=== PATIENT | male | born 1985 | race Caucasian/White ===

== ENCOUNTER 2017-07-07 12:24 | Emergency (ER) | payer BC, SELFPAY | END 2017-07-07 13:42 | disposition home or self-care (01) | PROVIDERS: Emergency Provider Nurse Practitioner; Visit Provider Nurse Practitioner | DX: J06.9 Acute upper respiratory infection, unspecified (principal); K21.9 Gastro-esophageal reflux disease without esophagitis; Z72.0 Tobacco use | CPT/HCPCS: 71020; 87804; 87880; 96372; 99202 ==

== ENCOUNTER 2017-08-23 19:50 | Emergency (ER) | payer BC, SELFPAY ==
[2017-08-23 20:18] VITALS: BP 113/77; PULSE 72; RESP 20; TEMP 36.8; O2SAT 100; BMI 19.6
--- NOTE | 2017-08-23 20:33 | HMH.EDUTC ---
[facility] [place] Clinical Impression: URI with cough and congestion Disposition: Home, Self-Care Condition on Discharge: Good Instructions: DI for Cough -- Adult, DI for Sinusitis, Sore Throat Additional Instructions: * Monitor Temp. Tylenol and/or Ibuprofen as needed. ER if fever is no less than 101 despite alternating Tylenol and Ibuprofen * Encourage fluids, water, Gatorade, powerade, pedialyte if /toddler/or child * Warm salt water gargles for throat irritation *Warm fluids *Sore throat lozenges *Sleep elevated *humidifier or vaporizer Lots of rest Increase fluids, water, Gatorade, powerade *Flonase 2 sprays each nostril daily but may take 2-3 days to notice improvement with it *Bromfed may cause drowsiness. Know how it effect you or your child. Before driving, caring for small children or sending your child to school *Your throat swab was sent to lab for culture. Those results area typically sent to your primary care physician. Be sure to follow up in 2-3 days if no improvement so they can review those results and treat if necessary If you dont have primary care I recommend you get one, but in the mean time you will have to return to a walk in clinic Follow up IMMEDIATELY for new or worsening of symptoms OR no noticeable improvement over the next 48-72 hours. 911 immediately for any life threatening symptoms such as chest pain or difficulty breathing Prescriptions: Brompheniramine/Pseudoephed/Dm [Bromfed DM Cough Syrup 5mL] 10 ml PO Q4H PRN #250 syrup PRN Reason: Cough Fluticasone Propionate [Flonase 50mcg nasal spray 16gm] 2 spr NS DAILY #1 bottle Referrals: Provider,Referral, [Primary Care Provider] - Time of Disposition: 20:47 Medical Decision Making - Medical Records Medical records reviewed: Yes: I reviewed the patient's medical records. Vital Signs: 08/23/17 20:18 Temperature 98.2 F Temperature Source Temporal Artery Scan Pulse Rate [Right] 72 Respiratory Rate 20 Blood Pressure [Right Arm] 113/77 Blood Pressure Mean [Right Arm] 89 Blood Pressure Source [Right Arm] Automatic Cuff Blood Pressure Position [Right Arm] Sitting 02 Sat by Pulse Oximetry 100 Oxygen Delivery Method Room Air - Immanuel Inquiry Pt receiving controlled substance: No Immanuel was queried for this patient: No [facility] [place] HPI - General Stated complaint: Cough, Sore throat, SOB Mode of Arrival: Ambulatory Source of Information: Patient Limitations: No Limitations Description of Symptoms (Recalled from Triage Doc. by RN): SORE THROAT HEENT Symptoms (Recalled from RN notes): Yes Resp Symptoms (Recalled from RN notes): No Skin Symptoms (Recalled from RN notes): No MS Symptoms (Recalled from RN notes): No Functional Status (Recalled from RN notes): N - History of Present Illness Provider Complaint: Patient state that he has been having sore throat, cough, sinus pain and pressure along with congestion for the last several days that has continued to get worse State that he is having pain and pressure feeling around his eyes states that he is not sure if he has had a fever or not but just does not feel well - Related Data Previous Rx's Medication Instructions Recorded Brompheniramine/Pseudoephed/Dm 10 ml PO Q4H PRN #250 syrup 08/23/17 [Bromfed DM Cough Syrup 5mL] Fluticasone Propionate [Flonase 2 spr NS DAILY #1 bottle 08/23/17 50mcg nasal spray 16gm] Allergies Allergy/AdvReac Type Severity Reaction Status Date / Time No Known Allergies Allergy Verified 08/23/17 20:24 - Worker's Comp Is this a Worker's Comp case?: No [facility] History I have reviewed the patient's past medical history: Yes - *Social History Smoking Status: Current every day smoker Tobacco Type: cigarettes Alcohol Intake: never - Psychiatric History Expresses thoughts of harming self/others: None Suicide Plan Description: No Plan ROS Obtained: Yes All systems reviewed & no additional complaints - ENT Ears, Nose, Mouth, and Thro
--- NOTE | 2017-08-23 20:38 | ED_ITS ---
[facility] [place]: URI with cough and congestion Disposition: Home, Self-Care Condition on Discharge: Good Instructions: DI for Cough -- Adult, DI for Sinusitis, Sore Throat Additional Instructions: * Monitor Temp. Tylenol and/or Ibuprofen as needed. ER if fever is no less than 101 despite alternating Tylenol and Ibuprofen * Encourage fluids, water, Gatorade, powerade, pedialyte if /toddler/or child * Warm salt water gargles for throat irritation *Warm fluids *Sore throat lozenges *Sleep elevated *humidifier or vaporizer Lots of rest Increase fluids, water, Gatorade, powerade *Flonase 2 sprays each nostril daily but may take 2-3 days to notice improvement with it *Bromfed may cause drowsiness. Know how it effect you or your child. Before driving, caring for small children or sending your child to school *Your throat swab was sent to lab for culture. Those results area typically sent to your primary care physician. Be sure to follow up in 2-3 days if no improvement so they can review those results and treat if necessary If you don? t have primary care I recommend you get one, but in the mean time you will have to return to a walk in clinic Follow up IMMEDIATELY for new or worsening of symptoms OR no noticeable improvement over the next 48-72 hours. 911 immediately for any life threatening symptoms such as chest pain or difficulty breathing Prescriptions: Brompheniramine/Pseudoephed/Dm [Bromfed DM Cough Syrup 5mL] 10 ml PO Q4H PRN # 250 syrup PRN Reason: Cough Fluticasone Propionate [Flonase 50mcg nasal spray 16gm] 2 spr NS DAILY #1 bottle Referrals: Provider,Referral, [Primary Care Provider] - Time of Disposition: 20:47 Medical Decision Making - Medical Records Medical records reviewed: Yes: I reviewed the patient's medical records. Vital Signs: 08/23/17 20:18 Temperature 98.2 F Temperature Source Temporal Artery Scan Pulse Rate [Right] 72 Respiratory Rate 20 Blood Pressure [Right Arm] 113/77 Blood Pressure Mean [Right Arm] 89 Blood Pressure Source [Right Arm] Automatic Cuff Blood Pressure Position [Right Arm] Sitting 02 Sat by Pulse Oximetry 100 Oxygen Delivery Method Room Air - Immanuel Inquiry Pt receiving controlled substance: No Immanuel was queried for this patient: No [facility] [place] - General Stated complaint: Cough, Sore throat, SOB Mode of Arrival: Ambulatory Source of Information: Patient Limitations: No Limitations Description of Symptoms (Recalled from Triage Doc. by RN): SORE THROAT HEENT Symptoms (Recalled from RN notes): Yes Resp Symptoms (Recalled from RN notes): No Skin Symptoms (Recalled from RN notes): No MS Symptoms (Recalled from RN notes): No Functional Status (Recalled from RN notes): N - History of Present Illness Provider Complaint: Patient state that he has been having sore throat, cough, sinus pain and pressure along with congestion for the last several days that has continued to get worse State that he is having pain and pressure feeling around his eyes states that he is not sure if he has had a fever or not but just does not feel well - Related Data Previous Rx's Medication Instructions Recorded Brompheniramine/Pseudoephed/Dm 10 ml PO Q4H PRN #250 syrup 08/23/17 [Bromfed DM Cough Syrup 5mL] Fluticasone Propionate [Flonase 2 spr NS DAILY #1 bottle 08/23/17 50mcg nasal spray 16gm] Allergies Allergy/AdvR
[2017-08-23 20:47] LABS: UTC Influenza A Antigen Negative (Negative); UTC Influenza B Antigen Negative (Negative); UTC Strep Screen (Rapid) Negative (Negative)
[2017-08-23 21:08] VITALS: BP 110/77; PULSE 70; RESP 18; TEMP 36.6
== END 2017-08-23 21:09 | disposition home or self-care (01) ==
PROVIDERS: Emergency Provider Nurse Practitioner; Family Provider Nurse Practitioner Family
DX: J06.9 Acute upper respiratory infection, unspecified (principal); R06.02 Shortness of breath
CPT/HCPCS: 87804; 87880; 96372; 99201

== ENCOUNTER 2017-09-15 12:56 | Inpatient (IN) | payer BC, SELFPAY ==
--- NOTE | 2017-09-15 | XR_ITS ---
XR ribs LT 2V HISTORY: Left-sided chest pain ORDERING PHYSICIAN: Brianda Ramos MD PATIENT AGE: 31 years COMPARISON: Chest x-ray of the same day FINDINGS: A frontal view of the chest shows small left-sided pneumothorax measuring 2.9 cm in width at the lung apex approximately 10% of the total lung volume.. Multiple views of the Left ribs were obtained. No fracture or dislocation. No lytic or blastic change. IMPRESSION: 1. Negative left ribs. 2. Small left-sided pneumothorax
[2017-09-15 12:59] VITALS: BP 121/62; PULSE 75; RESP 18; TEMP 36.7; O2SAT 98; BMI 19.0
--- NOTE | 2017-09-15 13:15 | XR_ITS ---
XR chest 2V HISTORY: Left-sided chest pain Chest pain ORDERING PHYSICIAN: Brianda Ramos MD PATIENT AGE: 31 years COMPARISON: 07/07/2017 FINDINGS: The cardiomediastinal silhouette and pulmonary vascularity are within normal limits. There is a small left-sided pneumothorax which measures 2.9 cm in thickness at the apex of the lung. No midline shift or diaphragmatic depression. No lobar consolidation or collapse. No acute bony anomalies. IMPRESSION: Small left-sided pneumothorax. Significant result called to Dr. Richard MD on 09/15/2017 2:06 PM.
--- NOTE | 2017-09-15 13:23 | HMH.EDGENADL ---
ED Disposition Clinical Impression: Rib pain on left side, Spontaneous pneumothorax Disposition: Still a Patient Condition on Discharge: Fair Referrals: Provider,Referral, [Primary Care Provider] - Edwin Greenwood MD [Staff Physician] - - Critical Care Critical Care Time: No Attestation: On , the high probability of a clinically significant, sudden or life threatening deterioration of the following system(s) required my full and direct attention, intervention and personal management. The time I documented below is in addition to time spent performing reported procedures but includes the following listed in this critical care notation. Medical Decision Making Vital Signs: 09/15/17 12:59 Temperature 98.1 F Temperature Source Oral Pulse Rate [Right Brachial] 75 Respiratory Rate 18 Blood Pressure [Right Arm] 121/62 Blood Pressure Mean [Right Arm] 81 Blood Pressure Source [Right Arm] Automatic Cuff Blood Pressure Position [Right Arm] Sitting 02 Sat by Pulse Oximetry 98 Oxygen Delivery Method Room Air - Lab Data Lab Results 09/15/17 13:50: WBC 7.6, RBC 5.09, Hgb 16.0, Hct 48.2, MCV 94.8 H, MCH 31.4 H, MCHC 33.2, RDW 12.8, Plt Count 199, MPV 8.1, Neut % (Auto) 72.0, Lymph % (Auto) 21.6, [place] % (Auto) 5.2, Eos % (Auto) 0.9, Baso % (Auto) 0.4, Neut # (Auto) 5.5, Lymph # (Auto) 1.6, [place] # (Auto) 0.4, Eos # (Auto) 0.1, Baso # (Auto) 0.0 09/15/17 13:50: Sodium 139, Potassium 4.3, Chloride 105, Carbon Dioxide 27, Anion Gap 11.3, BUN 13, Creatinine 0.88, Estimated Creat Clear 111, Estimated GFR 102, Est GFR ( Amer) 124, Glucose 92, Calcium 9.0, Total Bilirubin 0.6, AST 13 L, ALT 28, Alkaline Phosphatase 96, Troponin I < 0.02, Total Protein 7.6, Albumin 4.2, Globulin 3.4 H, Albumin/Globulin Ratio 1.2 Result diagrams: 09/15/17 13:50 09/15/17 13:50 Orders (Tests/Meds): ED MEDICATIONS Discontinued Medications Generic Name Dose Route Start Last Admin Trade Name Zanaq PRN Reason Stop Dose Admin Famotidine 20 mg 09/15/17 13:15 09/15/17 13:47 Pepcid 20mg/2ml Vial IV 09/15/17 13:16 20 mg ONCE ONE Administration Ketorolac Tromethamine 15 mg 09/15/17 13:15 09/15/17 13:47 Toradol 30mg/Ml Vial IV 09/15/17 13:16 15 mg ONCE ONE Administration ORDERS Category Date Time Status B-Type Natriuretic Peptide Stat Lab 09/15/17 13:50 Received D-Dimer Stat Lab 09/15/17 13:50 Received ECG Request by /Martina Stat Y 09/15/17 13:15 Ordered - Radiology Data #1 Image(s): Chest Image Reviewed: Yes I reviewed the patient's radiology image, Yes I discussed the image results w/the radiologist, Yes I have reviewed radiologist's interpretation, Yes I reviewed the patient's radiology image w/the ED provider Preliminary Findings: Abnormal No rib fracture 10% left-sided pneumothorax. - Immanuel Inquiry Pt receiving controlled substance: No Immanuel was queried for this patient: No Medical Decision Making Narrative: I called the on-call surgeon Dr. Greenwood who agreed to admit the patient for observation. I spoke with the patient about being admitted to [facility] for observation and he was agreeable. His questions and the family questions were answered to the best of my ability. General Adult HPI - General Chief complaint: PAIN Stated complaint: L rib pain Mode of Arrival: EMS Limitations: No Limitations Description of Symptoms (Recalled from ER Triage Doc. by RN): Pt c/o pain in L rib area radiating into upper chest and shoulder, states pain began lastnight after he moved him self around on the bed - History of Present Illness HPI narrative: 31 years old white male smoker with hx of alcoholism. Yesterday at 11:00 PM and while laying on a prone position watching TV when he twisted and developed the sudden onset of popping sound and pain at the left lower costochondral junction. The pain started radiating to his back worse with deep breathing and cough. He d
--- NOTE | 2017-09-15 13:26 | ED_ITS ---
ED Disposition Clinical Impression: Rib pain on left side, Spontaneous pneumothorax Disposition: Still a Patient Condition on Discharge: Fair Referrals: Provider,Referral, [Primary Care Provider] - Edwin Greenwood MD [Staff Physician] - - Critical Care Critical Care Time: No Attestation: On , the high probability of a clinically significant, sudden or life threatening deterioration of the following system(s) required my full and direct attention, intervention and personal management. The time I documented below is in addition to time spent performing reported procedures but includes the following listed in this critical care notation. Medical Decision Making Vital Signs: 09/15/17 12:59 Temperature 98.1 F Temperature Source Oral Pulse Rate [Right Brachial] 75 Respiratory Rate 18 Blood Pressure [Right Arm] 121/62 Blood Pressure Mean [Right Arm] 81 Blood Pressure Source [Right Arm] Automatic Cuff Blood Pressure Position [Right Arm] Sitting 02 Sat by Pulse Oximetry 98 Oxygen Delivery Method Room Air - Lab Data Lab Results 09/15/17 13:50: WBC 7.6, RBC 5.09, Hgb 16.0, Hct 48.2, MCV 94.8 H, MCH 31.4 H, MCHC 33.2, RDW 12.8, Plt Count 199, MPV 8.1, Neut % (Auto) 72.0, Lymph % (Auto) 21.6, Wilson % (Auto) 5.2, Eos % (Auto) 0.9, Baso % (Auto) 0.4, Neut # (Auto) 5.5 , Lymph # (Auto) 1.6, Wilson # (Auto) 0.4, Eos # (Auto) 0.1, Baso # (Auto) 0.0 09/15/17 13:50: Sodium 139, Potassium 4.3, Chloride 105, Carbon Dioxide 27, Anion Gap 11.3, BUN 13, Creatinine 0.88, Estimated Creat Clear 111, Estimated GFR 102, Est GFR ( Amer) 124, Glucose 92, Calcium 9.0, Total Bilirubin 0.6, AST 13 L, ALT 28, Alkaline Phosphatase 96, Troponin I < 0.02, Total Protein 7.6, Albumin 4.2, Globulin 3.4 H, Albumin/Globulin Ratio 1.2 Result diagrams: 09/15/17 13:50 09/15/17 13:50 Orders (Tests/Meds): ED MEDICATIONS Discontinued Medications Generic Name Dose Route Start Last Admin Trade Name Opal PRN Reason Stop Dose Admin Famotidine 20 mg 09/15/17 13:15 09/15/17 13:47 Pepcid 20mg/2ml Vial IV 09/15/17 13:16 20 mg ONCE ONE Administration Ketorolac Tromethamine 15 mg 09/15/17 13:15 09/15/17 13:47 Toradol 30mg/Ml Vial IV 09/15/17 13:16 15 mg ONCE ONE Administration ORDERS Category Date Time Status B-Type Natriuretic Peptide Stat Lab 09/15/17 13:50 Received D-Dimer Stat Lab 09/15/17 13:50 Received ECG Request by /Martina Stat Y 09/15/17 13:15 Ordered - Radiology Data #1 Image(s): Chest Image Reviewed: Yes I reviewed the patient's radiology image, Yes I discussed the image results w/the radiologist, Yes I have reviewed radiologist's interpretation, Yes I reviewed the patient's radiology image w/the ED provider Preliminary Findings: Abnormal No rib fracture 10% left-sided pneumothorax. - Immanuel Inquiry Pt receiving controlled substance: No Immanuel was queried for this patient: No Medical Decision Making Narrative: I called the on-call surgeon Dr. Greenwood who agreed to admit the patient for observation. I spoke with the patient about being admitted to [facility] for observation and he was agreeable. His questions and the family questions were answered to the best of my ability. General Adult HPI - General Chief complaint: PAIN Stated compl
[2017-09-15 14:03] LABS: Hematocrit 48.2 % (42.0-52.0); Mean Corpuscular HGB Conc 33.2 g/dL (31.8-35.4); Mean Corpuscular Hemoglobin 31.4 pg (27.0-31.2); Mean Corpuscular Volume 94.8 fl (80-94); Mean Platelet Volume 8.1 fl (7.4-10.4); Platelet Count 199 K/mm3 (142-424); Red Blood Count 5.09 M/mm3 (4.60-6.20); Red Cell Distribution Width 12.8 % (11.5-17.5); White Blood Count 7.6 K/mm3 (4.8-10.8)
[2017-09-15 14:04] LABS: Basophils % 0.4 % (0.1-2.0); Eosinophils # 0.1 K/mm3 (0.0-0.4); Eosinophils % 0.9 % (0.1-12.0); Lymphocytes # 1.6 K/mm3 (0.7-4.5); Lymphocytes % 21.6 K/mm3 (10-50); Monocytes # 0.4 K/mm3 (0.1-1.0); Monocytes % 5.2 % (1.7-9.3); Neutrophils # 5.5 K/mm3 (1.8-7.8)
[2017-09-15 14:14] LABS: Alanine Aminotransferase 28 U/L (12-78); Albumin Level 4.2 gm/dL (3.4-5.0); Albumin/Globulin Ratio 1.2 (1.1-1.8); Alkaline Phosphatase 96 U/L (46-116); Anion Gap 11.3 mEq/L (5-15); Aspartate Amino Transferase 13 U/L (15-37); Bilirubin,Total 0.6 mg/dL (0.2-1.0); Blood Urea Nitrogen 13 mg/dL (7-18); Carbon Dioxide 27 mmol/L (21.0-32.0); Chloride 105 mmol/L (98-107); Creatinine Clearance Estimated 111 mL/min (0-300); Creatinine,Serum 0.88 mg/dL (0.70-1.30); Estimated Glomerular Filt Rate 102 ml/min (>60); GFR (African American) 124 ML/MIN (>60); Globulin 3.4 gm/dl (1.3-3.2); Glucose 92 mg/dL (74-106); Potassium 4.3 mmoL/L (3.5-5.1); Sodium 139 mmol/L (136-145); Total Protein,Serum 7.6 gm/dL (6.4-8.2); Troponin I < 0.02 ng/ml (0.00-0.06)
[2017-09-15 14:25] LABS: D-Dimer < 100 (0-400)
[2017-09-15 16:44] VITALS: BP 213/105; PULSE 102; RESP 18; TEMP 36.8; O2SAT 98
[2017-09-15 16:56] VITALS: BP 118/60; PULSE 91; RESP 20; TEMP 36.8; O2SAT 99; BMI 17.1
--- NOTE | 2017-09-15 18:30 | XR_ITS ---
XR chest portable 1826 hours HISTORY: Follow-up pneumothorax ITS.REASON: left PTX ORDERING PHYSICIAN: Edwin Greenwood MD PATIENT AGE: 31 years COMPARISON: 09/15/2017 1319 hours FINDINGS: Left-sided pneumothorax is once again noted and is slightly increased in size measuring 3.6 cm at the lung apex previously at 2.9 cm. The pneumothorax occupies approximately 10% of the total lung volume. No mediastinal shift or diaphragmatic depression. The right lung is clear. IMPRESSION: Slight increase in size in left-sided pneumothorax
[2017-09-15 20:00] VITALS: BP 113/64; PULSE 68; RESP 18; TEMP 36.9; O2SAT 100
[2017-09-15 23:53] VITALS: RESP 16
[2017-09-16] VITALS (17 sets, daily range): BP systolic 110–129; BP diastolic 48–98; PULSE 58–89; RESP 16–22; TEMP 36.4–37.3; O2SAT 7–100; BMI 17.1
--- NOTE | 2017-09-16 03:23 | PC.NURSE ---
no changes noted from previous assessment, pt c/o pain in the left side made worse by walking relieved when leaning forward, scheduled medications made pain tolerable and pt was able to rest most of the night, pt denies SOA, breath sounds are clear to auscultation, bowel sounds are active, vss, no acute distress noted at this time, call light in reach, will continue to monitor.
--- NOTE | 2017-09-16 06:00 | XR_ITS ---
XR chest 2V 0557 hours HISTORY: Follow-up pneumothorax ITS.REASON: left PTX ORDERING PHYSICIAN: Edwin Greenwood MD PATIENT AGE: 31 years COMPARISON: 09/15/2017 1826 hours FINDINGS: The cardiomediastinal silhouette and pulmonary vascularity are within normal limits. There remains a small left sided pneumothorax which measures 3.6 cm in thickness at the lung apex and 1 cm in thickness laterally. On the lateral view the pneumothorax extends posteriorly measuring up to 2 cm in thickness inferiorly. The lateral portion of the pneumothorax is somewhat more prominent. The right lung is clear. No mediastinal shift. Left hemidiaphragm may be slightly depressed compared to the previous exams. No effusions or infiltrates. There is some minimal atelectatic change in the left lung base. IMPRESSION: Small left-sided pneumothorax appears very slightly larger compared to the previous exam and there may be some mild diaphragmatic depression. The pneumothorax approximately 10% of the total lung volume
--- NOTE | 2017-09-16 06:37 | HMH.HP ---
*Admission Date: 09/15/17 *Chief complaint: left chest pain *History of present illness: This is a 31-year-old gentleman who presented to the emergency department with increasing intermittent pain in the left chest. He states that this started at about 11:00 the night before . He developed sharp pain and some intermittent shortness of air. No hemoptysis. No fevers. Evaluation in the emergency department included a chest x-ray which revealed a left apical pneumothorax of approximately 10%. This morning he feels much better . [facility] History Medical History: Denies:: Cancer, Diabetes Mellitus Type 1, Diabetes Mellitus Type 2, MRSA Other Surgeries: Yes: Colonoscopy, EGD Amputation: No Fractures: No - *Social History Educational Level: Completed High School Smoking Status: Current every day smoker Tobacco Type: cigarettes # Packs/Day (cigarettes): 1 Alcohol Intake: former Alcohol Intake Frequency:: a few times a week Substance Use Type: painkillers Last Used Substance: unknown Occupational Status: employed Housing: house Household Members: family - Psychiatric History Expresses thoughts of harming self/others: None Suicide Plan Description: No Plan *Family Hx:: Cancer, Coronary Artery Disease, Diabetes, Hypertension, Stroke, Tuberculosis Review of Systems - Constitutional Denies anorexia - Eyes Denies change in vision - ENT Denies abnormal hearing - *Cardiovascular Denies leg swelling - *Respiratory Denies cough - *Gastrointestinal Denies abdominal pain - *Genitourinary Denies difficulty urinating - *Musculoskeletal Denies abnormal walking - Psychiatric Denies anxiety - Hematologic/Lymphatic Denies easy bleeding Meds Home Medications Medication Instructions Recorded Confirmed Type Esomeprazole Magnesium [Nexium] 20 mg PO DAILY 09/15/17 09/15/17 History Allergies Allergy/AdvReac Type Severity Reaction Status Date / Time No Known Allergies Allergy Verified 09/15/17 12:58 Exam Vital signs and Labs for Last 24 Hours: Temp Pulse Resp BP Pulse Ox 97.8 F 64 16 117/48 98 09/16/17 04:32 09/16/17 04:32 09/16/17 04:32 09/16/17 04:32 09/16/17 04:32 I & O for Last 24 hours: Intake & Output 09/13/17 09/14/17 09/15/17 09/16/17 11:59 11:59 11:59 11:59 Intake Total 740 / 740 Balance 740 / 740 Weight 4 lb 0.551 oz - Constitutional no acute distress - *Routine HEENT Exam Head: Present: normocephalic, atraumatic - *Routine Neck Exam Present: full ROM - *Routine Respiratory Exam Present: CTA bilaterally - *Routine Cardiovascular Exam Present: RRR - *Routine Abdominal Exam Present: soft. Absent: tenderness - *Routine Extremities Exam Present: full ROM. Absent: cyanosis, clubbing, edema - *Routine Neurological Exam Present: alert, oriented X3 - Routine Psychiatric Exam Present: normal affect Assessment and Plan (1) Spontaneous pneumothorax Current visit: Yes Status: Acute Category: Medical Code(s): J93.83 - Other pneumothorax Small left apical pneumothorax Nasal cannula oxygen Follow-up morning chest film I have had a long discussion with the patient concerning the different courses of spontaneous pneumothoraces. He understands the possibility of recurrence, thoracostomy tubes, pneumothorax tubes, and possible surgical intervention.
--- NOTE | 2017-09-16 07:38 | P.CONPHA_ITS ---
[facility] Pharmacy VTE Monitoring - Patient Demographics Admission date: 09/15/17 Report Date: 09/16/17 Time: 07:37 Allergies/Adverse Reactions: Patient Allergies No Known Allergies Allergy (Verified 09/15/17 12:58) Height: 1.83 m Weight: 57.238 kg Patient Problems: Current Active Problems Rib pain on left side (Acute) Spontaneous pneumothorax (Acute) - VTE Risk Labs: VTE Related Lab Results Hgb 16.0 g/dL (14.1-18.0) 09/15/17 13:50 Hct 48.2 % (42.0-52.0) 09/15/17 13:50 Plt Count 199 K/mm3 (142-424) 09/15/17 13:50 BUN 13 mg/dL (7-18) 09/15/17 13:50 Creatinine 0.88 mg/dL (0.70-1.30) 09/15/17 13:50 Estimated Creat Clear 111 mL/min (0-300) 09/15/17 13:50 VTE Score: 0 VTE Risk Level: Very Low Risk - Prophylaxis VTE Prophylaxis Ordered?: Yes Types of VTE Prophylaxis: TEDS Knee High Location of Applied Device: Bilateral Lower Extremeties - VTE Diagnosis Confirmed Treatment or plan recommended: Continue Current Treatment
--- NOTE | 2017-09-16 12:00 | XR_ITS ---
XR chest 2V 1156 hours HISTORY: ITS.REASON: left PTX ORDERING PHYSICIAN: Edwin Greenwood MD PATIENT AGE: 31 years COMPARISON: Prior exam from the same day FINDINGS: The left-sided pneumothorax is enlarging now occupying approximately 20-25% of the total lung volume. The apical pleural distance is 5.2 cm compared to 3.6 cm. The pneumothorax laterally measures 2.4 cm previously 1 cm. Posteriorly the pneumothorax measures 3.7 cm compared to 2 cm previously. No significant mediastinal shift. Left hemidiaphragm is slightly depressed but not significant change. Small left effusion is also suspected IMPRESSION: Enlarging left-sided pneumothorax. Please see above for detail Significant findings called to the patient's nurse Emilie on 09/16/2017 12:28 PM.
--- NOTE | 2017-09-16 13:27 | XR_ITS ---
XR chest portable 1322 hours HISTORY: Chest tube placement for pneumothorax ITS.REASON: chest tube ORDERING PHYSICIAN: Edwin Greenwood MD PATIENT AGE: 31 years COMPARISON: Same day FINDINGS: There is been interval insertion of the chest tube on the left. There is been near complete resolution of the left-sided pneumothorax with only minimal apical component. The lungs are clear. The heart and pulmonary vasculature are unremarkable. IMPRESSION: Interval placement of left-sided chest tube with near complete resolution of left-sided pneumothorax
--- NOTE | 2017-09-16 13:30 | PC.NURSE ---
pt had chest tube placed by Dr Greenwood. Time out was performed at 1254. Fidencio Mack rn and Shantelle Galvez srna chiquita miranda. procedure end was at 1325
--- NOTE | 2017-09-16 13:45 | HMH.OPNOTE ---
Date of procedure: 09/16/17 Pre-op Diagnosis:: Spontaneous left pneumothorax Post-op Diagnosis:: Same Procedure performed:: Left thoracostomy tube (24 Faroese) Surgeon:: Edwin Greenwood MD Anesthesia: local Estimated blood loss (mL): 5 Clinical Note:: This is a 31-year-old gentleman who presented with a spontaneous 10% left pneumothorax. Follow-up chest films revealed expansion and the decision was made to proceed with thoracostomy tube placement. Operative findings:: Small colorado of air noted at time of placement Operative note:: After informed consent was obtained, the patient maintained in a supine position. The left chest was prepped and draped in a sterile fashion. After infiltration with local anesthetic an incision was made just below the 6 interspace. The deep subcutaneous she was carefully dissected up and over the rib margin. The chest cavity was entered and a small colorado of air was noted. A 24 Faroese chest tube was then secured in position and anchored at 14 cm utilizing interrupted silk suture. Dressings were applied and a chest x-ray is pending. Condition: stable Disposition: no change Complications:: no immediate
--- NOTE | 2017-09-16 17:53 | PC.NURSE ---
31 YEAR OLD WHITE MALE PRESENTED TO THE ER ON 09/15/17 WITH A CHIEF COMPLAINT OF INTERMITTENT PAIN LEFT CHEST. HE WAS ADMITTED TO THE HOSPITAL WITH A DIAGNOSIS OF LEFT PNEUMOTHORAX. DR. PATRICIA CONSULTED A CHEST TUBE WAS INSERTED. PATIENT TOLERATED THE PROCEDURE WELL. HE COMPLAINED OF PAIN THIS AFTERNOON AND WAS GIVEN A HYDROCODONE PER ORDER. PATIENT STATES AFTER THE MEDICATION WAS GIVEN THAT HE WAS ADDICTED TO PAIN PILLS APPROXIMATELY 7 YEARS AGO AND WOULD PREFER IV PAIN MEDS IF AT ALL POSSIBLE. HE RATED HIS PAIN AT AN 8/10 30 MINUTES AFTER PAIN MEDICATION HE RATED THE PAIN 6/10. HE HAS FAMILY AT BEDSIDE AND STATES HE IS FEELING SOME BETTER AT THIS TIME. HE REFUSED HIS MELIZA HOSE. HE IS ON 2 LITERS OF OXYGEN PER NASAL CANULA. WILL CONTINUE TO MONITOR. SONIA ALCANTAR, MSN, RN
--- NOTE | 2017-09-16 19:20 | PC.NURSE ---
PT FULL CODE, REPORT FROM [email or web address]
--- NOTE | 2017-09-16 19:45 | PC.NURSE ---
late entry: verified via multiple conversations with Dr Greenwood that he DOES NOT want any type of hemostats to be present at bedside. if issues arise contact surgeon. if tube becomes disconnected, reconnect the tube and notify surgeon. DO NOT clamp the chest tube with hemostats. primary care nurse, CNO and Nurse Rail Splitter notified of Dr Greenwood's request.
[2017-09-17] VITALS: BP 115/61; PULSE 64; RESP 18; TEMP 37.1; O2SAT 100
[2017-09-17 04:00] VITALS: BP 98/60; PULSE 71; RESP 18; TEMP 36.5; O2SAT 100
--- NOTE | 2017-09-17 04:06 | PC.NURSE ---
PT AWAKE FOR OVER HALF OF SHIFT OF THIS TIME. HE HAD FRIEND FROM OUT OF TOWN VISITING. SIGNIFICANT OTHER AT BEDSIDE. IV IN RIGHT FOREARM SECURE AND PATENT, SALINE LOCKED. C/O PAIN REQUESTING PRN PAIN MED X1 OF THIS TIME. STILL RECEIVING SCHEDULED TORADOL WELL. ON OXYGEN 2L NC; RESPIRATIONS EVEN AND UNLABORED. BREATH SOUNDS CLEAR, ONLY SLIGHTLY DIMINISHED IN LEFT BASE. PT HAS LABS THIS AM AND REPEAT CXR. LEFT CHEST TUBE TO 20CM WALL SUCTION. DRESSING AND TAPE CLEAN/DRY/INTACT. NO C/O SOA. PT STABLE. VITAL SIGNS WNL. WILL CONTINUE TO MONITOR. REPORT TO BE GIVEN TO ONCOMING NURSE.
--- NOTE | 2017-09-17 06:00 | XR_ITS ---
XR chest portable 0600 hours HISTORY: Follow-up pneumothorax ITS.REASON: left PTX ORDERING PHYSICIAN: Edwin Greenwood MD PATIENT AGE: 31 years COMPARISON: 09/16/2017 FINDINGS: Left chest tube remains in place. There is a tiny residual left apical pneumothorax probably not significant changed. This measures approximately 5 mm thickness Remaining lungs are clear. Unremarkable cardiovascular structures. IMPRESSION: Small residual left apical pneumothorax status post chest tube placement unchanged
--- NOTE | 2017-09-17 07:15 | PC.NURSE ---
REPORT GIVEN TO Prasad ALCANTAR W/C
[2017-09-17 07:41] VITALS: BP 98/57; PULSE 58; RESP 16; TEMP 37; O2SAT 100
[2017-09-17 08:00] VITALS: O2SAT 100
--- NOTE | 2017-09-17 08:32 | HMH.GSPN ---
Subjective Patient reports: no new complaints, feels better Exam Vital signs and Labs for Last 24 Hours: Temp Pulse Resp BP Pulse Ox 98.6 F 58 L 16 98/57 100 09/17/17 07:41 09/17/17 07:41 09/17/17 07:41 09/17/17 07:41 09/17/17 07:41 I & O for Last 24 hours: Intake & Output 09/14/17 09/15/17 09/16/17 09/17/17 11:59 11:59 11:59 11:59 Intake Total 1100 / 1100 720 / 720 Output Total 522 / 522 Balance 1100 / 1100 198 / 198 Weight 126 lb 3.011 oz - Constitutional no acute distress - *Routine Respiratory Exam Absent: respiratory distress Comments: tiny leak noted with cough/movement - *Routine Cardiovascular Exam Present: RRR - *Routine Abdominal Exam Present: soft Progress Note: A&P (1) Spontaneous pneumothorax Status: Acute Assessment and plan: tiny leak noted continue chest tube to suction for now possible water seal tomorrow repeat CXR in AM Current Visit: Yes
--- NOTE | 2017-09-17 11:37 | PC.NURSE ---
0715 - Received report from Javier Nance RN
[2017-09-17 15:58] VITALS: BP 112/69; PULSE 71; RESP 18; TEMP 37.2; O2SAT 100
--- NOTE | 2017-09-17 16:45 | PC.NURSE ---
Pt has been A&Ox3 this shift in NAD. VSS. Afebrile. Lungs CTA and diminished in (L) base. (L) chest tube patent to 20cm wall suction. No crepitus palpated. No air leak appreciated this shift. O2 @ 2LPM via NC. Pt reports pain with movement and requested [place] x1 as of this documentation. (R) FA IV saline locked; no s/s of infiltration. Flushes easily /c good blood return. BLE MELIZA hospablo refused. Bed in low position. Call jesus within reach. Will continue to monitor.
--- NOTE | 2017-09-17 17:42 | PC.NURSE ---
Nicoderm patch 21mg applied to (L) upper arm. Patch removed from (R) anterior chest.
--- NOTE | 2017-09-17 18:26 | PC.NURSE ---
Pleur-evac drng @ 30ml. Pt had a total of 8mls out this shift of red drng. No air leak noted.
--- NOTE | 2017-09-17 19:01 | PC.NURSE ---
Report given to Prasad Pacheco RN
[2017-09-17 19:58] VITALS: BP 105/57; PULSE 56; RESP 16; TEMP 36.4; O2SAT 100
[2017-09-18 04:16] VITALS: BP 107/57; PULSE 56; RESP 18; TEMP 36.5; O2SAT 98
--- NOTE | 2017-09-18 04:42 | PC.NURSE ---
PT HAS BEEN AWAKE HALF OF SHIFT, SITTING UP IN BED PLAYING VIDEO GAMES, S/O AT BEDSIDE. CONTINUES TO RECEIVE SCHEDULED PAIN MEDICATION FOR LCW PAIN, SHARP IN INTENSITY, AGGRAVATED BY MOVEMENT. REPORTS THAT TORADOL RELIEVES PAIN. NO PRN PAIN MEDICATION NEEDED THIS SHIFT. BREATH SOUNDS CLEAR, DIMINISHED IN LEFT LOWER LOBE. DENIES SHORTNESS OF BREATH. 02 @ 2L NC IN PLACE. LEFT CHEST TUBE IN PLACE TO 20CM WALL SUCTION, DRG SECURE AND INTACT. NO LEAKS NOTED AROUND DRG. PT DID C/O OF HEARTBURN LAST EVENING, WAS GIVEN SCHEDULED PROTONIX. PT C/O OF HEARTBURN CONTINUED AND HE WAS THEN GIVEN PRN TUMS, REPORTED RELIEF WITH REASSESSMENT. PT REPORTS HE HAS LOTS OF STOMACH ISSUES AND HEARTBURN AND DRINKS MAALOX ALL THE TIME. PT EDUCATED ON POC, MEDICATIONS, PAIN AND INTERVENTIONS, SAFETY, AND CALL LIGHT. LYING IN BED RESTING WITH S/O AT BEDSIDE, CALL LIGHT WITHIN REACH.
--- NOTE | 2017-09-18 06:00 | XR_ITS ---
XR chest portable 0606 hours HISTORY: Follow-up pneumothorax ITS.REASON: left PTX ORDERING PHYSICIAN: Edwin Greenwood MD PATIENT AGE: 31 years COMPARISON: 09/17/2017 FINDINGS: Left-sided chest tube remains in place. There is a tiny residual apical pneumothorax which is not simply changed. No lobar consolidation or collapse. IMPRESSION: No change left chest tube with tiny residual apical pneumothorax
--- NOTE | 2017-09-18 07:13 | PC.NURSE ---
REPORT GIVEN TO Javier ADRIAN W/C
[2017-09-18 07:26] VITALS: BP 103/48; PULSE 53; RESP 16; TEMP 36.8; O2SAT 99
--- NOTE | 2017-09-18 07:26 | PC.NURSE ---
HANDOFF REPORT GIVEN TO Mae TOUSSAINT RN
[2017-09-18 08:23] VITALS: RESP 18; O2SAT 99
--- NOTE | 2017-09-18 08:25 | HMH.GSPN ---
Subjective Patient reports: no new complaints Exam Vital signs and Labs for Last 24 Hours: Temp Pulse Resp BP Pulse Ox 98.3 F 53 L 16 103/48 99 09/18/17 07:26 09/18/17 07:26 09/18/17 07:26 09/18/17 07:26 09/18/17 07:26 I & O for Last 24 hours: Intake & Output 09/15/17 09/16/17 09/17/17 09/18/17 11:59 11:59 11:59 11:59 Intake Total 1100 / 1100 720 / 720 1090 / 1090 Output Total 522 / 522 504 / 504 Balance 1100 / 1100 198 / 198 586 / 586 Weight 126 lb 3.011 oz - Constitutional no acute distress - *Routine Respiratory Exam Present: CTA bilaterally Comments: no leak - *Routine Abdominal Exam Present: soft Progress Note: A&P (1) Spontaneous pneumothorax Status: Acute Assessment and plan: on suction with no leak and with stable tiny residual apical PTX Water Seal CXR at 14:00 Possible removal of chest tube tomorrow (pending repeat CXRs) Current Visit: Yes
--- NOTE | 2017-09-18 14:00 | XR_ITS ---
XR chest 2V 1350 hours HISTORY: Follow-up pneumothorax, chest tube to waterseal ITS.REASON: chest tube to water seal ORDERING PHYSICIAN: Edwin Greenwood MD PATIENT AGE: 31 years COMPARISON: Same day FINDINGS: Chest tube remains in place on the left. Previously described left apical pneumothorax is barely perceptible. Lungs are clear. No effusions or infiltrates. IMPRESSION: Tiny residual left apical pneumothorax barely perceptible decrease in size with left chest tube in place
[2017-09-18 15:35] VITALS: BP 100/54; PULSE 74; RESP 18; TEMP 36.8; O2SAT 99
--- NOTE | 2017-09-18 19:15 | PC.NURSE ---
PT FULL CODE; REPORT RECEIVED FROM RENA
[2017-09-18 20:00] VITALS: BP 104/61; PULSE 74; RESP 18; TEMP 36.8; O2SAT 99
[2017-09-18 21:20] VITALS: RESP 18; O2SAT 99
[2017-09-19] VITALS: BP 95/56; PULSE 78; RESP 18; TEMP 37; O2SAT 98
[2017-09-19 03:12] LABS: POC Glucose,Bedside 110 mg/dL (70-110)
[2017-09-19 04:00] VITALS: BP 101/50; PULSE 63; RESP 18; TEMP 36.4; O2SAT 100
--- NOTE | 2017-09-19 06:00 | XR_ITS ---
XR chest portable 0544 hours HISTORY: Follow-up pneumothorax ITS.REASON: left PTX ORDERING PHYSICIAN: Edwin Greenwood MD PATIENT AGE: 31 years COMPARISON: 09/18/2017 FINDINGS: Left-sided chest tube remains in place. There is increased density along the left pulmonary apex which could be due to some developing pleural thickening. No obvious pneumothorax apparent. Right lung is clear. IMPRESSION: Left chest tube present without obvious pneumothorax with pleural thickening in the left apex
--- NOTE | 2017-09-19 06:52 | PC.NURSE ---
PT SLEPT INTERVALS THIS SHIFT. IV SECURE AND PATENT TO SALINE LOCK. C/O PAIN, REQUESTED TYLENOL. BEGINNING OF SHIFT, PT ASKING ABOUT WATER CHAMBER ON CHEST TUBE SINCE IT WAS ON WATER SEAL. IT FLUCTUATES UP AND DOWN WITH INSPIRATION AND EXPIRATION. I TOLD HIM THIS SHOWS THAT THERE IS NO AIR LEAK. PT STATES HAS GERD, C/O HEARTBURN, TUMS GIVEN PER SEP. LATER PT C/O NAUSEA. PT HAS CHEST TUBE, DIDN'T WANT PT VOMITING. PT HAD NOTHING ORDERED FOR NAUSEA/VOMITING. SPOKE WITH DR. PATRICIA, HE ORDERED ZOFRAN WHICH WAS GIVEN. NEXT FEW HOURS LATER, PT C/O AIR IN HIS GUTS, AND IT FEELS FUNNY I ASKED IF HE WAS SHAKY, HE SAID YES. SPOT CHECK FINGER STICK, WAS 110. I ASKED PT IF HE THOUGHT HE WAS FEELING ANXIOUS/NERVOUS. HE SAID MAYBE. MEPRIDINE GIVEN FOR SHIVERING/SHAKINESS. NO FURTHER COMPLAINTS NOTED. PT STABLE. WILL CONTINUE TO MONITOR, REPORT TO BE GIVEN TO ONCOMING NURSE.
--- NOTE | 2017-09-19 07:29 | PC.NURSE ---
REPORT GIVEN TO Eladio MICHAEL W/C
--- NOTE | 2017-09-19 07:52 | HMH.GSPN ---
Subjective Patient reports: no new complaints (some nausea overnight...feels fine now) Exam Vital signs and Labs for Last 24 Hours: Temp Pulse Resp BP Pulse Ox 97.6 F 63 18 101/50 100 09/19/17 04:00 09/19/17 04:00 09/19/17 04:00 09/19/17 04:00 09/19/17 04:00 Laboratory Results - last 24 hr 09/19/17 03:04: POC Glucose 110 I & O for Last 24 hours: Intake & Output 09/16/17 09/17/17 09/18/17 09/19/17 11:59 11:59 11:59 11:59 Intake Total 1100 / 1100 720 / 720 1090 / 1090 990 / 990 Output Total 522 / 522 504 / 504 800 / 800 Balance 1100 / 1100 198 / 198 586 / 586 190 / 190 Weight 126 lb 3.011 oz Radiology Reports for the Last 24 Hours: no PTX noted this AM - Constitutional no acute distress - *Routine Respiratory Exam Absent: respiratory distress - *Routine Abdominal Exam Present: soft Progress Note: A&P (1) Spontaneous pneumothorax Status: Acute Assessment and plan: no PTX and no leak noted on water seal remove chest tube this AM Current Visit: Yes
[2017-09-19 08:00] VITALS: BP 103/56; PULSE 56; RESP 20; TEMP 36.9; O2SAT 98
--- NOTE | 2017-09-19 08:19 | HMH.ACPN ---
Internal Medicine - PN: Subj *Date: 09/19/17 *Time: 08:19 Exam Vital signs and Labs for Last 24 Hours: Temp Pulse Resp BP Pulse Ox 98.4 F 56 L 20 103/56 98 09/19/17 08:00 09/19/17 08:00 09/19/17 08:00 09/19/17 08:00 09/19/17 08:00 Laboratory Results - last 24 hr 09/19/17 03:04: POC Glucose 110 I & O for Last 24 hours: Intake & Output 09/16/17 09/17/17 09/18/17 09/19/17 23:59 23:59 23:59 23:59 Intake Total 740 / 740 840 / 840 1570 / 1570 30 / 30 Output Total 500 / 500 522 / 522 804 / 804 Balance 240 / 240 318 / 318 766 / 766 30 / 30 Weight 57.238 kg Assessment and Plan (1) Spontaneous pneumothorax Current visit: Yes Status: Acute Category: Medical Code(s): J93.83 - Other pneumothorax The patient's infection will respond to the chosen ABx?: Yes Is the patient receiving the right drug, dose, and route?: Yes Could a more targeted ABx be ordered?: No
--- NOTE | 2017-09-19 13:00 | XR_ITS ---
XR chest 2V HISTORY: Follow-up pneumothorax with chest tube removal ITS.REASON: left PTX...chest tube out ORDERING PHYSICIAN: Edwin Greenwood MD PATIENT AGE: 31 years COMPARISON: 09/19/2017 FINDINGS: Left-sided chest tube has been removed. Pleural stripe is noted superiorly suggesting a tiny residual pneumothorax. This is similar when compared to 09/18/2017. The lungs are otherwise clear. Unremarkable cardiovascular structures. IMPRESSION: Interval removal of left chest tube with tiny apical pneumothorax which is unchanged
[2017-09-19 15:31] VITALS: BP 102/63; PULSE 84; RESP 20; TEMP 36.9; O2SAT 100
--- NOTE | 2017-09-19 15:42 | P.DS_ITS ---
General - General Admission date: 09/15/17 Discharge date: 09/19/17 HPI HPI: This is a 31-year-old gentleman who presented to the emergency department with increasing intermittent pain in the left chest. He states that this started at about 11:00 the night before . He developed sharp pain and some intermittent shortness of air. No hemoptysis. No fevers. Evaluation in the emergency department included a chest x-ray which revealed a left apical pneumothorax of approximately 10%. This morning he feels much better . Hospital Course Hospital Course: The patient was admitted to the surgical service. Follow-up chest films revealed expansion of his pneumothorax and a 24 Hungarian chest tube was placed. His pneumothorax essentially resolved with only a small tiny apical haziness persisting. He did initially have very small air leak and this subsequently resolved. He was then placed to waterseal and subsequently his chest tube was removed when he showed no recurrence on follow-up films. All subsequent films revealed a stable and persistent tiny haziness consistent with possible apical pneumothorax. He remained asymptomatic and was deemed appropriate for discharge. Objective Vital signs: Temp Pulse Resp BP Pulse Ox 98.5 F 84 20 102/63 100 09/19/17 15:31 09/19/17 15:31 09/19/17 15:31 09/19/17 15:31 09/19/17 15:31 no acute distress - *Routine Respiratory Exam Present: CTA bilaterally. Absent: respiratory distress - *Routine Cardiovascular Exam Present: RRR - *Routine Abdominal Exam Present: soft Results Labs on day of discharge: Labs from last 24 hours 09/19/17 03:04 POC Glucose 110 DS: Diagnosis - Discharge Diagnosis (1) Spontaneous pneumothorax Status: Acute Problem details: Left spontaneous pneumothorax treated with 24 Hungarian chest tube. Tiny residual apical haziness persists on all follow-up films and the patient is stable after chest tube removal. No obvious or expansive pneumothorax. Discharge Plan - Patient Discharge Instructions ACTIVITY: Ambulate as tolerated DIET: regular diet Patient Instructions: Pneumothorax, DI for Pneumothorax, DI for Chest Tube Insertion - Follow up Plan Follow up with: Edwin Greenwood MD [Staff Physician] - 10/04/17 Disposition: Home, Self-Jail Medications: Home Medications Medication Instructions Recorded Confirmed Type Esomeprazole Magnesium [Nexium] 20 mg PO DAILY 09/15/17 09/15/17 History Prescriptions/Medication Reconciliation: No Action Esomeprazole Magnesium [Nexium] 20 mg PO DAILY
--- NOTE | 2017-09-19 15:43 | DIET.NUTRFU ---
Pt has complained of abd pain with eating. He has requested rx. PO intakes remain 100% all meals. he is receiving between meal nourishements and ensure supplements. Pt reports foods sent are adequate. Will continue intervention plans and monitor pt progress.
== END 2017-09-19 17:34 | disposition home or self-care (01) | DRG 201 ==
LOC: ER 14:23 → 2ND 09-16 07:07
PROVIDERS: Admitting Provider Surgery; Emergency Provider Emergency Medicine; Family Provider Nurse Practitioner Family; Visit Provider Surgery
DX: J93.83 Other pneumothorax (principal); Z72.0 Tobacco use
CPT/HCPCS: 32551; 71045; 71046; 71100; 80053; 82962; 83880; 84484; 85025; 85378; 93005; 94760; 94761; 96374; 96375; 99282; 99284; J2405

== ENCOUNTER 2017-10-19 16:26 | Emergency (ER) | payer BC, SELFPAY ==
[2017-10-19 16:36] VITALS: BP 115/67; PULSE 94; RESP 20; TEMP 37.3; O2SAT 98; BMI 19.6
--- NOTE | 2017-10-19 16:40 | HMH.EDUTC ---
[facility] [place] Clinical Impression: Upper respiratory infection Qualifiers: URI type: unspecified URI Qualified Code(s): J06.9 - Acute upper respiratory infection, unspecified Disposition: Home, Self-Care Condition on Discharge: Good Instructions: Sore Throat, DI for Sinusitis, Sinusitis Additional Instructions: * Monitor Temp. Tylenol and/or Ibuprofen as needed. ER if fever is no less than 101 despite alternating Tylenol and Ibuprofen * Encourage fluids, water, Gatorade, powerade, pedialyte if /toddler/or child * Warm salt water gargles for throat irritation *Warm fluids *Sore throat lozenges *Sleep elevated *humidifier or vaporizer Lots of rest Increase fluids, water, Gatorade, powerade *Flonase 2 sprays each nostril daily but may take 2-3 days to notice improvement with it *Bromfed may cause drowsiness. Know how it effect you or your child. Before driving, caring for small children or sending your child to school *Your throat swab was sent to lab for culture. Those results area typically sent to your primary care physician. Be sure to follow up in 2-3 days if no improvement so they can review those results and treat if necessary If you dont have primary care I recommend you get one, but in the mean time you will have to return to a walk in clinic Follow up IMMEDIATELY for new or worsening of symptoms OR no noticeable improvement over the next 48-72 hours. 911 immediately for any life threatening symptoms such as chest pain or difficulty breathing Prescriptions: Brompheniramine/Pseudoephed/Dm [Bromfed DM Cough Syrup 5mL] 10 ml PO Q4HP PRN #350 ml PRN Reason: Cough Azithromycin [Z-John Paul 250mg Tab] 250 mg PO UD DOSE PK #6 tab Fluticasone Propionate [Flonase 50mcg nasal spray 16gm] 2 spr NS DAILY #1 bottle predniSONE [Prednisone 5mg Tab Dose-Pack] 5 mg PO UD DOSE PK #21 pack Forms: Work/School Release Time of Disposition: 16:51 Medical Decision Making - Medical Records Medical records reviewed: Yes: I reviewed the patient's medical records. - Immanuel Inquiry Pt receiving controlled substance: No Immanuel was queried for this patient: No Vital Signs: 10/19/17 16:36 Temperature 99.1 F Temperature Source Temporal Artery Scan Pulse Rate [Brachial] 94 H Respiratory Rate 20 Blood Pressure [Right Arm] 115/67 Blood Pressure Mean [Right Arm] 83 Blood Pressure Source [Right Arm] Automatic Cuff Blood Pressure Position [Right Arm] Sitting 02 Sat by Pulse Oximetry 98 Oxygen Delivery Method Room Air - Lab Data Lab results reviewed: Yes: I reviewed the patient's lab results. [facility] [place] - General Stated complaint: fever,sore throat Time Seen by Provider: 10/19/17 16:35 Mode of Arrival: Ambulatory Source of Information: Patient Limitations: No Limitations Description of Symptoms (Recalled from Triage Doc. by RN): STUFFY NOSE, SORE THROAT AND NAUSEA SINCE LAST NIGHT HEENT Symptoms (Recalled from RN notes): Yes Resp Symptoms (Recalled from RN notes): No Skin Symptoms (Recalled from RN notes): No MS Symptoms (Recalled from RN notes): No Functional Status (Recalled from RN notes): NA - History of Present Illness Provider Complaint: Patient state that he has had stuffy nose and sore throat that has continued to get worse since last night States that he thinks he may have had a fever State that his girlfriend felt of him and told him that he felt hot so she gave him some Tylenol State that as the day went on today he has continued to feel worse. Denies SOA, Denies nausea - Related Data Home Medications Medication Instructions Recorded Confirmed Omeprazole Magnesium [Prilosec Otc 20 mg PO BID 10/19/17 10/19/17 20mg Tab] Previous Rx's Medication Instructions Recorded Azithromycin [Z-John Paul 250mg Tab] 250 mg PO UD DOSE PK #6 tab 10/19/17 Brompheniramine/Pseudoephed/Dm 10 ml PO Q4HP PRN #350 ml 10/19/17 [Bromfed DM Cough Syrup 5mL] Fluticasone Propionate [Flonase 2 spr NS DAILY #1 bottle 10/19/17 50mcg
--- NOTE | 2017-10-19 16:43 | ED_ITS ---
[facility] – [place], [place] Disposition Clinical Impression: Upper respiratory infection Qualifiers: URI type: unspecified URI Qualified Code(s): J06.9 - Acute upper respiratory infection, unspecified Disposition: Home, Self-Care Condition on Discharge: Good Instructions: Sore Throat, DI for Sinusitis, Sinusitis Additional Instructions: * Monitor Temp. Tylenol and/or Ibuprofen as needed. ER if fever is no less than 101 despite alternating Tylenol and Ibuprofen * Encourage fluids, water, Gatorade, powerade, pedialyte if /toddler/or child * Warm salt water gargles for throat irritation *Warm fluids *Sore throat lozenges *Sleep elevated *humidifier or vaporizer Lots of rest Increase fluids, water, Gatorade, powerade *Flonase 2 sprays each nostril daily but may take 2-3 days to notice improvement with it *Bromfed may cause drowsiness. Know how it effect you or your child. Before driving, caring for small children or sending your child to school *Your throat swab was sent to lab for culture. Those results area typically sent to your primary care physician. Be sure to follow up in 2-3 days if no improvement so they can review those results and treat if necessary If you don? t have primary care I recommend you get one, but in the mean time you will have to return to a walk in clinic Follow up IMMEDIATELY for new or worsening of symptoms OR no noticeable improvement over the next 48-72 hours. 911 immediately for any life threatening symptoms such as chest pain or difficulty breathing Prescriptions: Brompheniramine/Pseudoephed/Dm [Bromfed DM Cough Syrup 5mL] 10 ml PO Q4HP PRN # 350 ml PRN Reason: Cough Azithromycin [Z-John [place] 250mg Tab] 250 mg PO UD DOSE PK #6 tab Fluticasone Propionate [Flonase 50mcg nasal spray 16gm] 2 spr NS DAILY #1 bottle predniSONE [Prednisone 5mg Tab Dose-Pack] 5 mg PO UD DOSE PK #21 pack Forms: Work/School Release Time of Disposition: 16:51 Medical Decision Making - Medical Records Medical records reviewed: Yes: I reviewed the patient's medical records. - Immanuel Inquiry Pt receiving controlled substance: No Immanuel was queried for this patient: No Vital Signs: 10/19/17 16:36 Temperature 99.1 F Temperature Source Temporal Artery Scan Pulse Rate [Brachial] 94 H Respiratory Rate 20 Blood Pressure [Right Arm] 115/67 Blood Pressure Mean [Right Arm] 83 Blood Pressure Source [Right Arm] Automatic Cuff Blood Pressure Position [Right Arm] Sitting 02 Sat by Pulse Oximetry 98 Oxygen Delivery Method Room Air - Lab Data Lab results reviewed: Yes: I reviewed the patient's lab results. [facility] – [place], [place] HPI - General Stated complaint: fever,sore throat Time Seen by Provider: 10/19/17 16:35 Mode of Arrival: Ambulatory Source of Information: Patient Limitations: No Limitations Description of Symptoms (Recalled from Triage Doc. by RN): STUFFY NOSE, SORE THROAT AND NAUSEA SINCE LAST NIGHT HEENT Symptoms (Recalled from RN notes): Yes Resp Symptoms (Recalled from RN notes): No Skin Symptoms (Recalled from RN notes): No MS Symptoms (Recalled from RN notes): No Functional Status (Recalled from RN notes): NA - History of Present Illness Provider Complaint: Patient state that he has had stuffy nose and sore throat that has continued to get worse since last night States that he thinks he may have had a fever State that his girlfriend felt of him and told him that he felt hot so she gave him some Tylenol State that as the day went on today he has continued to feel worse. Denies SO
[2017-10-19 16:53] LABS: UTC Influenza A Antigen Negative (Negative); UTC Influenza B Antigen Negative (Negative); UTC Strep Screen (Rapid) Negative (Negative)
[2017-10-19 16:59] VITALS: BP 115/67; PULSE 94; RESP 20; TEMP 37.3; O2SAT 98
== END 2017-10-19 17:00 | disposition home or self-care (01) ==
PROVIDERS: Emergency Provider Nurse Practitioner; Family Provider Nurse Practitioner Family; PCP Surgery
DX: J06.9 Acute upper respiratory infection, unspecified (principal)
CPT/HCPCS: 87804; 87880; 99202

== ENCOUNTER → 2018-11-01 10:45 | Outpatient (CLI) | payer BC, SELFPAY ==
[2018-11-07 07:06] LABS: Fats, Neutral Normal (.); Fats, Total Normal (.)
[2018-11-09 07:11] LABS: Pancreatic Elastase, Fecal 392 (>200)
== END ==
PROVIDERS: Visit Provider Internal Medicine Adolescent Medicine
DX: R19.7 Diarrhea, unspecified (principal)
CPT/HCPCS: 82656; 82705

== ENCOUNTER → 2019-02-19 10:47 | Outpatient (CLI) | payer BC, SELFPAY | PROVIDERS: PCP Internal Medicine Adolescent Medicine; Visit Provider Internal Medicine Adolescent Medicine | DX: R00.1 Bradycardia, unspecified (principal) | CPT/HCPCS: 93225; 93226 ==

== ENCOUNTER → 2019-07-13 12:05 | Outpatient (CLI) | payer BC, SELFPAY ==
--- NOTE | 2019-07-13 12:08 | XR_ITS ---
PROCEDURE: XR CHEST 2V CLINICAL HISTORY: FEVER,COUGH COMPARISON: CXR2V XR chest 2V from 09/19/2017 CXR1VP XR chest portable from 09/19/2017 XR CHEST 2V from 06/30/2019 FINDINGS: The cardiomediastinal silhouette and pulmonary vascularity are within normal limits. There is a small patchy indistinct density in the right lung base partially projected over the lower thoracic spine on lateral view No acute osseous process IMPRESSION: Right lung base consolidation/atelectasis. Correlate to rule out developing small pneumonia. Dictated by: Corey Singh 07/13/2019 12:53 Electronically signed by Corey Singh in [facility] 07/13/2019 12:53
== END ==
PROVIDERS: PCP Internal Medicine Adolescent Medicine; Visit Provider Internal Medicine Adolescent Medicine
DX: R50.9 Fever, unspecified (principal); R05 Cough
CPT/HCPCS: 71046

== ENCOUNTER → 2020-04-18 12:38 | Outpatient (CLI) | payer BC, SELFPAY ==
[2020-04-18 13:35] LABS: Basophils # 0.1 K/mm3 (0-0.2); Basophils % 0.9 % (0.1-2.0); Eosinophils # 0.1 K/mm3 (0.0-0.4); Hematocrit 41.5 % (42.0-52.0); Hemoglobin 14.7 g/dL (14.1-18.0); Lymphocytes # 2.1 K/mm3 (0.7-4.5); Mean Corpuscular HGB Conc 35.3 g/dL (31.8-35.4); Mean Corpuscular Hemoglobin 32.1 pg (27.0-31.2); Mean Corpuscular Volume 90.9 fl (80-94); Mean Platelet Volume 8.1 fl (7.4-10.4); Monocytes # 0.4 K/mm3 (0.1-1.0); Monocytes % 6.8 % (1.7-9.3); Neutrophils # 2.9 K/mm3 (1.8-7.8); Neutrophils % 53.3 % (37.0-80.0); Platelet Count 244 K/mm3 (142-424); Red Blood Count 4.57 M/mm3 (4.60-6.20); Red Cell Distribution Width 13.5 % (11.5-17.5); White Blood Count 5.5 K/mm3 (4.8-10.8)
[2020-04-18 17:55] LABS: Chloride 102 mmol/L (98-107); Potassium 4.5 mmoL/L (3.5-5.1); Sodium 139 mmol/L (136-145)
[2020-04-18 17:57] LABS: Alanine Aminotransferase 28 U/L (12-78); Alkaline Phosphatase 129 U/L (38-126); Anion Gap 13.5 mEq/L (5-15); Aspartate Amino Transferase 34 U/L (17-59); Bilirubin,Total 0.5 mg/dl (0.2-1.3); Blood Urea Nitrogen 16 mg/dl (9-20); Carbon Dioxide 28 mmol/L (22.0-30.0); Creatine Kinase 320 U/L (55-170); Estimated Glomerular Filt Rate 78 ml/min (>60); GFR (African American) 94 ML/MIN (>60)
[2020-04-18 17:58] LABS: Albumin Level 4.4 g/dl (3.5-5.0); Albumin/Globulin Ratio 1.6 (1.1-1.8); Calcium 9.3 mg/dl (8.4-10.2); Cholesterol 178 mg/dl (140-200); Globulin 2.8 g/dL (1.3-3.2); Glucose 97 mg/dl (74-100); HDL Cholesterol 35 mg/dl (40-60); Magnesium 1.9 mg/dl (1.6-2.3); Total Protein,Serum 7.2 g/dl (6.3-8.2); Triglycerides 396 mg/dl (30-150); VLDL Cholesterol 79 mg/dL (0-40)
[2020-04-18 17:59] LABS: Chol/HDL Ratio 5.1 (1-3.5)
[2020-04-18 18:09] LABS: NT Pro Brain Natriuretic Pep. < 11.1 pg/mL (0-125)
[2020-04-18 18:15] LABS: Triiodothryronine (T3) Uptake 30 % (23.5-40.5)
[2020-04-18 18:16] LABS: Free Thyroxine Index 1.8 ug/dL (5.93-13.13)
[2020-04-18 18:29] LABS: Thyroid Stimulating Hormone 1.42 uIU/mL (0.465-4.68)
== END ==
PROVIDERS: Visit Provider Internal Medicine Adolescent Medicine
DX: R07.9 Chest pain, unspecified (principal); R60.0 Localized edema; M79.18 Myalgia, other site
CPT/HCPCS: 36415; 80053; 80061; 82550; 83735; 83880; 84436; 84443; 84479; 85025

== ENCOUNTER → 2020-04-21 06:59 | Outpatient (CLI) | payer BC, SELFPAY ==
--- NOTE | 2020-04-21 | CA_ITS ---
APPROVED REPORT Exam: Exercise Treadmill Technologist: Anabell Dailey, Ht: 6 ft 0 in Wt: 192 lbs BSA: 2.09 m2 HR: 69 bpm BP: 129/85 mmHg Rhythm: NSR Indications: Abnormal ekg Medical History Medications: Omeprazole,,,,, Alprazolam,,,,, Stress Test Details Test: Shaheen HR Resting HR: 87 bpm Max Heart Rate (APMHR): 188 bpm Max HR Achieved: 169 bpm Target HR (85% APMHR): 159 bpm % of APMHR: 89 Recovery HR: 109 bpm BP Resting BP: 129/85 mmHg Max BP: 174/86 mmHg Recovery BP: 163.0/80.0 mmHg ECG Clinical Exercise duration: 09:36 min Highest Stage Achieved: Exercise capacity: 10.1 METs Stress ECG Conclusion Resting EKG: Sinus Rhythm Shaheen Protocol Completed, Excerised: 9:36 Mets: 10.1 Max HR: 169 bpm Max BP: 174/86 Stopped due to shortness of breath and leg fatigue Symptoms: No Chest Pain, (+) SOB, (+) Leg fatigue at peak exercise, resolved in recovery. Arrhythmias/Ectopy: No Ectopy ST-T Changes: Less than 1.[address] Depression Conclusion: Images to follow Test Summary REST . . . . . . . Sitting REST 01:48 0.0 0.0 87 . 129/ 85 . . Stage 1 01:00 10.0 1.7 111 . . . . Stage 1 02:00 10.0 1.7 110 . . . . Stage 1 03:00 10.0 1.7 107 . 152/ 76 . . Stage 2 01:00 12.0 2.5 118 . . . . Stage 2 02:00 12.0 2.5 125 . . . . Stage 2 03:00 12.0 2.5 131 . 160/ 78 . . Stage 3 01:00 14.0 3.4 148 . . . . Stage 3 02:00 14.0 3.4 155 . . . . Stage 3 . . . . . . . Cardiolite injected Stage 3 03:00 14.0 3.4 160 . 170/ 80 . . Stage 4 00:36 16.0 4.2 168 . . . Stop exercise at 09:36 RECOVERY 01:00 0.0 0.0 139 . 174/ 86 . . RECOVERY 02:00 0.0 0.0 116 . 174/ 86 . . RECOVERY 03:00 0.0 0.0 111 . 163/ 80 . . RECOVERY 04:00 0.0 0.0 101 . 163/ 80 . . RECOVERY 04:03 0.0 0.0 100 . 163/ 80 . . Electronically signed by : Jonah Leija, 04/21/2020 19:36:05
--- NOTE | 2020-04-21 07:04 | NM_ITS ---
APPROVED REPORT Exam: Nuclear Stress Test Indication: chest pain..short of breath..fatigue..abn ekg Patient Location: Outpatient Stress Tech: Anabell Dailey MA Tech:Victoria MorrisseyROMEO RT(R)(N) Ht: 6 ft 0 in Wt: 192 lbs HR: 69 bpm BP: 129/85 mmHg BSA: 2.09 m2 History: chest pain..short of breath..fatigue..abn ekg Procedure: Patient exercised on Shaheen protocol 9.36 minutes and sec, resting heart rate 69 bpm, resting blood pressure 129/85 mmHg, with exercise maximum heart rate achived was 160 bpm which is 90 % of the maximum predicted heart rate and blood pressure was 170/80 mmHg. Patient denied any complaint of chest pain. Patient has Good exercise capacity, achieved 10.1 METs of workload on treadmill, the blood pressure response to exercise was Adequate. Electrocardiogram Resting electrocardiogram showed sinus rhythm, with exercise there is less than 1.[address] depression noted from the baseline EKG. The EKG portion of the exercise Myoview is negative for ischemia. Cardiac Stress and Resting SPECT Images: Cardiac Stress and Resting SPECT images were obtained using technetium 99m Myoview 31.4 mCi stress and 10.99 mCi at rest. Gated SPECT for analysis of segmental wall motion and calculation of the ejection fraction also done. Cardiac stress and resting SPECT images show uniform myocardial activity without segmental perfusion abnormality, computer derived ejection fraction is 65% with no regional wall motion abnormality, right ventricle is normal size and contractility. Conclusion: 1. The EKG portion of the exercise Myoview is negative for ischemia, patient has good exercise capacity achieved 10.1 mets of workload on treadmill, the blood pressure response to exercise was adequate, there was no exercise-induced chest discomfort. 2. No scintigraphic evidence of reversible ischemia seen at this level of exercise, computer derived ejection fraction is 65% with no regional wall motion abnormality, right ventricle is normal size and contractility. 3. Normal exercise Myoview study. Electronically signed by : Jonah Leija, 04/21/2020 19:40:43
--- NOTE | 2020-04-21 09:10 | HMH.ITSHM ---
Current Home Medications as stated by this patient Antoine Greenberg or labor relations representative. [] omeprazole
== END ==
PROVIDERS: PCP Internal Medicine Adolescent Medicine; Visit Provider Internal Medicine Adolescent Medicine
DX: R07.9 Chest pain, unspecified (principal); R94.31 Abnormal electrocardiogram [ECG] [EKG]
CPT/HCPCS: 78452; 93017; A9502

== ENCOUNTER 2020-09-17 11:26 | Emergency (ER) | payer BC, SELFPAY ==
[2020-09-17 11:32] VITALS: BP 135/76; PULSE 86; RESP 16; TEMP 36.7; O2SAT 98; BMI 26.0
[2020-09-17 11:42] VITALS: BP 181/110; PULSE 87; RESP 16; TEMP 36.6; O2SAT 96; BMI 26.0
[2020-09-17 11:49] LABS: Apearance,Urine Clear (Clear); Bilirubin,Urine Negative (Negative); Blood, Urine Negative (Negative); Color,Urine Yellow (Yellow); Glucose,Urine (UA) Negative (Negative); Ketones,Urine Negative (Negative); PH,Urine 7.5 (5.0-8.5); Protein,Urine Negative (Negative)
[2020-09-17 11:50] LABS: UTC Leukocyte Esterase,Urine Negative (Negative); UTC Nitrate,Urine Negative (Negative); Urobilinogen,Urine 0.2 EU/dl (0.2)
--- NOTE | 2020-09-17 12:05 | HMH.EDUTC ---
[facility] Disposition Clinical Impression: Low back pain Qualifiers: Chronicity: acute Back pain laterality: bilateral Sciatica presence: without sciatica Qualified Code(s): M54.5 - Low back pain Low back strain Qualifiers: Encounter type: initial encounter Qualified Code(s): S39.012A - Strain of muscle, fascia and tendon of lower back, initial encounter Disposition: Home, Self-Care Condition on Discharge: Good Instructions: DI for Low Back Pain Additional Instructions: Go home and rest. It would be best if you rested tomorrow too. No heavy lifting. No twisting. Take the oral medications as directed. The muscle relaxer (robaxin) will make you drowsy, so don't drive or operate heavy machinery after taking it. Follow up with your regular doctor. GO TO THE ER FOR ANY WORSENING SYMPTOMS OR CONCERN, ESPECIALLY BOWEL OR BLADDER ISSUES, SADDLE AREA NUMBNESS, FEVER, ETC Follow up with your primary care physician regarding your elevated blood pressure. Bad tableReferrals: Willian Manjarrez MD [Primary Care Provider] - Forms: Work/School Release Time of Disposition: 12:19 Medical Decision Making - Medical Records Medical records reviewed: No: I reviewed the patient's medical records. - Immanuel Inquiry Pt receiving controlled substance: No Vital Signs: 09/17/20 11:32 09/17/20 11:42 09/17/20 12:30 Temperature 98.0 F 98 F 98 F Temperature Source Oral Tympanic Pulse Rate 87 Pulse Rate [Left Radial] 86 87 Respiratory Rate 16 16 16 Blood Pressure 160/92 H Blood Pressure [Left Arm] 135/76 181/110 H Blood Pressure Mean [Left Arm] 95 133 Blood Pressure Source [Left Arm] Automatic Cuff Automatic Cuff Blood Pressure Position Sitting Blood Pressure Position [Left Arm] Sitting Sitting 02 Sat by Pulse Oximetry 98 96 Oxygen Delivery Method Room Air Room Air - Lab Data Lab Results 09/17/20 11:47: Urine Color Yellow, Urine Appearance Clear, Urine pH 7.5, Ur Specific [place] 1.020, Urine Protein Negative, Urine Glucose (UA) Negative, Urine Ketones Negative, Urine Blood Negative, Urine Nitrate Negative, Urine Bilirubin Negative, Urine Urobilinogen 0.2, Ur Leukocyte Esterase Negative [facility] HPI - General Stated complaint: back pain on both sides, no accident Time Seen by Provider: 09/17/20 12:05 Mode of Arrival: Ambulatory Source of Information: Patient Limitations: No Limitations Description of Symptoms (Recalled from Triage Doc. by RN): pt is having bilateral lower back pain. 8/10, dull, aching and pressure. no injury that he is aware of. HEENT Symptoms (Recalled from RN notes): No Resp Symptoms (Recalled from RN notes): No Skin Symptoms (Recalled from RN notes): No MS Symptoms (Recalled from RN notes): Yes (lower bilateral back pain. dull and achy) Functional Status (Recalled from RN notes): na - History of Present Illness Provider Complaint: He states that he has been having low back pain on and off for the past several months. He denies any known injuries. He thinks it is from lifting heavy stuff at his job and at home. - Related Data Home Medications Medication Instructions Recorded Confirmed Omeprazole Magnesium [Prilosec Otc 80 mg PO BID 10/19/17 06/05/19 20mg Tab] Previous Rx's Medication Instructions Recorded Oseltamivir Phosphate [Tamiflu 75 mg PO BID #10 cap 06/30/19 75mg Capsule] alprazolam 0.25 mg tablet 0.25 mg PO BID PRN #60 tab 10/02/19 Ibuprofen [Ibuprofen 800mg 800 mg PO Q8HP PRN #30 tab 09/17/20 Tablet] Methocarbamol [Robaxin 500mg Tab] 500 mg PO BIDP PRN #30 tab 09/17/20 Allergies Allergy/AdvReac Type Severity Reaction Status Date / Time No Known Allergies Allergy Verified 09/17/20 11:35 - Worker's Comp Is this a Worker's Comp case?: No [facility] History - Hepatitis A Screen Drug use history?: No High risk sexual behaviors?: No History of sexually transmitted infection?: No Currently employed?: No Childcare worker?: No Do y
[2020-09-17 12:30] VITALS: BP 160/92; PULSE 87; RESP 16; TEMP 36.6
== END 2020-09-17 12:30 | disposition home or self-care (01) ==
LOC: ER 11:33 → UTC 11:33
PROVIDERS: Emergency Provider Nurse Practitioner Family; PCP Internal Medicine Adolescent Medicine
DX: S39.012A Strain of muscle, fascia and tendon of lower back, initial encounter (principal)
CPT/HCPCS: 81003; 99202; G0463

== ENCOUNTER 2020-10-29 15:01 | Emergency (ER) | payer OTHER, SELFPAY ==
[2020-10-29 15:02] VITALS: BP 149/82; PULSE 71; RESP 18; TEMP 36.7; O2SAT 99; BMI 27.9
--- NOTE | 2020-10-29 15:09 | XR_ITS ---
PROCEDURE: XR FOOT LT MIN 3V CLINICAL INDICATION: work injury Pain COMPARISON: No exams were available for comparison FINDINGS: No fracture or dislocation. No lytic or blastic change. There is normal mineralization. The joint spaces are well-preserved. No significant degenerative/arthritic changes. No erosive changes evident. Other findings:None. IMPRESSION: No acute findings. Dictated by: Rick Rubin MD 10/29/2020 15:55 Rick Rubin MD in [place] 10/29/2020 15:55
--- NOTE | 2020-10-29 15:30 | XR_ITS ---
PROCEDURE: XR FOOT WT BEARING LT 1V CLINICAL INDICATION: pain: r/o lisfranc COMPARISON: CR XR FOOT LT MIN 3V from 10/29/2020 FINDINGS: A single AP view obtained with weight-bearing shows normal alignment. No obvious fracture. The 1st intermetatarsal space is slightly widened however, there is good alignment at the 2nd metatarsal tarsal junction. If there is high suspicion Lisfranc injury then CT or MRI may provide further evaluation. IMPRESSION: No acute findings. Dictated by: Rick Rubin MD 10/29/2020 16:43 Rick Rubin MD in [place] 10/29/2020 16:43
--- NOTE | 2020-10-29 15:59 | HMH.EDGENADL ---
ED Disposition Clinical Impression: Foot pain, left Disposition: Home, Self-Care Condition on Discharge: Good Instructions: Sprain Referrals: Willian Manjarrez MD [Primary Care Provider] - 3 days Time of Disposition: 17:03 - Critical Care Critical Care Time: No Attestation: On 10/29/20, the high probability of a clinically significant, sudden or life threatening deterioration of the following system(s) required my full and direct attention, intervention and personal management. The time I documented below is in addition to time spent performing reported procedures but includes the following listed in this critical care notation. Medical Decision Making - Medical Records Medical records reviewed: Yes: I reviewed the patient's medical records. - Immanuel Inquiry Pt receiving controlled substance: No Vital Signs: 10/29/20 15:02 Temperature 98.1 F Temperature Source Oral Pulse Rate [Right] 71 Respiratory Rate 18 Blood Pressure [Right Arm] 149/82 H Blood Pressure Mean [Right Arm] 104 02 Sat by Pulse Oximetry 99 - Radiology Data #1 Image(s): Foot/Toes Image Reviewed: Yes I reviewed the patient's radiology results, Yes I have reviewed radiologist's interpretation Preliminary Findings: Normal/NAD Medical Decision Narrative: 34yo M evaluated after an injury at work. Patient in no acute distress on initial evaluation. His foot is mildly tender to palpate. Patient is sent for 3 view of the left foot. Some concern for possible Lisfranc injury so the patient is sent back for 1 weightbearing image. No acute injury is noted on weightbearing film. Patient is appropriate and stable for discharge home. Discussed Motrin/Tylenol for aches and pains. Weightbearing as tolerated. General Adult HPI - General Chief complaint: Extremity Injury, Lower Stated complaint: wc 10/29/20 @ 1400 injury Lt foot Time Seen by Provider: 10/29/20 15:05 Mode of Arrival: Family Vehicle Limitations: No Limitations Description of Symptoms (Recalled from ER Triage Doc. by RN): PT C/O LEFT FOOT INJURY AFTER REPORTING THAT A 400LB PIECE OF METAL ON HIS LEFT FOOT. PT AMBULATORY IN ED TRIAGE. PT REPORTS PAIN ONLY WITH MOVEMENT. PT HAS GOOD PERFUSION UPON ASSESSMENT. - History of Present Illness HPI narrative: 34yo M denies significant past medical history reports the emergency department after dropping 400 pound device at work on his left foot. Patient wears steel reinforced boots. He is ambulatory but reports pain of the midfoot. No other complaints at this time. - Related Data Home Medications Medication Instructions Recorded Confirmed Omeprazole Magnesium [Prilosec Otc 80 mg PO BID 10/19/17 06/05/19 20mg Tab] Previous Rx's Medication Instructions Recorded Oseltamivir Phosphate [Tamiflu 75 mg PO BID #10 cap 06/30/19 75mg Capsule] alprazolam 0.25 mg tablet 0.25 mg PO BID PRN #60 tab 10/02/19 Ibuprofen [Ibuprofen 800mg 800 mg PO Q8HP PRN #30 tab 09/17/20 Tablet] Methocarbamol [Robaxin 500mg Tab] 500 mg PO BIDP PRN #30 tab 09/17/20 Allergies Allergy/AdvReac Type Severity Reaction Status Date / Time No Known Allergies Allergy Verified 09/17/20 11:35 [facility] History - Hepatitis A Screen Drug use history?: No High risk sexual behaviors?: No History of sexually transmitted infection?: No Currently employed?: No Childcare worker?: No Do you have indoor plumbing?: Yes Do you have electricity?: Yes Attestation statement:: This patient has been screened for Hepatitis A risk factors. I have reviewed the patient's past medical history: Yes Medical History: Denies:: Cancer, Diabetes Mellitus Type 1, Diabetes Mellitus Type 2, MRSA Other Surgeries: Yes: Colonoscopy, EGD Amputation: No Fractures: No - Social History Smoking Status: Unknown if ever smoked Tobacco Type: cigarettes # Packs/Day (cigarettes): 1 Alcohol Intake: never Alcohol Intake Frequency:: other Substance Use Type: painkillers, forme
[2020-10-29 17:10] VITALS: BP 132/71; PULSE 65; RESP 18; TEMP 36.6; O2SAT 100
== END 2020-10-29 17:07 | disposition home or self-care (01) ==
PROVIDERS: Emergency Provider Family Medicine; PCP Internal Medicine Adolescent Medicine
DX: M79.672 Pain in left foot (principal); W22.8XXA Striking against or struck by other objects, initial encounter; Y92.63 Factory as the place of occurrence of the external cause; Y99.0 Civilian activity done for income or pay
CPT/HCPCS: 73620; 73630; 99282

== ENCOUNTER 2021-02-04 15:47 | Emergency (ER) | payer BC, SELFPAY ==
[2021-02-04 16:03] VITALS: BP 124/78; PULSE 71; RESP 14; TEMP 36.6; O2SAT 97; BMI 26.4
--- NOTE | 2021-02-04 16:34 | HMH.EDUTC ---
[facility] [place] Disposition Clinical Impression: Olecranon bursitis Qualifiers: Laterality: right Qualified Code(s): M70.21 - Olecranon bursitis, right elbow Disposition: Home, Self-Care Condition on Discharge: Good Instructions: Bursitis, DI for Bursitis Additional Instructions: Rest the extremity, Wear the true wrap for compression, Elevate the extremity as tolerated while you are resting. Take ibuprofen for pain. Follow up with Dr. King (orthopedics). I put in a referral but you need to call his office and schedule an appointment. Follow up with your regular doctor. GO TO THE ER FOR ANY WORSENING SYMPTOMS Prescriptions: cephALEXin [cephALEXin 500mg capsule] 500 mg PO Q6H 10 Days #40 cap Transmission Status: Received by [id number] methylPREDNISolone [Medrol] 4 mg PO DIRECTED 6 Days #21 tab.ds.pk Transmission Status: Received by [id number] Referrals: Willian Manjarrez MD [Primary Care Provider] - Leoncio King MD [Staff Physician] - Forms: Work/School Release Time of Disposition: 16:48 Medical Decision Making - Medical Records Medical records reviewed: No: I reviewed the patient's medical records. - Immanuel Inquiry Pt receiving controlled substance: No Vital Signs: 02/04/21 16:03 02/04/21 16:49 Temperature 97.8 F 98 F Temperature Source Oral Pulse Rate 73 Pulse Rate [Left] 71 Respiratory Rate 14 16 Blood Pressure 121/74 Blood Pressure [Right Arm] 124/78 Blood Pressure Mean [Right Arm] 93 02 Sat by Pulse Oximetry 97 [facility] [place] HPI - General Stated complaint: swollen R elbow no accident Time Seen by Provider: 02/04/21 16:34 Mode of Arrival: Ambulatory Source of Information: Patient Limitations: No Limitations Description of Symptoms (Recalled from Triage Doc. by RN): pt states he was bit about a week ago on his R elbow by a mosquito. the R elbow is now swollen, warm, and red. pt states its painful. HEENT Symptoms (Recalled from RN notes): No Resp Symptoms (Recalled from RN notes): No Skin Symptoms (Recalled from RN notes): Yes (swollen R elbow from insect bite.) MS Symptoms (Recalled from RN notes): No Functional Status (Recalled from RN notes): na - History of Present Illness Provider Complaint: He states that for the past 1 week he has had right elbow swelling and tenderness. He denies any known injury. He thought that a bug bit him on the elbow and started this, but he is not sure. He definitely did not have any elbow injury before it started. He denies any fever/chills. - Related Data Home Medications Medication Instructions Recorded Confirmed Omeprazole Magnesium [Prilosec Otc 80 mg PO BID 10/19/17 06/05/19 20mg Tab] Previous Rx's Medication Instructions Recorded Oseltamivir Phosphate [Tamiflu 75 mg PO BID #10 cap 06/30/19 75mg Capsule] alprazolam 0.25 mg tablet 0.25 mg PO BID PRN #60 tab 10/02/19 Ibuprofen [Ibuprofen 800mg 800 mg PO Q8HP PRN #30 tab 09/17/20 Tablet] Methocarbamol [Robaxin 500mg Tab] 500 mg PO BIDP PRN #30 tab 09/17/20 cephALEXin [cephALEXin 500mg 500 mg PO Q6H 10 Days #40 cap 02/04/21 capsule] methylPREDNISolone [Medrol] 4 mg PO DIRECTED 6 Days #21 02/04/21 tab.ds.pk Allergies Allergy/AdvReac Type Severity Reaction Status Date / Time No Known Allergies Allergy Verified 02/04/21 16:10 - Worker's Comp Is this a Worker's Comp case?: No [facility] History - Hepatitis A Screen Drug use history?: No High risk sexual behaviors?: No History of sexually transmitted infection?: No Currently employed?: No Childcare worker?: No Do you have indoor plumbing?: Yes Do you have electricity?: Yes Attestation statement:: This patient has been screened for Hepatitis A risk factors. I have reviewed the patient's past medical history: Yes Medical History: Denies:: Cancer, Diabetes Mellitus Type 1, Diabetes Mellitus Type 2, MRSA Other Surgeries: Yes: Colonoscopy, EGD Amputation: No Fractures: No - Soc
[2021-02-04 16:49] VITALS: BP 121/74; PULSE 73; RESP 16; TEMP 36.6
== END 2021-02-04 16:51 | disposition home or self-care (01) ==
PROVIDERS: Emergency Provider Nurse Practitioner Family; PCP Internal Medicine Adolescent Medicine
DX: M70.21 Olecranon bursitis, right elbow (principal)
CPT/HCPCS: 99202; G0463

== ENCOUNTER 2021-03-30 02:50 | Emergency (ER) | payer BC, SELFPAY ==
[2021-03-30] VITALS (7 sets, daily range): BP systolic 87–144; BP diastolic 44–83; PULSE 87–105; RESP 20–26; TEMP 36.6–37.7; O2SAT 95–99; BMI 26.4
--- NOTE | 2021-03-30 03:09 | ECG_ITS ---
APPROVED REPORT Exam: Resting ECG HR:89 bpm ECG Measurements Heart Rate 89 AXES UT 182 P 46 QRSd 74 QRS 80 QT 316 T 29 QTc 384 Conclusion Normal sinus rhythm Normal ECG Electronically signed by : Willian Manjarrez MD 03/30/2021 18:07:15
--- NOTE | 2021-03-30 03:09 | XR_ITS ---
PROCEDURE INFORMATION: Exam: XR Chest Exam date and time: 03/30/2021 3:09 AM Age: 35 years old Clinical indication: Shortness of breath; Additional info: Shortness of air TECHNIQUE: Imaging protocol: XR of the chest. Views: 1 view. COMPARISON: CR XR CHEST 2V 07/13/2019 12:28 PM FINDINGS: Lungs: Unremarkable. No consolidation. Pleural spaces: Unremarkable. No pleural effusion. No pneumothorax. Heart/Mediastinum: Unremarkable. No cardiomegaly. Bones/joints: Unremarkable. IMPRESSION: No acute findings.
[2021-03-30 03:31] LABS: Basophils % 0.7 % (0.1-2.0); Eosinophils # 0.1 K/mm3 (0.0-0.4); Hematocrit 44.8 % (42.0-52.0); Hemoglobin 15.6 g/dL (14.1-18.0); Lymphocytes # 0.8 K/mm3 (0.7-4.5); Lymphocytes % 15.5 % (10-50); Mean Corpuscular HGB Conc 34.7 g/dL (31.8-35.4); Mean Corpuscular Hemoglobin 32.5 pg (27.0-31.2); Mean Corpuscular Volume 93.6 fl (80-94); Mean Platelet Volume 7.6 fl (7.4-10.4); Monocytes # 0.5 K/mm3 (0.1-1.0); Neutrophils # 3.5 K/mm3 (1.8-7.8); Neutrophils % 70.9 % (37.0-80.0); Platelet Count 206 K/mm3 (142-424); Red Blood Count 4.79 M/mm3 (4.60-6.20); Red Cell Distribution Width 12.9 % (11.5-17.5); White Blood Count 4.9 K/mm3 (4.8-10.8)
[2021-03-30 03:37] LABS: Chloride 102 mmol/L (98-107); Sodium 139 mmol/L (136-145)
[2021-03-30 03:38] LABS: Potassium 3.9 mmoL/L (3.5-5.1)
[2021-03-30 03:40] LABS: Alanine Aminotransferase 45 U/L (12-78); Albumin Level 4.5 g/dl (3.5-5.0); Albumin/Globulin Ratio 1.4 (1.1-1.8); Alkaline Phosphatase 102 U/L (38-126); Anion Gap 13.9 mEq/L (5-15); Aspartate Amino Transferase 40 U/L (17-59); Bilirubin,Total 0.3 mg/dl (0.2-1.3); Blood Urea Nitrogen 14 mg/dl (9-20); Carbon Dioxide 27 mmol/L (22.0-30.0); Creatinine Clearance Estimated 131 mL/min (50-200); Estimated Glomerular Filt Rate 86 ml/min (>60); GFR (African American) 104 ML/MIN (>60); Globulin 3.3 g/dL (1.3-3.2); Total Protein,Serum 7.8 g/dl (6.3-8.2)
[2021-03-30 03:41] LABS: Glucose 94 mg/dl (74-100)
[2021-03-30 03:46] LABS: C-Reactive Protein 2.4 mg/L (0-4)
[2021-03-30 03:51] LABS: NT Pro Brain Natriuretic Pep. 14.8 pg/mL (0-125)
[2021-03-30 03:56] LABS: Erythrocyte Sedimentation Rate 5 mm/hr (0-15)
[2021-03-30 03:58] LABS: T4 (Thyroxine) 6.3 ug/dl (5.53-11.0)
[2021-03-30 03:59] LABS: Procalcitonin 0.103 ng/mL (0.0-2.0)
[2021-03-30 04:09] LABS: Troponin I < 0.01 ng/ml (0.00-0.034)
[2021-03-30 04:11] LABS: Thyroid Stimulating Hormone 2.96 uIU/mL (0.465-4.68)
[2021-03-30 04:55] LABS: Lactic Acid 1.2 mmol/L (0.7-2.1)
[2021-03-30 05:15] LABS: Influenza A, PCR Not Detected (NotDetected); Influenza B, PCR Not Detected (NotDetected)
--- NOTE | 2021-03-30 05:36 | HMH.EDSOB ---
ED Disposition Clinical Impression: COVID-19, Overweight (BMI 25.0-29.9) GERD (gastroesophageal reflux disease) Qualifiers: Esophagitis presence: esophagitis presence not specified Qualified Code(s): K21.9 - Gastro-esophageal reflux disease without esophagitis Disposition: Home, Self-Care Condition on Discharge: Good Instructions: DI for COVID-19 (Suspected or Confirmed ) Additional Instructions: call pcp for follow up Referrals: Willian Manjarrez MD [Primary Care Provider] - - Critical Care Critical Care Time: No Attestation: On 03/30/21, the high probability of a clinically significant, sudden or life threatening deterioration of the following system(s) required my full and direct attention, intervention and personal management. The time I documented below is in addition to time spent performing reported procedures but includes the following listed in this critical care notation. Medical Decision Making - Medical Records Medical records reviewed: Yes: I reviewed the patient's medical records. - Immanuel Inquiry Pt receiving controlled substance: No Vital Signs: 03/30/21 03:02 03/30/21 03:30 03/30/21 04:00 Temperature 99.9 F H Temperature Source Oral Pulse Rate 88 87 Pulse Rate [Right Brachial] 100 H Respiratory Rate 26 H 22 Blood Pressure 134/74 125/63 Blood Pressure [Right Arm] 144/83 H Blood Pressure Mean [Right Arm] 103 Blood Pressure Source Automatic Cuff Automatic Cuff Blood Pressure Source [Right Arm] Automatic Cuff Blood Pressure Position Supine Supine Blood Pressure Position [Right Arm] Sitting 02 Sat by Pulse Oximetry 95 99 98 Oxygen Delivery Method Room Air Room Air Room Air 03/30/21 04:30 03/30/21 05:00 03/30/21 05:22 Temperature Temperature Source Pulse Rate 90 88 105 H Pulse Rate [Right Brachial] Respiratory Rate 21 Blood Pressure 112/55 L 87/44 L 102/58 L Blood Pressure [Right Arm] Blood Pressure Mean [Right Arm] Blood Pressure Source Automatic Cuff Blood Pressure Source [Right Arm] Blood Pressure Position Supine Blood Pressure Position [Right Arm] 02 Sat by Pulse Oximetry 98 96 96 Oxygen Delivery Method Room Air - Lab Data Lab results reviewed: Yes: I reviewed the patient's lab results. Lab Results 03/30/21 03:19: WBC 4.9, RBC 4.79, Hgb 15.6, Hct 44.8, MCV 93.6, MCH 32.5 H, MCHC 34.7, RDW 12.9, Plt Count 206, MPV 7.6, Neut % (Auto) 70.9, Lymph % (Auto) 15.5, Hughes % (Auto) 10.0 H, Eos % (Auto) 3.0, Baso % (Auto) 0.7, Neut # (Auto) 3.5, Lymph # (Auto) 0.8, Hughes # (Auto) 0.5, Eos # (Auto) 0.1, Baso # (Auto) 0.0 03/30/21 03:19: Sodium 139, Potassium 3.9, Chloride 102, Carbon Dioxide 27, Anion Gap 13.9, BUN 14, Creatinine 1.00, Estimated Creat Clear 131, Estimated GFR 86, Est GFR ( Amer) 104, Glucose 94, Calcium 9.0, Total Bilirubin 0.3, AST 40, ALT 45, Alkaline Phosphatase 102, Troponin I < 0.01, NT-Pro-B Natriuret Pep 14.8, Total Protein 7.8, Albumin 4.5, Globulin 3.3 H, Albumin/Globulin Ratio 1.4, TSH 2.96, Thyroxine (T4) 6.3 03/30/21 03:19: C-Reactive Protein 2.4, Procalcitonin 0.103 03/30/21 03:19: ESR 5 03/30/21 04:27: SARS-CoV-2 (PCR) Detected A, Influenza A Untype (PCR) Not detected, Influenza Type B (PCR) Not detected 03/30/21 04:27: Lactate 1.2 Result diagrams: 03/30/21 03:19 03/30/21 03:19 Orders (Tests/Meds): ED MEDICATIONS Generic Name Dose Route Start Last Admin Trade Name Freq PRN Reason Stop Dose Admin Sodium Chloride 1,000 mls @ 999 mls/hr 03/30/21 03:15 03/30/21 03:44 Sod Chlor 0.9% 1000ml Bag IV 03/30/21 04:15 999 mls/hr .Q1H1M ANTONIO Administration Discontinued Medications Generic Name Dose Route Start Last Admin Trade Name Freq PRN Reason Stop Dose Admin Acetaminophen 1,000 mg 03/30/21 03:13 03/30/21 03:43 Acetaminophen 500mg Tab PO 03/30/21 03:14 1,000 mg ONCE ONE Administration Dexamethasone Sodium Phosphate 10 mg 03/30/21 03:13 03/30/21 03:42 Dexamethasone 4m
[2021-03-30 05:41] LABS: Coronavirus 19, PCR Detected (NotDetected)
== END 2021-03-30 06:23 | disposition home or self-care (01) ==
PROVIDERS: Emergency Provider Emergency Medicine; PCP Internal Medicine Adolescent Medicine
DX: U07.1 COVID-19 (principal); K21.9 Gastro-esophageal reflux disease without esophagitis
CPT/HCPCS: 71045; 80053; 83605; 83880; 84145; 84436; 84443; 84484; 85025; 85651; 86140; 87040; 93005; 96365; 96366; 99284; C9803; J2405; U0003; U0005

== ENCOUNTER 2021-03-31 14:07 | Outpatient (CLI) | payer BC, SELFPAY ==
[2021-03-31 13:56] VITALS: BP 120/66; PULSE 75; RESP 16; TEMP 37.2; O2SAT 100
[2021-03-31 14:11] VITALS: BP 115/70; PULSE 78; RESP 16; TEMP 37.2; O2SAT 100
[2021-03-31 14:26] VITALS: BP 120/75; PULSE 82; RESP 16; TEMP 37.2; O2SAT 100
[2021-03-31 14:41] VITALS: BP 117/74; PULSE 76; RESP 16; TEMP 37.1; O2SAT 100
[2021-03-31 14:56] VITALS: BP 126/80; PULSE 75; RESP 16; TEMP 36.6; O2SAT 100
[2021-03-31 15:11] VITALS: BP 123/77; PULSE 76; RESP 16; TEMP 36.6; O2SAT 100
== END 2021-03-31 15:26 | disposition home or self-care (01) ==
LOC: COVID.OUT 14:07
PROVIDERS: PCP Emergency Medicine; Visit Provider Emergency Medicine
DX: U07.1 COVID-19 (principal)
CPT/HCPCS: 96365

== ENCOUNTER 2021-03-31 21:53 | Emergency (ER) | payer BC, SELFPAY ==
[2021-03-31 22:03] VITALS: BP 00/00; PULSE 0; RESP 0; TEMP -17.7; TEMP 0
== END 2021-03-31 22:44 | disposition left against medical advice (07) ==
LOC: ER 22:39
PROVIDERS: Emergency Provider Emergency Medicine; PCP Internal Medicine Adolescent Medicine
DX: Z53.21 Procedure and treatment not carried out due to patient leaving prior to being seen by health care provider (principal)
CPT/HCPCS: 99211

== ENCOUNTER → 2021-08-03 14:48 | Outpatient (CLI) | payer BC, SELFPAY | PROVIDERS: Visit Provider Nurse Practitioner | DX: U07.1 COVID-19 (principal) | CPT/HCPCS: C9803; U0003; U0005 ==

== ENCOUNTER 2021-10-27 23:54 | Emergency (ER) | payer BC, SELFPAY ==
[2021-10-28 00:03] LABS: Microscopic, Urine URINE MICROSCOPIC (MICROSCOPIC)
[2021-10-28 00:11] LABS: Appearance,Urine CLEAR (Clear); Bilirubin,Urine Negative (Negative); Blood, Urine Negative (Negative); Color,Urine YELLOW (Yellow); Glucose,Urine (UA) Negative (Negative); Ketones,Urine Negative (Negative); Leukocyte Esterase,Urine Negative (Negative); Nitrate,Urine Negative (Negative); Protein,Urine Negative (Negative); Urobilinogen,Urine 0.2 EU/dl (0.2)
[2021-10-28 00:17] VITALS: BP 141/88; PULSE 77; RESP 16; TEMP 36.7; O2SAT 99; BMI 27.8
[2021-10-28 00:18] LABS: Squamous Epithelial Cell,Urine Occasional #/hpf (0-5); WBC,Urine Occasional #/hpf (0-3)
[2021-10-28 00:29] VITALS: BMI 28.2
--- NOTE | 2021-10-28 00:30 | CT_ITS ---
PROCEDURE INFORMATION: Exam: CT Abdomen And Pelvis With Contrast Exam date and time: 10/28/2021 12:56 AM Age: 35 years old Clinical indication: Abdominal pain; Prior surgery; Additional info: Abd burning TECHNIQUE: Imaging protocol: Computed tomography of the abdomen and pelvis with contrast. Radiation optimization: All CT scans at this facility use at least one of these dose optimization techniques: automated exposure control; mA and/or kV adjustment per patient size (includes targeted exams where dose is matched to clinical indication); or iterative reconstruction. Contrast material: ISOVUE; Contrast volume: 75 ml; Contrast route: IV; COMPARISON: ABDPELW/O CT ABD PELVIS W/O CONTRAST 07/20/2016 2:47 AM FINDINGS: Lungs: The visualized lung bases are unremarkable. Liver: Liver is mildly enlarged, measuring 17.5 cm in craniocaudal dimension. Mild hepatic steatosis. Gallbladder and bile ducts: The cholecystectomy. No biliary dilation. Pancreas: Unremarkable. No main pancreatic duct dilation. Spleen: Spleen is borderline enlarged, measuring 12 cm in length. Adrenal glands: Unremarkable. Kidneys and ureters: Symmetric, homogeneous enhancement of both kidneys. No hydronephrosis. Stomach and bowel: No obstruction. No abnormal bowel wall thickening. Appendix: Normal appendix. Intraperitoneal space: No pneumoperitoneum. No ascites. Arteries: Unremarkable. No abdominal aortic aneurysm. Lymph nodes: No enlarged lymph nodes. Urinary bladder: Bladder fluid-filled, without evidence of wall thickening. Reproductive: Unremarkable as visualized. Bones/joints: No acute fracture. Mild lower lumbar disc bulging. Soft tissues: Unremarkable. IMPRESSION: 1. No acute finding or specific etiology for symptoms identified. 2. Mild hepatomegaly and hepatic steatosis.
--- NOTE | 2021-10-28 00:33 | HMH.EDNVD ---
ED Disposition Clinical Impression: Abdominal pain Qualifiers: Abdominal location: periumbilical Qualified Code(s): R10.33 - Periumbilical pain Disposition: Home, Self-Care Condition on Discharge: Good Instructions: DI for Acute Abdominal Pain Additional Instructions: fluids and call pcp for follow up Referrals: Willian Manjarrez MD [Primary Care Provider] - - Critical Care Critical Care Time: No Attestation: On , the high probability of a clinically significant, sudden or life threatening deterioration of the following system(s) required my full and direct attention, intervention and personal management. The time I documented below is in addition to time spent performing reported procedures but includes the following listed in this critical care notation. Medical Decision Making - Medical Records Medical records reviewed: Yes: I reviewed the patient's medical records. - Immanuel Inquiry Pt receiving controlled substance: No Vital Signs: 10/28/21 00:17 Temperature 98.1 F Temperature Source Oral Pulse Rate [Right Brachial] 77 Respiratory Rate 16 Blood Pressure [Right Arm] 141/88 H Blood Pressure Mean [Right Arm] 105 Blood Pressure Source [Right Arm] Automatic Cuff Blood Pressure Position [Right Arm] Sitting 02 Sat by Pulse Oximetry 99 Oxygen Delivery Method Room Air - Lab Data Lab results reviewed: Yes: I reviewed the patient's lab results. Lab Results 10/27/21 23:59: Urine Color Yellow, Urine Appearance Clear, Urine pH 7.0, Ur Specific [place] 1.010, Urine Protein Negative, Urine Glucose (UA) Negative, Urine Ketones Negative, Urine Blood Negative, Urine Nitrate Negative, Urine Bilirubin Negative, Urine Urobilinogen 0.2, Ur Leukocyte Esterase Negative, Urine RBC None, Urine WBC Occasional, Ur Squamous Epith Cells Occasional, Urine Bacteria None 10/28/21 00:34: ESR 10 10/28/21 00:34: C-Reactive Protein 0.7, Amylase 67, Procalcitonin 0.058 10/28/21 00:34: WBC 6.2, RBC 4.78, Hgb 14.8, Hct 43.7, MCV 91.4, MCH 31.0, MCHC 33.9, RDW 13.5, Plt Count 234, MPV 8.6, Neut % (Auto) 52.1, Lymph % (Auto) 33.8, [place] % (Auto) 4.2, Eos % (Auto) 7.1, Baso % (Auto) 2.8 H, Neut # (Auto) 3.2, Lymph # (Auto) 2.1, [place] # (Auto) 0.3, Eos # (Auto) 0.4, Baso # (Auto) 0.2 10/28/21 00:34: Sodium 139, Potassium 4.2, Chloride 106, Carbon Dioxide 26, Anion Gap 11.2, BUN 12, Creatinine 0.80, Estimated Creat Clear 175, Estimated GFR 111, Est GFR ( Amer) 135, Glucose 113 H, Calcium 9.2, Total Bilirubin 0.5, AST 32, ALT 40, Alkaline Phosphatase 92, Total Protein 7.1, Albumin 4.4, Globulin 2.7, Albumin/Globulin Ratio 1.6, Lipase 66 Result diagrams: 10/28/21 00:34 10/28/21 00:34 Orders (Tests/Meds): ED MEDICATIONS Generic Name Dose Route Start Last Admin Trade Name Freq PRN Reason Stop Dose Admin Sodium Chloride 1,000 mls @ 999 mls/hr 10/28/21 00:30 10/28/21 00:41 Sod Chlor 0.9% 1000ml Bag IV 10/28/21 01:30 999 mls/hr .Q1H1M ANTONIO Administration Sodium Chloride 8 ml 10/28/21 00:30 10/28/21 00:49 Sodium Chloride 0.9% 10ml Vial IV 11/27/21 00:29 8 ml NEEDED PRN Administration dilute pepcid Discontinued Medications Generic Name Dose Route Start Last Admin Trade Name Freq PRN Reason Stop Dose Admin Famotidine 20 mg 10/28/21 00:30 10/28/21 00:46 Famotidine 20mg/2ml Vial IV 10/28/21 00:31 20 mg ONCE ONE Administration Iopamidol 75 ml 10/28/21 01:04 10/28/21 01:09 Iopamidol-370 (76%);100ml Bottle IV 10/28/21 01:05 75 ml ONCE ONE Administration Ketorolac Tromethamine 30 mg 10/28/21 00:30 10/28/21 00:45 Ketorolac 30mg/Ml Vial IV 10/28/21 00:31 30 mg ONCE ONE Administration Metoclopramide HCl 10 mg 10/28/21 00:30 10/28/21 00:48 Metoclopramide Hcl 10mg/2ml Vial IVP 10/28/21 00:31 10 mg ONCE ONE Administration Ondansetron HCl 4 mg 10/28/21 00:30 10/28/21 00:42 Ondansetron 4mg/2ml Vial IV 10/28/21 00:31 4 mg ONCE ONE Administration Sodium Chlori
[2021-10-28 00:50] LABS: Basophils # 0.2 K/mm3 (0-0.2); Basophils % 2.8 % (0.1-2.0); Eosinophils # 0.4 K/mm3 (0.0-0.4); Eosinophils % 7.1 % (0.1-12.0); Hematocrit 43.7 % (42.0-52.0); Hemoglobin 14.8 g/dL (14.1-18.0); Lymphocytes # 2.1 K/mm3 (0.7-4.5); Lymphocytes % 33.8 % (10-50); Mean Corpuscular HGB Conc 33.9 g/dL (31.8-35.4); Mean Corpuscular Volume 91.4 fl (80-94); Mean Platelet Volume 8.6 fl (7.4-10.4); Monocytes # 0.3 K/mm3 (0.1-1.0); Monocytes % 4.2 % (1.7-9.3); Neutrophils # 3.2 K/mm3 (1.8-7.8); Neutrophils % 52.1 % (37.0-80.0); Platelet Count 234 K/mm3 (142-424); Red Blood Count 4.78 M/mm3 (4.60-6.20); Red Cell Distribution Width 13.5 % (11.5-17.5); White Blood Count 6.2 K/mm3 (4.8-10.8)
[2021-10-28 00:52] LABS: Amylase 67 U/L (30-110)
[2021-10-28 00:54] LABS: Alanine Aminotransferase 40 U/L (12-78); Albumin Level 4.4 g/dl (3.5-5.0); Albumin/Globulin Ratio 1.6 (1.1-1.8); Alkaline Phosphatase 92 U/L (38-126); Anion Gap 11.2 mEq/L (5-15); Aspartate Amino Transferase 32 U/L (17-59); Bilirubin,Total 0.5 mg/dl (0.2-1.3); Blood Urea Nitrogen 12 mg/dl (9-20); Calcium 9.2 mg/dl (8.4-10.2); Carbon Dioxide 26 mmol/L (22.0-30.0); Chloride 106 mmol/L (98-107); Creatinine Clearance Estimated 175 mL/min (50-200); Estimated Glomerular Filt Rate 111 ml/min (>60); GFR (African American) 135 ML/MIN (>60); Globulin 2.7 g/dL (1.3-3.2); Glucose 113 mg/dl (74-100); Lipase 66 U/L (23-300); Potassium 4.2 mmoL/L (3.5-5.1); Sodium 139 mmol/L (136-145); Total Protein,Serum 7.1 g/dl (6.3-8.2)
--- NOTE | 2021-10-28 00:56 | PC.NURSE ---
PATIENT TRANSPORTED TO CT
[2021-10-28 00:58] LABS: C-Reactive Protein 0.7 mg/L (0-4)
--- NOTE | 2021-10-28 01:03 | PC.NURSE ---
PATIENT RETURNED FROM CT
[2021-10-28 01:12] LABS: Procalcitonin 0.058 ng/mL (0.0-2.0)
[2021-10-28 01:16] LABS: Erythrocyte Sedimentation Rate 10 mm/hr (0-15)
[2021-10-28 02:07] VITALS: BP 126/67; PULSE 81; RESP 18; TEMP 36.7; O2SAT 97
== END 2021-10-28 02:21 | disposition home or self-care (01) ==
PROVIDERS: Emergency Provider Emergency Medicine; PCP Internal Medicine Adolescent Medicine
DX: R10.33 Periumbilical pain (principal); K21.9 Gastro-esophageal reflux disease without esophagitis
CPT/HCPCS: 74177; 80053; 81001; 82150; 83690; 84145; 85025; 85651; 86140; 96365; 96375; 99284; J2405; Q9967

== ENCOUNTER → 2021-12-17 16:59 | Outpatient (CLI) | payer BC, SELFPAY | PROVIDERS: PCP Internal Medicine Adolescent Medicine; Visit Provider Nurse Practitioner Family | DX: R19.5 Other fecal abnormalities (principal) ==

== ENCOUNTER → 2021-12-23 09:13 | Outpatient (CLI) | payer BC, SELFPAY ==
[2021-12-23 09:22] LABS: Adenovirus F 40/41, stool Not Detected (NotDetected); Astrovirus Not Detected (NotDetected); Campylobacter Not Detected (NotDetected); Clostridium Difficile A/B, PCR Not Detected (NotDetected); Cryptosporidium Not Detected (NotDetected); Cyclospora Cayetanesis Not Detected (NotDetected); Entamoeba histolytica Not Detected (NotDetected); Enteroaggregative E coli Not Detected (NotDetected); Enteropathogenic E coli Not Detected (NotDetected); Enterotoxigenic E coli Not Detected (NotDetected); Giardia lamblia Not Detected (NotDetected); Norovirus Not Detected (NotDetected); Plesimonas Shigalloides, PCR Not Detected (NotDetected); Rotavirus A Not Detected (NotDetected); Salmonella, PCR Not Detected (NotDetected); Sapovirus Not Detected (NotDetected); Shiga-like toxin E coli Not Detected (NotDetected); Shigella Enterovasive E coli Not Detected (NotDetected); Vibrio Cholerae Not Detected (NotDetected); Vibrio, PCR Not Detected (NotDetected); Yersinia Entercolitica, PCR Not Detected (NotDetected)
[2021-12-26 00:09] LABS: Calprotectin, Fecal 17 ug/g (0-120)
== END ==
PROVIDERS: PCP Internal Medicine Adolescent Medicine; Visit Provider Nurse Practitioner Family
DX: R19.5 Other fecal abnormalities (principal)
CPT/HCPCS: 83993; 87177; 87507

== ENCOUNTER 2022-01-20 22:41 | Emergency (ER) | payer BC, SELFPAY ==
[2022-01-20 22:43] VITALS: BP 117/83; PULSE 66; RESP 18; TEMP 36.8; O2SAT 98; BMI 26.4
--- NOTE | 2022-01-20 23:08 | ECG_ITS ---
APPROVED REPORT Exam: Resting ECG HR:63 bpm ECG Measurements Heart Rate 63 AXES [place] 207 P 48 QRSd 90 QRS 71 QT 378 T 35 QTc 384 Conclusion SINUS RHYTHM NORMAL ECG UNCONFIRMED REPORT Electronically signed by : Willian Manjarrez MD 01/21/2022 17:40:34
[2022-01-20 23:20] LABS: Coronavirus 19, PCR Not Detected (NotDetected); Influenza A, PCR Not Detected (NotDetected); Influenza B, PCR Not Detected (NotDetected)
[2022-01-20 23:20] LABS: Microscopic, Urine URINE MICROSCOPIC (MICROSCOPIC)
[2022-01-20 23:26] VITALS: BP 117/73; PULSE 61; O2SAT 99
[2022-01-20 23:33] LABS: Appearance,Urine CLEAR (Clear); Bilirubin,Urine Negative (Negative); Blood, Urine Negative (Negative); Color,Urine YELLOW (Yellow); Glucose,Urine (UA) Negative (Negative); Ketones,Urine Negative (Negative); Leukocyte Esterase,Urine Negative (Negative); Nitrate,Urine Negative (Negative); PH,Urine 7.5 (5.0-8.5); Protein,Urine Negative (Negative); Specific Gravity, Urine 1.015 (1.005-1.030); Urobilinogen,Urine 0.2 EU/dl (0.2)
--- NOTE | 2022-01-20 23:36 | CT_ITS ---
PROCEDURE INFORMATION: Exam: CT Head Without Contrast Exam date and time: 01/20/2022 11:47 PM Age: 36 years old Clinical indication: Patient HX: Patient states starting taking new medication, unsure if dizziness is caused by that; Additional info: Dizzy, pre syncope TECHNIQUE: Imaging protocol: Computed tomography of the head without contrast. Radiation optimization: All CT scans at this facility use at least one of these dose optimization techniques: automated exposure control; mA and/or kV adjustment per patient size (includes targeted exams where dose is matched to clinical indication); or iterative reconstruction. COMPARISON: HEADWO CT head/brain wo con 04/25/2018 7:40 AM FINDINGS: Brain: Normal. No hemorrhage. Unremarkable white matter. No mass effect. Cerebral ventricles: No ventriculomegaly. Paranasal sinuses: Visualized sinuses are unremarkable. No fluid levels. Mastoid air cells: Visualized mastoid air cells are well aerated. Bones/joints: Unremarkable. No acute fracture. Soft tissues: Unremarkable. IMPRESSION: No acute intracranial abnormality.
--- NOTE | 2022-01-20 23:36 | XR_ITS ---
PROCEDURE INFORMATION: Exam: XR Chest Exam date and time: 01/20/2022 11:40 PM Age: 36 years old Clinical indication: Other: Dizziness; Additional info: Dizzy TECHNIQUE: Imaging protocol: Radiologic exam of the chest. Views: 2 views. COMPARISON: CR XR CHEST PORTABLE 03/30/2021 3:23 AM FINDINGS: Lungs: Unremarkable. No consolidation. Pleural spaces: Unremarkable. No pleural effusion. No pneumothorax. Heart/Mediastinum: Unremarkable. No cardiomegaly. Bones/joints: Unremarkable. IMPRESSION: No acute findings.
[2022-01-20 23:47] LABS: Bacteria,Urine Trace /lpf; WBC,Urine Occasional #/hpf (0-3)
[2022-01-20 23:48] LABS: Basophils % 0.7 % (0.1-2.0); Eosinophils # 0.3 K/mm3 (0.0-0.4); Eosinophils % 4.7 % (0.1-12.0); Hematocrit 44.2 % (42.0-52.0); Hemoglobin 15.4 g/dL (14.1-18.0); Lymphocytes # 2.3 K/mm3 (0.7-4.5); Lymphocytes % 35.9 % (10-50); Mean Corpuscular HGB Conc 34.8 g/dL (31.8-35.4); Mean Corpuscular Hemoglobin 31.4 pg (27.0-31.2); Mean Platelet Volume 7.8 fl (7.4-10.4); Monocytes # 0.4 K/mm3 (0.1-1.0); Monocytes % 6.8 % (1.7-9.3); Neutrophils # 3.4 K/mm3 (1.8-7.8); Neutrophils % 51.9 % (37.0-80.0); Platelet Count 234 K/mm3 (142-424); Red Blood Count 4.91 M/mm3 (4.60-6.20); Red Cell Distribution Width 12.6 % (11.5-17.5); White Blood Count 6.5 K/mm3 (4.8-10.8)
--- NOTE | 2022-01-20 23:48 | PC.NURSE ---
Pt gone to RAD
--- NOTE | 2022-01-20 23:55 | PC.NURSE ---
Pt back from RAD
[2022-01-20 23:56] VITALS: BP 123/81; PULSE 61; O2SAT 99
[2022-01-20 23:59] LABS: Alanine Aminotransferase 31 U/L (12-78); Albumin Level 4.5 g/dl (3.5-5.0); Alkaline Phosphatase 96 U/L (38-126); Anion Gap 14.2 mEq/L (5-15); Aspartate Amino Transferase 37 U/L (17-59); Bilirubin,Indirect 0.2 mg/dL (0.0-0.9); Bilirubin,Total 0.2 mg/dl (0.2-1.3); Bilirubin,Unconjugated 0.4 mg/dL (0.0-1.1); Blood Urea Nitrogen 10 mg/dl (9-20); Calcium 9.1 mg/dl (8.4-10.2); Carbon Dioxide 26 mmol/L (22.0-30.0); Chloride 104 mmol/L (98-107); Creatinine Clearance Estimated 159 mL/min (50-200); Estimated Glomerular Filt Rate 111 ml/min (>60); GFR (African American) 134 ML/MIN (>60); Glucose 107 mg/dl (74-100); Potassium 4.2 mmoL/L (3.5-5.1); Sodium 140 mmol/L (136-145); Total Protein,Serum 7.4 g/dl (6.3-8.2)
[2022-01-21 00:04] LABS: C-Reactive Protein 0.5 mg/L (0-4)
[2022-01-21 00:13] LABS: Troponin I < 0.01 ng/ml (0.00-0.034)
[2022-01-21 00:15] LABS: Erythrocyte Sedimentation Rate 4 mm/hr (0-15)
[2022-01-21 00:17] LABS: Procalcitonin 0.053 ng/mL (0.0-2.0)
[2022-01-21 00:26] VITALS: BP 117/71; PULSE 73; O2SAT 99
--- NOTE | 2022-01-21 01:02 | PC.NURSE ---
Pt updated on POC. No new needs.
--- NOTE | 2022-01-21 01:16 | HMH.EDNVD ---
ED Disposition Clinical Impression: Abdominal pain Qualifiers: Abdominal location: epigastric Qualified Code(s): R10.13 - Epigastric pain Disposition: Home, Self-Care Condition on Discharge: Good Instructions: Vertigo Additional Instructions: fluids and call pcp for follow up Referrals: Willian Manjarrez MD [Primary Care Provider] - - Critical Care Critical Care Time: No Attestation: On 01/20/22, the high probability of a clinically significant, sudden or life threatening deterioration of the following system(s) required my full and direct attention, intervention and personal management. The time I documented below is in addition to time spent performing reported procedures but includes the following listed in this critical care notation. Medical Decision Making - Medical Records Medical records reviewed: Yes: I reviewed the patient's medical records. - Immanuel Inquiry Pt receiving controlled substance: No Vital Signs: 01/20/22 22:43 01/20/22 23:26 01/20/22 23:56 Temperature 98.2 F Temperature Source Oral Pulse Rate 61 61 Pulse Rate [Right] 66 Respiratory Rate 18 Blood Pressure 117/73 123/81 Blood Pressure [Right Arm] 117/83 Blood Pressure Mean [Right Arm] 94 Blood Pressure Source [Right Arm] Automatic Cuff 02 Sat by Pulse Oximetry 98 99 99 Oxygen Delivery Method Room Air Room Air Room Air 01/21/22 00:26 Temperature Temperature Source Pulse Rate 73 Pulse Rate [Right] Respiratory Rate Blood Pressure 117/71 Blood Pressure [Right Arm] Blood Pressure Mean [Right Arm] Blood Pressure Source [Right Arm] 02 Sat by Pulse Oximetry 99 Oxygen Delivery Method Room Air - Lab Data Lab results reviewed: Yes: I reviewed the patient's lab results. Lab Results 01/20/22 23:05: ESR 4 01/20/22 23:05: Troponin I < 0.01, C-Reactive Protein 0.5, Procalcitonin 0.053 01/20/22 23:05: WBC 6.5, RBC 4.91, Hgb 15.4, Hct 44.2, MCV 90.0, MCH 31.4 H, MCHC 34.8, RDW 12.6, Plt Count 234, MPV 7.8, Neut % (Auto) 51.9, Lymph % (Auto) 35.9, [place] % (Auto) 6.8, Eos % (Auto) 4.7, Baso % (Auto) 0.7, Neut # (Auto) 3.4, Lymph # (Auto) 2.3, [place] # (Auto) 0.4, Eos # (Auto) 0.3, Baso # (Auto) 0.0 01/20/22 23:05: Sodium 140, Potassium 4.2, Chloride 104, Carbon Dioxide 26, Anion Gap 14.2, BUN 10, Creatinine 0.80, Estimated Creat Clear 159, Estimated GFR 111, Est GFR ( Amer) 134, Glucose 107 H, Calcium 9.1, Total Bilirubin 0.2, Direct Bilirubin 0.0, Conjugated Bilirubin 0.0, Indirect Bilirubin 0.2, Unconjugated Bilirubin 0.4, AST 37, ALT 31, Alkaline Phosphatase 96, Total Protein 7.4, Albumin 4.5 01/20/22 23:09: SARS-CoV-2 (PCR) Not detected, Influenza A Untype (PCR) Not detected, Influenza Type B (PCR) Not detected 01/20/22 23:10: Urine Color Yellow, Urine Appearance Clear, Urine pH 7.5, Ur Specific [place] 1.015, Urine Protein Negative, Urine Glucose (UA) Negative, Urine Ketones Negative, Urine Blood Negative, Urine Nitrate Negative, Urine Bilirubin Negative, Urine Urobilinogen 0.2, Ur Leukocyte Esterase Negative, Urine WBC Occasional, Urine Bacteria Trace Result diagrams: 01/20/22 23:05 01/20/22 23:05 Orders (Tests/Meds): ED MEDICATIONS Generic Name Dose Route Start Last Admin Trade Name Freq PRN Reason Stop Dose Admin Sodium Chloride 1,000 mls @ 999 mls/hr 01/20/22 23:45 01/20/22 23:48 Sod Chlor 0.9% 1000ml Bag IV 01/21/22 00:45 999 mls/hr .Q1H1M ANTONIO Administration Discontinued Medications Generic Name Dose Route Start Last Admin Trade Name Freq PRN Reason Stop Dose Admin Ondansetron HCl 4 mg 01/20/22 23:37 01/20/22 23:48 Ondansetron 4mg/2ml Vial IV 01/20/22 23:38 4 mg ONCE ONE Administration ORDERS Category Date Time Status Troponin I Q3H Lab 01/21/22 02:45 Ordered Troponin I Q3H Lab 01/21/22 05:45 Ordered - Radiology Data #1 Image(s): Chest Image Reviewed: Yes I have reviewed radiologist's interpretation Preliminary Findings: Normal/NAD - C
[2022-01-21 01:58] VITALS: BP 115/73; PULSE 70; RESP 16; TEMP 36.8; O2SAT 97
== END 2022-01-21 02:00 | disposition home or self-care (01) ==
PROVIDERS: Emergency Provider Emergency Medicine; PCP Internal Medicine Adolescent Medicine
DX: R10.13 Epigastric pain (principal); R42 Dizziness and giddiness; R53.1 Weakness; R11.0 Nausea
CPT/HCPCS: 70450; 71046; 80048; 80076; 81001; 84145; 84484; 85025; 85651; 86140; 93005; 96361; 96374; 99285; C9803; J2405; U0003; U0005

== ENCOUNTER → 2022-05-20 16:00 | Outpatient (CLI) | payer BC, SELFPAY ==
[2022-05-20 17:08] LABS: Alanine Aminotransferase 31 U/L (12-78); Albumin Level 4.8 g/dl (3.5-5.0); Alkaline Phosphatase 105 U/L (38-126); Anion Gap 16.1 mEq/L (5-15); Aspartate Amino Transferase 33 U/L (17-59); Bilirubin,Total 0.2 mg/dl (0.2-1.3); Blood Urea Nitrogen 11 mg/dl (9-20); Calcium 9.7 mg/dl (8.4-10.2); Carbon Dioxide 27 mmol/L (22.0-30.0); Chloride 100 mmol/L (98-107); Estimated Glomerular Filt Rate 97 ml/min (>60); GFR (African American) 117 ML/MIN (>60); Globulin 2.4 g/dL (1.3-3.2); Glucose 74 mg/dl (74-100); Magnesium 1.5 mg/dl (1.6-2.3); Potassium 4.1 mmoL/L (3.5-5.1); Sodium 139 mmol/L (136-145); Total Protein,Serum 7.2 g/dl (6.3-8.2)
[2022-05-20 17:24] LABS: 25-OH Vitamin D, Total 33.3 ng/mL (30-100)
[2022-05-20 17:58] LABS: Vitamin B12 841 pg/mL (239-931)
[2022-05-20 18:16] LABS: Basophils # 0.1 K/mm3 (0-0.2); Basophils % 1.9 % (0.1-2.0); Eosinophils # 0.3 K/mm3 (0.0-0.4); Eosinophils % 4.1 % (0.1-12.0); Hematocrit 42.7 % (42.0-52.0); Hemoglobin 14.2 g/dL (14.1-18.0); Lymphocytes # 2.8 K/mm3 (0.7-4.5); Lymphocytes % 45.2 % (10-50); Mean Corpuscular HGB Conc 33.2 g/dL (31.8-35.4); Mean Corpuscular Hemoglobin 31.7 pg (27.0-31.2); Mean Corpuscular Volume 95.4 fl (80-94); Mean Platelet Volume 8.7 fl (7.4-10.4); Monocytes # 0.3 K/mm3 (0.1-1.0); Monocytes % 4.8 % (1.7-9.3); Neutrophils # 2.7 K/mm3 (1.8-7.8); Neutrophils % 43.9 % (37.0-80.0); Platelet Count 236 K/mm3 (142-424); Red Blood Count 4.48 M/mm3 (4.60-6.20); White Blood Count 6.2 K/mm3 (4.8-10.8)
== END ==
PROVIDERS: PCP Internal Medicine Adolescent Medicine; Visit Provider Nurse Practitioner Family
DX: K21.9 Gastro-esophageal reflux disease without esophagitis (principal); G47.30 Sleep apnea, unspecified; R40.0 Somnolence; R06.83 Snoring
CPT/HCPCS: 36415; 80053; 82306; 82607; 83735; 85025; G0399

== ENCOUNTER 2022-06-26 04:45 | Emergency (ER) | payer BC, SELFPAY ==
[2022-06-26 04:46] VITALS: BP 155/91; PULSE 125; RESP 16; TEMP 38.2; O2SAT 98; BMI 28.3
--- NOTE | 2022-06-26 05:00 | XR_ITS ---
PROCEDURE INFORMATION: Exam: XR Chest Exam date and time: 06/26/2022 5:55 AM Age: 36 years old Clinical indication: Cough; Additional info: History of ptx, coughing, L chest pain with cough TECHNIQUE: Imaging protocol: Radiologic exam of the chest. Views: 1 view. COMPARISON: CR XR CHEST 2V 01/20/2022 11:40 PM FINDINGS: Lungs: No acute airspace disease. Pleural spaces: No significant pleural effusion or pneumothorax. Heart/Mediastinum: Epicardial fat, without cardiomegaly. Bones/joints: Unremarkable. IMPRESSION: No acute airspace disease.
--- NOTE | 2022-06-26 05:10 | HMH.EDGENADL ---
Discharge Plan Disposition Patient Disposition: Home, Self-Care Condition: Good Prescriptions Prescriptions: New oseltamivir [Tamiflu] 75 mg capsule 75 mg PO BID 5 Days Qty: 10 0RF No Action alprazolam [Xanax] 0.25 mg tablet 0.25 mg PO BID PRN (Reason: anxiety) Qty: 45 1RF omeprazole magnesium 20 MG tablet,delayed release (DR/EC) 80 mg PO BID cyproheptadine 4 MG tablet 4 mg PO BID Referrals Follow up/Referrals: Willian Manjarrez MD [Primary Care Provider] - See instructions Activity Restrictions/Add. Instructions Additional Instructions/Restrictions: Take Tamiflu twice daily for 5 days to treat flu symptoms. If you have any other concerning signs or symptoms, return to your primary care provider for further evaluation, or your local ER. Clinical Impressions Clinical Impression: Influenza A Discharge ED Provider: Lowell Collins General Adult HPI General Chief complaint: Upper Respiratory Infection Stated complaint: Fever, cough, chills Time Seen by Provider: 06/26/22 04:50 Mode of Arrival: Ambulatory Source of Information: Patient Limitations: No Limitations Description of Symptoms (Recalled from ER Triage Doc. by RN): pt c/o cough,congestion, fever, body aches, sore throat since yesterday History of Present Illness HPI narrative: This is a 36-year-old male with history of spontaneous pneumothorax who is presenting shortness of breath. Patient states that he began having fevers, chills, shortness of breath and cough that is nonproductive 1 day prior to arrival. Denies nausea, vomiting, known sick contacts, diarrhea, or any other concerning history. Related Data Home Medications Medication Instructions Recorded Confirmed omeprazole magnesium 20 mg 80 mg PO BID GERD 10/19/17 06/24/22 tablet,delayed release cyproheptadine 4 mg tablet 4 mg PO BID GERD 10/28/21 06/24/22 Previous Rx's Medication Instructions Recorded alprazolam 0.25 mg tablet (Xanax) 0.25 mg PO BID PRN anxiety #45 tabs 06/24/22 oseltamivir 75 mg capsule (Tamiflu) 75 mg PO BID 5 days #10 caps 06/26/22 Allergies Allergy/AdvReac Type Severity Reaction Status Date / Time No Known Allergies Allergy Verified 06/24/22 14:43 [facility] Disclaimer: The information contained in this section may have been updated after the patient was seen, as this information can be updated by other users. Medical History (Updated 06/26/22 @ 05:44 by Lowell Collins MD) Panic disorder Social History (Updated 03/11/22 @ 15:37 by Sendy Willis APRN) Smoking Status: Current every day smoker tobacco type: cigarettes packs per day: 1 second hand exposure: Yes alcohol intake: never counseling provided: provider counseling substance use type: former substance user, crack/cocaine, painkillers, IV drugs and other current occupational status: employed Travel in the last 8 weeks: None household members: family housing: house marital status: single number of children: 4 service: No senior living: No current occupational exposures/hazards: No caffeine: No physical activity: none ROS Obtained: Yes All systems reviewed & no additional complaints except as documented Physical Exam General General appearance: alert and in no apparent distress Head Head exam: atraumatic, normocephalic and normal inspection Eye Eye exam: Present normal appearance, PERRL and EOMI ENT ENT exam: Present normal exam, normal oropharynx, mucous membranes moist, TM's normal bilaterally and normal external ear exam Expanded ENT Exam Mouth exam: Present normal external inspection; Absent drooling or trismus Throat exam: Present tonsillar erythema; Absent tonsillomegaly or tonsillar exudate Neck Neck exam: Present normal inspection, full ROM and trachea midline; Absent meningismus or lymphadenopathy Chest Chest inspection: Present normal inspection and symmetric chest wall rise; Absent tenderness Respiratory R
[2022-06-26 05:20] LABS: Coronavirus 19, PCR Not Detected (NotDetected); Influenza B, PCR Not Detected (NotDetected)
[2022-06-26 05:41] LABS: Influenza A, PCR Detected (NotDetected)
[2022-06-26 05:54] VITALS: BP 149/87; PULSE 115; RESP 16; TEMP 37.6; O2SAT 97
== END 2022-06-26 05:58 | disposition home or self-care (01) ==
PROVIDERS: Emergency Provider Emergency Medicine; PCP Internal Medicine Adolescent Medicine
DX: J10.1 Influenza due to other identified influenza virus with other respiratory manifestations (principal); Z79.899 Other long term (current) drug therapy; K21.9 Gastro-esophageal reflux disease without esophagitis; Z72.0 Tobacco use; F14.11 Cocaine abuse, in remission; F19.11 Other psychoactive substance abuse, in remission
CPT/HCPCS: 71045; 99283; C9803; U0003; U0005

== ENCOUNTER → 2023-02-23 16:48 | Outpatient (CLI) | payer BC, SELFPAY ==
[2023-02-23 18:20] LABS: Amphetamine/Metha Screen,Urine Negative ng/ml (<1000); Barbiturates Screen,Urine Negative ng/ml (<200); Benzodiazepines Screen,Urine Positive ng/ml (<200); Cannabinoid Screen,Urine Negative ng/ml (<50); Cocaine Screen,Urine Negative ng/ml (<300); Opiate Screen,Urine Negative ng/ml (<300); Phencyclidine Screen,Urine Negative ng/ml (<25)
[2023-02-23 18:28] LABS: Methadone Screen,Urine Negative ng/ml (<300)
== END ==
PROVIDERS: Visit Provider Nurse Practitioner Psychiatric/Mental Health
DX: Z51.81 Encounter for therapeutic drug level monitoring (principal)
CPT/HCPCS: 80305

== ENCOUNTER 2023-03-26 01:30 | Emergency (ER) | payer BC, SELFPAY ==
[2023-03-26 01:31] VITALS: BP 123/80; PULSE 75; RESP 18; TEMP 36.6; O2SAT 100; BMI 28.5
[2023-03-26 02:30] VITALS: BP 118/65; PULSE 67; O2SAT 97
[2023-03-26 02:31] LABS: Basophils # 0.1 K/mm3 (0-0.2); Basophils % 0.6 % (0.1-2.0); Eosinophils # 0.2 K/mm3 (0.0-0.4); Eosinophils % 2.4 % (0.1-12.0); Hematocrit 54.6 % (42.0-52.0); Hemoglobin 17.7 g/dL (14.1-18.0); Lymphocytes # 2.6 K/mm3 (0.7-4.5); Lymphocytes % 31.9 % (10-50); Mean Corpuscular HGB Conc 32.4 g/dL (31.8-35.4); Mean Corpuscular Hemoglobin 30.1 pg (27.0-31.2); Mean Corpuscular Volume 93.1 fl (80-94); Mean Platelet Volume 8.9 fl (7.4-10.4); Monocytes # 0.5 K/mm3 (0.1-1.0); Monocytes % 5.6 % (1.7-9.3); Neutrophils # 4.8 K/mm3 (1.8-7.8); Neutrophils % 59.4 % (37.0-80.0); Platelet Count 243 K/mm3 (142-424); Red Blood Count 5.86 M/mm3 (4.60-6.20)
[2023-03-26 02:36] LABS: Chloride 102 mmol/L (98-107); Potassium 4.3 mmoL/L (3.5-5.1); Sodium 141 mmol/L (136-145)
[2023-03-26 02:39] LABS: Alanine Aminotransferase 30 U/L (12-78); Albumin/Globulin Ratio 1.3 (1.1-1.8); Alkaline Phosphatase 84 U/L (38-126); Anion Gap 17.3 mEq/L (5-15); Aspartate Amino Transferase 35 U/L (17-59); Blood Urea Nitrogen 16 mg/dl (9-20); Carbon Dioxide 26 mmol/L (22.0-30.0); Creatinine Clearance Estimated 116 mL/min (50-200); Estimated Glomerular Filt Rate 69 ml/min (>60); GFR (African American) 83 ML/MIN (>60); Globulin 3.9 g/dL (1.3-3.2); Total Protein,Serum 8.9 g/dl (6.3-8.2)
[2023-03-26 02:40] LABS: Calcium 10.3 mg/dl (8.4-10.2); Glucose 109 mg/dl (74-100)
--- NOTE | 2023-03-26 02:46 | HMH.EDGENADL ---
Discharge Plan Disposition Patient Disposition: Home, Self-Care Condition: Good Prescriptions Prescriptions: New doxycycline hyclate 100 mg capsule 100 mg PO BID 10 Days Qty: 20 0RF metronidazole 500 mg tablet 500 mg PO BID 7 Days Qty: 14 0RF cephalexin 500 mg capsule 500 mg PO QID 5 Days Qty: 20 0RF No Action alprazolam [Xanax] 0.25 mg tablet 0.25 mg PO BID PRN (Reason: anxiety) Qty: 60 1RF omeprazole magnesium 20 MG tablet,delayed release (DR/EC) 80 mg PO BID cyproheptadine 4 MG tablet 4 mg PO BID Referrals Follow up/Referrals: Willian Manjarrez MD [Primary Care Provider] - See instructions Activity Restrictions/Add. Instructions Additional Instructions/Restrictions: Please take antibiotics as prescribed for coverage of possible Giardia, tickborne illness, cellulitis. Please follow-up with your primary care provider. Please return to the emergency department if you develop any new or worsening symptoms or become concerned for your health. Clinical Impressions Clinical Impression: Infectious diarrhea in adult patient, Headache, Myalgia, Erythema Discharge ED Provider: Paxton Dorantes General Adult HPI General Chief complaint: Extremity Problem,Nontraumatic Stated complaint: leg pain, dizziness Time Seen by Provider: 03/26/23 01:47 Mode of Arrival: Ambulatory Source of Information: Patient Limitations: No Limitations Description of Symptoms (Recalled from ER Triage Doc. by RN): Pt reports being in [place] for 1 week [place] when he believed to delveloping signs of elevation sickness including N/D, SOA, headache, sore throat. He flew home today and noticed bilateral redness on bilateral calfs that he reports as a stinging sensation and weak upon standing. History of Present Illness HPI narrative: 37-year-old male, reportedly previously healthy presents with flulike illness. He reports that [place] in [place] the last week or so hunting. He reports that he did drink some spring water that had not been decontaminated. He reports that he left the trip early because of his symptoms. He reports headache, chills, muscle aches, mucousy diarrhea. He developed some redness over his bilateral calves this evening prompting his presentation to ER. He denies any unilateral extremity swelling. No history of PE or DVT in the past. No objective fever at home. His flights were relatively short. He denies any known tick exposures. Related Data Home Medications Medication Instructions Recorded Confirmed omeprazole magnesium 20 mg 80 mg PO BID GERD 10/19/17 03/26/23 tablet,delayed release cyproheptadine 4 mg tablet 4 mg PO BID GERD 10/28/21 03/26/23 Previous Rx's Medication Instructions Recorded alprazolam 0.25 mg tablet (Xanax) 0.25 mg PO BID PRN anxiety #60 tabs 03/18/23 cephalexin 500 mg capsule 500 mg PO QID 5 days #20 caps 03/26/23 doxycycline hyclate 100 mg capsule 100 mg PO BID 10 days #20 caps 03/26/23 metronidazole 500 mg tablet 500 mg PO BID 7 days #14 tabs 03/26/23 Allergies Allergy/AdvReac Type Severity Reaction Status Date / Time No Known Allergies Allergy Verified 11/25/22 16:05 [facility] Disclaimer: The information contained in this section may have been updated after the patient was seen, as this information can be updated by other users. Medical History (Updated 03/26/23 @ 03:24 by Paxton Dorantes MD) Panic disorder Social History (Updated 03/11/22 @ 15:37 by Sendy Willis APRN) Smoking Status: Former smoker second hand exposure: Yes alcohol intake: never counseling provided: provider counseling substance use type: former substance user, crack/cocaine, painkillers, IV drugs and other current occupational status: employed Travel in the last 8 weeks: None household members: family housing: house marital status: single number of children: 4 service: No long-term: No c
[2023-03-26 03:00] VITALS: BP 107/66; PULSE 67; O2SAT 97
[2023-03-26 03:30] VITALS: BP 107/65; PULSE 70; O2SAT 97
[2023-03-26 03:34] VITALS: BP 107/65; PULSE 59; RESP 18; TEMP 36.6; O2SAT 98
--- NOTE | 2023-06-02 22:19 | PC.NURSE ---
Medical records sent to [phone]
== END 2023-03-26 03:45 | disposition home or self-care (01) ==
PROVIDERS: Emergency Provider Emergency Medicine; PCP Internal Medicine Adolescent Medicine
DX: A09 Infectious gastroenteritis and colitis, unspecified (principal); R51.9 Headache, unspecified; J02.9 Acute pharyngitis, unspecified; F41.0 Panic disorder [episodic paroxysmal anxiety]; Z87.891 Personal history of nicotine dependence
CPT/HCPCS: 80053; 85025; 99284

== ENCOUNTER 2023-05-10 13:47 | Emergency (ER) | payer BC, SELFPAY ==
[2023-05-10] VITALS (10 sets, daily range): BP systolic 121–144; BP diastolic 72–92; PULSE 76–94; RESP 16–20; TEMP 36.7–36.8; O2SAT 96–99; BMI 24.4
--- NOTE | 2023-05-10 13:54 | ECG_ITS ---
APPROVED REPORT Exam: Resting ECG HR:84 bpm ECG Measurements Heart Rate 84 AXES [place] 190 P 56 QRSd 83 QRS 80 QT 338 T 19 QTc 379 Conclusion SINUS RHYTHM NORMAL ECG UNCONFIRMED REPORT Electronically signed by : Willian Manjarrez MD 05/12/2023 21:30:52
--- NOTE | 2023-05-10 14:02 | XR_ITS ---
FINAL REPORT CLINICAL HISTORY: cp, sob COMPARISON: 06/26/2022 FINDINGS: Two views of the chest were obtained. The heart size and pulmonary vascularity are within normal limits. The mediastinum is normal. No acute pulmonary abnormality is identified. There is no pneumothorax. The bony thorax is intact. IMPRESSION: No active cardiopulmonary disease. Reviewed, Interpreted and Dictated by Willis Milligan III, MD Transcribed by Jenny Rutherford Authenticated and [facility]
--- NOTE | 2023-05-10 14:04 | HMH.EDGENADL ---
Discharge Plan Disposition Chief Complaint: Chest Pain Prescriptions Prescriptions: No Action alprazolam [Xanax] 0.25 mg tablet 0.25 mg PO BID PRN (Reason: anxiety) Qty: 60 1RF omeprazole magnesium 20 MG tablet,delayed release (DR/EC) 80 mg PO BID doxycycline hyclate 100 mg capsule 100 mg PO BID 10 Days Qty: 20 0RF metronidazole 500 mg tablet 500 mg PO BID 7 Days Qty: 14 0RF cephalexin 500 mg capsule 500 mg PO QID 5 Days Qty: 20 0RF cyproheptadine 4 MG tablet 4 mg PO BID Referrals Follow up/Referrals: Provider,Referral, [Referring] - See instructions Discharge ED Provider: Lowell Collins General Adult HPI <Paxton Dorantes MD - Last Filed: 05/10/23 18:19> General Chief complaint: Chest Pain Stated complaint: chest pain Time Seen by Provider: 05/10/23 13:54 Mode of Arrival: Ambulatory Source of Information: Patient Limitations: No Limitations Description of Symptoms (Recalled from ER Triage Doc. 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 pt reports mild nausea. pt denies cardiac hx. pt reports sudden onset pain while working. History of Present Illness HPI narrative: 37-year-old male, history of prior spontaneous pneumothorax,, presents with sudden onset of chest pain and shortness of breath. He reports he felt a little dizzy as well. He reports this isnt common for him. He denies any other significant past medical history. Denies any recent change in medication, denies any abdominal pain or nausea or vomiting. Related Data Home Medications Medication Instructions Recorded Confirmed omeprazole magnesium 20 mg 80 mg PO BID GERD 10/19/17 03/26/23 tablet,delayed release cyproheptadine 4 mg tablet 4 mg PO BID GERD 10/28/21 03/26/23 Previous Rx's Medication Instructions Recorded alprazolam 0.25 mg tablet (Xanax) 0.25 mg PO BID PRN anxiety #60 tabs 03/18/23 cephalexin 500 mg capsule 500 mg PO QID 5 days #20 caps 03/26/23 doxycycline hyclate 100 mg capsule 100 mg PO BID 10 days #20 caps 03/26/23 metronidazole 500 mg tablet 500 mg PO BID 7 days #14 tabs 03/26/23 Allergies Allergy/AdvReac Type Severity Reaction Status Date / Time No Known Allergies Allergy Verified 11/25/22 16:05 PFSH <Paxton Dorantes MD - Last Filed: 05/10/23 18:19> PFS Disclaimer: The information contained in this section may have been updated after the patient was seen, as this information can be updated by other users. Medical History (Updated 05/10/23 @ 18:16 by Lowell Collins MD) Panic disorder Social History (Updated 03/11/22 @ 15:37 by Sendy Willis APRN) Smoking Status: Never smoker second hand exposure: Yes alcohol intake: never counseling provided: provider counseling substance use type: former substance user, crack/cocaine, painkillers, IV drugs and other current occupational status: employed Travel in the last 8 weeks: None household members: family housing: house marital status: single number of children: 4 service: No assisted: No current occupational exposures/hazards: No caffeine: No physical activity: none <Paxton Dorantes MD - Last Filed: 05/10/23 18:19> ROS Obtained: Yes All systems reviewed & no additional complaints except as documented Physical Exam <Paxton Dorantes MD - Last Filed: 05/10/23 18:19> General General appearance: alert and in no apparent distress Head Head exam: atraumatic and normocephalic Eye Eye exam: Present normal appearance, PERRL and EOMI ENT ENT exam: Present normal oropharynx and normal external ear exam Neck Neck exam: Present normal inspection and full ROM Chest Chest inspection: Present normal inspection and symmetric chest wall rise; Absent tenderness Respiratory Respiratory exam: Present normal lung sounds bilaterally; Absent respiratory distress Cardiovascular Cardiovascular exam: Present regular rate and normal rhythm Abdominal Exam Abdominal e
[2023-05-10 14:12] LABS: Chloride 104 mmol/L (98-107); Potassium 3.9 mmoL/L (3.5-5.1); Sodium 141 mmol/L (136-145)
[2023-05-10 14:15] LABS: Alanine Aminotransferase 27 U/L (12-78); Albumin/Globulin Ratio 1.6 (1.1-1.8); Alkaline Phosphatase 89 U/L (38-126); Anion Gap 11.9 mEq/L (5-15); Aspartate Amino Transferase 35 U/L (17-59); Bilirubin,Total 0.4 mg/dl (0.2-1.3); Blood Urea Nitrogen 13 mg/dl (9-20); Carbon Dioxide 29 mmol/L (22.0-30.0); Creatinine Clearance Estimated 92 mL/min (50-200); Estimated Glomerular Filt Rate 63 ml/min (>60); GFR (African American) 76 ML/MIN (>60); Globulin 3.2 g/dL (1.3-3.2); Total Protein,Serum 8.2 g/dl (6.3-8.2)
[2023-05-10 14:16] LABS: Calcium 9.3 mg/dl (8.4-10.2); Glucose 102 mg/dl (74-100)
[2023-05-10 14:20] LABS: Basophils % 0.5 % (0.1-2.0); Eosinophils # 0.3 K/mm3 (0.0-0.4); Eosinophils % 4.8 % (0.1-12.0); Hematocrit 44.6 % (42.0-52.0); Hemoglobin 16.2 g/dL (14.1-18.0); Lymphocytes # 2.9 K/mm3 (0.7-4.5); Mean Corpuscular HGB Conc 36.2 g/dL (31.8-35.4); Mean Corpuscular Hemoglobin 32.6 pg (27.0-31.2); Mean Corpuscular Volume 89.9 fl (80-94); Mean Platelet Volume 8.8 fl (7.4-10.4); Monocytes # 0.3 K/mm3 (0.1-1.0); Monocytes % 4.9 % (1.7-9.3); Neutrophils # 3.2 K/mm3 (1.8-7.8); Neutrophils % 46.7 % (37.0-80.0); Platelet Count 217 K/mm3 (142-424); Red Blood Count 4.96 M/mm3 (4.60-6.20); Red Cell Distribution Width 13.2 % (11.5-17.5); White Blood Count 6.8 K/mm3 (4.8-10.8)
[2023-05-10 14:28] LABS: Troponin I < 0.01 ng/ml (0.00-0.034)
[2023-05-10 18:10] LABS: Troponin I < 0.01 ng/ml (0.00-0.034)
== END 2023-05-10 18:46 | disposition home or self-care (01) ==
PROVIDERS: Emergency Medicine; Emergency Provider Emergency Medicine; PCP Internal Medicine Adolescent Medicine
DX: R07.9 Chest pain, unspecified (principal)
CPT/HCPCS: 71046; 80053; 84484; 85025; 93005; 96361; 96374; 96375; 99285; J2405

== ENCOUNTER → 2023-06-14 12:57 | Outpatient (CLI) | payer BC, SELFPAY ==
--- NOTE | 2023-06-14 | CA_ITS ---
APPROVED REPORT EXAM: Comprehensive 2D, Doppler, and color-flow Echocardiogram Telecommunications Officer: Aurora Marie RT(R) Ht: 6 ft 0 in Wt: 205lbs BSA: 2.15 BP: 145/82 mmHg Indications: dizziness, ex smoker, SOB, fatigue, GONZALEZ, near syncope, edema 2D Dimensions LVEF (Carver's) 60.40 % M: 52 - 72 LV Volume 76.50 mL M: 62 - 150 LV Volume Index 35.6 mL/m2 M: 34 - 74 LA Volume 34.10 mL LA Volume Index 15.86 mL/m2 (M/F) 16-34 EF AP4 64.10 % EF AP2 56.1 % EF BP 60.4 % GL Strain -19.7 % M-Mode Dimensions RVDd 2.28 cm (0.9-2.6) LA Diam 3.20 cm (1.9-4.0) LVDd 5.02 cm (3.5-5.7) LVDs 3.68 cm (3.5-5.7) IVSd 0.87 cm (0.6-1.1) PWd 0.67 cm (0.6-1.1) EF (Teich) 51.90% FS 26.70% EDV (Teich) 119.30 mL TAPSE 2.38 (<1.7) ESV (Teich) 57.40 mL LV Diastology E Decel Time 337 (160-240 msec) E/A Ratio 0.80 Mitral Valve MV A Velocity 77.0 (40-130 cm/s) E/A Ratio 0.80 Left Ventricle The left ventricle is normal size. The left ventricular systolic function is normal. The left ventricular ejection fraction is within the normal range. There is normal left ventricular wall thickness. There is normal LV segmental wall motion. The left ventricular diastolic function is normal. LVEF is 55%. Right Ventricle The right ventricle is mildly dilated. The right ventricular systolic function is normal. Atria The left atrium size is normal. The right atrium size is normal. There is no Doppler evidence of interatrial shunt. Aortic Valve The aortic valve opens well. Trace aortic regurgitation. There is no aortic valvular stenosis. Mitral Valve The mitral valve is normal in structure. No evidence of mitral valve stenosis. There is no mitral valve regurgitation noted. Tricuspid Valve The tricuspid valve leaflets are thin and pliable. Trace tricuspid regurgitation. There is insufficient TR jet to estimate RVSP. Pulmonic Valve The pulmonary valve is normal in structure. Trace pulmonic regurgitation. Great Vessels The aortic root is normal in size. The ascending aorta is normal in size. IVC is normal in size and collapses >50% with inspiration. Pericardium There is no pericardial effusion. Other Information Study Quality: Adequate Conclusion Normal biventricular systolic function. No significant valvular stenosis or regurgitation. Electronically signed by : Christie Avalos MD 06/16/2023 23:27:47
== END ==
LOC: RT 12:57
PROVIDERS: PCP Internal Medicine Adolescent Medicine; Visit Provider Physician Assistant
DX: R42 Dizziness and giddiness (principal); R07.9 Chest pain, unspecified
CPT/HCPCS: 93306

== ENCOUNTER → 2023-06-29 08:49 | Outpatient (CLI) | payer BC, SELFPAY ==
--- NOTE | 2023-06-29 08:51 | MR_ITS ---
FINAL REPORT CLINICAL HISTORY: DIZZINESS. PRESSURE ON TOP OF HEAD COMPARISON: None FINDINGS: Multiplanar MR imaging of the brain was performed without and with contrast. There is no evidence of intracranial hemorrhage or mass. No abnormal extra-axial fluid collection is seen. The ventricular size is within normal limits. There is no evidence of shift of the midline structures. The posterior fossa and brainstem have an unremarkable appearance. No area of abnormal restricted diffusion is identified. No abnormal contrast enhancement is seen. Normal major vessel vascular flow voids are noted. There is mild mucoperiosteal thickening in the anterior left maxillary sinus. IMPRESSION: No acute intracranial abnormality identified. Mild mucoperiosteal thickening in the anterior left maxillary sinus. Reviewed, Interpreted and Dictated by Akira Nance MD Transcribed by Donna Holloway Authenticated and . [facility]
--- NOTE | 2023-06-29 09:03 | XR_ITS ---
FINAL REPORT CLINICAL HISTORY: RULE OUT METAL FOREIGN BODY FOR MRI. PRIOR HX METAL IN BOTH EYES FINDINGS: ORBITS Look up and look down views were obtained. No fracture is identified. The sinuses are clear. No foreign body is identified. IMPRESSION: No radiopaque foreign body identified Reviewed, Interpreted and Dictated by Akira Nance MD Transcribed by Nya Brewer Authenticated and [facility]
== END ==
PROVIDERS: PCP Internal Medicine Adolescent Medicine; Visit Provider Physician Assistant
DX: R42 Dizziness and giddiness (principal); R07.9 Chest pain, unspecified; R51.9 Headache, unspecified; H05.53 Retained (old) foreign body following penetrating wound of bilateral orbits
CPT/HCPCS: 70200; 70553; A9576

== ENCOUNTER 2023-11-07 14:49 | Outpatient (CLI) | payer OTHER, SELFPAY ==
--- NOTE | 2023-11-07 | CA_ITS ---
FINAL REPORT TECHNIQUE: Color Doppler, duplex Doppler and booth scale sonography of the bilateral neck arterial vasculature was performed. Velocities were measured in the carotid arteries. Stenosis evaluation based on the validated velocity criteria. CLINICAL HISTORY: ex smoker, near syncope, dizziness comes and goes x 1-2 months. COMPARISON: None FINDINGS: The peak systolic velocity of the right common carotid artery is 139 cm/s. The peak systolic velocity of the right internal carotid artery is 94 cm/s and end diastolic velocity 42 cm/s. The ICA/CCA ratio is 0.86. A mild amount of plaque is present. The right external carotid artery is patent. The right vertebral artery is patent with antegrade flow. The peak systolic velocity of the left common carotid artery is 1 6 cm/s. The peak systolic velocity of the left internal carotid artery is 102 cm/s and end diastolic velocity 37 cm/s. The ICA/CCA ratio is 0.86. A mild amount of plaque is present. The left external carotid artery is patent.The left vertebral artery is patent with antegrade flow. IMPRESSION: Less than 50% bilateral carotid stenoses. Bilateral patent vertebral arteries with antegrade flow. If indicated, CTA or MRA could further evaluate. Reviewed, Interpreted and Dictated by Akira Nance MD Transcribed by Nya Brewer Authenticated and [facility]
== END 2023-11-07 23:59 | disposition home or self-care (01) ==
LOC: RT 14:51
PROVIDERS: PCP Internal Medicine Adolescent Medicine; Visit Provider Physician Assistant
DX: R42 Dizziness and giddiness (principal)
CPT/HCPCS: 93880

== ENCOUNTER 2024-03-08 21:52 | Emergency (ER) | payer OTHER, SELFPAY ==
[2024-03-08 22:00] VITALS: BP 142/86; PULSE 75; RESP 16; TEMP 36.8; O2SAT 98; BMI 26.4
--- NOTE | 2024-03-08 22:10 | ED_ITS ---
Discharge Plan Disposition Patient Disposition: Home, Self-Care Prescriptions Prescriptions: No Action alprazolam [Xanax] 0.5 mg tablet 0.5 mg PO HS PRN (Reason: anxiety) Qty: 30 1RF omeprazole magnesium 20 MG tablet,delayed release (DR/EC) 80 mg PO BID doxycycline hyclate 100 mg capsule 100 mg PO BID 10 Days Qty: 20 0RF cyproheptadine 4 MG tablet 4 mg PO BID Referrals Follow up/Referrals: Yared Dumont MD [Staff Physician] - See instructions Willian Manjarrez MD [Primary Care Provider] - See instructions Clinical Impressions Clinical Impression: Near syncope, First degree AV block Print Language Print Language: Tajik Discharge ED Provider: Amy Fallon General Adult HPI <Amy Fallon MD - Last Filed: 03/08/24 23:00> General Chief complaint: Dizziness Stated complaint: MORA, dizzy Time Seen by Provider: 03/08/24 21:58 Mode of Arrival: Family Vehicle Source of Information: Patient Limitations: No Limitations Description of Symptoms (Recalled from ER Triage Doc. by RN): 38 YO presents with numerous complaints of congestion, tinnitus, vertigo, fullness in head. denies head trauma, loc. previous history of ANXIETY, GERD. denies recr. drugs, denies change in daily meds History of Present Illness HPI narrative: Patient is a 38-year-old male present today with multiple complaints. States that over the last several years he has had intermittent episodes of feeling like he is in a pass out what he describes as head fog. States that he will be walking all of a sudden will feel as if he is about to lose consciousness or that he is all of a sudden drunk. Has had brain imaging with the last year for this. Also has had an echo outpatient. Has never had a Holter monitor or an event monitor to my knowledge to his knowledge. States that he was driving supposed tonight and that his symptoms got so bad he need to come to the emergency department. Denies any chest pain or shortness of breath. Denies any position allergy changes to this currently denies any symptoms right now. Related Data Home Medications ?Medication ?Instructions ?Recorded ?Confirmed omeprazole magnesium 20 mg 80 mg PO BID GERD 10/19/17 12/19/23 tablet,delayed release cyproheptadine 4 mg tablet 4 mg PO BID GERD 10/28/21 12/19/23 Previous Rx's ?Medication ?Instructions ?Recorded doxycycline hyclate 100 mg capsule 100 mg PO BID 10 days #20 caps 03/26/23 alprazolam 0.5 mg tablet (Xanax) 0.5 mg PO HS PRN anxiety #30 tabs 01/23/24 Allergies Allergy/AdvReac Type Severity Reaction Status Date / Time No Known Allergies Allergy Verified 12/19/23 13:23 [facility] <Amy Fallon MD - Last Filed: 03/08/24 23:00> [facility] Disclaimer: The information contained in this section may have been updated after the patient was seen, as this information can be updated by other users. Medical History (Updated 03/08/24 @ 22:21 by Amy Fallon MD) Panic disorder Social History (Updated 03/11/22 @ 15:37 by Sendy Willis APRN) Smoking Status: Unknown if ever smoked second hand exposure: Yes alcohol intake: never counseling provided: provider counseling substance use type: former substance user, crack/cocaine, painkillers, IV drugs and other current occupational status: employed Travel in the last 8 weeks: None household members: family housing: house marital status: single number of children: 4 service: No mcc: No current occupational exposures/hazards: No caffeine: No physical activity: none <Amy Fallon MD - Last Filed: 03/08/24 23:00> ROS Obtained: Yes All systems reviewed & no additional complaints except as documented Physical Exam <Amy Fallon MD - Last Filed: 03/08/24 23:00> General General appearance: alert and in no apparent distress Respiratory Respiratory exam: Present normal lung sounds bilaterally; Absent respiratory distress Cardiovascular Cardiovascular exam: Present regular rate and normal rhythm Neurological Exam Neurological exam: Present alert, oriented X3, CN II-XII intact and normal gait; Absent motor sensory deficit Medical Decision Making <Amy Fallon MD - Last Filed: 03/08/24 23:00> Immanuel Inquiry Pt receiving controlled substance: No Vital Signs: 03/08/24 22:00 03/08/24 23:36 Temperature 98.2 F 98.3 F Temperature Source Oral Oral Pulse Rate 74 Pulse Rate [Right Brachial] 75 Respiratory Rate 16 16 Blood Pressure 131/81 Blood Pressure [Right Arm] 142/86 H Blood Pressure Mean [Right Arm] 104 Blood Pressure Source Automatic Cuff Blood Pressure Source [Right Arm] Automatic Cuff Blood Pressure Position Supine 02 Sat by Pulse Oximetry 98 Oxygen Delivery Method Room Air Room Air Lab Data Lab results reviewed: Yes I reviewed the patient's lab results. Lab Results 03/08/24 22:17: WBC 8.0, RBC 4.65, Hgb 14.6, Hct 44.4, MCV 95.4 H, MCH 31.3 H, MCHC 32.8, RDW 13.7, Plt Count 227, MPV 8.6, Neut % (Auto) 61.0, Lymph % (Auto) 33.1, Rabun % (Auto) 4.3, Eos % (Auto) 0.9, Baso % (Auto) 0.7, Neut # (Auto) 4.9, Lymph # (Auto) 2.6, Rabun # (Auto) 0.3, Eos # (Auto) 0.1, Baso # (Auto) 0.1, Sodium 138, Potassium 3.8, Chloride 107, Carbon Dioxide 24, Anion Gap 10.8, BUN 17, Creatinine 1.00, Estimated Creat Clear 124, Estimated GFR 85, Est GFR ( Amer) 102, Glucose 96, Calcium 9.1, Magnesium 1.9, Total Bilirubin 0.9, AST 30, ALT 22, Alkaline Phosphatase 89, Troponin I < 0.01, Total Protein 7.5, Albumin 4.7, Globulin 2.8, Albumin/Globulin Ratio 1.7, TSH 2.25 03/08/24 22:17 03/08/24 22:17 Orders (Tests/Meds): ED MEDICATIONS Discontinued Medications Generic Name Dose Route Start Last Admin Trade Name Freq PRN Reason Stop Dose Admin Lactated Ringer's 1,000 mls @ 999 mls/hr 03/08/24 22:15 03/08/24 22:18 Lactated Ringer's 1000 Ml Bag IV 03/08/24 23:15 999 mls/hr .Q1H1M ANTONIO Administration ORDERS Category Date Time Status CBC w/Auto Diff [Complete Blood Count Auto Diff] Stat Lab 03/08/24 22:17 Completed CMP [Comprehensive Metabolic Panel] Stat Lab 03/08/24 22:17 Completed Magnesium Stat Lab 03/08/24 22:17 Completed TSH [Thyroid Stimulating Hormone] Stat Lab 03/08/24 22:17 Completed Trop I [Troponin I] Stat Lab 03/08/24 22:17 Completed UDS [Drug Screen,Urine] Stat Lab 03/08/24 22:08 Ordered ECG Data Tracing #1: I reviewed this ECG and interpreted as documented below: EKG demonstrates a ventricular rate of 65 normal sinus rhythm no acute ischemic changes there is normal axis there is a first-degree AV block Medical Decision Narrative: Well-appearing 38-year-old male with a normal neurologic and cardiovascular exam presents today with very nonspecific complaints that have been relatively chronic. Worsened tonight with an episode of what he describes as near syncope. Neurologically everything appears normal right now what he was going on it seems to be intermittent and chronic. It is possible this is an arrhythmia he is never worn a Holter or an event monitor in the past I will recommend that he follow-up to get this done. He states that he has had an echo which was unremarkable and has had CT imaging of his brain. Has not seen a neurologist. Also he has been diagnosed with panic disorder and anxiety in the past and does take benzos. Labs unremarkable waiting for IV fluids to finish and then read assessed the patient. He is complains of being evaluated here in the ED unlikely has any emergent medical condition going on. Assuming his symptoms have improved he will be stable for outpatient follow-up with cardiology. Final disposition will be per Dr. Dorantes at 11 PM. <Paxton Dorantes MD - Last Filed: 03/08/24 23:40> Vital Signs: 03/08/24 22:00 03/08/24 23:36 Temperature 98.2 F 98.3 F Temperature Source Oral Oral Pulse Rate 74 Pulse Rate [Right Brachial] 75 Respiratory Rate 16 16 Blood Pressure 131/81 Blood Pressure [Right Arm] 142/86 H Blood Pressure Mean [Right Arm] 104 Blood Pressure Source Automatic Cuff Blood Pressure Source [Right Arm] Automatic Cuff Blood Pressure Position Supine 02 Sat by Pulse Oximetry 98 Oxygen Delivery Method Room Air Room Air Lab Data Lab Results 03/08/24 22:17: WBC 8.0, RBC 4.65, Hgb 14.6, Hct 44.4, MCV 95.4 H, MCH 31.3 H, MCHC 32.8, RDW 13.7, Plt Count 227, MPV 8.6, Neut % (Auto) 61.0, Lymph % (Auto) 33.1, Rabun % (Auto) 4.3, Eos % (Auto) 0.9, Baso % (Auto) 0.7, Neut # (Auto) 4.9, Lymph # (Auto) 2.6, Rabun # (Auto) 0.3, Eos # (Auto) 0.1, Baso # (Auto) 0.1, Sodium 138, Potassium 3.8, Chloride 107, Carbon Dioxide 24, Anion Gap 10.8, BUN 17, Creatinine 1.00, Estimated Creat Clear 124, Estimated GFR 85, Est GFR ( Amer) 102, Glucose 96, Calcium 9.1, Magnesium 1.9, Total Bilirubin 0.9, AST 30, ALT 22, Alkaline Phosphatase 89, Troponin I < 0.01, Total Protein 7.5, Albumin 4.7, Globulin 2.8, Albumin/Globulin Ratio 1.7, TSH 2.25 Orders (Tests/Meds): ED MEDICATIONS Discontinued Medications Generic Name Dose Route Start Last Admin Trade Name Freq PRN Reason Stop Dose Admin Lactated Ringer's 1,000 mls @ 999 mls/hr 03/08/24 22:15 03/08/24 22:18 Lactated Ringer's 1000 Ml Bag IV 03/08/24 23:15 999 mls/hr .Q1H1M ANTNOIO Administration ORDERS Category Date Time Status CBC w/Auto Diff [Complete Blood Count Auto Diff] Stat Lab 03/08/24 22:17 Completed CMP [Comprehensive Metabolic Panel] Stat Lab 03/08/24 22:17 Completed Magnesium Stat Lab 03/08/24 22:17 Completed TSH [Thyroid Stimulating Hormone] Stat Lab 03/08/24 22:17 Completed Trop I [Troponin I] Stat Lab 03/08/24 22:17 Completed UDS [Drug Screen,Urine] Stat Lab 03/08/24 22:08 Ordered Medical Decision Narrative: Well-appearing 38-year-old male with a normal neurologic and cardiovascular exam presents today with very nonspecific complaints that have been relatively chronic. Worsened tonight with an episode of what he describes as near syncope. Neurologically everything appears normal right now what he was going on it seems to be intermittent and chronic. It is possible this is an arrhythmia he is never worn a Holter or an event monitor in the past I will recommend that he follow-up to get this done. He states that he has had an echo which was unremarkable and has had CT imaging of his brain. Has not seen a neurologist. Also he has been diagnosed with panic disorder and anxiety in the past and does take benzos. Labs unremarkable waiting for IV fluids to finish and then read assessed the patient. He is complains of being evaluated here in the ED unlikely has any emergent medical condition going on. Assuming his symptoms have improved he will be stable for outpatient follow-up with cardiology. Final disposition will be per Dr. Dorantes at 11 PM. Jayna HERNANDEZ: I assumed care of the patient at the time of handoff from the prior provider. On reassessment patient reports symptomatic improvement. Reports that he is still anxious. Interact discussion had with patient regarding his presentation and workup. He is discharged in stable condition. Critical Care <Amy Fallon MD - Last Filed: 03/08/24 23:00> Critical Care Time Critical Care Time: No
[2024-03-08] MEDS: LACTATED RINGERS 1000ML 1,000 ML 999 ML IV (22:18)
--- NOTE | 2024-03-08 22:18 | ECG_ITS ---
APPROVED REPORT Exam: Resting ECG HR:65 bpm ECG Measurements Heart Rate 65 AXES WA 213 P 36 QRSd 92 QRS 63 QT 364 T 19 QTc 375 Conclusion SINUS RHYTHM WITH FIRST DEGREE AV BLOCK ABNORMAL ECG Electronically signed by : LUIS FERNANDO CORNEJO, 03/09/2024 23:19:19
[2024-03-08 22:31] LABS: Albumin Level 4.7 g/dl (3.5-5.0); Chloride 107 mmol/L (98-107); Sodium 138 mmol/L (136-145)
[2024-03-08 22:32] LABS: Basophils # 0.1 K/mm3 (0-0.2); Basophils % 0.7 % (0.1-2.0); Eosinophils # 0.1 K/mm3 (0.0-0.4); Eosinophils % 0.9 % (0.1-12.0); Hematocrit 44.4 % (42.0-52.0); Hemoglobin 14.6 g/dL (14.1-18.0); Lymphocytes # 2.6 K/mm3 (0.7-4.5); Lymphocytes % 33.1 % (10-50); Mean Corpuscular HGB Conc 32.8 g/dL (31.8-35.4); Mean Corpuscular Hemoglobin 31.3 pg (27.0-31.2); Mean Corpuscular Volume 95.4 fl (80-94); Mean Platelet Volume 8.6 fl (7.4-10.4); Monocytes # 0.3 K/mm3 (0.1-1.0); Monocytes % 4.3 % (1.7-9.3); Neutrophils # 4.9 K/mm3 (1.8-7.8); Platelet Count 227 K/mm3 (142-424); Potassium 3.8 mmoL/L (3.5-5.1); Red Blood Count 4.65 M/mm3 (4.60-6.20); Red Cell Distribution Width 13.7 % (11.5-17.5)
[2024-03-08 22:34] LABS: Alanine Aminotransferase 22 U/L (12-78); Albumin/Globulin Ratio 1.7 (1.1-1.8); Alkaline Phosphatase 89 U/L (38-126); Anion Gap 10.8 mEq/L (5-15); Aspartate Amino Transferase 30 U/L (17-59); Bilirubin,Total 0.9 mg/dl (0.2-1.3); Blood Urea Nitrogen 17 mg/dl (9-20); Carbon Dioxide 24 mmol/L (22.0-30.0); Creatinine Clearance Estimated 124 mL/min (50-200); Estimated Glomerular Filt Rate 85 ml/min (>60); GFR (African American) 102 ML/MIN (>60); Globulin 2.8 g/dL (1.3-3.2); Total Protein,Serum 7.5 g/dl (6.3-8.2)
[2024-03-08 22:35] LABS: Calcium 9.1 mg/dl (8.4-10.2); Glucose 96 mg/dl (74-100); Magnesium 1.9 mg/dl (1.6-2.3)
--- NOTE | 2024-03-08 22:37 | PC.NURSE ---
Patient's mother approached the nurses station to report that the patient was having an anxiety attack . This RN assessed patient's vitals, patient reports that approximately 2 minutes prior he began shaking and feeling shortness of breath. Respiratory rate 19, spo2 100% on room air, heart rate 80. Provided patient with verbal reassurance, blanket, notified provider of patient's symptoms.
[2024-03-08 22:55] LABS: Troponin I < 0.01 ng/ml (0.00-0.034)
[2024-03-08 23:05] LABS: Thyroid Stimulating Hormone 2.25 uIU/mL (0.465-4.68)
[2024-03-08 23:36] VITALS: BP 131/81; PULSE 74; RESP 16; TEMP 36.8; O2SAT 98
== END 2024-03-08 23:36 | disposition home or self-care (01) ==
PROVIDERS: Emergency Provider Student in an Organized Health Care Education/Training Program; PCP Internal Medicine Adolescent Medicine
DX: R55 Syncope and collapse (principal); I10 Essential (primary) hypertension; R51.9 Headache, unspecified; R42 Dizziness and giddiness
CPT/HCPCS: 80050; 80053; 83735; 84443; 84484; 85025; 93005; 96360; 99284; J7120

== ENCOUNTER 2024-04-18 14:13 | Emergency (ER) | payer OTHER, SELFPAY ==
[2024-04-18 14:15] VITALS: BP 150/100; PULSE 80; RESP 18; TEMP 36.8; O2SAT 99; BMI 27.1
--- NOTE | 2024-04-18 14:26 | ED_ITS ---
<Statement entered by Sumanth Sung MD - 04/18/24 15:15> I was consulted by the CHANDLER, and we discussed the complexity of the problems being addressed. I approved the treatment and management plan for this patient's care in the emergency department, thus performing a substantive portion of the medical decision making. Sumanth Sung MD Discharge Plan Disposition Patient Disposition: Home, Self-Care Condition: Good Prescriptions Prescriptions: No Action vilazodone [Viibryd] 20 mg tablet See Rx Instructions PO DAILY 30 Days Qty: 30 1RF Rx Instructions: take 1/2 tablet (10mg) for 8 days; then increase to 1 whole tablet PO daily; must administer with a meal/food alprazolam [Xanax] 0.5 mg tablet 0.5 mg PO HS PRN (Reason: anxiety) Qty: 30 1RF omeprazole magnesium 20 MG tablet,delayed release (DR/EC) 80 mg PO BID doxycycline hyclate 100 mg capsule 100 mg PO BID 10 Days Qty: 20 0RF cyproheptadine 4 MG tablet 4 mg PO BID Referrals Follow up/Referrals: Willian Manjarrez MD [Primary Care Provider] - See instructions Activity Restrictions/Add. Instructions Additional Instructions/Restrictions: As we discussed follow-up with your PCP for any concerns or ongoing testing as needed. Return to the emergency department for any worsening signs or symptoms. Clinical Impressions Clinical Impression: Exposure to blood or body fluid Instructions Patient Instructions: How to Handle Body Fluid Exposure -- Non-Healthcare Worker (At Home, Caregi, DI for Accidental Exposure to Body Fluids Print Language Print Language: Belgian Discharge ED Provider: Sumanth Sung General Adult HPI General Chief complaint: Recheck/Abnormal Lab/Rx Stated complaint: WC 04/18/24 12:45, poss. blood cont. Time Seen by Provider: 04/18/24 14:25 History of Present Illness HPI narrative: Patient presents for body fluid exposure. Patient and his 2 coworkers were utilizing an impact hammer to put pieces of sheet-metal together. One of the coworkers was cut and bleeding and there was blood on the impact hammer. All 3 of them shared the impact hammer before noticing the cut on their coworkers hands. He did not see any visible blood on him. They did all wash their hands afterwards. Their coworker stated that he had been hepatitis C positive in the past and has an IV drug use history and while he has not been tested or positive for HIV his brother has and is positive. Related Data Home Medications ?Medication ?Instructions ?Recorded ?Confirmed omeprazole magnesium 20 mg 80 mg PO BID GERD 10/19/17 03/19/24 tablet,delayed release cyproheptadine 4 mg tablet 4 mg PO BID GERD 10/28/21 03/19/24 Previous Rx's ?Medication ?Instructions ?Recorded doxycycline hyclate 100 mg capsule 100 mg PO BID 10 days #20 caps 03/26/23 vilazodone 20 mg tablet (Viibryd) See Rx Instructions PO DAILY 30 03/09/24 days #30 tabs alprazolam 0.5 mg tablet (Xanax) 0.5 mg PO HS PRN anxiety #30 tabs 03/26/24 Allergies Allergy/AdvReac Type Severity Reaction Status Date / Time No Known Allergies Allergy Verified 03/12/24 13:32 [facility] Disclaimer: The information contained in this section may have been updated after the patient was seen, as this information can be updated by other users. Medical History (Updated 04/18/24 @ 14:49 by DAYDAY Franklin) Panic disorder Social History (Updated 03/11/22 @ 15:37 by Sendy Willis APRN) Smoking Status: Former smoker tobacco type: cigarettes packs per day: 1 second hand exposure: Yes alcohol intake: never counseling provided: provider counseling substance use type: former substance user, crack/cocaine, painkillers, IV drugs and other current occupational status: employed Travel in the last 8 weeks: None household members: family housing: house marital status: single number of children: 4 service: No intermediate: No current occupational exposures/hazards: No caffeine: No physical activity: none Other Medical History Have you received the Flu Vaccine for this season: No Have you received the Pneumonia Vaccine: No ROS Obtained: Yes Systems reviewed as appropriate & no additional complaints except as documented Physical Exam General General appearance: alert and in no apparent distress Respiratory Respiratory exam: Present normal lung sounds bilaterally Cardiovascular Cardiovascular exam: Present regular rate Neurological Exam Neurological exam: Present alert and oriented X3 Medical Decision Making Medical Records Screening: Per USPSTF and CDC recommendations, given the prevalence of disease in our region, it is our hospital?s policy to screen for HIV and viral Hepatitis for all patients aged 18 and over and those with ongoing risk factors. Immanuel Inquiry Pt receiving controlled substance: No Vital Signs: 04/18/24 14:15 04/18/24 14:58 Temperature 98.3 F 98.3 F Temperature Source Oral Pulse Rate 73 Pulse Rate [Left Radial] 80 Respiratory Rate 18 18 Blood Pressure 139/77 Blood Pressure [Right Arm] 150/100 H Blood Pressure Mean [Right Arm] 116 Blood Pressure Source [Right Arm] Automatic Cuff Blood Pressure Position [Right Arm] Sitting 02 Sat by Pulse Oximetry 99 Oxygen Delivery Method Room Air Room Air Medical Decision Narrative: In summary patient is a 38-year-old male who presents to the emergency department for evaluation of possible blood exposure. Patient is hemodynamically stable upon arrival, afebrile. Physical exam shows no visible open wounds on the patient's hands nor scabs.. Differential diagnosis includes blood-borne pathogen exposure of high risk versus blood-borne exposure of low risk. Workup consisted of an interactive discussion with our infectious disease staff command and control officer regarding patient management. Per her recommendations and CDC guidelines given that they have intact skin had no visible blood on their hands and had no direct transmission to mucous membranes no intervention is recommended at this time. Given that I had interactive discussion with the patient recommending PCP follow-up for any concerns for ongoing testing or workup. Patient verbalized understanding and agreement. Critical Care Critical Care Time Critical Care Time: No
[2024-04-18 14:58] VITALS: BP 139/77; PULSE 73; RESP 18; TEMP 36.8; O2SAT 98
== END 2024-04-18 14:59 | disposition home or self-care (01) ==
PROVIDERS: Emergency Provider Emergency Medicine; PCP Internal Medicine Adolescent Medicine
DX: Z77.21 Contact with and (suspected) exposure to potentially hazardous body fluids (principal)
CPT/HCPCS: 99282

== ENCOUNTER 2024-04-24 12:01 | Outpatient (CLI) | payer OTHER, SELFPAY | END 2024-04-24 23:59 | disposition home or self-care (01) | LOC: RT 12:03 | PROVIDERS: PCP Internal Medicine Adolescent Medicine; Visit Provider Specialist | DX: R42 Dizziness and giddiness (principal); R55 Syncope and collapse | CPT/HCPCS: 93225; 93227 ==

== ENCOUNTER → 2024-04-26 10:48 | Day surgery (SDC) | payer OTHER, SELFPAY ==
[2024-04-26 11:08] VITALS: BMI 27.1
--- NOTE | 2024-04-26 11:36 | EXP.TILT ---
Findings:: PROCEDURE: Tilt Table Test REQUESTING PROVIDER: Mis Parekh MD INDICATION: Chronic, intermittent dizziness, lightheadedness, near syncope BETA BLOCKERS: None PRETEST VITAL SIGNS (supine position): BP 123/72, HR 62 bpm and sinus rhythm, O2 Sats 98% PROCEDURE SUMMARY: Patient was prepped per protocol, IV started, connected to heart, blood pressure and oxygen saturation monitors and safety straps applied. He was then tilted upright at 70 degrees for a total of 30 minutes. He denied any symptoms during the test and specifically stated that he had no dizziness, lightheadedness or near syncope. His blood pressure remained stable and normal with only minimal fluctuations during the test. The first BP after being raised upright was 122/79 (HR 81 bpm). Lowest BP was 119/73 ( HR 83 bpm), occurring after 5 minutes upright. Highest BP was 139/76 (HR 88 bpm), occurring after 30 minutes upright. His heart rate ilana to 81 bpm after initially being tilted upright and stayed in the 80s during the remainder of his time in the upright position. Heart rate returned to the 60s after he was placed supine at the end of the test. He was in a sinus rhythm throughout the test. Oxygen saturation remained in the high 90s throughout. CONCLUSIONS: Unremarkable, asymptomatic tilt table test.
== END ==
LOC: RT 10:51
PROVIDERS: PCP Internal Medicine Adolescent Medicine; Visit Provider Internal Medicine
DX: R55 Syncope and collapse (principal); R42 Dizziness and giddiness
CPT/HCPCS: 93660

== ENCOUNTER 2024-05-02 09:21 | Outpatient (CLI) | payer OTHER, SELFPAY | END 2024-05-02 23:59 | disposition home or self-care (01) | LOC: RT 09:22 | PROVIDERS: PCP Internal Medicine Adolescent Medicine; Visit Provider Specialist | DX: I47.10 Supraventricular tachycardia, unspecified (principal); R42 Dizziness and giddiness | CPT/HCPCS: 93270 ==

== ENCOUNTER 2024-05-21 12:35 | Outpatient (CLI) | payer OTHER, SELFPAY ==
[2024-05-21 19:06] LABS: HIV (1&2) Antibody Rapid NONREACTIVE (NONREACTIVE)
[2024-05-22 08:33] LABS: HBsAg Screen Negative (Negative); HCV Ab Non Reactive (Non Reactive); Hep A Ab, IGM Negative (Negative); Hep B Core Ab, IgM Negative (Negative)
== END 2024-05-21 23:59 | disposition home or self-care (01) ==
LOC: LAB.DROPOF 05-22 12:35
PROVIDERS: PCP Family Medicine; Visit Provider Family Medicine
DX: Z11.59 Encounter for screening for other viral diseases (principal); Z11.4 Encounter for screening for human immunodeficiency virus [HIV]; Z20.5 Contact with and (suspected) exposure to viral hepatitis
CPT/HCPCS: 80074; 86803; 87389

== ENCOUNTER 2024-06-02 15:26 | Emergency (ER) | payer OTHER, SELFPAY ==
[2024-06-02 15:35] VITALS: BP 138/72; PULSE 117; RESP 18; TEMP 37.5; O2SAT 98; BMI 27.1
--- NOTE | 2024-06-02 15:53 | EXP.UTC ---
Discharge Plan Disposition Patient Disposition: Home, Self-Care Condition: Good Prescriptions Prescriptions: New azithromycin [Zithromax] 250 mg tablet 250 mg PO UD DOSE PK Qty: 6 0RF Rx Instructions: Take two (2) tablets today, then one (1) tablet days #2 thru #5 rxavzkavvtfrikt-xayrlpyzn-LL [Bromfed DM] 2-30-10 mg/5 mL Syrup 5 ml PO Q6H PRN (Reason: Cough) Qty: 240 0RF No Action cetirizine 10 mg tablet 10 mg PO DAILY Patient Comments: TAKE 1 TABLET BY MOUTH ONCE DAILY bisoprolol fumarate 5 mg tablet 2.5 mg PO DAILY Patient Comments: TAKE 1/2 (ONE-HALF) TABLET BY MOUTH ONCE DAILY alprazolam 0.5 mg tablet 0.5 mg PO DAILY Patient Comments: TAKE 1 TABLET BY MOUTH AT BEDTIME NIGHTLY NEEDED FOR ANXIETY lansoprazole 30 mg capsule,delayed release(DR/EC) 30 mg PO BID Patient Comments: TAKE 1 CAPSULE BY MOUTH TWICE DAILY Voquezna 10 mg tablet 10 mg PO DAILY Referrals Follow up/Referrals: Von Boo MD [Primary Care Provider] - See instructions Activity Restrictions/Add. Instructions Additional Instructions/Restrictions: Drink plenty of fluids. Take tylenol or ibuprofen for pain or fever. Take the medications as directed. Follow up with your regular doctor. GO TO THE ER FOR ANY WORSENING SYMPTOMS Stop the antibiotics that you are on and start the azithromycin. Clinical Impressions Clinical Impression: Acute bronchitis Instructions Patient Instructions: DI for Acute Bronchitis, Dexamethasone Injection Print Language Print Language: [place] Discharge ED Provider: Conrado Tucker [facility] General Stated complaint: fever,cough,congestion Mode of Arrival: Ambulatory Source of Information: Patient Limitations: No Limitations Time Seen by Provider: 06/02/24 15:52 Description of Symptoms (Recalled from Triage Doc. by RN): PATIENT C/O FEVER, COUGH, BODY ACHES, AND CHILLS X 2 DAYS HEENT Symptoms (Recalled from RN notes): No Resp Symptoms (Recalled from RN notes): Yes Skin Symptoms (Recalled from RN notes): No MS Symptoms (Recalled from RN notes): No Functional Status (Recalled from RN notes): WNL Related Data Home Medications ?Medication ?Instructions ?Recorded ?Confirmed alprazolam 0.5 mg tablet 0.5 mg PO DAILY 06/02/24 06/02/24 bisoprolol fumarate 5 mg tablet 2.5 mg PO DAILY 06/02/24 06/02/24 cetirizine 10 mg tablet 10 mg PO DAILY 06/02/24 06/02/24 lansoprazole 30 mg capsule,delayed 30 mg PO BID 06/02/24 06/02/24 release vonoprazan 10 mg tablet (Voquezna) 10 mg PO DAILY 06/02/24 06/02/24 Previous Rx's ?Medication ?Instructions ?Recorded azithromycin 250 mg tablet 250 mg PO UD DOSE PK #6 tabs 06/02/24 (Zithromax) tedegfzaarkdopv-cwvbifaraxwjfir-YN 5 ml PO Q6H PRN Cough #240 mL 06/02/24 2 mg-30 mg-10 mg/5 mL oral syrup (Bromfed DM) Allergies Allergy/AdvReac Type Severity Reaction Status Date / Time No Known Allergies Allergy Verified 05/28/24 08:54 Worker's Comp Is this a Worker's Comp case?: No [facility] Disclaimer: The information contained in this section may have been updated after the patient was seen, as this information can be updated by other users. Medical History Heart palpitations Migraine Differential diagnosis: Basilar migraine Anxiety Depression History of gastroesophageal reflux (GERD) Panic disorder Surgical History History of cholecystectomy Family History Other Alcoholism Asthma Cancer Coronary artery disease Diabetes Heart attack Hyperlipidemia Hypertension Stroke Substance abuse Thyroid disorder Social History Smoking Status: Former smoker tobacco type: cigarettes packs per day: 1 years smoked: 20 smoking status stop date: 2016 second hand exposure: Yes alcohol intake: former counseling provided: provider counseling substance use type: former substance user, crack/cocaine, painkillers, IV drugs and other current occupational status: employed Travel in the last 8 weeks: None household members: significant other housing: house marital status: single number of children: 4 service: No half-way: No current occupational exposures/hazards: No caffeine: No physical activity: none ROS Obtained: Yes All systems reviewed & no additional complaints except as documented Constitutional Constitutional: Reports chills and Reports fever(s) Eyes Eyes: Denies eye discharge ENT Ears, Nose, Mouth, and Throat: Reports as per HPI Cardiovascular Cardiovascular: Denies chest pain Respiratory Respiratory: Denies chest congestion and Reports cough Gastrointestinal Gastrointestingal: Reports nausea; Denies abdominal pain, constipation, cramping, diarrhea or vomiting Musculoskeletal Musculoskeletal: Denies arthralgias Integumentary/Breasts Skin/Breast: Denies rash Neurologic Neurologic: Denies paresthesias Physical Exam General General appearance: alert and in no apparent distress Head Head exam: atraumatic, normocephalic and normal inspection Eye Eye exam: Present normal appearance, PERRL and EOMI ENT ENT exam: Present mucous membranes moist and normal external ear exam Expanded ENT Exam TM/Canal exam: Bilateral TM: erythema and bulging Nose exam: Absent sinus tenderness Mouth exam: Present normal external inspection; Absent drooling Teeth exam: Present normal inspection Throat exam: Present tonsillar erythema, tonsillomegaly and tonsillar exudate Neck Neck exam: Present normal inspection, full ROM and trachea midline; Absent tenderness, meningismus or lymphadenopathy Chest Chest inspection: Present normal inspection and symmetric chest wall rise; Absent tenderness Respiratory Respiratory exam: Present normal lung sounds bilaterally; Absent respiratory distress, wheezes or stridor Cardiovascular Cardiovascular exam: Present regular rate and normal rhythm; Absent systolic murmur or diastolic murmur Abdominal Exam Abdominal exam: Present soft and normal bowel sounds; Absent distention, tenderness, guarding, rebound or rigidity Extremities Exam Extremities exam: Present normal inspection and normal capillary refill; Absent calf tenderness Back Exam Back exam: Present normal inspection and full ROM; Absent tenderness, CVA tenderness (R) or CVA tenderness (L) Neurological Exam Neurological exam: Present alert, oriented X3 and CN II-XII intact Psychiatric Psychiatric exam: Present normal affect and normal mood Skin Skin exam: Present warm, dry, intact and normal color Medical Decision Making Medical Records Medical records reviewed: No I reviewed the patient's medical records. Screening: Per USPSTF and CDC recommendations, given the prevalence of disease in our region, it is our hospital?s policy to screen for HIV and viral Hepatitis for all patients aged 18 and over and those with ongoing risk factors. Immanuel Inquiry Pt receiving controlled substance: No Vital Signs: 06/02/24 15:35 Temperature 99.5 F Temperature Source Oral Pulse Rate [Left Brachial] 117 H Respiratory Rate 18 Blood Pressure [Left Arm] 138/72 Blood Pressure Mean [Left Arm] 94 02 Sat by Pulse Oximetry 98 Oxygen Delivery Method Room Air
[2024-06-02 15:55] LABS: UTC Influenza A Antigen Negative (Negative); UTC Influenza B Antigen Negative (Negative)
[2024-06-02] MEDS: DEXAMETHASONE 4MG/ML 1ML VIAL 8 MG IM (16:34)
[2024-06-02 16:45] VITALS: BP 138/72; PULSE 117; RESP 18; TEMP 37.5; O2SAT 98
== END 2024-06-02 16:50 | disposition home or self-care (01) ==
PROVIDERS: Emergency Provider Nurse Practitioner Family; PCP Family Medicine
DX: J20.9 Acute bronchitis, unspecified (principal)
CPT/HCPCS: 87804; 96372; 99213; G0381; J1100

== ENCOUNTER 2024-06-06 07:09 | Outpatient (CLI) | payer OTHER, SELFPAY ==
[2024-06-06 07:45] LABS: Basophils # 0.1 K/mm3 (0-0.2); Basophils % 1.6 % (0.1-2.0); Eosinophils # 0.1 K/mm3 (0.0-0.4); Eosinophils % 2.9 % (0.1-12.0); Hematocrit 44.3 % (42.0-52.0); Hemoglobin 15.3 g/dL (14.1-18.0); Lymphocytes # 1.8 K/mm3 (0.7-4.5); Lymphocytes % 42.1 % (10-50); Mean Corpuscular HGB Conc 34.7 g/dL (31.8-35.4); Mean Corpuscular Hemoglobin 31.1 pg (27.0-31.2); Mean Corpuscular Volume 89.8 fl (80-94); Monocytes # 0.4 K/mm3 (0.1-1.0); Monocytes % 8.7 % (1.7-9.3); Neutrophils # 1.9 K/mm3 (1.8-7.8); Neutrophils % 44.8 % (37.0-80.0); Platelet Count 223 K/mm3 (142-424); Red Blood Count 4.93 M/mm3 (4.60-6.20); Red Cell Distribution Width 13.1 % (11.5-17.5); White Blood Count 4.2 K/mm3 (4.8-10.8)
[2024-06-06 08:22] LABS: Alanine Aminotransferase 35 U/L (12-78); Albumin Level 4.5 g/dl (3.5-5.0); Albumin/Globulin Ratio 1.7 (1.1-1.8); Alkaline Phosphatase 79 U/L (38-126); Anion Gap 12.3 mEq/L (5-15); Aspartate Amino Transferase 32 U/L (17-59); Bilirubin,Total 0.7 mg/dl (0.2-1.3); Blood Urea Nitrogen 19 mg/dl (9-20); Calcium 9.6 mg/dl (8.4-10.2); Carbon Dioxide 29 mmol/L (22.0-30.0); Chloride 102 mmol/L (98-107); Chol/HDL Ratio 5.6 (1-3.5); Cholesterol 212 mg/dl (140-200); Estimated Glomerular Filt Rate 85 ml/min (>60); GFR (African American) 102 ML/MIN (>60); Globulin 2.6 g/dL (1.3-3.2); Glucose 88 mg/dl (74-100); HDL Cholesterol 38 mg/dl (40-60); Potassium 4.3 mmoL/L (3.5-5.1); Sodium 139 mmol/L (136-145); Total Protein,Serum 7.1 g/dl (6.3-8.2); Triglycerides 352 mg/dl (30-150); VLDL Cholesterol 70 mg/dL (0-40)
[2024-06-06 08:33] LABS: Direct LDL Cholesterol 106.06 mg/dL (100-129)
== END 2024-06-06 23:59 | disposition home or self-care (01) ==
LOC: LAB 07:09
PROVIDERS: PCP Family Medicine; Visit Provider Family Medicine
DX: Z13.220 Encounter for screening for lipoid disorders (principal); K21.9 Gastro-esophageal reflux disease without esophagitis; F41.9 Anxiety disorder, unspecified
CPT/HCPCS: 36415; 80053; 80061; 85025

== ENCOUNTER 2024-08-10 14:19 | Outpatient (CLI) | payer OTHER, SELFPAY ==
--- NOTE | 2024-08-10 14:19 | CT_ITS ---
FINAL REPORT CLINICAL HISTORY: recurrent sinusitis COMPARISON: CT head 01/20/2022 FINDINGS: There is mild lobular mucoperiosteal thickening in both maxillary sinuses, greater on the left. No air-fluid levels are seen. The ostiomeatal units are patent. There is no fracture. IMPRESSION: Mild changes of chronic bilateral maxillary sinusitis. Reviewed, Interpreted and Dictated by Akira Nance MD Transcribed by Nya Brewer Authenticated and [facility]
== END 2024-08-10 23:59 | disposition home or self-care (01) ==
LOC: RAD 14:19
PROVIDERS: PCP Family Medicine; Visit Provider Nurse Practitioner
DX: J32.9 Chronic sinusitis, unspecified (principal)
CPT/HCPCS: 70486

== ENCOUNTER 2025-04-03 09:15 | Outpatient (CLI) | payer OTHER, SELFPAY ==
[2025-04-03 19:34] LABS: Hematocrit 47.6 % (42.0-52.0); Hemoglobin 15.5 g/dL (14.1-18.0); Immature Granulocytes % 0.8 %; Mean Corpuscular HGB Conc 32.6 g/dL (31.8-35.4); Mean Corpuscular Hemoglobin 31.4 pg (27.0-31.2); Mean Corpuscular Volume 96.4 fl (80-94); Nucleated Red Blood Cells % 0 %; Platelet Count 203 K/mm3 (142-424); Red Blood Count 4.94 M/mm3 (4.60-6.20); Red Cell Distribution Width-SD 45.3 fL; White Blood Count 6.4 K/mm3 (4.8-10.8)
[2025-04-03 20:01] LABS: Alanine Aminotransferase 63 U/L (12-78); Albumin Level 5.0 g/dl (3.5-5.0); Albumin/Globulin Ratio 1.7 (1.1-1.8); Alkaline Phosphatase 83 U/L (38-126); Anion Gap 16.0 mEq/L (5-15); Aspartate Amino Transferase 38 U/L (17-59); Bilirubin,Total 0.8 mg/dl (0.2-1.3); Blood Urea Nitrogen 23 mg/dl (9-20); Calcium 9.6 mg/dl (8.4-10.2); Carbon Dioxide 25 mmol/L (22.0-30.0); Chloride 103 mmol/L (98-107); Creatinine,Serum 1.20 mg/dl (0.66-1.25); Estimated Glomerular Filt Rate 68 ml/min (>60); GFR (African American) 82 ML/MIN (>60); Globulin 2.9 g/dL (1.3-3.2); Potassium 5.0 mmoL/L (3.5-5.1); Sodium 139 mmol/L (136-145); Total Protein,Serum 7.9 g/dl (6.3-8.2)
[2025-04-03 20:13] LABS: Glucose 28 mg/dl (74-100)
[2025-04-03 20:15] LABS: 25-OH Vitamin D, Total 74.3 ng/mL (30-100)
[2025-04-03 20:53] LABS: Vitamin B12 > 1000 pg/mL (239-931)
--- OUTSIDE RECORDS SUMMARY | 2025-04-04 11:10 | XMS_ITS | Encounter Summary ---
Author Organization [email or web address] ([place], [place], [place], [place]) Address [address] [place] [address] Care Team Providers Care Sales Development Executive Name Role Phone Unavailable Primary Care Provider Unavailabl e Encounter Details Date Type Department Care Team (Late st Contact Info) Description 08/15/2018 Transcribed Document [facility] Family Medicine [place] [address] ProviderTara MD [address] [place] [address] Social History Tobacco Use Types Packs/Day Years Used Date Smoking Tobacco: Never Assessed Sex and Gender Information Value Date Recorded Sex Assigned at Not on file Legal Sex Male 5:36 PM CDT Gender Identity Not on file Sexual Orientation Not on file documented as of this encounter Miscellaneous Notes * Cerner Conversion Note - Tara ProviderMD - 08/15/2018 2:26 AM 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 Return to the emergency department for any acute worsening of symptoms or acute new concerns. Patient Education Materials: Abdominal Pain, Adult Abdominal pain can be caused by many things. Often, abdominal pain is not serious and it gets better with no treatment or by being treated at home. However, sometimes abdominal pain is serious. Your health care provider will do a medical history and a physical exam to try to determine the cause of your abdominal pain. Follow these instructions at home: ??? Take cjen-dqo-urvsgbx and prescription medicines only as told by your health care provider. Do not take a laxative unless told by your health care provider. ??? Drink enough fluid to keep your urine clear or pale yellow. ??? Watch your condition for any changes. ??? Keep all follow-up visits as told by your health care provider. This is important. Contact a health care provider if: ??? Your abdominal pain changes or gets worse. ??? You are not hungry or you lose weight without trying. ??? You are constipated or have diarrhea for more than 2?3 days. ??? You have pain when you urinate or have a bowel movement. ??? Your abdominal pain wakes you up at night. ??? Your pain gets worse with meals, after eating, or with certain foods. ??? You are throwing up and cannot keep anything down. ??? You have a fever. Get help right away if: ??? Your pain does not go away as soon as your health care provider told you to expect. ??? You cannot stop throwing up. ??? Your pain is only in areas of the abdomen, such as the right side or the left lower portion of the abdomen. ??? You have bloody or black stools, or stools that look like tar. ??? You have severe pain, cramping, or bloating in your abdomen. ??? You have signs of dehydration, such as: ? Dark urine, very little urine, or no urine. ? Cracked lips. ? Dry mouth. ? Sunken eyes. ? Sleepiness. ? Weakness. This information is not intended to replace advice given to you by your health care provider. Make sure you discuss any questions you have with your health care provider. Document Released: 04/13/2006 Document Revised: 01/21/2017 Document Reviewed: 12/15/2016 [employer] Interactive Patient Education ? 2017 [employer] Allergies: No Known Allergies Medication Information: Laboratory or Other Results This Visit (last charted value for your 08/15/2018 visit) Hematology 08/15/18 01:09:00 WBC: 5.9 K/uL -- Normal range between ( 4.2 and 9.1 ) RBC: 4.74 Million/uL -- Normal range between ( 4.63 and 6.08 ) Hct: 42.8 % -- Normal range between ( 40.1 and 51.0 ) Hgb: 14.4 g/dL -- Normal range between ( 13.7 and 17.5 ) Platelet Count: 180 K/uL -- Normal range between ( 163 and 369 ) MCH: 30.4 pg -- Normal range between ( 25.6 and 32.2 ) MCHC: 33.6 Gram/dL -- Normal range between ( 32.2 and 36.5 ) MCV: 90.3 fL -- Normal range between ( 79.0 and 94.8 ) Slide Review: No Eos %: 2.4 % -- Normal range between ( 0.0 and 7.0 ) Dade #: 0.46 K/uL -- Normal range between ( 0.16 and 1.00 ) Eos #: 0.14 x10(3)/uL -- Normal range between ( 0.00 and 0.80 ) Dade %: 7.8 % -- Normal range between ( 3.0 and 9.0 ) Baso %: 0.5 % -- Normal range between ( 0.0 and 1.5 ) Baso #: 0.03 x10(3)/uL -- Normal range between ( 0.00 and 0.20 ) RDW: 11.4 % -- Normal range between ( 11.6 and 14.4 ) Neut %: 61.7 % -- Normal range between ( 34.0 and 71.0 ) Neut #: 3.62 K/uL -- Normal range between ( 1.56 and 6.13 ) Lymph %: 27.3 % -- Normal range between ( 19.3 and 53.1 ) Lymph #: 1.60 x10(3)/uL -- Normal range between ( 1.00 and 3.90 ) MPV: 10.1 fL -- Normal range between ( 9.4 and 12.4 ) IG#: 0.02 x10(3)/uL -- Normal range between ( 0.00 and 0.05 ) IG%: 0.30 % -- Normal range between ( 0.00 and 0.60 ) Urinalysis 08/15/18 01:09:00 Urine Nitrite: Negative Urine Leukocyte Esterase: Negative Urine Appearance: Clear Urine Glucose Dipstick: Negative Urine Blood Dipstick: Negative Urine Type: U CleanCatch Urine Urobilinogen Dipstick: 0.2 EU/dL Urine Protein Dipstick: Negative Urine Color: Yellow Urine Ketones Dipstick: Negative Urine pH Dipstick: 7.0 -- Normal range between ( 6.0 and 8.0 ) Urine Bilirubin Dipstick: Negative Urine Specific Smoot: 1.004 -- Normal range between ( 1.005 and 1.030 ) General Chemistry 08/15/18 01:31:00 Creatinine Level: 0.90 mg/dL -- Normal range between ( 0.70 and 1.30 ) Sodium Level: 138 mmol/L -- Normal range between ( 136 and 146 ) Potassium Level: 4.0 mmol/L -- Normal range between ( 3.5 and 5.1 ) Chloride Level: 105 mmol/L -- Normal range between ( 102 and 112 ) Carbon Dioxide Level: 27 mmol/L -- Normal range between ( 21 and 32 ) Anion Gap: 10 -- Normal range between ( 9 and 20 ) Bilirubin Total: 0.3 mg/dL -- Normal range between ( 0.2 and 1.3 ) A/G Ratio: 1.2 -- Normal range between ( 1.1 and 2.5 ) ALT: 25 Units/Liter -- Normal range between ( 12 and 78 ) AST: 14 Units/Liter -- Normal range between ( 5 and 37 ) Globulin: 3.2 Gram/dL -- Normal range between ( 1.5 and 4.5 ) Alk Phos: 78 Units/Liter -- Normal range between ( 27 and 136 ) Bun/Creatinine: 10.0 -- Normal range between ( 8.0 and 20.0 ) Calcium Level: 8.9 mg/dL -- Normal range between ( 8.5 and 10.1 ) eGFR : >60 mL/min/1.73m2 eGFR NonAfrican: >60 mL/min/1.73m2 Glucose Level: 95 mg/dL -- Normal range between ( 74 and 106 ) Blood Urea Nitrogen: 9 mg/dL -- Normal range between ( 7 and 22 ) Protein Total: 7.2 Gram/dL -- Normal range between ( 6.4 and 8.2 ) Albumin Level: 4.0 Gram/dL -- Normal range between ( 3.4 and 5.0 ) 08/15/18 01:09:00 Lactic Acid Level: 1.2 mmol/L -- Normal range between ( 0.4 and 2.0 ) Medication Comment: Procedures: Laboratory Orders Name Status AutoDiff Completed CBCD Completed CMP Completed LACTREFL Completed UAMICIND Completed Radiology Orders No radiology orders were placed. Cardiology Orders No cardiology orders were placed. This statement is to verify that GUNNAR GREENBERG was seen at [facility] Emergency Department on ,08/15/2018 02:26:22. This is not a work excuse, if a work excuse was needed it will be in addition to this statement as a separate form. IMPORTANT: The examination and treatment you have received in the Emergency Department has been done to provide an appropriate evaluation and stabilizing treatment on an emergency basis only. Given the limited resources, it is not meant to be a substitute for complete medical care. The follow-up doctor you named will receive a copy of your records and all test reports. IT IS IMPORTANT THAT YOU SCHEDULE A FOLLOW-UP APPOINTMENT AND ARE RE-EVALUATED. You should report any new complaints, symptoms, or remaining problems at that time. IT IS IMPOSSIBLE FOR THE EMERGENCY DEPARTMENT TO RECOGNIZE AND TREAT ALL ELEMENTS OF INJURY OR ILLNESS IN A SINGLE VISIT. If you have been referred to a specialist physician, it means that we believe you may have a condition that requires the expertise of a specialist. KEEP IN MIND THAT THE SPECIALIST HAS HIS/HER OWN OFFICE POLICIES WHICH MAY REQUIRE PROPER INSURANCE OR PAYMENT UP FRONT BEFORE THE SPECIALIST WILL SEE YOU. It is your responsibility to call the specialist physician to make an appointment. We do not have the ability to identify specialists/physicians that work with specific insurance companies. Please be advised that all financial charges or billing practices are determined by that practice, not the hospital. If your insurance company requires that you see a specialist from their approved list, it is your responsibility to contact your insurance company to make those arrangements. It is also your responsibility to follow any other requirements of your insurance company necessary to obtain coverage for claims submitted. If you had special tests, such as EKG???s or X-rays, the interpretation of your tests given to you by the Emergency Dept. Physician is a preliminary report. Some fractures and illnesses fail to show up on preliminary tests. We will review them again within 24-48 hours. We will call you if there are any new suggestions. If your symptoms continue notify your physician. After you leave, you should follow the instructions below. In all events, you may obtain a copy of your Emergency Department visit from Medical Records. Please call to be directed to this department. We will bill your insurance; however, you are responsible today for any co-pay amounts. You will receive a separate bill for any services you may have received including: emergency, radiology, or pathology physicians. Please be sure we have an accurate contact phone number and address, should we need to call you for any reason. CIGARETTE SMOKING: The facts are clear; cigarette smoking will shorten your life. Smoking can cause many illnesses along the way. As a healthcare provider, [facility] recommends that you stop smoking. Assistance with quitting is available by contacting 8-922-DZEV-NOW. This is a free resource providing counseling, support, and referral. Or you may contact your personal physician. As part of your treatment plan, your physician may have prescribed a limited course of a controlled substance. This medication may be given to help people with moderate or severe pain or for other medical conditions, but there are risks involved with treatment. Common side effects may include nausea, constipation, drowsiness, sweating, itching, dry mouth, and rash. More serious side effects may include cognitive and motor impairment, like problems with thinking, concentrating, alertness, and movement (e.g. slowed reflexes), and driving and operating heavy machinery can be dangerous. It is important for you to talk to your physician if you have these side effects or questions. These controlled substances can produce physical dependence and be habit-forming if taken for an extended period of time, which means that the body has gotten used to them and may experience withdrawal symptoms if they are abruptly stopped. Withdrawal symptoms can include runny nose, sweating, goose bumps, diarrhea, abdominal cramping, rapid heartbeat, difficulty sleeping, and nervousness. The home medications listed are only as accurate as the information you provided. Please continue taking all of your medications prescribed by your Primary Care Provider unless specifically told to change or discontinue the medication. Please direct any questions regarding your home medications to your Primary Care Provider. YOU ARE THE MOST IMPORTANT FACTOR IN YOUR RECOVERY. ?? Follow your instructions carefully ?? Take your medicines as prescribed ?? Most important, see a provider as discussed. If you do not have a provider, we can provide a list of clinics Confidential This message and accompanying documents are covered by [employer] Privacy Act 18 U.S.C. ???Sections 1289-6602,?? and contain information intended for the specified individual(s) only. This information is confidential. If you are not the intended recipient or an agent responsible for delivering it to the intended recipient, you are hereby notified that you have received the document in error and that any review, dissemination, copying, or the taking of any action based on the contents of this information is strictly prohibited. If you have received this communication in error, please notify us immediately by email, and delete the original message. STROKE is an EMERGENCY [employer] F.A.S.T! FACE ?? Facial droop ?? Uneven smile ARM ?? Arm numbness ?? Arm weakness SPEECH ?? Slurred speech ?? Difficulty speaking or understanding TIME ?? Call 911 and get to the hospital immediately Have the ambulance go to the nearest stroke center. STROKE Risk Factors High blood pressure High cholesterol Heart Disease Diabetes Smoking Heavy alcohol use Physical inactivity and obesity Atrial Fibrillation (irregular heartbeat) Family history of stroke Acknowledgment I hereby acknowledge receipt of these instructions and information above. I understand that I have received Emergency Treatment only which is not a substitute for complete medical care and acknowledge that all of my medical problems may not be known, identified, or treated prior to my release. I UNDERSTAND THE NEED TO ARRANGE FOLLOW-UP CARE WITH THE PHYSICIAN INDICATED. I UNDERSTAND THAT I SHOULD CONTACT MY PHYSICIAN IMMEDIATELY OR RETURN TO THE EMERGENCY DEPARTMENT IF MY CONDITION WORSENS, FAILS TO IMPROVE, OR NEW SYMPTOMS APPEAR. Vital Signs B/P PULSE RESP. RATE TEMPERATURE PULSE OX Signature of Emergency Provider Date / Time Signature of Emergency Nurse Date / Time Reminder: Be sure to sign up for the My [facility] patient portal, which gives you 07/02 access to your medical information ??? including these discharge instructions ??? using your computer, smartphone, or tablet. Just go to [employer] to get started. Questions? Call . Acknowledgment I hereby acknowledge receipt of these instructions and information above. I understand that I have received Emergency Treatment only which is not a substitute for complete medical care and acknowledge that all of my medical problems may not be known, identified, or treated prior to my release. I UNDERSTAND THE NEED TO ARRANGE FOLLOW-UP CARE WITH THE PHYSICIAN INDICATED. I UNDERSTAND THAT I SHOULD CONTACT MY PHYSICIAN IMMEDIATELY OR RETURN TO THE EMERGENCY DEPARTMENT IF MY CONDITION WORSENS, FAILS TO IMPROVE, OR NEW SYMPTOMS APPEAR. Signature of Patient / Responsible Person Date / Time Please provide a telephone number where you can be reached. The best time to call is between: It is permissable to leave a message if no answer: Yes____ No____ Nurse Providing Instructions: Emergency Physician: documented in this encounter Plan of Treatment Not on file documented as of this encounter Visit Diagnoses Not on filedocumented in this encounter
--- OUTSIDE RECORDS SUMMARY | 2025-04-04 11:10 | XMS_ITS | Encounter Summary ---
Author Organization [facility] ([place], [place], [place], [place]) Address [address] [place] [address] Care Team Providers Care Utility Hand Name Role Phone Unavailable Primary Care Provider Unavailabl e Encounter Details Date Type Department Care Team (Late st Contact Info) Description 08/15/2018 Transcribed Document [facility] [place] [facility] [place] [address] ProviderTara MD [address] [place] [address] [phone] Social History Tobacco Use Types Packs/Day Years Used Date Smoking Tobacco: Never Assessed Sex and Gender Information Value Date Recorded Sex Assigned at Not on file Legal Sex Male 5:36 PM CDT Gender Identity Not on file Sexual Orientation Not on file documented as of this encounter Miscellaneous Notes * Cerner Conversion Note - Tara Pavon MD - 08/15/2018 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 History source: Patient. Arrival mode: Private vehicle. History limitation: None. Additional information: Chief Complaint from Nursing Triage Note : Chief Complaint 08/15/2018 0:58 EST Chief Complaint pt c/o bilateral flank pain, radiating around to front for 3 days, constant, reports gallbladder surgery a week ago Tuesday . History of Present Illness This is a 32-year-old male with a past medical history significant for recent cholecystectomy, postoperative day #7, who presents to the emergency department for bilateral constant aching flank pain that radiates to the mid abdomen for the last 3 days. He had a postop follow with his surgeon today with no acute postop competitions identified. Patient denies any dysuria or hematuria. He has never had pain like this before. No recent trauma. No fevers or vomiting. He has been having daily bowel movements, though they are loose. No exacerbating or alleviating factors. Review of Systems Additional review of systems information: 10 point review of systems reviewed and negative except as stated in history of present illness . Health Status Allergies: Allergic Reactions (Selected) No Known Allergies. Medications: (Selected) Documented Medications Documented PriLOSEC: 40 mg, Oral, BID, 0 Refill(s) Probiotic + Colostrum: Packet, Oral, Daily, 0 Refill(s), per nurse's notes. Immunizations: Per nurse's notes. Past Medical/ Family/ Social History Medical history Reviewed as documented in chart. Surgical history: EGD. chest tube lung left/spontaneous lung collasped., Reviewed as documented in chart. Family history: No family history items have been selected or recorded., Reviewed as documented in chart. Social history: Social & Psychosocial Habits Alcohol 08/15/2018 Alcohol Use History, Social Habits No Date/Time of Last Drink -2017 Alcohol Use in Last Twelve Months Yes Alcohol Use Comment past use weekends Home/Environment 10/03/2017 Living situation: Home/Independent Nutrition/Health 12/03/2015 Caffeine intake amount: none Substance Abuse 08/08/2018 Recreational Drug Use History Yes Recreational Drug Use Last 12 Months No Recreational Drug Type opiates Recreational Drug Use Frequency Daily Years of Recreational Drug Use 10 yr Recreational Drug Last Used 2010 Recreational Drug Route Oral Tobacco 07/03/2018 Smoking Status Former smoker, quit more Smokeless Tobacco Status Never Smokeless Tobacco Use History None , Reviewed as documented in chart. Problem list: Active Problems (11) Abdominal pain Anxiety Chronic sinusitis Gastritis GERD (gastroesophageal reflux disease) h/o Drug abuse 2011/ etoh use quit 2013 Hemorrhoid IBS (irritable bowel syndrome) Nonfunctioning gallbladder Pneumothorax, spontaneous,left 2018 Slow heart rate , per nurse's notes. Physical Examination Vital Signs Vital Signs/Vital Measures 08/15/2018 0:58 EST Temperature Source Oral Temperature Mode Fahrenheit Temperature, Fahrenheit 97.6 Deg F Clinical Temperature, C 36.4 Deg C Peripheral Pulse Rate 69 bpm Respiratory Rate 16 Breaths/Min Systolic Blood Pressure 132 mmHg Diastolic Blood Pressure 79 mmHg Oxygen Saturation 99 % Oxygen Therapy Mode Room air . Per nurse's notes. Measurements 08/15/2018 0:58 EST Height Source Stated Height Entry Format [place] Height/Length, CZECH (ft) 6 ft Height/Length CZECH 0 Inch CLINICALHEIGHT 182.88 cm [place] Body Weight 76.59 kg Weight Source, ED Standing scale Weight Entry Format [place] Weight [place] lb 136.3 lb CLINICALWEIGHT 61.95 kg Body Surface Area (BSA) 1.81 m2 Body Mass Index 18.5 kg/m2 LOW . Oxygen Saturation 08/15/2018 0:58 EST Oxygen Saturation 99 % . General: Alert, no acute distress. Skin: Warm, dry. Head: Normocephalic. Neck: Supple. Ears, nose, mouth and throat: Oral mucosa moist. Cardiovascular: Regular rate and rhythm, No murmur. Respiratory: Lungs are clear to auscultation, respirations are non-labored, breath sounds are equal. Gastrointestinal: Soft, Nontender, Non distended. Back: Nontender, No CVA tenderness. Neurological: Normal speech observed, normal coordination observed. Psychiatric: Cooperative. Medical Decision Making Results review: Lab results : Lab Results 08/15/2018 1:31 EST Sodium Level 138 mmol/L Potassium Level 4.0 mmol/L Chloride Level 105 mmol/L Carbon Dioxide Level 27 mmol/L Anion Gap 10 Glucose Level 95 mg/dL Blood Urea Nitrogen 9 mg/dL CREATININE 0.90 mg/dL eGFR >60 mL/min/1.73m2 eGFR NonAfrican >60 mL/min/1.73m2 Bun/Creatinine 10.0 Calcium Level 8.9 mg/dL Protein Total 7.2 Gram/dL Albumin Level 4.0 Gram/dL Globulin 3.2 Gram/dL A/G Ratio 1.2 Bilirubin Total 0.3 mg/dL Alk Phos 78 Units/Liter AST 14 Units/Liter ALT 25 Units/Liter 08/15/2018 1:09 EST Lactic Acid Level 1.2 mmol/L WBC 5.9 K/uL RBC 4.74 Million/uL Hgb 14.4 g/dL Hct 42.8 % MCV 90.3 fL MCH 30.4 pg MCHC 33.6 Gram/dL Platelet Count 180 K/uL MPV 10.1 fL RDW 11.4 % LOW Neut % 61.7 % Neut # 3.62 K/uL Lymph % 27.3 % Lymph # 1.60 x10(3)/uL [place] % 7.8 % [place] # 0.46 K/uL Eos % 2.4 % Eos # 0.14 x10(3)/uL Baso % 0.5 % Baso # 0.03 x10(3)/uL Slide Review No IG# 0.02 x10(3)/uL IG% 0.30 % Urine Type U CleanCatch Urine Color Yellow Urine Appearance Clear Urine Specific [place] 1.004 LOW Urine pH Dipstick 7.0 Urine Leukocyte Esterase Negative Urine Nitrite Negative Urine Protein Dipstick Negative Urine Glucose Dipstick Negative Urine Ketones Dipstick Negative Urine Urobilinogen Dipstick 0.2 EU/dL Urine Bilirubin Dipstick Negative Urine Blood Dipstick Negative . Notes: Patient here with generalized flank pain radiating around to the anterior portion of the abdomen. Labs are reassuring with no significant leukocytosis, no signs of biliary obstruction. Low suspicion for intra-abdominal abscess or bowel perforation. There is no urinary tract infection. No renal failure. No pancreatitis. Suspect pain from resorption of gas insufflation from surgery 7 days ago. Has been having regular bowel movements, unlikely constipation. Discharged home.. Impression and Plan Diagnosis Abdominal pain - Discharge, Medical Plan Condition: Stable. Disposition: Discharged Admit/Transfer/Discharge: Discharge (Order): Start: 08/15/2018 2:09 EST, Discharge to: Home. Patient was given the following educational materials: Abdominal Pain, Adult. Follow up with: ; Follow up with primary care provider Within 2 to 3 days Follow-up with your primary care provider in 2-3 days for reevaluation. Return to the emergency department for any acute worsening of symptoms or acute new concerns.. Counseled: Patient, Regarding diagnosis, Regarding diagnostic results, Regarding treatment plan, Patient indicated understanding of instructions. documented in this encounter Plan of Treatment Not on file documented as of this encounter Visit Diagnoses Not on filedocumented in this encounter
--- OUTSIDE RECORDS SUMMARY | 2025-04-04 11:10 | XMS_ITS | Encounter Summary ---
Author Organization [employer] ([place], [place], [place], [place]) Address [address] [place] [address] Care Team Providers Care Fitter Placer Name Role Phone Unavailable Primary Care Provider Unavailabl e Encounter Details Date Type Department Care Team (Late st Contact Info) Description 11/28/2018 Transcribed Document [facility] Family Medicine [facility] [place] [address] ProviderTara MD [address] [place] [address] [phone] Social History Tobacco Use Types Packs/Day Years Used Date Smoking Tobacco: Never Assessed Sex and Gender Information Value Date Recorded Sex Assigned at Not on file Legal Sex Male 5:36 PM CDT Gender Identity Not on file Sexual Orientation Not on file documented as of this encounter Miscellaneous Notes * Cerner Conversion Note - Tara Pavon MD - 11/28/2018 8:44 AM CDT [facility] Endo IntraOp Summary Primary Physician: RANJIT AHMADI MD Finalized Date/Time: 11/28/18 09:06:47 Pt. Name: MARITZA GREENBERGMat JOSHI /Sex: 1985 Male Med Rec #: [id number] Physician: RANJIT AHMADI MD Financial #: [id number] Pt. Type: O Room/Bed: / Admit/Disch: 11/28/18 07:15:00 - Institution: [facility] Endo - Case Attendance Entry 1 Entry 2 Entry 3 Case Attendee RANJIT AHMADI MD Stapleton, Ashley, Rn LANDON Gilbert, DIPLOMATIC INTERPRETER/TRANSLATOR Role Performed Surgeon/Proceduralist, Rivet Machine Operator, First DIPLOMATIC INTERPRETER/TRANSLATOR/Nurse Park Worker Supervisor First Time In 11/28/18 08:31:00 11/28/18 08:31:00 11/28/18 08:31:00 Time Out 11/28/18 08:42:00 11/28/18 08:42:00 11/28/18 08:42:00 Procedure Endoretrogradecholangiop Endoretrogradecholangiop Endoretrogradecholangiop ancreatography, ancreatography, ancreatography, Pancreatic Duct Stent Pancreatic Duct Stent Pancreatic Duct Stent Placement, Biliary Duct Placement, Biliary Duct Placement, Biliary Duct Balloon Sweep, Balloon Sweep, Balloon Sweep, Sphincterotomy Sphincterotomy Sphincterotomy Other Attendee Superficial Wound Closed By: Last Modified By: Anil Langston, Anil Johnson, Anil Johnson Rn 11/28/18 08:51:50 11/28/18 08:51:50 11/28/18 08:51:50 Entry 4 Entry 5 Entry 6 Case Attendee RALPH DASH WURTELE, JOHN L. NAPIER, SHERRI MD-ANS Role Performed Anesthesiologist of Scrub, First Division Toll Wire Chief Record Time In 11/28/18 08:31:00 11/28/18 08:31:00 11/28/18 08:40:00 Time Out 11/28/18 08:42:00 11/28/18 08:42:00 11/28/18 08:42:00 Procedure Endoretrogradecholangiop Endoretrogradecholangiop Endoretrogradecholangiop ancreatography, ancreatography, ancreatography, Pancreatic Duct Stent Pancreatic Duct Stent Pancreatic Duct Stent Placement, Biliary Duct Placement, Biliary Duct Placement, Biliary Duct Balloon Sweep, Balloon Sweep, Balloon Sweep, Sphincterotomy Sphincterotomy Sphincterotomy Other Attendee Superficial Wound Closed By: Last Modified By: Anil Langston, Anil Johnson Rn Stapleton, Ashley, Rn 11/28/18 08:51:50 11/28/18 08:51:50 11/28/18 08:51:50 [facility] Endo - Case Attendance Audit 11/28/18 08:51:50 Well Driller: DONAL Modifier: DONAL 1 <*> Procedure Endoretrogradecholangiopancreatography, Pancreatic Duct Stent Placement 2 <*> Procedure Endoretrogradecholangiopancreatography, Pancreatic Duct Stent Placement 3 <*> Procedure Endoretrogradecholangiopancreatography, Pancreatic Duct Stent Placement 4 <*> Procedure Endoretrogradecholangiopancreatography, Pancreatic Duct Stent Placement 5 <*> Procedure Endoretrogradecholangiopancreatography, Pancreatic Duct Stent Placement 6 <*> Procedure Endoretrogradecholangiopancreatography, Pancreatic Duct Stent Placement 11/28/18 08:49:36 Well Driller: DONAL Modifier: COREENLEYSTAPLETON 1 <*> Procedure Endoretrogradecholangiopancreatography 2 <*> Procedure Endoretrogradecholangiopancreatography 3 <*> Procedure Endoretrogradecholangiopancreatography 4 <*> Procedure Endoretrogradecholangiopancreatography 5 <*> Procedure Endoretrogradecholangiopancreatography 6 <*> Procedure Endoretrogradecholangiopancreatography 11/28/18 08:46:46 Well Driller: DONAL Modifier: ANILSTAPLETON 1 <+> Time In 1 <+> Time Out 1 <*> Procedure Endoretrogradecholangiopancreatography 2 <+> Time In 2 <+> Time Out 2 <*> Procedure Endoretrogradecholangiopancreatography 3 <+> Time In 3 <+> Time Out 3 <*> Procedure Endoretrogradecholangiopancreatography 4 <+> Time In 4 <+> Time Out 4 <*> Procedure Endoretrogradecholangiopancreatography 5 <+> Time In 5 <+> Time Out 5 <*> Procedure Endoretrogradecholangiopancreatography 6 <+> Time Out 6 <*> Procedure Endoretrogradecholangiopancreatography 11/28/18 08:42:33 Well Driller: DONAL Modifier: ANILSTAPLETON 1 <*> Case Attendee RANJIT AHMADI MD 1 <*> Role Performed Surgeon/Proceduralist, First 1 <*> Procedure Endoretrogradecholangiopancreatography 2 <*> Case Attendee Anil Langston Rn 2 <*> Role Performed Rivet Machine Operator, First 2 <*> Procedure Endoretrogradecholangiopancreatography Entry 3 was deleted. Higher numbered entries shifted one position to fill the gap. <-> 3 Case Attendee BERNIE WREN MD <-> 3 Role Performed Anesthesiologist <-> 3 Procedure Endoretrogradecholangiopancreatography <+> 4 Case Attendee <+> 4 Role Performed <+> 4 Procedure <+> 5 Case Attendee <+> 5 Role Performed <+> 5 Procedure 11/28/18 08:10:07 Well Driller: ASHLEYSTAPLETON Modifier: ASHLEYSTAPLETON <+> 2 Case Attendee <+> 2 Role Performed <+> 2 Procedure <+> 3 Case Attendee <+> 3 Role Performed <+> 3 Procedure [facility] Endo - Case times Entry 1 Patient In Room Time 11/28/18 08:31:00 Out Room Time 11/28/18 09:01:00 Anesthesia Start Time 11/28/18 08:31:00 Stop Time 11/28/18 09:01:00 Surgery / Procedure Times Start Time 11/28/18 08:44:00 Stop Time 11/28/18 08:54:00 Last Modified By: Anil Langston Rn 11/28/18 08:56:11 [facility] Endo - Case times Audit 11/28/18 08:56:11 Well Driller: ASHLEYSTAPLETON Modifier: ASHLEYSTAPLETON 1 <*> Out Room Time 11/28/18 08:42:00 1 <+> Stop Time 1 <+> Stop Time 11/28/18 08:44:28 Well Driller: ASHLEYSTAPLETON Modifier: ASHLEYSTAPLETON <+> 1 Start Time [facility] Endo - Cautery Entry 1 ESU Identification Cautery Type Monopolar ESU ID Number Room [id number] ID Type Hospital Number Cautery Settings Blend Setting Pulse Cut Slow 120 ESU Grounding Pad Ground Pad Type Adult Grounding Pad Site Intact, Dry Skin Condition Before Cautery Grounding Pad Site Unchanged Skin Condition After Cautery Last Modified By: Mildred Moses Rn 11/28/18 09:05:54 [facility] Endo - Cautery Audit 11/28/18 09:05:54 Well Driller: ANILSTAPLETON Modifier: MFWARD 1 <*> Cautery Type Monopolar ESU 1 <+> Blend Setting 1 <+> Ground Pad Type 1 <-> Grounding Pad Site Left thigh 1 <+> ID Number 1 <+> ID Type 1 <-> Grounding Pad Applied By RIO BOONE 1 <+> Grounding Pad Site Skin Condition Before Cautery 1 <+> Grounding Pad Site Skin Condition After Cautery 2 <-> Blend Setting Pulse Cut Slow 120 2 <-> Ground Pad Type Adult 2 <-> ID Number Room 4 2 <-> ID Type Hospital Number 2 <-> Grounding Pad Site Skin Condition Intact, Dry Before Cautery 2 <-> Grounding Pad Site Skin Condition Unchanged After Cautery 11/28/18 08:55:48 Well Driller: ANDREAAPLTRENT Modifier: ASHLEYSTAPLETON <+> 2 Blend Setting <+> 2 Ground Pad Type <+> 2 ID Number <+> 2 ID Type <+> 2 Grounding Pad Site Skin Condition Before Cautery <+> 2 Grounding Pad Site Skin Condition After Cautery [facility] Endo - Delays Entry 1 Delay Reason Other Duration 0 Minute(s) Comment No Delay Last Modified By: Anil Langston Rn 11/28/18 08:40:13 [facility] Endo - Departure from OR Entry 1 Integumentary Assessment Integumentary WDL Assessment WDL Transfer/Handoff Transfer to PACU Phase I Handoff Method Bedside/Face to face Handoff Reported to Josué, Ender Levy Post-op Transport Stretcher/Gurney Via Patient Transport Anil Langston Rn, Accompanied by LANDON Gilbert CRNA Last Modified By: Anil Langston Rn 11/28/18 08:43:04 [facility] Endo - Departure from OR Audit 11/28/18 08:43:04 Well Driller: DONAL Modifier: ANDREAAPLETON 1 <*> Patient Transport Accompanied by Anil Langston Rn [facility] Endo - Endoscopy Details Entry 1 Abdomen Procedure Soft, Non-Tender Assessment Procedure Abdomen 11/28/18 08:31:00 Assessment D/T Radio Frequency Ablation Last Modified By: Anil Langston Rn 11/28/18 08:44:01 [facility] Endo - Fire Risk Assessment Entry 1 Fire Info Surgical Site or 1- Yes Incision Above the Xyphoid Open O2 Source 1- Yes (Mask or Cannula) Available Ignition 1- Yes (ESU, Laser, Light Source) Fire Risk 3 Assessment Score Fire Score Fire Risk Yes Assessment Complete Fire Risk Anil Langston Rn Assessment Verified By Fire Risk 11/28/18 08:31:00 Assessment Verified Date/Time Fire Risk High Risk Protocol Yes Implemented Standard Fire Yes Safety Precautions Followed Last Modified By: Anil Langston Rn 11/28/18 08:44:07 [facility] Endo - General Case Plaster Model And Mold Maker 1 Case Information OR Endo 04 [facility] Case Level 1 Room Verified Yes Wound Class II - Clean-Contaminated Specialty SN Gastroenterology Anesthesia Type General ASA Class 2 Diagnosis Preop Diagnosis biliary colic Postop Same As Preop No Postop Diagnosis biliary colic, sphincter dysfunction Last Modified By: Anil Langston Rn 11/28/18 08:55:41 [facility] Endo - General Case Data Audit 11/28/18 08:55:41 Well Driller: ASHLEYSTAPLETON Modifier: ASHLEYSTAPLETON 1 <*> Postop Diagnosis biliary colic 11/28/18 08:40:10 Well Driller: ASHLEYSTAPLETON Modifier: ASHLEYSTAPLETON <+> 1 ASA Class <+> 1 Postop Same As Preop <+> 1 Preop Diagnosis <+> 1 Postop Diagnosis [facility] Endo - Implant Log Entry 1 Implant Log Implant STENT PANC ADVANIX Identification [id number] Description Implant Quantity 1 Implant [id number] Identification Lot Number Implant [place] Sci:Endo Identification Catalytic Converter Operator Name: Implant [id number] Identification Catalog Number Implant Expiration 12/03/19 Date Tissue Implant Last Modified By: Anil Langston Rn 11/28/18 08:51:08 [facility] Endo - Intraoperative Assessment Entry 1 Valid History / Yes Physical in Chart Preoperative Yes Checklist Reviewed/Evaluated Patient is Latex No Sensitive Level of WDL Consciousness (WDL = Alert, Oriented to Person, Place, and Time) Last Modified By: Anil Langston Rn 11/28/18 08:44:18 [facility] Endo - Intraoperative Equipment Entry 1 Type Scope Equipment Intraop Monitoring Electrocardiogram Three lead placement (ECG) Electrode Placement Blood Pressure Arm, left upper Location Pulse Oximeter Hand, right Probe Site Antiembolic Devices Scopes Flexible Endoscopes ERCP Scope Used Scope Serial E-8 Number/Identificatio n Number Photo/Video Documentation Photo Yes Video No Last Modified By: Anil Langston Rn 11/28/18 08:46:06 [facility] Endo - Patient Positioning Entry 1 Procedure Endoretrogradecholangiop ancreatography, Pancreatic Duct Stent Placement, Biliary Duct Balloon Sweep, Sphincterotomy Body Position Supine Left Arm Position Resting at side Right Arm Position Resting at side Left Leg Position Uncrossed, parallel Right Leg Position Uncrossed, parallel Feet Uncrossed Yes Pressure Points Yes Checked Positioned By Anil Langston Rn Position Verified Positioning Yes Verified by Surgeon Last Modified By: Anil Langston Rn 11/28/18 08:51:52 [facility] Endo - Patient Positioning Audit 11/28/18 08:51:52 Well Driller: DONAL Modifier: ANILSTAPLETON 1 <*> Procedure Endoretrogradecholangiopancreatography, Pancreatic Duct Stent Placement 11/28/18 08:49:37 Well Driller: NEHALETON Modifier: ANILSTAPLETON 1 <*> Procedure Endoretrogradecholangiopancreatography [facility] Endo - Sign In Entry 1 Patient, Site, Yes Procedure Identified Surgical Consent Yes Confirmed Surgical Site N/A Marked by person performing procedure Airway Hypothermia Risk No Warming Measures No Taken Last Modified By: Anil Langston Rn 11/28/18 08:40:23 [facility] Endo - Sign Out Entry 1 RN Confirmation Surgical Yes Procedure(s) Identified Instrument, Sponge N/A and Sharps Counts Correct/Documented Equipment Problems N/A Documented Specimen Labeled N/A Correctly Urinary Catheter N/A Documented in IView Safety Checklist Yes Elements Complete? RN Sign Out Anil Langston Rn Signature RN Sign Out 11/28/18 08:58:00 Signature Date/Time Plan of Care Outcome - Fire Risk OUTCOME STATEMENT: Goal met Patient is free from injury related to surgical fire Plan of Care Outcome - Pt Positioning OUTCOME STATEMENT: Goal met Absence of signs and symptoms of positioning injury. Plan of Care Outcome - Skin Prep OUTCOME STATEMENT: Goal met Intraoperative care is consistent with measures to prevent infection Plan of Care Outcome - Xray/Images OUTCOME STATEMENT: Goal met Absence of observable signs or symptoms of radiation injury Plan of Care Outcome - Counts OUTCOME STATEMENT: N/A Absence of signs and symptoms of injury related to extraneous objects Last Modified By: Anil Langston Rn 11/28/18 08:58:13 [facility] Endo - Sign Out Audit 11/28/18 08:58:13 Well Driller: DONAL Modifier: ANILSTAPLETON 1 <+> OUTCOME STATEMENT: Absence of signs and symptoms of injury related to extraneous objects 1 <+> OUTCOME STATEMENT: Absence of signs and symptoms of positioning injury. 1 <+> OUTCOME STATEMENT: Absence of observable signs or symptoms of radiation injury 1 <+> OUTCOME STATEMENT: Patient is free from injury related to surgical fire 1 <+> Surgical Procedure(s) Identified 1 <+> Specimen Labeled Correctly 1 <+> Equipment Problems Documented 1 <+> Instrument, Sponge and Sharps Counts Correct/Documented 1 <+> Safety Checklist Elements Complete? 1 <*> RN Sign Out Signature Date/Time 11/28/18 08:57:00 1 <+> OUTCOME STATEMENT: Intraoperative care is consistent with measures to prevent infection 1 <*> Urinary Catheter Documented in Paula N/A 11/28/18 08:57:56 Well Driller: DONAL Modifier: ASHLEYSTAPLETON <+> 1 RN Sign Out Signature <+> 1 RN Sign Out Signature Date/Time [facility] Endo - Surgical Procedures Entry 1 Entry 2 Entry 3 Procedure Endoretrogradecholangiop Pancreatic Duct Stent Biliary Duct Balloon ancreatography Placement Sweep Modifiers Additional Procedure Description Primary Procedure Yes No No Primary Surgeon RANJIT AHMADI MD YONG, JUNE, MD YONG, JUNE, MD Start 11/28/18 08:44:00 11/28/18 08:44:00 11/28/18 08:44:00 Stop 11/28/18 08:54:00 11/28/18 08:54:00 11/28/18 08:54:00 Physician States Cecum Reached Anesthesia Type General General General Specialty SN Gastroenterology SN Gastroenterology SN Gastroenterology Wound Class II - Clean-Contaminated II - Clean-Contaminated II - Clean-Contaminated Last Modified By: Anil Langston Rn Stapleton, Ashley, Rn Stapleton, Ashley, Rn 11/28/18 08:57:08 11/28/18 08:57:08 11/28/18 08:57:08 Entry 4 Procedure Sphincterotomy Modifiers Additional Procedure Description Primary Procedure No Primary Surgeon RANJIT AHMADI MD Start 11/28/18 08:44:00 Stop 11/28/18 08:54:00 Physician States Cecum Reached Anesthesia Type General Specialty Gastroenterology Wound Class II - Clean-Contaminated Last Modified By: Anil Langston Rn 11/28/18 08:57:08 [facility] Endo - Surgical Procedures Audit 11/28/18 08:57:08 Well Driller: DONAL Modifier: ASHBUDDYSTAPLETON <+> 1 Stop <+> 2 Stop <+> 3 Stop <+> 4 Stop 11/28/18 08:51:46 Well Driller: ANILSTAPLETON Modifier: ASHLEYSTAPLETON <+> 3 Procedure <+> 3 Primary Procedure <+> 3 Primary Surgeon <+> 3 Specialty <+> 3 Start <+> 3 Wound Class <+> 3 Anesthesia Type <+> 4 Procedure <+> 4 Primary Procedure <+> 4 Primary Surgeon <+> 4 Specialty <+> 4 Start <+> 4 Wound Class <+> 4 Anesthesia Type 11/28/18 08:49:33 Well Driller: ANILSTAPLETON Modifier: ASHLEYSTAPLETON <+> 2 Procedure <+> 2 Primary Procedure <+> 2 Primary Surgeon <+> 2 Specialty <+> 2 Start <+> 2 Wound Class <+> 2 Anesthesia Type 11/28/18 08:46:17 Well Driller: ANILSTASHELYETON Modifier: ASHLEYSTAPLETON 1 <*> Procedure Endoretrogradecholangiopancreatography 1 <+> Specialty 1 <+> Start [facility] Endo - Time Out Entry 1 Procedure to be Endoretrogradecholangiop Performed ancreatography, Pancreatic Duct Stent Placement, Biliary Duct Balloon Sweep, Sphincterotomy Time Out Time Out Pause Time 11/28/18 08:43:00 All activity Yes suspended (unless life threatening emergency) Team Verbally Correct patient Confirms Information identity, Consent form is present and accurate, Agreement on the procedure to be done, Correct patient position, Performed before each procedure if multiple procedures, Reconcile problems if responses among team members differ Antibiotic Yes Prophylaxis Administered Or In Progress Within the Last 60 Minutes Beta Dariana N/A Administered Venous N/A Thromboembolism Prophylaxis Required Anticipated Critical Events Surgeon None expected Last Modified By: Anil Langston Rn 11/28/18 08:51:52 [facility] Endo - Time Out Audit 11/28/18 08:51:52 Well Driller: DONAL Modifier: ANILSTAPLETON 1 <*> Procedure to be Performed Endoretrogradecholangiopancreatography, Pancreatic Duct Stent Placement 11/28/18 08:49:38 Well Driller: ANILSTAPLETON Modifier: ASHLEYSTAPLETON 1 <*> Procedure to be Performed Endoretrogradecholangiopancreatography [facility] Endo - X-Ray and Images Entry 1 X-Ray/Imaging Type Fluoroscopy Fluoroscopy Type C-Arm Expense Clerk Name ILAN EATON Protective Devices Yes Used Exposure Time 1.1 Last Modified By: Mildred Moses Rn 11/28/18 09:06:45 [facility] Endo - X-Ray and Images Audit 11/28/18 09:06:45 Well Driller: DONAL Modifier: SOCORRO 1 <*> Protective Devices Used No Case Comments <None> Finalized By: Mildred Moses, Rn Document Signatures Signed By: Mildred Moses Rn 11/28/18 09:06 Electronically signed by Magdiel Ranken [facility] Conversion Charge Accounts Audit Clerk Cerner at 11/03/2022 7:14 AM CDT documented in this encounter Plan of Treatment Not on file documented as of this encounter Visit Diagnoses Not on filedocumented in this encounter
--- OUTSIDE RECORDS SUMMARY | 2025-04-04 11:10 | XMS_ITS | Encounter Summary ---
Author Organization [employer] ([place], [place], [place], [place]) Address [address] [place] [address] Care Team Providers Care Information Support Project Manager Name Role Phone Unavailable Primary Care Provider Unavailabl e Encounter Details Date Type Department Care Team (Late st Contact Info) Description 11/28/2018 Transcribed Document [facility] [place] [address] [place] [address] ProviderTara MD [address] [place] [address] Social History Tobacco Use Types Packs/Day Years Used Date Smoking Tobacco: Never Assessed Sex and Gender Information Value Date Recorded Sex Assigned at Not on file Legal Sex Male 5:36 PM CDT Gender Identity Not on file Sexual Orientation Not on file documented as of this encounter Miscellaneous Notes * Cerner Conversion Note - Tara Pavon MD - 11/28/2018 9:23 AM CDT [facility] [place], [place] [id number] UGNNAR GREENBERG :1985 Visit Time:11/28/2018 What to do next Your Diagnosis Unspecified abdominal pain, Unspecified abdominal pain Follow-Up Appointments Follow Up with RANJIT AHMADI MD When 12/26/2018 01:30 AM EDT Comments Appointment has been made Where: [facility] [address] [place] [address]- Medications What How Much When Instructions Next Dose bifidobacterium-lactobacillus (Probiotic + Colostrum) Oral Every Day omeprazole (PriLOSEC) 40 Milligram(s) Oral Two Times A Day Take your medications faithfully. Do NOT skip medication. Do NOT stop taking medications without the direction of a physician. Carry a list of your medications with you at all times, and take this medication list with you to your first follow up visit. Report any side effects. Avoid herbal remedies unless discussed with your physician. As part of your treatment plan, [...] cramping, rapid heartbeat, difficulty sleeping, and nervousness. Please dispose of unused and medications per pharmacy guidance. Education Materials Clear Liquid Diet, Adult A clear liquid diet means that you only have liquids that you can see through. You do not eat any food on this diet. Most people need to follow this diet for only a short time. What do I need to know about this diet? A clear liquid is a liquid that you can see through when you hold it up to a light. ??? This diet does not give you all the nutrients that you need. Choose a variety of the liquids that your doctor says you can drink on this diet. That way, you will get as many nutrients as possible. ??? If you are not sure whether you can have certain items, ask your doctor. What can I have? Water and flavored water. ??? Fruit juices that do not have pulp, such as cranberry juice and apple juice. ??? Tea and coffee without milk or cream. ??? Clear bouillon or broth. ??? Broth-based soups that have been strained. ??? Flavored gelatins. ??? Honey. ??? Sugar water. ??? Frozen ice or frozen ice pops that do not have any milk, yogurt, fruit pieces, or fruit pulp in them. ??? Clear sodas. ??? Clear sports drinks. The items listed above may not be a complete list of recommended liquids. Contact your food and nutrition expert (dietitian) for more options. What can I not have? Juices that have pulp. ??? Milk. ??? Cream or cream-based soups. ??? Yogurt. The items listed above may not be a complete list of liquids to avoid. Contact your food and nutrition expert for more information. Summary ??? A clear liquid diet is a diet that includes only liquids that you can see through. ??? The goal of this diet is to help you recover. ??? Make sure to avoid liquids with milk, cream, or pulp while you are on this diet. This information is not intended to replace advice given to you by your health care provider. Make sure you discuss any questions you have with your health care provider. Document Released: 06/16/2009 Document Revised: 08/24/2017 Document Reviewed: 08/24/2017 [employer] Interactive Patient Education ?? 2019 [employer] General Anesthesia, Adult, Care After This sheet gives you information about how to care for yourself after your procedure. Your health care provider may also give you more specific instructions. If you have problems or questions, contact your health care provider. What can I expect after the procedure? After the procedure, the following side effects are common: ??? Pain or discomfort at the IV site. ??? Nausea. ??? Vomiting. ??? Sore throat. ??? Trouble concentrating. ??? Feeling cold or chills. ??? Weak or tired. ??? Sleepiness and fatigue. ??? Soreness and body aches. These side effects can affect parts of the body that were not involved in surgery. Follow these instructions at home: For at least 24 hours after the procedure: ??? Have a responsible adult stay with you. It is important to have someone help care for you until you are awake and alert. ??? Rest as needed. ??? Do not: ? Participate in activities in which you could fall or become injured. ? Drive. ? Use heavy machinery. ? Drink alcohol. ? Take sleeping pills or medicines that cause drowsiness. ? Make important decisions or sign legal documents. ? Take care of children on your own. Eating and drinking ??? Follow any instructions from your health care provider about eating or drinking restrictions. ??? When you feel hungry, start by eating small amounts of foods that are soft and easy to digest (bland), such as toast. Gradually return to your regular diet. ??? Drink enough fluid to keep your urine pale yellow. ??? If you vomit, rehydrate by drinking water, juice, or clear broth. General instructions ??? If you have sleep apnea, surgery and certain medicines can increase your risk for breathing problems. Follow instructions from your health care provider about wearing your sleep device: ? Anytime you are sleeping, including during daytime naps. ? While taking prescription pain medicines, sleeping medicines, or medicines that make you drowsy. ??? Return to your normal activities as told by your health care provider. Ask your health care provider what activities are safe for you. ??? Take gkpk-eui-amiqyri and prescription medicines only as told by your health care provider. ??? If you smoke, do not smoke without supervision. ??? Keep all follow-up visits as told by your health care provider. This is important. Contact a health care provider if: ??? You have nausea or vomiting that does not get better with medicine. ??? You cannot eat or drink without vomiting. ??? You have pain that does not get better with medicine. ??? You are unable to pass urine. ??? You develop a skin rash. ??? You have a fever. ??? You have redness around your IV site that gets worse. Get help right away if: ??? You have difficulty breathing. ??? You have chest pain. ??? You have blood in your urine or stool, or you vomit blood. Summary ??? After the procedure, it is common to have a sore throat or nausea. It is also common to feel tired. ??? Have a responsible adult stay with you for the first 24 hours after general anesthesia. It is important to have someone help care for you until you are awake and alert. ??? When you feel hungry, start by eating small amounts of foods that are soft and easy to digest (bland), such as toast. Gradually return to your regular diet. ??? Drink enough fluid to keep your urine pale yellow. ??? Return to your normal activities as told by your health care provider. Ask your health care provider what activities are safe for you. This information is not intended to replace advice given to you by your health care provider. Make sure you discuss any questions you have with your health care provider. Document Released: 10/10/2001 Document Revised: 02/17/2018 Document Reviewed: 02/17/2018 [employer] Interactive Patient Education ?? 2019 [employer] Endoscopic Retrograde Cholangiopancreatogram, Care After This sheet gives you information about how to care for yourself after your procedure. Your health care provider may also give you more specific instructions. If you have problems or questions, contact your health care provider. What can I expect after the procedure? After the procedure, it is common to have: ??? Soreness in your throat. ??? Nausea. ??? Bloating. ??? Dizziness. ??? Tiredness (fatigue). Follow these instructions at home: ??? Take yzqw-vaj-fxqhmfi and prescription medicines only as told by your health care provider. ??? Do not drive for 24 hours if you were given a medicine to help you relax (sedative) during your procedure. Have someone stay with you for 24 hours after the procedure. ??? Return to your normal activities as told by your health care provider. Ask your health care provider what activities are safe for you. ??? Return to eating what you normally do tomorrow. May have clear liquid diet starting at 2 pm. ??? Keep all follow-up visits as told by your health care provider. This is important. Contact a health care provider if: ??? You have pain in your abdomen that does not get better with medicine. ??? You develop signs of infection, such as: ? Chills. ? Feeling unwell. Get help right away if: ??? You have difficulty swallowing. ??? You have worsening pain in your throat, chest, or abdomen. ??? You vomit bright red blood or a substance that looks like coffee grounds. ??? You have bloody or very black stools. ??? You have a fever. ??? You have a sudden increase in swelling (bloating) in your abdomen. Summary ??? After the procedure, it is common to feel tired and to have some discomfort in your throat. ??? Contact your health care provider if you have signs of infection???such as chills or feeling unwell???or if you have pain that does not improve with medicine. ??? Get help right away if you have trouble swallowing, worsening pain, bloody or black vomit, bloody or black stools, a fever, or increased swelling in your abdomen. ??? Keep all follow-up visits as told by your health care provider. This is important. This information is not intended to replace advice given to you by your health care provider. Make sure you discuss any questions you have with your health care provider. Document Released: 04/24/2014 Document Revised: 05/23/2017 Document Reviewed: 05/23/2017 [employer] Interactive Patient Education ?? 2019 [employer]. Emergency Awareness and Preventative Care STROKE is an EMERGENCY Every Minute Counts Act FAST and Check for these signs: FACE Does the face look uneven? ARM Does one arm drift down? SPEECH Does their speech sound strange? TIME Call at any sign of stroke Stroke Risk Factors Atrial Fibrillation (irregular heartbeat) Diabetes Family history of stroke Heart Disease Heavy alcohol use High Blood Pressure High Cholesterol Physical inactivity and obesity Smoking Cigarette Smoking The facts are clear, cigarette smoking will shorten your life. Smoking can cause many illnesses along the way. As a healthcare provider, we recommend that you stop smoking. Assistance with quitting is available by contacting 1-697-YUVV-NOW. This is a free resource providing counseling, support, and referral. Or you may contact your personal physician. National Suicide Prevention Lifeline: The National Suicide Prevention Lifeline is a national network of local crisis centers that provides free and confidential emotional support to people in suicidal crisis or emotional distress 24 hours a day, 7 days a week. Don't Wait! Stop a Heart Attack Before it Starts What is a heart attack? A heart attack is damage or to a part of the heart from severely decreased or lack of blood flow to the heart. Over time, arteries can become narrow from the buildup of fat and cholesterol, which is called plaque. The plaque can rupture causing a blood clot to form. When the blood clot forms, the artery can become severely narrowed or completely blocked, causing a heart attack. Heart attack is the leading cause of in the [place]. 85% of muscle damage occurs within the first 2 hours. Delay in the recognition of heart attack symptoms increases the chances of . Know the early symptoms of a heart attack: Nausea Feeling of fullness in chest Jaw Pain Pain that travels down one or both arms Fatigue/being tired Anxiety Back Pain Chest pressure, squeezing, or discomfort Shortness of breath Sweating, or a cold sweat Feeling of impending doom There are unusual signs of a heart attack, too! Women, the elderly, and diabetics may present with atypical symptoms: Fainting/dizziness Weakness Confusion Risk Factors for a Heart Attack Some heart disease risk factors, such as age and family history, cannot be changed. Others, like smoking and lack of exercise, can be changed. Smoking High Cholesterol High Blood Pressure Family History Obesity Age Gender (Males are at higher risk) Lack of Exercise Diabetes Diet Stress Excessive Alcohol Intake If you or someone you know is experiencing the signs and symptoms of a heart attack, DON???T DELAY. Call immediately and seek help. If someone collapses, perform CPR! Do not attempt to drive if you are having symptoms of heart attack. Hands-Only CPR Why Hands-Only CPR? Hands-Only CPR has been shown to be as effective as conventional CPR for cardiac arrests that occur outside of a hospital. Survival depends on immediately receiving CPR from someone nearby. How do you perform Hands-Only CPR? There are two easy steps: Call if you see a teen or adult collapse Push hard and fast in the center of the chest at a beat of 100 beats per minute. Save a life! 4 WAYS TO GET AHEAD OF SEPSIS SEPSIS is a MEDICAL EMERGENCY. Time matters! Infections put you and your family at risk for a life-threatening condition called sepsis. Sepsis is the body's extreme response to an infection. It is life-threatening, and without timely treatment, sepsis can rapidly lead to tissue damage, organ failure, and . Sepsis happens when an infection you already have-in your skin, lungs, urinary tract or somewhere else-triggers a chain reaction throughout your body. 1 PREVENT INFECTIONS Take good care of chronic conditions. Talk to your doctor about getting the recommended vaccines. 2 PRACTICE GOOD HYGIENE Wash your hands frequently. Keep cuts or open sores clean and covered until they are healed. 3 KNOW THE SYMPTOMS Confusion or disorientation Shortness of breath High heart rate Fever, shivering, or feeling very cold Extreme pain or discomfort Clammy or sweaty skin 4 ACT FAST Get medical care IMMEDIATELY if you suspect sepsis or if you have an infection that is not getting better or is getting worse. To learn more about sepsis and how to prevent infections, visit www.cdc.gov/sepsis. Patient Portal Reminder: Be sure to sign up for the [facility] patient portal, which gives you 07/02 access to your medical information ??? including these discharge instructions ??? using your computer, smartphone, or tablet. Just go to Hospitalists Now to get started. Questions? Call . Test Results Laboratory or Other Results This Visit (last charted value for your 11/28/2018 visit) No Laboratory or Other Results This Visit Patient Name:GUNNAR GREENBERG I have received this information and was given the opportunity to ask questions. Patient/Field Artillery Cannoneer Name: Patient/Field Artillery Cannoneer Signature: Relationship to Patient: Clinician/Hospital Field Artillery Cannoneer Signature: Date: Electronically signed by Magdiel, Dequan Conversion Application Software Developer Cerner at 11/03/2022 7:15 AM CDT documented in this encounter Plan of Treatment Not on file documented as of this encounter Visit Diagnoses Not on filedocumented in this encounter
--- OUTSIDE RECORDS SUMMARY | 2025-04-04 11:10 | XMS_ITS | Encounter Summary ---
Author Organization [employer] ([place], [place], [place], [place]) Address [address] [place] [address] Care Team Providers Care Alarm Mechanism Adjuster Name Role Phone Unavailable Primary Care Provider Unavailabl e Encounter Details Date Type Department Care Team (Late st Contact Info) Description 08/08/2018 Transcribed Document [facility] [place] Medicine [facility] [place] [address] ProviderTara MD [address], [place] [id number] Social History Tobacco Use Types Packs/Day Years Used Date Smoking Tobacco: Never Assessed Sex and Gender Information Value Date Recorded Sex Assigned at Not on file Legal Sex Male 5:36 PM CDT Gender Identity Not on file Sexual Orientation Not on file documented as of this encounter Miscellaneous Notes * Cerner Conversion Note - Tara Pavon MD - 08/08/2018 8:06 AM MARKETING OPERATIONS ASSOCIATE [facility] PACU Summary Primary Physician: PRASANNA BAHENA MD-SUR Finalized Date/Time: 08/08/18 10:29:49 Pt. Name: MARITZA GREENBERGMat Waller/Sex: 1985 Male Med Rec #: [id number] Physician: PRASANNA BAHENA MD-SUR Financial #: [id number] Pt. Type: O Room/Bed: /7 Admit/Disch: 08/08/18 06:26:00 - Institution: [facility] OR PACU I Case Times Entry 1 In PACU I 08/08/18 08:52:00 Ready for PACU 08/08/18 10:00:00 Discharge Discharge from PACU 08/08/18 10:15:00 I Last Modified By: SONU JOE RN 08/08/18 10:29:32 [facility] PACU Acuity Entry 1 Start Time 08/08/18 10:00:00 Stop Time 08/08/18 10:15:00 Acuity Level [facility] PACU Acuity I Last Modified By: SONU JOE RN 08/08/18 10:29:48 Finalized By: SONU JOE RN Document Signatures Signed By: SONU JOE RN 08/08/18 10:29 Electronically signed by Magdiel [facility] Conversion Cashier Manager Cerner at 11/03/2022 7:12 AM CDT documented in this encounter Plan of Treatment Not on file documented as of this encounter Visit Diagnoses Not on filedocumented in this encounter
--- OUTSIDE RECORDS SUMMARY | 2025-04-04 11:10 | XMS_ITS | Encounter Summary ---
Author Organization [employer] ([place], [place], [place], [place]) Address [address] [place] [address] Care Team Providers Care Process Stripper Name Role Phone Unavailable Primary Care Provider Unavailabl e Encounter Details Date Type Department Care Team (Late st Contact Info) Description 08/15/2018 Transcribed Document [facility] [place] [facility] [place] [address] ProviderTara MD [address], [place] [id number] Social History Tobacco Use Types Packs/Day Years Used Date Smoking Tobacco: Never Assessed Sex and Gender Information Value Date Recorded Sex Assigned at Not on file Legal Sex Male 5:36 PM CDT Gender Identity Not on file Sexual Orientation Not on file documented as of this encounter Miscellaneous Notes * Cerner Conversion Note - Historical ProviderMD - 08/15/2018 2:26 AM BUILDER BEAM Electronically signed by [facility] Conversion Veterans Adviser Cerner at 11/03/2022 6:58 AM CDT documented in this encounter Plan of Treatment Not on file documented as of this encounter Visit Diagnoses Not on filedocumented in this encounter
--- OUTSIDE RECORDS SUMMARY | 2025-04-04 11:10 | XMS_ITS | Encounter Summary ---
Author Organization [employer] ([place], [place], [place], [place]) Address [address] [place] [address] Care Team Providers Care Patient Services Clerk Name Role Phone Unavailable Primary Care Provider Unavailabl e Encounter Details Date Type Department Care Team (Late st Contact Info) Description 08/15/2018 Transcribed Document [facility] [place] Family Medicine [facility] [place] [address] ProviderTara MD [address] [place] [address] Social History Tobacco Use Types Packs/Day Years Used Date Smoking Tobacco: Never Assessed Sex and Gender Information Value Date Recorded Sex Assigned at Not on file Legal Sex Male 5:36 PM CDT Gender Identity Not on file Sexual Orientation Not on file documented as of this encounter Miscellaneous Notes * [employer]ner Conversion Note - Tara Pavon MD - 08/15/2018 2:26 AM JEWELRY SALES COORDINATOR [address] [place] [place] [address] PERSON INFORMATION Name GUNNAR GREENBERG Age 32 Years 1985 Sex Male Language Zambian PCP [address] Marital Status Single Med Service Emergency Medicine Acct# Arrival 08/15/2018 00:55:00 Visit Reason Flank pain; Flank pain; BACK PAIN Acuity 3 - Urgent LOS 000 01:31 Depart Date: 08/15/18 02:26 AM Address: [place] [id number] Comment: PROVIDER INFORMATION Provider Role Assigned Unassigned CARMEN BARON MD ED Physician 08/15/2018 00:57:43 DIAGNOSIS Abdominal pain PHYS DOC NOTES VITALS INFORMATION Vital Sign Triage Latest Temp Source Oral Oral Temp Mode Fahrenheit Fahrenheit Temp Fahrenheit 97.6 Deg F 97.6 Deg F Temp Celsius 02 Sat 99 % 99 % Respiratory Rate 16 Breaths/Min 16 Breaths/Min Peripheral Pulse Rate 69 bpm 69 bpm Apical Heart Rate Blood Pressure 132 mmHg / 79 mmHg 132 mmHg / 79 mmHg Comment: MEDICAL INFORMATION Allergy Info: No Known Allergies Medications: Comment: DISCHARGE INFORMATION Discharge Disposition: Home Discharge Location: PATIENT EDUCATION INFORMATION Instructions: Abdominal Pain, Adult Follow up: With: Address: When: Follow up with primary care provider Within 2 to 3 days Comments: Follow-up with your primary care provider in 2-3 days for reevaluation. Return to the emergency department for any acute worsening of symptoms or acute new concerns. Comment: documented in this encounter Plan of Treatment Not on file documented as of this encounter Visit Diagnoses Not on filedocumented in this encounter
--- OUTSIDE RECORDS SUMMARY | 2025-04-04 11:10 | XMS_ITS | Encounter Summary ---
Author Organization [employer] ([place], [place], [place], [place]) Address [address] [place] [address] Care Team Providers Care Medical Pathology Teacher Name Role Phone Unavailable Primary Care Provider Unavailabl e Encounter Details Date Type Department Care Team (Late st Contact Info) Description 08/08/2018 Transcribed Document [facility] [place] [facility] [place] [address] ProviderTara MD [address] [place] [id number] Social History Tobacco Use Types Packs/Day Years Used Date Smoking Tobacco: Never Assessed Sex and Gender Information Value Date Recorded Sex Assigned at Not on file Legal Sex Male 5:36 PM CDT Gender Identity Not on file Sexual Orientation Not on file documented as of this encounter Miscellaneous Notes * Cerner Conversion Note - Tara Pavon MD - 08/08/2018 8:59 AM MACHINE BINDER STRIPPER Patient: GUNNAR GREENBERG Age: 32 Years Sex: Male : 1985 *Operation Cholecystectomy Laparoscopic, Indication for Surgery 32 year old male with HIDA scan showing ejection fraction of 30% *Preoperative Diagnosis BILIARY DYSKINESIA *Postoperative Diagnosis BILIARY DYSKINESIA *Surgeon(s) Primary Surgeon PRASANNA BAHENA MD-DENNIS (Surgeon/Proceduralist, First) *Procedure Narrative After obtaining informed consent the patient was brought to the operative suite and placed in the supine position. After induction of general anesthesia patient was prepped and draped in usual sterile fashion. Timeout was performed to verify patient procedure and perioperative antibiotics. An infraumbilical incision was made and I dissected down to the fascia. Fascia was grasped and a small incision was made and an empty 5 mm trocar was placed in order to establish pneumoperitoneum. 3 right upper quadrant ports were placed under direct supervision and the umbilical port was exchanged for an 11 port. The gallbladder was grasped and elevated over the liver. Using a combination of electrocautery and blunt dissection I was able to dissect the peritoneal attachments off the gallbladder. Identified 2 structures going into the gallbladder: the cystic duct and cystic artery. I also identified a posterior branch of the cystic artery. The inferior third of the gallbladder was cleared off in order to achieve a critical view. The cystic artery was doubly clipped proximally and singly clipped distally. The cystic duct was clipped proximally and distally x 2 and divided with scissors. The gallbladder was taken off the gallbladder fossa with electrocautery. It was then were removed with an Endo Catch bag via the umbilicus. Right upper quadrant was then irrigated with normal saline which was then evacuated. The gallbladder fossa was checked for hemostasis. And all ports removed under direct visualization. The umbilical port was closed with 0 Vicryl and skin incisions were closed with 4-0 Monocryl and Dermabond. Patient tolerated the procedure well. All sponge and instrument counts were correct. Anesthesia General RAE KEATING MD (Anesthesiologist of Record) *Findings see op report *Specimen(s) gallbladder Complications bile spillage Date of Service Date/Time of Service SN - Proc - Start Time: 08/08/18 08:06:00 (EST) (08/08/18 08:21:10 EST) Electronically signed by Esvin Veloz Conversion Boring Machine Operator Horizontal Cerner at 11/03/2022 7:24 AM CDT documented in this encounter Plan of Treatment Not on file documented as of this encounter Visit Diagnoses Not on filedocumented in this encounter
--- OUTSIDE RECORDS SUMMARY | 2025-04-04 11:10 | XMS_ITS | Encounter Summary ---
Author Organization [employer] ([place], [place], [place], [place]) Address [address] [place] [address] Care Team Providers Care Export Manager Name Role Phone Unavailable Primary Care Provider Unavailabl e Encounter Details Date Type Department Care Team (Late st Contact Info) Description 08/08/2018 Transcribed Document [facility] [place] [address] ProviderTara MD [address], [place] [phone] Social History Tobacco Use Types Packs/Day Years Used Date Smoking Tobacco: Never Assessed Sex and Gender Information Value Date Recorded Sex Assigned at Not on file Legal Sex Male 5:36 PM CDT Gender Identity Not on file Sexual Orientation Not on file documented as of this encounter Miscellaneous Notes * Cerner Conversion Note - Tara ProviderMD - 08/08/2018 10:30 AM DRUG AND ALCOHOL COUNSELOR Discharge Instructions Entered On: 08/08/2018 10:30 EST Performed On: 08/08/2018 10:30 EST by Latasha Amin RN DC Instructions HWD Driving After Discharge : Other: do not drive for 24 hours and if taking narcotic medication May Return To Work/School : in 1 week or earlier if feeling well Showering/Bathing : No tub bathing, soaking, or swimming, Other: may shower in 24 hours Wound/Incision Care After Discharge : Keep operative site/wound site clean and dry Wound/Incision Care At Discharge Comment cision Care At Discharge Comment : walk 3-5 times per day ice pack on first 48 hours, 20 min on 20 min off while awake Pain Management DC Instructions : Take Tylenol and Ibuprofen over the counter (if able) as directed in an alternationg fashion first for pain relief prioe to using narcotic medication Tale stool softeners if taking narcotic medication Latasha Amin RN - 08/08/2018 10:33 EST Diet After Discharge : Resume usual diet as tolerated Activity After Discharge : Rest and relax today, No strenuous activities, Other: no heavy lifting over 20 pounds for 6 weeks Latasha Amin RN - 08/08/2018 10:30 EST Electronically signed by Magdiel [facility] Conversion Spd Manager Cerner at 11/03/2022 7:00 AM CDT documented in this encounter Plan of Treatment Not on file documented as of this encounter Visit Diagnoses Not on filedocumented in this encounter
--- OUTSIDE RECORDS SUMMARY | 2025-04-04 11:10 | XMS_ITS | Encounter Summary ---
Author Organization [employer] ([place], [place], [place], [place]) Address [address] [place] [address] Care Team Providers Care Dietary Aid Name Role Phone Unavailable Primary Care Provider Unavailabl e Encounter Details Date Type Department Care Team (Late st Contact Info) Description 08/08/2018 Transcribed Document [facility] [place] [facility] [place] [address] ProviderTara MD [address] [place] [phone] Social History Tobacco Use Types Packs/Day Years Used Date Smoking Tobacco: Never Assessed Sex and Gender Information Value Date Recorded Sex Assigned at Not on file Legal Sex Male 5:36 PM CDT Gender Identity Not on file Sexual Orientation Not on file documented as of this encounter Miscellaneous Notes * Cerner Conversion Note - Tara ProviderMD - 08/08/2018 7:[address] Patient: GUNNAR GREENBERG Age: 32 years Sex: Male : 1985 Associated Diagnoses: None Author: ERICKSON SILVESTRE APRN Chief Complaint biliary dyskinesia Review of Systems ROS reviewed as documented in chart no change since last seen by surgeon Health Status Allergies: Allergic Reactions (Selected) No Known Allergies, Allergies (1) Active Reaction No Known Allergies None Documented Current medications: (Selected) Inpatient Medications Ordered Ancef: 2 Gram, 50 mL, 100 mL/Hr, IV Piggyback, PREOP Lactated Ringers Injection intravenous solution 1,000 mL: 20 mL/Hr, IntraVENous lidocaine 1% preservative-free injectable solution: 0.5 mL, IntraDermal, 1-Time midazolam: 2 mg, IV Push, Q10Min, PRN: Anxiety Prescriptions Prescribed Bentyl 20 mg oral tablet: 1 Tab, Oral, QID, for 7 Day(s), 28 Tab, 0 Refill(s) Zofran ODT 4 mg oral tablet, disintegratin Tab, Oral, TID, for 3 Day(s), 9 Tab, 0 Refill(s) Documented Medications Documented PriLOSEC: 20 mg, Oral, BID, 0 Refill(s) Probiotic + Colostrum: Packet, Oral, Daily, 0 Refill(s), Home Medications (4) Active Bentyl 20 mg oral tablet 20 mg = 1 Tab, Oral, QID PriLOSEC 20 mg, Oral, BID Probiotic + Colostrum , Oral, Daily Zofran ODT 4 mg oral tablet, disintegrating 4 mg = 1 Tab, Oral, TID , Medications (4) Active Scheduled: (2) ceFAZolin/D5w 2 Gram 50 mL, IV Piggyback, PREOP lidocaine 1% *PF* inj 2 mL 0.5 mL, IntraDermal, 1-Time Continuous: (1) lactated ringers 1,000 mL 1,000 mL, IntraVENous, 20 mL/Hr PRN: (1) midazolam 1 mg/1 mL inj 2 mL 2 mg 2 mL, IV Push, Q10Min Problem list: All Problems Pneumothorax, spontaneous,left 2018 / SNOMED CT 348052253 / Confirmed Nonfunctioning gallbladder / SNOMED CT 722051655 / Confirmed IBS (irritable bowel syndrome) / SNOMED CT 72733675 / Confirmed Hemorrhoid / SNOMED CT 627357913 / Confirmed GERD (gastroesophageal reflux disease) / SNOMED CT 458032387 / Confirmed Gastritis / SNOMED CT 8085833 / Confirmed h/o Drug abuse 2010/ etoh use quit 2013 / SNOMED CT 69883605 / Confirmed Chronic sinusitis / SNOMED CT 05946774 / Confirmed Slow heart rate / SNOMED CT 46676002 / Confirmed Anxiety / SNOMED CT 92375074 / Confirmed Abdominal pain / SNOMED CT 25560253 / Confirmed, Active Problems (11) Abdominal pain Anxiety Chronic sinusitis Gastritis GERD (gastroesophageal reflux disease) h/o Drug abuse 2010/ etoh use quit 2013 Hemorrhoid IBS (irritable bowel syndrome) Nonfunctioning gallbladder, biliary dyskinesia Pneumothorax, spontaneous,left 2018 Slow heart rate Histories Past Medical History: No active or resolved past medical history items have been selected or recorded. Family History: No family history items have been selected or recorded. Procedure history: EGD. chest tube lung left/spontaneous lung collasped. Social History Social & Psychosocial Habits Alcohol 08/08/2018 Alcohol Use History, Social Habits No Alcohol Use in Last Twelve Months No Alcohol Use Comment past use weekends Home/Environment [...] Status Never Smokeless Tobacco Use History None . Physical Examination VS/Measurements Vital Signs/Vital Measures 08/08/2018 7:00 EST Temperature Source Temporal artery scanning Temperature Mode Fahrenheit Temperature, Fahrenheit 98.0 Deg F Clinical Temperature, C 36.7 Deg C Peripheral Pulse Rate 66 bpm Systolic Blood Pressure 123 mmHg Diastolic Blood Pressure 66 mmHg Oxygen Saturation 100 % Oxygen Therapy Mode Room air , Vitals Signs (last 24 hrs) Last Charted Minimum Maximum Temp 98.0 (AUG 08 07:00) 98.0 (AUG 08 07:00) 98.0 (AUG 08 07:00) Periph HR 66 (AUG 08 07:00) 66 (AUG 08 07:00) 66 (AUG 08 07:00) SBP 123 (AUG 08 07:00) 123 (AUG 08 07:00) 123 (AUG 08 07:00) DBP 66 (AUG 08 07:00) 66 (AUG 08 07:00) 66 (AUG 08 07:00) SpO2 100 (AUG 08 07:00) 100 (AUG 08 07:00) 100 (AUG 08 07:00) , Measurements from flowsheet : Measurements 08/08/2018 6:56 EST Height Source Measured Height Entry Format Anthony Height/Length, [place]INGAP[place] (ft) 5 ft Height/Length [place] 11 Inch CLINICALHEIGHT 180.34 cm [place] Body Weight 74 kg Weight Source Standing scale Weight Entry Format Anthony Weight Malagasy lb 142 lb CLINICALWEIGHT 64.55 kg Body Surface Area (BSA) 1.82 m2 Body Mass Index 19.8 kg/m2 General: Alert and oriented, No acute distress. Eye: Pupils are equal, round and reactive to light, Extraocular movements are intact. HENT: Normocephalic, Normal hearing. Neck: Supple, Non-tender. Respiratory: Lungs are clear to auscultation, Respirations are non-labored. Cardiovascular: Normal rate, Regular rhythm, No murmur, No gallop, No edema. Gastrointestinal: Soft, upper abdominal tenderness on palpation. Genitourinary: No costovertebral angle tenderness. Lymphatics: No lymphadenopathy neck, axilla, groin. Musculoskeletal: Normal range of motion, Normal strength. Integumentary: Warm, Dry, Hooper. Neurologic: Alert, Oriented. Psychiatric: Cooperative, Appropriate mood & affect. Review / Management Results review: No qualifying data available. Impression and Plan Condition: Stable. documented in this encounter Plan of Treatment Not on file documented as of this encounter Visit Diagnoses Not on filedocumented in this encounter
--- OUTSIDE RECORDS SUMMARY | 2025-04-04 11:10 | XMS_ITS | Encounter Summary ---
Author Organization [employer] ([place], [place], [place], [place]) Address [address] [place] [address] Care Team Providers Care Past Due Accounts Clerk Name Role Phone Unavailable Primary Care Provider Unavailabl e Encounter Details Date Type Department Care Team (Late st Contact Info) Description 11/28/[address] [facility] [place] Family Medicine [address] [place] [address] ProviderTara MD [address] [place] [phone] Social History Tobacco Use Types Packs/Day Years Used Date Smoking Tobacco: Never Assessed Sex and Gender Information Value Date Recorded Sex Assigned at Not on file Legal Sex Male 5:36 PM CDT Gender Identity Not on file Sexual Orientation Not on file documented as of this encounter Miscellaneous Notes * Cerner Conversion Note - Tara ProviderMD - 11/28/2018 9:23 AM CDT Patient Education Materials Follows: Clear Liquid Diet, Adult A clear liquid [...] 06/16/2009 Document Revised: 08/24/2017 Document Reviewed: 08/24/2017 [employer] Patient Education ? 2019 [employer] Pharmacology General Anesthesia, Adult, Care After This sheet [...] activities are safe for you. ??? Take [id number] and prescription medicines only as told by [...] 10/10/2001 Document Revised: 02/17/2018 Document Reviewed: 02/17/2018 [employer] Patient Education ? 2019 [employer]. Radiology Endoscopic Retrograde Cholangiopancreatogram, Care After This sheet [...] Follow these instructions at home: ??? Take [id number] and prescription medicines only as told by [...] 04/24/2014 Document Revised: 05/23/2017 Document Reviewed: 05/23/2017 [employer] Patient Education ?? 2019 [employer] documented in this encounter Plan of Treatment Not on file documented as of this encounter Visit Diagnoses Not on filedocumented in this encounter
--- OUTSIDE RECORDS SUMMARY | 2025-04-04 11:10 | XMS_ITS | Encounter Summary ---
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 Plastic Name Role Phone Unavailable Primary Care Provider Unavailabl e Encounter Details Date Type Department Care Team (Late st Contact Info) Description 08/08/2018 Transcribed Document [facility] [place] Family Medicine [facility] [place] [address] ProviderTara MD [address] [place] [address] Social History Tobacco Use Types Packs/Day Years Used Date Smoking Tobacco: Never Assessed Sex and Gender Information Value Date Recorded Sex Assigned at Not on file Legal Sex Male 5:36 PM CDT Gender Identity Not on file Sexual Orientation Not on file documented as of this encounter Miscellaneous Notes * Cerner Conversion Note - Tara ProviderMD - 08/08/2018 10:30 AM [place] [address] Patient Copy Patient Information: Name: GUNNAR GREENBERG Current Date: 08/08/2018 10:30:47 : 1985 Patient Address: [place] [address] Patient Attending Physician: PRASANNA BAHENA MD-SUR Primary Care Provider: KYLEE GAONA DR Primary Care Provider Discharge Diagnosis: Weight on Admission: 142 lb, 0 oz Comment: Follow-up Instructions: With: Address: When: PRASANNA BAHENA MD-SUR [address] [place] [address] Within 1 week Discharge Instructions: Diet after Discharge: Resume usual diet as tolerated Activity after Discharge: Rest and relax today, No strenuous activities, Other: no heavy lifting over 20 pounds for 6 weeks Immunizations Documented During Stay: No Immunizations Found Heart Failure Discharge Instructions (if any): Stroke Related Discharge Instructions (if any): Warfarin Related Discharge Instructions (if any): Final Medication List: Printed Prescriptions ondansetron (Zofran 4 mg oral tablet) 1 Tablet(s) Oral Every 8 Hours as needed Nausea/Vomiting. Refills: 0. oxyCODONE (oxyCODONE 5 mg oral tablet) 1 Tablet(s) Oral Every 6 Hours as needed as needed for pain. Refills: 0. Other Medications bifidobacterium-lactobacillus (Probiotic + Colostrum) Oral Every Day. dicyclomine (Bentyl 20 mg oral tablet) 1 Tablet(s) Oral Four Times A Day for 7 Day(s). Refills: 0. omeprazole (PriLOSEC) 20 Milligram(s) Oral Two Times A Day. ondansetron (Zofran ODT 4 mg oral tablet, disintegrating) 1 Tablet(s) Oral Three Times A Day for 3 Day(s). Refills: 0. Patient Allergies: No Known Allergies Medication Instructions: Take your medications faithfully. Do NOT skip [...] cramping, rapid heartbeat, difficulty sleeping, and nervousness. Patient education materials: General Anesthesia, Adult, Care After These instructions provide you with information about caring for yourself after your procedure. Your health care provider may also give you more specific instructions. Your treatment has been planned according to current medical practices, but problems sometimes occur. Call your health care provider if you have any problems or questions after your procedure. What can I expect after the procedure? After the procedure, it is common to have: ??? Vomiting. ??? A sore throat. ??? Mental slowness. It is common to feel: ??? Nauseous. ??? Cold or shivery. ??? Sleepy. ??? Tired. ??? Sore or achy, even in parts of your body where you did not have surgery. Follow these instructions at home: For at least 24 hours after the procedure:??? Do not: ? Participate in activities where you could fall or become injured. ? Drive. ? Use heavy machinery. ? Drink alcohol. ? Take sleeping pills or medicines that cause drowsiness. ? Make important decisions or sign legal documents. ? Take care of children on your own. ??? Rest. Eating and drinking ??? If you vomit, drink water, juice, or soup when you can drink without vomiting. ??? Drink enough fluid to keep your urine clear or pale yellow. ??? Make sure you have little or no nausea before eating solid foods. ??? Follow the diet recommended by your health care provider. General instructions ??? Have a responsible adult stay with you until you are awake and alert. ??? Return to your normal activities as told by your health care provider. Ask your health care provider what activities are safe for you. ??? Take fcjp-nqw-vfvkwzi and prescription medicines only as told by your health care provider. ??? If you smoke, do not smoke without supervision. ??? Keep all follow-up visits as told by your health care provider. This is important. Contact a health care provider if: ??? You continue to have nausea or vomiting at home, and medicines are not helpful. ??? You cannot drink fluids or start eating again. ??? You cannot urinate after 8?12 hours. ??? You develop a skin rash. ??? You have fever. ??? You have increasing redness at the site of your procedure. Get help right away if: ??? You have difficulty breathing. ??? You have chest pain. ??? You have unexpected bleeding. ??? You feel that you are having a life-threatening or urgent problem. This information is not intended to replace advice given to you by your health care provider. Make sure you discuss any questions you have with your health care provider. Document Released: 10/10/2001 Document Revised: 12/06/2016 Document Reviewed: 06/17/2016 [employer] Patient Education ? 2017 [employer] Laparoscopic Cholecystectomy, Care After This sheet gives you information about how to care for yourself after your procedure. Your health care provider may also give you more specific instructions. If you have problems or questions, contact your health care provider. What can I expect after the procedure? After the procedure, it is common to have: ??? Pain at your incision sites. You will be given medicines to control this pain. ??? Mild nausea or vomiting. ??? Bloating and possible shoulder pain from the air-like gas that was used during the procedure. Follow these instructions at home: Incision care ??? Follow instructions from your health care provider about how to take care of your incisions. Make sure you: ? Wash your hands with soap and water before you change your bandage (dressing). If soap and water are not available, use hand certified bench jeweler technician. ? Change your dressing as told by your health care provider. ? Leave stitches (sutures), skin glue, or adhesive strips in place. These skin closures may need to be in place for 2 weeks or longer. If adhesive strip edges start to loosen and curl up, you may trim the loose edges. Do not remove adhesive strips completely unless your health care provider tells you to do that. ??? Do nottake baths, swim, or use a hot tub until your health care provider approves. Ask your health care provider if you can take showers. You may only be allowed to take sponge baths for bathing. ??? Check your incision area every day for signs of infection. Check for: ? More redness, swelling, or pain. ? More fluid or blood. ? Warmth. ? Pus or a bad smell. Activity ??? Do notdrive or use heavy machinery while taking prescription pain medicine. ??? Do notlift anything that is heavier than 20 POUNDS FOR 6 WEEKS until your health care provider approves. ??? Do notplay contact sports until your health care provider approves. ??? Do notdrive for 24 hours if you were given a medicine to help you relax (sedative). ??? Rest as needed. Do not return to work or school until your health care provider approves. General instructions ??? Take jmkk-wya-luufbdw and prescription medicines only as told by your health care provider. ??? To prevent or treat constipation while you are taking prescription pain medicine, your health care provider may recommend that you: ? Drink enough fluid to keep your urine clear or pale yellow. ? Take wgag-fis-aohsfsx or prescription medicines. ? Eat foods that are high in fiber, such as fresh fruits and vegetables, whole grains, and beans. ? Limit foods that are high in fat and processed sugars, such as fried and sweet foods. Contact a health care provider if: ??? You develop a rash, temeprature 101 or greater ??? You have more redness, swelling, or pain around your incisions. ??? You have more fluid or blood coming from your incisions. ??? Your incisions feel warm to the touch. ??? You have pus or a bad smell coming from your incisions. ??? You have a fever. ??? One or more of your incisions breaks open. Get help right away if: ??? You have trouble breathing. ??? You have chest pain. ??? You have increasing pain in your shoulders. ??? You faint or feel dizzy when you stand. ??? You have severe pain in your abdomen. ??? You have nausea or vomiting that lasts for more than one day. ??? You have leg pain. This information is not intended to replace advice given to you by your health care provider. Make sure you discuss any questions you have with your health care provider. Document Released: 07/04/2006 Document Revised: 01/22/2017 Document Reviewed: 12/20/2016 [employer] Interactive Patient Education ?? 2017 [employer]. Medication Leaflets: oxycodone (ox i KOE done) Oxaydo, OxyCONTIN, Oxyfast, Roxicodone, Xtampza ER What is the most important information I should know about oxycodone? MISUSE OF OPIOID MEDICINE CAN CAUSE ADDICTION, OVERDOSE, OR . Keep the medication in a place where others cannot get to it. Taking opioid medicine during may cause life-threatening withdrawal symptoms in the . Fatal side effects can occur if you use opioid medicine with alcohol, or with other drugs that cause drowsiness or slow your breathing. What is oxycodone? Oxycodone is an opioid pain medication used to treat moderate to severe pain. The extended-release form of oxycodone is for pgswau-xkn-vzpho treatment of pain and should not be used on an as-needed basis for pain. Oxycodone may also be used for purposes not listed in this medication guide. What should I discuss with my healthcare provider before using oxycodone? You should not use oxycodone if you are allergic to it, or if you have: ? severe asthma or breathing problems; or ?? a blockage in your stomach or intestines. You should not use oxycodone unless you are already using a similar opioid medicine and are tolerant to it. Most brands of oxycodone are not approved for use in people under 18. OxyContin should not be given to a child younger than 11 years old. Tell your doctor if you have ever had: ? a head injury, or seizures; ?? drug or alcohol addiction, or mental illness; ?? liver or kidney disease; ?? urination problems; or ?? problems with your gallbladder, pancreas, or thyroid. If you use opioid medicine while you are , your baby could become dependent on the drug. This can cause life-threatening withdrawal symptoms in the baby after it is born. Babies born dependent on opioids may need medical treatment for several weeks. Do not breast-feed. Oxycodone can pass into breast milk and may cause drowsiness, breathing problems, or in a nursing baby. How should I use oxycodone? Follow the directions on your prescription label and read all medication guides. Never use oxycodone in larger amounts, or for longer than prescribed. Tell your doctor if you feel an increased urge to take more of this medicine. Never share opioid medicine with another person, especially someone with a history of drug abuse or addiction. MISUSE CAN CAUSE ADDICTION, OVERDOSE, OR . Keep the medication in a place where others cannot get to it. Selling or giving away opioid medicine is against the law. Stop taking all other qkiovb-yuf-dvfku narcotic pain medicines when you start taking extended-release oxycodone. Take oxycodone with food. Swallow the capsule or tablet whole to avoid exposure to a potentially fatal overdose. Do not crush, chew, break, open, or dissolve. Never crush or break an oxycodone pill to inhale the powder or mix it into a liquid to inject the drug into your vein. This can cause in . Measure liquid medicine carefully. Use the dosing syringe provided, or use a medicine dose-measuring device (not a kitchen spoon). You should not stop using oxycodone suddenly. Follow your doctor's instructions about tapering your dose. Store at room temperature, away from heat, moisture, and light. Keep track of your medicine. Oxycodone is a drug of abuse and you should be aware if anyone is using your medicine improperly or without a prescription. Do not keep leftover opioid medication. Just one dose can cause in someone using this medicine accidentally or improperly. Ask your pharmacist where to locate a drug take-back disposal program. If there is no take-back program, flush the unused medicine down the toilet. What happens if I miss a dose? Since oxycodone is used for pain, you are not likely to miss a dose. Skip any missed dose if it is almost time for your next dose. Do not use two doses at one time. What happens if I overdose? Seek emergency medical attention or call the Poison Help line at . An oxycodone overdose can be fatal, especially in a child or other person using the medicine without a prescription. Overdose can cause severe muscle weakness, pinpoint pupils, very slow breathing, extreme drowsiness, or coma. What should I avoid while using oxycodone? Do not drink alcohol. Dangerous side effects or could occur. Avoid driving or operating machinery until you know how oxycodone will affect you. Dizziness or severe drowsiness can cause falls or other accidents. Avoid medication errors. Always check the brand and strength of oxycodone you get from the pharmacy. What are the possible side effects of oxycodone? Get emergency medical help if you have signs of an allergic reaction: hives; difficult breathing; swelling of your face, lips, tongue, or throat. Opioid medicine can slow or stop your breathing, and may occur. A person caring for you should seek emergency medical attention if you have slow breathing with long pauses, blue colored lips, or if you are hard to wake up. Call your doctor at once if you have: ? noisy breathing, sighing, shallow breathing; ?? a slow heart rate or weak pulse; ?? a light-headed feeling, like you might pass out; ?? confusion, unusual thoughts or behavior; ?? seizure (convulsions); or ?? low cortisol levels-- nausea, vomiting, loss of appetite, dizziness, worsening tiredness or weakness. Seek medical attention right away if you have symptoms of serotonin syndrome, such as: agitation, confusion, fever, sweating, fast heart rate, chest pain, feeling short of breath, muscle stiffness, trouble walking, or feeling faint. Serious side effects may be more likely in older adults and those who are malnourished or debilitated. Long-term use of opioid medication may affect fertility (ability to have children) in men or women. It is not known whether opioid effects on fertility are permanent. Common side effects may include: ? drowsiness, headache, dizziness, tiredness; or ?? constipation, stomach pain, nausea, vomiting. This is not a complete list of side effects and others may occur. Call your doctor for medical advice about side effects. You may report side effects to FDA at 2-932-XVA-0064. What other drugs will affect oxycodone? You may have breathing problems or withdrawal symptoms if you start or stop taking certain other medicines. Tell your doctor if you also use an antibiotic, antifungal medication, heart or blood pressure medication, seizure medication, or medicine to treat HIV or hepatitis C. Opioid medication can interact with many other drugs and cause dangerous side effects or . Be sure your doctor knows if you also use: ? other narcotic medications--opioid pain medicine or prescription cough medicine; ?? a sedative like Valium--diazepam, alprazolam, lorazepam, Ativan, Klonopin, Restoril, Tranxene, Versed, Xanax, and others; ?? drugs that make you sleepy or slow your breathing--a sleeping pill, muscle relaxer, tranquilizer, antidepressant, or antipsychotic medicine; or ?? drugs that affect serotonin levels in your body--medicine for depression, Parkinson's disease, migraine headaches, serious infections, or prevention of nausea and vomiting. This list is not complete and many other drugs may affect oxycodone. This includes prescription and uevo-wxp-sdnywrd medicines, vitamins, and herbal products. Not all possible drug interactions are listed here. Where can I get more information? Your pharmacist can provide more information about oxycodone. Remember, keep this and all other medicines out of the reach of children, never share your medicines with others, and use this medication only for the indication prescribed. Every effort has been made to ensure that the information provided by [employer]. [employer]') is accurate, up-to-date, and complete, but no guarantee is made to that effect. Drug information contained herein may be time sensitive. [employer] information has been compiled for use by healthcare practitioners and consumers in the [place] and therefore [employer] does not warrant that uses outside of the [place] are appropriate, unless specifically indicated otherwise. [employer] drug information does not endorse drugs, diagnose patients or recommend therapy. [employer] drug information is an informational resource designed to assist licensed healthcare practitioners in caring for their patients and/or to serve consumers viewing this service as a supplement to, and not a substitute for, the expertise, skill, knowledge and judgment of healthcare practitioners. The absence of a warning for a given drug or drug combination in no way should be construed to indicate that the drug or drug combination is safe, effective or appropriate for any given patient. [employer] does not assume any responsibility for any aspect of healthcare administered with the aid of information [employer] provides. The information contained herein is not intended to cover all possible uses, directions, precautions, warnings, drug interactions, allergic reactions, or adverse effects. If you have questions about the drugs you are taking, check with your doctor, nurse or pharmacist. Copyright 8960-8504 [employer]. Version: 13.. Revision Date: 04/28/2018. ondansetron (oral) (on SABINE se susie) Angie, Zofran ODT, Lucille What is the most important information I should know about ondansetron? You should not use ondansetron if you are also using apomorphine (Apokyn). What is ondansetron? Ondansetron blocks the actions of chemicals in the body that can trigger nausea and vomiting. Ondansetron is used to prevent nausea and vomiting that may be caused by surgery, cancer chemotherapy, or radiation treatment. Ondansetron may be used for purposes not listed in this medication guide. What should I discuss with my health care provider before taking ondansetron? You should not use ondansetron if: ? you are also using apomorphine (Apokyn); or ?? you are allergic to ondansetron or similar medicines (dolasetron, granisetron, palonosetron). To make sure ondansetron is safe for you, tell your doctor if you have: ? liver disease; ?? an electrolyte imbalance (such as low levels of potassium or magnesium in your blood); ?? congestive heart failure, slow heartbeats; ?? a personal or family history of long QT syndrome; or ?? a blockage in your digestive tract (stomach or intestines). Ondansetron is not expected to harm an unborn baby. Tell your doctor if you are . It is not known whether ondansetron passes into breast milk or if it could harm a nursing baby. Tell your doctor if you are breast-feeding a baby. Ondansetron is not approved for use by anyone younger than 4 years old. Ondansetron orally disintegrating tablets may contain phenylalanine. Tell your doctor if you have phenylketonuria (PKU). How should I take ondansetron? Follow all directions on your prescription label. Do not take this medicine in larger or smaller amounts or for longer than recommended. Ondansetron can be taken with or without food. The first dose of ondansetron is usually taken before the start of your surgery, chemotherapy, or radiation treatment. Follow your doctor's dosing instructions very carefully. Take the ondansetron regular tablet with a full glass of water. To take the orally disintegrating tablet (Zofran ODT): ? Keep the tablet in its blister pack until you are ready to take it. Open the package and peel back the foil. Do not push a tablet through the foil or you may damage the tablet. ?? Use dry hands to remove the tablet and place it in your mouth. ?? Do not swallow the tablet whole. Allow it to dissolve in your mouth without chewing. ?? Swallow several times as the tablet dissolves. To use ondansetron oral soluble film (strip) (Zuplenz): ? Keep the strip in the foil pouch until you are ready to use the medicine. ?? Using dry hands, remove the strip and place it on your tongue. It will begin to dissolve right away. ?? Do not swallow the strip whole. Allow it to dissolve in your mouth without chewing. ?? Swallow several times after the strip dissolves. If desired, you may drink liquid to help swallow the dissolved strip. ?? Wash your hands after using Zuplenz. Measure liquid medicine with the dosing syringe provided, or with a special dose-measuring spoon or medicine cup. If you do not have a dose-measuring device, ask your pharmacist for one. Store at room temperature away from moisture, heat, and light. Store liquid medicine in an upright position. What happens if I miss a dose? Take the missed dose as soon as you remember. Skip the missed dose if it is almost time for your next scheduled dose. Do not take extra medicine to make up the missed dose. What happens if I overdose? Seek emergency medical attention or call the Poison Help line at . Overdose symptoms may include sudden loss of vision, severe constipation, feeling light-headed, or fainting. What should I avoid while taking ondansetron? Ondansetron may impair your thinking or reactions. Be careful if you drive or do anything that requires you to be alert. What are the possible side effects of ondansetron? Get emergency medical help if you have signs of an allergic reaction: rash, hives; fever, chills, difficult breathing; swelling of your face, lips, tongue, or throat. Call your doctor at once if you have: ? severe constipation, stomach pain, or bloating; ?? headache with chest pain and severe dizziness, fainting, fast or pounding heartbeats; ?? fast or pounding heartbeats; ?? jaundice (yellowing of the skin or eyes); ?? blurred vision or temporary vision loss (lasting from only a few minutes to several hours); ?? high levels of serotonin in the body--agitation, hallucinations, fever, fast heart rate, overactive reflexes, nausea, vomiting, diarrhea, loss of coordination, fainting. Common side effects may include: ? diarrhea or constipation; ?? headache; ?? drowsiness; or ?? tired feeling. This is not a complete list of side effects and others may occur. Call your doctor for medical advice about side effects. You may report side effects to FDA at 2-342-WKX-7718. What other drugs will affect ondansetron? Ondansetron can cause a serious heart problem, especially if you use certain medicines at the same time, including antibiotics, antidepressants, heart rhythm medicine, antipsychotic medicines, and medicines to treat cancer, malaria, HIV or AIDS. Tell your doctor about all medicines you use, and those you start or stop using during your treatment with ondansetron. Taking ondansetron while you are using certain other medicines can cause high levels of serotonin to build up in your body, a condition called 'serotonin syndrome,' which can be fatal. Tell your doctor if you also use: ? medicine to treat depression; ?? medicine to treat a psychiatric disorder; ?? a narcotic (opioid) medication; or ?? medicine to prevent nausea and vomiting. This list is not complete and many other drugs can interact with ondansetron. This includes prescription and tjfx-wuv-jeieazv medicines, vitamins, and herbal products. Give a list of all your medicines to any healthcare provider who treats you. Where can I get more information? Your pharmacist can provide more information about ondansetron. Remember, keep this and all other medicines out of the reach of children, never share your medicines with others, and use this medication only for the indication prescribed. Every effort has been made to ensure that the information provided by [employer]. ('[employer]') is accurate, up-to-date, and complete, but no guarantee is made to that effect. Drug information contained herein may be time sensitive. Genome information has been compiled for use by healthcare practitioners and consumers in the [place] and therefore [employer] does not warrant that uses outside of the [place] are appropriate, unless specifically indicated otherwise. [employer]'s drug information does not endorse drugs, diagnose patients or recommend therapy. [employer] drug information is an informational resource designed to assist licensed healthcare practitioners in caring for their patients and/or to serve consumers viewing this service as a supplement to, and not a substitute for, the expertise, skill, knowledge and judgment of healthcare practitioners. The absence of a warning for a given drug or drug combination in no way should be construed to indicate that the drug or drug combination is safe, effective or appropriate for any given patient. [employer] does not assume any responsibility for any aspect of healthcare administered with the aid of information [employer] provides. The information contained herein is not intended to cover all possible uses, directions, precautions, warnings, drug interactions, allergic reactions, or adverse effects. If you have questions about the drugs you are taking, check with your doctor, nurse or pharmacist. Copyright 4441-1000 [employer]. Version: 13.01. Revision Date: 05/07/2016. CIGARETTE SMOKING: The facts are clear, cigarette smoking will shorten your life. Smoking can cause many illnesses along the way. As a healthcare provider, we recommend that you stop smoking. Assistance with quitting is available by contacting 8-696-FHCD-NOW. This is a free resource providing counseling, support, and referral. Or you may contact your personal physician. STROKE is an EMERGENCY Every Minute Counts [...] Fibrillation (irregular heartbeat) Family history of stroke Reminder: Be sure to sign up for the [facility] [address] patient portal, which gives you 07/02 access to your medical information ??? including these discharge instructions ??? using your computer, smartphone, or tablet. Just go to [employer] to get started. Questions? Call . [facility] would like to thank you for allowing us to assist you with your healthcare needs. ROBERT Salazar CODY LAYNE, (or brand representative) have received the above patient education materials/instructions and have verbalized understanding: Patient Signature _ Date/Time Patient Country Printer Signature (if needed) Date/Time Clinician/Hospital Country Printer Signature (if needed) Date/Time documented in this encounter Plan of Treatment Not on file documented as of this encounter Visit Diagnoses Not on filedocumented in this encounter
--- OUTSIDE RECORDS SUMMARY | 2025-04-04 11:10 | XMS_ITS | Encounter Summary ---
Author Organization [employer] ([place], [place], [place], [place]) Address [address] [place] [address] Care Team Providers Care Substance Abuse Prevention Coordinator Name Role Phone Unavailable Primary Care Provider Unavailabl e Encounter Details Date Type Department Care Team (Late st Contact Info) Description 08/08/2018 Transcribed Document [facility] [place] [facility] [place] [address] ProviderTara MD [address], [place] [phone] Social History Tobacco Use Types Packs/Day Years Used Date Smoking Tobacco: Never Assessed Sex and Gender Information Value Date Recorded Sex Assigned at Not on file Legal Sex Male 5:36 PM CDT Gender Identity Not on file Sexual Orientation Not on file documented as of this encounter Miscellaneous Notes * [employer]ner Conversion Note - Tara Pavon MD - 08/08/2018 10:41 AM 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 ? Change your dressing as told by [...] care provider approves. General instructions ??? Take tyjk-rhy-xzrpiiw and prescription medicines only as told by your health care provider. ??? To prevent or treat constipation while you are taking prescription pain medicine, your health care provider may recommend that you: ? Drink enough fluid to keep your urine clear or pale yellow. ? Take optr-njk-dvwkmlp or prescription medicines. ? Eat foods that [...] 07/04/2006 Document Revised: 01/22/2017 Document Reviewed: 12/20/2016 [employer] Interactive Patient Education ?? 2017 [employer] Pharmacology General Anesthesia, Adult, Care After These instructions [...] activities are safe for you. ??? Take kxck-zqh-ufnhfqp and prescription medicines only as told by [...] 10/10/2001 Document Revised: 12/06/2016 Document Reviewed: 06/17/2016 [employer] Interactive Patient Education ? 2017 [employer] documented in this encounter Plan of Treatment Not on file documented as of this encounter Visit Diagnoses Not on filedocumented in this encounter
--- OUTSIDE RECORDS SUMMARY | 2025-04-04 11:10 | XMS_ITS | Encounter Summary ---
Author Organization [employer] ([place], [place], [place], [place]) Address [address] [place] [address] Care Team Providers Care Seam Checker Name Role Phone Unavailable Primary Care Provider Unavailabl e Encounter Details Date Type Department Care Team (Late st Contact Info) Description 08/15/2018 Transcribed Document [facility] [place] Family Medicine [address] [place] [address] ProviderTara MD [address] [phone] Social History Tobacco Use Types Packs/Day Years Used Date Smoking Tobacco: Never Assessed Sex and Gender Information Value Date Recorded Sex Assigned at Not on file Legal Sex Male 5:36 PM CDT Gender Identity Not on file Sexual Orientation Not on file documented as of this encounter Miscellaneous Notes * Cerner Conversion Note - Tara ProviderMD - 08/15/2018 12:55 AM TOLL PATROLMAN ED Assessment Entered On: 08/15/2018 1:13 EST Performed On: 08/15/2018 1:10 EST by Luis Cervantes Rn-Resource ED Quick Look Assessment Level of Consciousness : Alert, Awake Affect/Behavior : Appropriate, Calm, Cooperative Orientation : Oriented x 4 Skin Temperature : Warm Luis Cervantes Rn-Resource - 08/15/2018 1:10 EST ED General-Functional Assess Information Obtained From : Patient Preferred Communication Mode : Verbal Communication Barrier : None Primary Language : Chinese Additional Emergency Contact #1 : Elijah Greenberg Additional Contact #1 Phone Number : [phone] Additional Contact #1 Relationship : Father Additional Emergency Contact #2 : none Additional Contact #2 Phone Number : none Additional Contact #2 Relationship : none Any Spiritual/Cultural Needs or Requests : No Currently in Unsafe Situation : No Clinical Trials Participant *Q : None Clinical Trials Participant, None *Q : Yes Luis Cervantes Rn-Resource - 08/15/2018 1:10 EST Social Habits Smoking Status : Former smoker, quit more than 30 days ago Smokeless Tobacco Status : Never Desires Tobacco Cessation Calc : 0 Luis Cervantes Rn-Resource - 08/15/2018 1:10 EST Social History (As Of: 08/15/2018 01:13:18 EST) Tobacco: Former smoker, quit more than 30 days ago Smoking Status. Never Smokeless Tobacco Status. None Smokeless Tobacco Use History. (Last Updated: 07/03/2018 10:37:24 EST by Carol Baca RN) Alcohol: Alcohol Use History No. Date/Time of Last Drink: . Use in Last 12 Months: Yes. Alcohol Use Comment past use weekends. (Last Updated: 08/15/2018 01:12:21 EST by Luis Cervantes Rn-Resource) Substance Abuse: Drug Use Hx: Yes. Use in Last 12 Months: No. opiates Recreational Drug Type. Frequency: Daily. Years of Use: 10 yr. Drug Last Use: 2010. Drug Route: Oral. (Last Updated: 08/08/2018 07:09:47 EST by EDILIA PATEL) Nutrition/Health: Caffeine intake amount: none. (Last Updated: 12/03/2015 10:53:22 EDT by RENNY FITCH, RADHA) Home/Environment: Living situation: Home/Independent. (Last Updated: 10/03/2017 06:35:39 EDT by PAM CARTER PA-C) Gastrointestinal ED Gastrointestinal Assessment WDL : WDL with exceptions Gastrointestinal Symptoms : Abdominal pain Abdomen Description : Flat Bowel Movemen, Last Date : 08/14/2018 23:00 EST Luis Cervantes Rn-Resource - 08/15/2018 1:10 EST Electronically signed by Magdiel [facility] Conversion Grinding Room Inspector Cerner at 11/03/2022 7:07 AM CDT documented in this encounter Plan of Treatment Not on file documented as of this encounter Visit Diagnoses Not on filedocumented in this encounter
--- OUTSIDE RECORDS SUMMARY | 2025-04-04 11:10 | XMS_ITS | Encounter Summary ---
Author Organization [employer] ([place], [place], [place], [place]) Address [address] [place] [address] Care Team Providers Care Flex O Writer Operator Name Role Phone Unavailable Primary Care Provider Unavailabl e Encounter Details Date Type Department Care Team (Late st Contact Info) Description 08/08/2018 Transcribed Document [facility] [place] Family Medicine [facility] [place] [address] ProviderTara MD [address] [place], [place] [phone] Social History Tobacco Use Types Packs/Day Years Used Date Smoking Tobacco: Never Assessed Sex and Gender Information Value Date Recorded Sex Assigned at Not on file Legal Sex Male 5:36 PM CDT Gender Identity Not on file Sexual Orientation Not on file documented as of this encounter Miscellaneous Notes * Cerner Conversion Note - Historical ProviderMD - 08/08/2018 10:29 AM GOVERNMENT TEACHER Nursing Discharge Summary Entered On: 08/08/2018 10:30 EST Performed On: 08/08/2018 10:29 EST by Latasha Amin RN Discharge Documentation Patient Disposition, General : Discharge Discharge To : Home with ambulatory/outpatient follow-up Mode Of Departure, General Discharge : Private vehicle, Wheelchair Accompanied By, Discharge : Care provider IV Discontinued : Yes Medications Given to Patient : Yes Personal Belongings With Patient : Yes Prescriptions Given to Patient : Yes Discharge Instructions Reviewed With, Opportunity For Questions Given : Patient, Care provider Teaching Method : Printed materials, Teach back method Teaching Evaluation : Returns demonstration, Verbalizes understanding Latasha Aimn, RADHA - 08/08/2018 10:29 EST Electronically signed by Magdiel [facility] Conversion Director Of Safety Cerner at 11/03/2022 7:20 AM CDT documented in this encounter Plan of Treatment Not on file documented as of this encounter Visit Diagnoses Not on filedocumented in this encounter
--- OUTSIDE RECORDS SUMMARY | 2025-04-04 11:10 | XMS_ITS | Encounter Summary ---
Author Organization [employer] ([place], [place], [place], [place]) Address [address] [place] [address] Care Team Providers Care Ship Fitter Name Role Phone Unavailable Primary Care Provider Unavailabl e Encounter Details Date Type Department Care Team (Late st Contact Info) Description 08/15/2018 Transcribed Document [facility] [place] Family [place] [address] ProviderTara MD [address] [place], [place] [phone] Social History Tobacco Use Types Packs/Day Years Used Date Smoking Tobacco: Never Assessed Sex and Gender Information Value Date Recorded Sex Assigned at Not on file Legal Sex Male 5:36 PM CDT Gender Identity Not on file Sexual Orientation Not on file documented as of this encounter Miscellaneous Notes * Cerner Conversion Note - Tara ProviderMD - 08/15/2018 12:55 AM PRINT WASHER ED Triage Entered On: 08/15/2018 1:01 EST Performed On: 08/15/2018 0:58 EST by Shagufta Farnsworth Rn-Flex Team ED Triage Across the Room Triage Date/Time : 08/15/2018 0:58 EST Chief Complaint : pt c/o bilateral flank pain, radiating around to front for 3 days, constant, reports gallbladder surgery a week ago Tuesday Shagufta Farnsworth Rn-Flex Team - 08/15/2018 0:58 EST DCP GENERIC CODE Tracking Acuity : 3 - Urgent Tracking Group : [facility] ED Shagufta Farnsworth Rn-Flex Team - 08/15/2018 0:58 EST Mode of Arrival : Ambulatory Transported to ED by : Private vehicle To Room Via : Ambulate Accompanied By : Grandparent ED Vital Signs : Document Height & Weight : Document ED Allergies : Document ED Reason for Visit : Document Tetanus Immunization : Greater than 5 years Shagufta Farnsworth Rn-Flex Team - 08/15/2018 0:58 EST Infectious Disease History Infectious Disease History : Chicken pox/Shingles, Influenza Fever/Chills Last 48 Hours : Yes Experiencing Infectious Disease Symptoms : Abdominal pain Travel To Regions with Travel Advisories : No Travel Outside [place] Within Last 30 Days : No Contact With Traveler to Advisory Region : No Tuberculosis Symptoms : None Shagufta Farnsworth Rn-Flex Team - 08/15/2018 0:58 EST Vital Signs ED Temperature Source : Oral Temperature Mode : Fahrenheit Temperature, Fahrenheit : 97.6 Deg F ED Pain : Yes Clinical Temperature, C : 36.4 Deg C Oxygen Therapy Mode : Room air Peripheral Pulse Rate : 69 bpm Respiratory Rate : 16 Breaths/Min Systolic Blood Pressure : 132 mmHg Diastolic Blood Pressure : 79 mmHg Oxygen Saturation : 99 % Shagufta Farnsworth Rn-Flex Team - 08/15/2018 0:58 EST Allergy (As Of: 08/15/2018 01:01:59 EST) Allergies (Active) No Known Allergies Estimated Onset Date: Unspecified ; Created By: Pete Kwok RN; Reaction Status: Active ; Category: Drug ; Substance: No Known Allergies ; Type: Allergy ; Updated By: Pete Kwok RN; Reviewed Date: 08/15/2018 0:58 EST Diagnosis Control ED (As Of: 08/15/2018 01:01:59 EST) Problems(Active) Abdominal pain (SNOMED CT :90953941 ) Name of Problem: Abdominal pain ; Recorder: EDILIA PATEL; Confirmation: Confirmed ; Classification: Medical ; Code: [id number] ; Contributor System: [employer] ; Last Updated: 08/08/2018 7:03 EST ; Life Cycle Date: 08/08/2018 ; Life Cycle Status: Active ; Vocabulary: SNOMED CT Anxiety (SNOMED CT :88955095 ) Name of Problem: Anxiety ; Recorder: EDILIA PATEL; Confirmation: Confirmed ; Classification: Medical ; Code: 27604617 ; Contributor System: [employer] ; Last Updated: 08/08/2018 7:02 EST ; Life Cycle Date: 08/08/2018 ; Life Cycle Status: Active ; Vocabulary: SNOMED CT Chronic sinusitis (SNOMED CT :00004370 ) Name of Problem: Chronic sinusitis ; Recorder: EDILIA PATEL; Confirmation: Confirmed ; Classification: Medical ; Code: 44358268 ; Contributor System: PowerChart ; Last Updated: 08/08/2018 7:02 EST ; Life Cycle Date: 08/08/2018 ; Life Cycle Status: Active ; Vocabulary: SNOMED CT Gastritis (SNOMED CT :9969956 ) Name of Problem: Gastritis ; Recorder: Pete Kwok, RADHA; Confirmation: Confirmed ; Classification: Medical ; Code: 7062131 ; Contributor System: PowerChart ; Last Updated: 09/14/2015 22:27 EST ; Life Cycle Date: 09/14/2015 ; Life Cycle Status: Active ; Vocabulary: SNOMED CT GERD (gastroesophageal reflux disease) (SNOMED CT :396642908 ) Name of Problem: GERD (gastroesophageal reflux disease) ; Recorder: ERICKSON STOKES RN; Confirmation: Confirmed ; Classification: Medical ; Code: 108736511 ; Contributor System: PowerChart ; Last Updated: 06/03/2017 9:40 EST ; Life Cycle Date: 06/03/2017 ; Life Cycle Status: Active ; Vocabulary: SNOMED CT h/o Drug abuse 2011/ etoh use quit 2013 (SNOMED CT :34720794 ) Name of Problem: h/o Drug abuse 2011/ etoh use quit 2013 ; Recorder: EDILIA PATEL; Confirmation: Confirmed ; Classification: Medical ; Code: 74839972 ; Contributor System: PowerChart ; Last Updated: 08/08/2018 7:04 EST ; Life Cycle Date: 08/08/2018 ; Life Cycle Status: Active ; Vocabulary: SNOMED CT Hemorrhoid (SNOMED CT :552807465 ) Name of Problem: Hemorrhoid ; Recorder: EDILIA PATEL; Confirmation: Confirmed ; Classification: Medical ; Code: 484663693 ; Contributor System: PowerChart ; Last Updated: 08/08/2018 7:01 EST ; Life Cycle Date: 08/08/2018 ; Life Cycle Status: Active ; Vocabulary: SNOMED CT IBS (irritable bowel syndrome) (SNOMED CT :05985241 ) Name of Problem: IBS (irritable bowel syndrome) ; Recorder: EDILIA PATEL; Confirmation: Confirmed ; Classification: Medical ; Code: 01055447 ; Contributor System: PowerChart ; Last Updated: 08/08/2018 7:01 EST ; Life Cycle Date: 08/08/2018 ; Life Cycle Status: Active ; Vocabulary: SNOMED CT Nonfunctioning gallbladder (SNOMED CT :051647395 ) Name of Problem: Nonfunctioning gallbladder ; Recorder: EDILIA PATEL; Confirmation: Confirmed ; Classification: Medical ; Code: 296361804 ; Contributor System: [employer] ; Last Updated: 08/08/2018 7:02 EST ; Life Cycle Date: 08/08/2018 ; Life Cycle Status: Active ; Vocabulary: SNOMED CT Pneumothorax, spontaneous,left 2018 (SNOMED CT :593891462 ) Name of Problem: Pneumothorax, spontaneous,left 2017 ; Recorder: EDILIA PATEL; Confirmation: Confirmed ; Classification: Medical ; Code: 313082381 ; Contributor System: [employer] ; Last Updated: 08/08/2018 7:07 EST ; Life Cycle Date: 08/08/2018 ; Life Cycle Status: Active ; Vocabulary: SNOMED CT Slow heart rate (SNOMED CT :11313875 ) Name of Problem: Slow heart rate ; Recorder: EDILIA PATEL; Confirmation: Confirmed ; Classification: Medical ; Code: 14928653 ; Contributor System: [employer] ; Last Updated: 08/08/2018 7:01 EST ; Life Cycle Date: 08/08/2018 ; Life Cycle Status: Active ; Vocabulary: SNOMED CT Diagnoses(Active) Flank pain Date: 08/15/2018 ; Diagnosis Type: Reason For Visit ; Confirmation: Complaint of ; Clinical Dx: Flank pain ; Classification: Medical ; Clinical Service: Non-Specified ; Code: PNED ; Probability: 0 ; Diagnosis Code: [id number] ED Height and Weight Height Source : Stated Height Entry Format : [place] Height, Feet : 6 ft(Converted to: 183 cm, 72 Inch) Height, Inches : 0 Inch(Converted to: 0 ft 0 Inch, 0.00 cm) Clinical Height : 182.88 cm Weight Source, ED : Standing scale Weight Entry Format : [place] Weight, Pounds : 136.3 lb Clinical Dosing Weight : 61.95 kg Body Surface Area (BSA) : 1.81 m2 Body Mass Index : 18.5 kg/m2 (LOW) [place] Body Weight (IBW) : 76.59 kg Farnsworth, Shagufta, Rn-Flex Team - 08/15/2018 0:58 EST Pain Assessment Pain Assessment : Initial assessment Pain Scale Used : 0-10 Scale Shagufta Farnsworth Rn-Flex Team - 08/15/2018 0:58 EST Pain Scale Intensity : 7 Shagufta Farnsworth Rn-Flex Team - 08/15/2018 0:58 EST Image 4 - Images currently included in the form version of this document have not been included in the text rendition version of the form. documented in this encounter Plan of Treatment Not on file documented as of this encounter Visit Diagnoses Not on filedocumented in this encounter
--- OUTSIDE RECORDS SUMMARY | 2025-04-04 11:10 | XMS_ITS | Encounter Summary ---
Author Organization [employer] ([place], [place], [place], [place]) Address [address] [place] [address] Care Team Providers Care Environmental Programs Manager Name Role Phone Unavailable Primary Care Provider Unavailabl e Encounter Details Date Type Department Care Team (Late st Contact Info) Description 08/15/2018 Transcribed Document [facility] [place] Family Medicine [address] [place] [address] ProviderTara MD [address] [phone] Social History Tobacco Use Types Packs/Day Years Used Date Smoking Tobacco: Never Assessed Sex and Gender Information Value Date Recorded Sex Assigned at Not on file Legal Sex Male 5:36 PM CDT Gender Identity Not on file Sexual Orientation Not on file documented as of this encounter Miscellaneous Notes * Cerner Conversion Note - Historical ProviderMD - 08/15/2018 2:25 AM 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 ED Discharge Entered On: 08/15/2018 2:25 EST Performed On: 08/15/2018 2:25 EST by Luis Cervantes Rn-Teri Discharge Process Personal Belongings With Patient : Yes Patient Education Completed : Yes Teaching Evaluation : Verbalizes understanding IV Discontinued : Not applicable Nursing Documentation Completed : No Luis Cervantes Rn-Teri - 08/15/2018 2:25 EST ED Discharge Discharge To : Home without planned follow-up Mode Of Departure : Ambulatory Accompanied By : Father Discharge Instructions Reviewed With, Opportunity For Questions Given : Patient, Father Prescriptions Given to Patient : No Luis Cervantes Rn-Teri - 08/15/2018 2:25 EST documented in this encounter Plan of Treatment Not on file documented as of this encounter Visit Diagnoses Not on filedocumented in this encounter
--- OUTSIDE RECORDS SUMMARY | 2025-04-04 11:10 | XMS_ITS | Encounter Summary ---
Author Organization [employer] ([place], [place], [place], [place]) Address [address] [place] [address] Care Team Providers Care Street Light Servicer Name Role Phone Unavailable Primary Care Provider Unavailabl e Encounter Details Date Type Department Care Team (Late st Contact Info) Description 08/08/2018 Transcribed Document [facility] [place] Family Medicine [facility] [place] [address] ProviderTara MD [address] [place] [address] Social History Tobacco Use Types Packs/Day Years Used Date Smoking Tobacco: Never Assessed Sex and Gender Information Value Date Recorded Sex Assigned at Not on file Legal Sex Male 5:36 PM CDT Gender Identity Not on file Sexual Orientation Not on file documented as of this encounter Miscellaneous Notes * Cerner Conversion Note - Tara ProviderMD - 08/08/2018 10:41 [place] [address] Patient Copy Patient Information: Name: GUNNAR GREENBERG Current Date: 08/08/2018 10:41:26 : 1985 Patient Address: [place] [address] Patient Attending Physician: PRASANNA BAHENA MD-SUR Primary Care Provider: KYLEE GAONA DR Primary Care Provider Discharge Diagnosis: Weight on Admission: 142 lb, 0 oz Comment: Follow-up Instructions: With: Address: When: PRASANNA BAHENA MD-SUR [address] [place] [address] Within 1 week Comments: Call for follow up appointment Discharge Instructions: Diet after Discharge: Resume usual diet as tolerated Activity after Discharge: Rest and relax today, No strenuous activities, Other: no heavy lifting over 20 pounds for 6 weeks Driving after Discharge: Other: do not drive for 24 hours and if taking narcotic medication May Return to Work/School: in 1 week or earlier if feeling well Showering/Bathing:No tub bathing, soaking, or swimming, Other: may shower in 24 hours Wound/Incision Care after Discharge: Keep operative site/wound site clean and dry Wound/Incision Care after Discharge Comment: walk 3-5 times per day ice pack on first 48 hours, 20 min on 20 min off while awake Immunizations Documented During Stay: No Immunizations Found Pain Management: Take Tylenol and Ibuprofen over the counter (if able) as directed in an alternationg fashion first for pain relief prioe to using narcotic medication Tale stool softeners if taking narcotic medication Heart Failure Discharge Instructions (if any): Stroke [...] activities are safe for you. ??? Take eeds-eio-jvuwvow and prescription medicines only as told by [...] 10/10/2001 Document Revised: 12/06/2016 Document Reviewed: 06/17/2016 [employer] Patient Education ? 2017 [employer] 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 ? Change your dressing as told by [...] care provider approves. General instructions ??? Take otao-fyj-hhuwacf and prescription medicines only as told by your health care provider. ??? To prevent or treat constipation while you are taking prescription pain medicine, your health care provider may recommend that you: ? Drink enough fluid to keep your urine clear or pale yellow. ? Take tnzv-nfs-vifmfjj or prescription medicines. ? Eat foods that [...] 07/04/2006 Document Revised: 01/22/2017 Document Reviewed: 12/20/2016 [employer] Interactive Patient Education ?? 2017 [employer]. Medication Leaflets: oxycodone (ox i KOE done) [...] The extended-release form of oxycodone is for rmpoxq-dyp-tervb treatment of pain and should not be [...] against the law. Stop taking all other atqkhw-nlu-vmnkg narcotic pain medicines when you start taking [...] may report side effects to FDA at 3-390-WXD-9390. What other drugs will affect oxycodone? You [...] may affect oxycodone. This includes prescription and kkfn-ast-zaaebcp medicines, vitamins, and herbal products. Not all [...] to ensure that the information provided by [employer]. ('[employer]') is accurate, up-to-date, and complete, but no guarantee is made to that effect. Drug information contained herein may be time sensitive. [employer] information has been compiled for use by healthcare practitioners and consumers in the [place] and therefore [employer] does not warrant that uses outside of the [place] are appropriate, unless specifically indicated otherwise. [employer]'s drug information does not endorse drugs, diagnose patients or recommend therapy. [employer] drug information is an informational resource designed [...] effective or appropriate for any given patient. [facility] does not assume any responsibility for any aspect of healthcare administered with the aid of information [facility] provides. The information contained herein is not intended to cover all possible uses, directions, precautions, warnings, drug interactions, allergic reactions, or adverse effects. If you have questions about the drugs you are taking, check with your doctor, nurse or pharmacist. Copyright 8845-3711 [facility]. Version: 13.01. Revision Date: 04/28/2018. ondansetron (oral) (on SABINE se susie) Angie Adams [employer] What is the most important information I [...] may report side effects to FDA at 0-143-WLR-9638. What other drugs will affect ondansetron? Ondansetron [...] interact with ondansetron. This includes prescription and xyjg-qbb-tusbyxp medicines, vitamins, and herbal products. Give a [...] to ensure that the information provided by [employer]. [employer]') is accurate, up-to-date, and complete, but no guarantee is made to that effect. Drug information contained herein may be time sensitive. [employer] information has been compiled for use by healthcare practitioners and consumers in the [place] and therefore [employer] does not warrant that uses outside of the [place] are appropriate, unless specifically indicated otherwise. [employer] drug information does not endorse drugs, diagnose patients or recommend therapy. [employer] drug information is an informational resource designed [...] effective or appropriate for any given patient. [employer] does not assume any responsibility for any aspect of healthcare administered with the aid of information [employer] provides. The information contained herein is not intended to cover all possible uses, directions, precautions, warnings, drug interactions, allergic reactions, or adverse effects. If you have questions about the drugs you are taking, check with your doctor, nurse or pharmacist. Copyright 6990-6038 [employer]. Version: 13.. Revision Date: 05/07/2016. CIGARETTE SMOKING: The facts are clear, cigarette smoking will shorten your life. Smoking can cause many illnesses along the way. As a healthcare provider, we recommend that you stop smoking. Assistance with quitting is available by contacting 0-681-FABD-NOW. This is a free resource providing counseling, [...] Be sure to sign up for the [employer] patient portal, which gives you 07/02 access to your medical information ??? including these discharge instructions ??? using your computer, smartphone, or tablet. Just go to [employer] to get started. Questions? Call . [facility] would like to thank you for allowing us to assist you with your healthcare needs. ROBERT Salazar CODY LAYNE, (or agricultural sales representative) have received the above patient education materials/instructions and have verbalized understanding: Patient Signature _ Date/Time Patient Supervisor Evaporator Signature (if needed) Date/Time Clinician/Hospital Supervisor Evaporator Signature (if needed) Date/Time documented in this encounter Plan of Treatment Not on file documented as of this encounter Visit Diagnoses Not on filedocumented in this encounter
--- OUTSIDE RECORDS SUMMARY | 2025-04-04 11:10 | XMS_ITS | Encounter Summary ---
Author Organization [employer] ([place], [place], [place], [place]) Address [address] [place] [address] Care Team Providers Care Sessions Clerk Name Role Phone Unavailable Primary Care Provider Unavailabl e Encounter Details Date Type Department Care Team (Late st Contact Info) Description 08/08/2018 Transcribed Document [facility] [place] [facility] [place] [address] ProviderTara MD [address] [place] [id number] Social History Tobacco Use Types Packs/Day Years Used Date Smoking Tobacco: Never Assessed Sex and Gender Information Value Date Recorded Sex Assigned at Not on file Legal Sex Male 5:36 PM CDT Gender Identity Not on file Sexual Orientation Not on file documented as of this encounter Miscellaneous Notes * Cerner Conversion Note - Historical ProviderMD - 08/08/2018 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 Entered On: 08/08/2018 7:00 EST Performed On: 08/08/2018 6:56 EST by EDILIA PATEL Height and Weight, Clinical Dosing Height Source : Measured Height Entry Format : Bath Height, Feet : 5 ft(Converted to: 152 cm, 60 Inch) Height, Inches : 11 Inch(Converted to: 0 ft 11 Inch, 27.94 cm) Clinical Height : 180.34 cm Weight Source : Standing scale Weight Entry Format : Bath Clinical Dosing Weight : 64.55 kg Weight, Pounds : 142 lb Body Surface Area (BSA) : 1.82 m2 Body Mass Index : 19.8 kg/m2 [place] Body Weight : 74 kg EDILIA PATEL - 08/08/2018 6:56 EST Health Histories Smoking Status : Former smoker, quit more than 30 days ago Smokeless Tobacco Status : Never EDILIA PATEL - 08/08/2018 6:56 EST Social History (As Of: 08/08/2018 07:00:59 EST) Tobacco: Former smoker, quit more than 30 days ago Smoking Status. Never Smokeless Tobacco Status. None Smokeless Tobacco Use History. (Last Updated: 07/03/2018 10:37:24 EST by Carol Baca RN) Alcohol: Alcohol Use History No. (Last Updated: 09/14/2015 22:59:34 EST by Pete Kwok, RADHA) Substance Abuse: Drug Use Hx: No. Use in Last 12 Months: No. (Last Updated: 06/03/2017 09:41:12 EST by ERICKSON STOKES RN) Nutrition/Health: Caffeine intake amount: none. (Last Updated: 12/03/2015 10:53:22 EDT by RENNY FITCH RN) Home/Environment: Living situation: Home/Independent. (Last Updated: 10/03/2017 06:35:39 EDT by PAM CARTER PA-C) Infectious Disease History Infectious Disease History : Chicken pox/Shingles, Influenza Fever/Chills Last 48 Hours : No Travel To Regions with Travel Advisories : No Travel Outside [place] Within Last 30 Days : No Contact With Traveler to Advisory Region : No Tuberculosis Symptoms : None EDILIA PATEL - 08/08/2018 6:56 EST Anesthesia/Transfusion History Family History of Anesthesia Reaction : No prior transfusion(s) Blood Transfusion Acceptable to Patient : Yes Transfusion History : Prior anesthesia without reaction Family History of Anesthesia Reaction : None EDILIA PATEL - 08/08/2018 6:56 EST Functional Assessment Functional ADL Evaluation Index EBN Bathing : Independent (2) Dressing : Independent (2) Toileting : Independent (2) Transferring Bed or Chair : Independent (2) Continence : Independent (2) Feeding : Independent (2) EDILIA PATEL 08/08/2018 6:56 EST ADL Index Score : 12 EDILIA PATEL 08/08/2018 6:56 EST Advance Directive Patient has Advance Directive *Q : No, patient refuses Advance Directive information EDILIA PATEL 08/08/2018 6:56 EST Spiritual/Cultural Needs Any Spiritual/Cultural Needs or Requests : No EDILIA PATEL - 08/08/2018 6:56 EST Psychosocial History Do You Have a History of the Following? : Anxiety Currently in Unsafe Situation : No Tried to Harm Yourself in the Past? : No Thoughts of Harming/Killing Yourself : No [place] EDILIA - 08/08/2018 6:56 EST General Info Arrived From : Home Mode of Arrival on Unit : Ambulatory Legal Guardian : Significant other Legal Guardian : No Support Person/Pt Rep Contact Information : linda maria [phone]/mom [phone] thea Bustos Family/Rep/Phys Notified of Admit : No Emergency Contact #1 : - Emergency Contact #1 Phone Number : - Emergency Contact #1 Relationship : - Emergency Contact #2 : - Emergency Contact #2 Phone Number : - Emergency Contact #2 Relationship : - Primary Language : Persian Preferred Communication Mode : Verbal Communication Barrier : None EDILIA PATEL - 08/08/2018 6:56 EST Onofre Scale Onofre Sensory Perception : No impairment Onofre Moisture : Rarely moist Onofre Activity : Walks frequently Onofre Mobility : No limitation Onofre Nutrition : Adequate Onofre Friction and Shear : No apparent problem Onofre Score : 22 EDILIA PATEL - 08/08/2018 6:56 EST Sleep Apnea Risk Assmt Hx of Obstructive Sleep Apnea Diagnosis : No Snore Loudly : No Tired, Fatigued, or Sleepy During Day : No Observed Stopping Breathing During Sleep : No Have/Are Being Treated for Hypertension : No STOP Sleep Apnea Risk Level Score : 0 STOP Sleep Apnea Risk Level : Low BMI Greater Than 35 kg/m2 : No Age over 50 Years Old : No Gender Male : No EDILIA PATEL - 08/08/2018 6:56 EST Electronically signed by Esvin Veloz Conversion Power Electronics Research Engineer Cerner at 11/03/2022 6:58 AM CDT documented in this encounter Plan of Treatment Not on file documented as of this encounter Visit Diagnoses Not on filedocumented in this encounter
--- OUTSIDE RECORDS SUMMARY | 2025-04-04 11:10 | XMS_ITS | Encounter Summary ---
Author Organization [employer] ([place], [place], [place], [place]) Address [address] [place] [address] Care Team Providers Care Shaving Machine Operator Name Role Phone Unavailable Primary Care Provider Unavailabl e Encounter Details Date Type Department Care Team (Late st Contact Info) Description 08/08/2018 Transcribed Document [facility] [place] [facility] [place] [address] ProviderTara MD [address], [place] [id number] Social History Tobacco Use Types Packs/Day Years Used Date Smoking Tobacco: Never Assessed Sex and Gender Information Value Date Recorded Sex Assigned at Not on file Legal Sex Male 5:36 PM CDT Gender Identity Not on file Sexual Orientation Not on file documented as of this encounter Miscellaneous Notes * Cerner Conversion Note - Tara ProviderMD - 08/08/2018 8:06 AM ENGINEERING AGENT [facility] Main OR IntraOp Summary Primary Physician: PRASANNA BAHENA MD-SUR Finalized Date/Time: 08/09/18 10:17:46 Pt. Name: ANTOINE GREENBERG ADI /Sex: 1985 Male Med Rec #: [id number] Physician: PRASANNA BAHENA MD-SUR Financial #: [id number] Pt. Type: O Room/Bed: /7 Admit/Disch: 08/08/18 06:26:00 - 08/08/18 10:54:00 Institution: [facility] IntraOp Case Attendance Entry 1 Entry 2 Entry 3 Case Attendee PRASANNA BAHENA MD-SUR GRAFF, WAYNE B, MD VON KUSTER, MARIE LYNNETTE, CRNA Role Performed Surgeon/Proceduralist, Anesthesiologist of TRAVELING PASSENGER AGENT/Nurse Architectural Draftsperson First Record Time In 08/08/18 07:45:00 08/08/18 07:45:00 08/08/18 07:45:00 Time Out 08/08/18 08:50:00 08/08/18 08:50:00 08/08/18 08:50:00 Procedure Cholecystectomy Cholecystectomy Cholecystectomy Laparoscopic Laparoscopic Laparoscopic Other Attendee Superficial Wound Closed By: Last Modified By: Olesya Bailey RN Hauer, Jessica, RN Hauer, Jessica, RN 08/08/18 08:51:43 08/08/18 08:51:43 08/08/18 08:51:43 Entry 4 Entry 5 Entry 6 Case Attendee Olesya Bailey, AMARI CÁRDENAS MATTHEW, ST Role Performed Charger Operator, Shoeblack, First Scrub, First Time In 08/08/18 07:45:00 08/08/18 07:45:00 08/08/18 07:45:00 Time Out 08/08/18 08:50:00 08/08/18 08:50:00 08/08/18 08:50:00 Procedure Cholecystectomy Cholecystectomy Cholecystectomy Laparoscopic Laparoscopic Laparoscopic Other Attendee Superficial Wound Closed By: Last Modified By: Olesya Bailey RN Hauer, Jessica, RN Hauer, Jessica, RN 08/08/18 08:51:43 08/08/18 08:51:43 08/08/18 08:51:43 Entry 7 Case Attendee Perla Mast REP - SSI Role Performed Personal Care Assistant, Ancillary Time In 08/08/18 07:45:00 Time Out 08/08/18 08:50:00 Procedure Cholecystectomy Laparoscopic Other Attendee SSI Superficial Wound Closed By: Last Modified By: Olesya Bailey RN 08/08/18 08:51:43 [facility] IntraOp Case Attendance Audit 08/08/18 08:51:43 Housing Relocation: [id number] Modifier: [id number] 1 <+> Time In 1 <+> Time Out 1 <*> Procedure Cholecystectomy Laparoscopic 2 <+> Time In 2 <+> Time Out 2 <*> Procedure Cholecystectomy Laparoscopic 3 <+> Time In 3 <+> Time Out 3 <*> Procedure Cholecystectomy Laparoscopic 4 <+> Time In 4 <+> Time Out 4 <*> Procedure Cholecystectomy Laparoscopic 5 <+> Time In 5 <+> Time Out 5 <*> Procedure Cholecystectomy Laparoscopic 6 <+> Time In 6 <+> Time Out 6 <*> Procedure Cholecystectomy Laparoscopic 7 <+> Time In 7 <+> Time Out 7 <*> Procedure Cholecystectomy Laparoscopic 08/08/18 08:15:37 Housing Relocation: [id number] Modifier: [id number] <+> 2 Case Attendee <+> 2 Role Performed <+> 2 Procedure <+> 3 Case Attendee <+> 3 Role Performed <+> 3 Procedure <+> 4 Case Attendee <+> 4 Role Performed <+> 4 Procedure <+> 5 Case Attendee <+> 5 Role Performed <+> 5 Procedure <+> 6 Case Attendee <+> 6 Role Performed <+> 6 Procedure <+> 7 Case Attendee <+> 7 Role Performed <+> 7 Procedure <+> 7 Other Attendee [facility] IntraOp Case Times Entry 1 Patient In Room Time 08/08/18 07:45:00 Out Room Time 08/08/18 08:50:00 Anesthesia Start Time 08/08/18 07:45:00 Stop Time 08/08/18 08:50:00 Surgery / Procedure Times Start Time 08/08/18 08:06:00 Stop Time 08/08/18 08:41:00 Last Modified By: Olesya Bailey RN 08/08/18 08:51:26 [facility] IntraOp Case Times Audit 08/08/18 08:51:26 Housing Relocation: [id number] Modifier: [id number] <+> 1 Out Room Time <+> 1 Stop Time 08/08/18 08:51:18 Housing Relocation: [id number] Modifier: [id number] <+> 1 Stop Time [facility] IntraOp Cautery Entry 1 ESU Identification Cautery Type Monopolar ESU ID Number [id number] ID Type Hospital Number Cautery Settings Cut Setting 1 Coag Setting 30 ESU Grounding Pad Ground Pad Type Adult Grounding Pad Site Right thigh Grounding Pad Olesya Bailey RN Applied By Grounding Pad Site Warm, dry and intact Skin Condition Before Cautery Grounding Pad Site Warm, dry and intact Skin Condition After Cautery Last Modified By: Olesya Bailey RN 08/08/18 08:16:47 [facility] IntraOp Communication Entry 1 Communication To Family/Significant other Comment START Communication By Olesya Bailey RN Date and Time 08/08/18 08:08:00 Last Modified By: Olesya Bailey RN 08/08/18 08:17:23 [facility] IntraOp Counts Verification Entry 1 Procedure Cholecystectomy Laparoscopic Count Info Count Type Sponge, Sharps, Instrument, Miscellaneous Counts Verification Baseline/pre-procedure Sequence Count Results Not Applicable Counts Performed By Count Performed By BERNIE CARDOSO ST (Scrub) Count Performed By Olesya Bailey RN (RN) Last Modified By: Olesya Bailey RN 08/08/18 08:17:53 [facility] IntraOp Counts Verification Audit 08/08/18 08:17:53 Housing Relocation: [id number] Modifier: [id number] 1 <*> Procedure Cholecystectomy Laparoscopic 1 <*> Count Type Sponge, Sharps, Miscellaneous [facility] IntraOp Counts Final Entry 1 Procedure Cholecystectomy Laparoscopic Final Count Info Count Type Sponge, Sharps, Miscellaneous Counts Verification Skin Closure/end of Sequence procedure Count Results Correct, surgeon notified Counts Performed By Count Performed By BERNIE CARDOSO ST (Scrub) Count Performed By Olesya Bailey RN (RN) Last Modified By: Olesya Bailey RN 08/08/18 08:34:06 [facility] IntraOp Counts Final Audit 08/08/18 08:34:06 Housing Relocation: [id number] Modifier: [id number] 1 <*> Procedure Cholecystectomy Laparoscopic 1 <+> Count Performed By (Scrub) 1 <+> Count Performed By (RN) [facility] IntraOp Cultures and Spec Summary Entry 1 Cultrures and Specimens Specimen Ordered: Yes Specimens Types Pathology Specimen(s) Labeled Pathology and Sent to Last Modified By: Olesya Bailey RN 08/08/18 08:18:12 General Comments: 1. GALLBLADDER ANCD CONTENTS [facility] IntraOp Departure from OR Entry 1 Integumentary Assessment Integumentary WDL with patient Assessment WDL specific variances Patient's Normal Surgical incisions = Integumentary Abdomen Variance(s) Transfer/Handoff Transfer to PACU Phase I Handoff Method Phone call Handoff Reported to SONU JOE RN Post-op Transport Stretcher/Gurney Via Patient Transport AMARI GONZALEZ VON Accompanied by KURT DE LA TORRE CRNA Last Modified By: Olesya Bailey RN 08/08/18 08:52:04 [facility] IntraOp Departure from OR Audit 08/08/18 08:52:04 Housing Relocation: [id number] Modifier: [id number] <+> 1 Handoff Reported to [facility] IntraOp Dressing and Packing Entry 1 Type Dressing Location Abdomen Wound Dressing Item Skin Closure Glue Applied By AMARI GONZALEZ Other Comments Dermabond Last Modified By: Olesya Bailey RN 08/08/18 08:18:43 [facility] IntraOp Fire Risk Assessment Entry 1 Fire Info Surgical Site or 0- No Incision Above the Xyphoid Open O2 Source 0- No (Mask or Cannula) Available Ignition 1- Yes (ESU, Laser, Light Source) Fire Risk 1 Assessment Score Fire Score Fire Risk Yes Assessment Complete Fire Risk Olesya Bailey RN Assessment Verified By Fire Risk 08/08/18 07:45:00 Assessment Verified Date/Time Fire Risk Standard Fire Yes Safety Precautions Followed Last Modified By: Olesya Bailey RN 08/08/18 08:18:50 [facility] IntraOp General Case Clinician Oncology 1 Case Information OR OR 06 [facility] Case Level 1 Room Verified Yes Wound Class II - Clean-Contaminated Specialty SN General Anesthesia Type General ASA Class 2 Diagnosis Preop Diagnosis BILIARY DYSKINESIA Postop Same As Preop Yes Postop Diagnosis BILIARY DYSKINESIA Last Modified By: Olesya Bailey RN 08/08/18 08:19:09 [facility] IntraOp Intraoperative Assessment Entry 1 Handoff Method Online nursing summary Valid History / Yes Physical in Chart Preoperative Yes Checklist Reviewed/Evaluated Allergies Reviewed Yes Patient is Latex No Sensitive Isolation Not applicable Precautions Noted Level of WDL Consciousness (WDL = Alert, Oriented to Person, Place, and Time) Skin Assessment Yes Verified Present Upon IVs Arrival to OR Last Modified By: Olesya Bailey RN 08/08/18 08:19:42 [facility] IntraOp Intraoperative Equipment Entry 1 Type Equipment Equipment Equipment Frances Suction System ID Number [id number] Setting MED Intraop Monitoring Electrocardiogram Three lead placement (ECG) Electrode Placement Blood Pressure Non-Invasive BP Device Source Blood Pressure Arm, right upper Location Pulse Oximeter Hand, right Probe Site Antiembolic Devices Antiembolic Devices Sequential compression device, knee high Antiembolic Device Bilateral Location Antiembolic Device 30211 ID Number Antiembolic Device ON AND WORKING PRIOR TO Setting INDUCTION Scopes Photo/Video Documentation Photo No Video No Intraop Equipment Sequential compression Comment devices on and in operation prior to induction of anesthesia. Last Modified By: Olesya Bailey RN 08/08/18 08:20:14 [facility] IntraOp Medication Admin Entry 1 Medication/Irrigant Marcaine 0.5% w/ epinephrine 1:200,000 30ml vial - [id number] Route of Local Administration Dose Dose 15 Unit of Measure ml Administered By PRASANNA BAHENA MD-SUR Procedure Irrigation Last Modified By: Olesya Bailey RN 08/08/18 08:20:27 [facility] IntraOp Patient Positioning Entry 1 Procedure Cholecystectomy Laparoscopic Body Position Supine Left Arm Position Secured on padded arm board Right Arm Position Secured on padded arm board Left Leg Position Uncrossed, parallel Right Leg Position Uncrossed, parallel Feet Uncrossed Yes Pressure Points Yes Checked Positioning Devices Head Rest, Arm Board, Arm Board, Pad, Elbow, Pad, Elbow, Safety Strap, Thighs, Foot Board Device Position PINK FOAM UNDER ARMS BILAT, HEELS BILAT, FOOT BOARD ON BED, PINK CRADLE HEADREST Positioned By Olesya Bailey RN, PRASANNA BAHENA MD-SUR, AMARI GONZALEZ, KURT RILEY, LYLY Position Verified Positioning Yes Verified by Anesthesia Positioning Yes Verified by Surgeon Last Modified By: Olesya Bailey RN 08/08/18 08:27:26 [facility] IntraOp Patient Positioning Audit 08/08/18 08:27:26 Housing Relocation: [id number] Modifier: [id number] 1 <*> Procedure Cholecystectomy Laparoscopic 1 <+> Device Position [facility] IntraOp Sign In Entry 1 Patient, Site, Yes Procedure Identified Surgical Consent Yes Confirmed Relevant Surgical Yes Documents Available Surgical Site N/A Marked by person performing procedure Anesthesia Machine Yes Check Completed Medication Checks Yes Completed Airway Difficult Yes Airway/Aspiration Risk Difficult Yes Airway/Aspiration Intervention Equipment Available Blood Loss Risk Yes Blood Loss Yes Intervention Equipment Prepared and Ready Hypothermia Risk Yes Warming Measures Yes Taken Last Modified By: Olesya Bailey RN 08/08/18 08:20:30 [facility] IntraOp Sign Out Entry 1 RN Confirmation Surgical Yes Procedure(s) Identified Instrument, Sponge Yes and Sharps Counts Correct/Documented Equipment Problems N/A Documented Specimen Labeled Yes Correctly Urinary Catheter N/A Documented in IView [place] Patient Yes Recovery Concerns Reviewed with Anesthesia Provider, Surgeon and RN [place] Patient Yes Management Concerns Reviewed with Anesthesia Provider, Surgeon and RN Safety Checklist Yes Elements Complete? RN Sign Out Olesya Bailey RN Signature RN Sign Out 08/08/18 08:50:00 Signature Date/Time Plan of Care Outcome - [...] of Care Outcome - Counts OUTCOME STATEMENT: Goal met Absence of signs and symptoms of injury related to extraneous objects Last Modified By: Olesya Bailey RN 08/08/18 08:51:32 [facility] IntraOp Sign Out Audit 08/08/18 08:51:32 Housing Relocation: [id number] Modifier: [id number] <+> 1 RN Sign Out Signature Date/Time [facility] IntraOp Skin Prep Entry 1 Procedure Cholecystectomy Laparoscopic Prescribed Yes Pre-Surgical Prep Completed Prep Area ABDOMEN Intraop Prep Integumentary WDL Assessment WDL Prep Agents Chloraprep Prep by Olesya Bailey RN Hair Removal Methods Clipper/Scissors Hair Removal Site ABD Hair Removal By AMARI GONZALEZ Last Modified By: Olesya Bailey RN 08/08/18 08:20:58 [facility] IntraOp Surgical Procedures Entry 1 Procedure Cholecystectomy Laparoscopic Additional LAPRASCOPIC Procedure CHOLECYSTECTOMY Description Primary Procedure Yes Primary Surgeon PRASANNA BAHENA MD-DENNIS Start 08/08/18 08:06:00 Stop 08/08/18 08:41:00 Anesthesia Type General Specialty SN General Wound Class II - Clean-Contaminated Last Modified By: Olesya Bailey RN 08/08/18 08:51:33 General Comments: ancef 2gm iv @0748 per anesthesia [facility] IntraOp Surgical Procedures Audit 08/08/18 08:51:33 Housing Relocation: [id number] Modifier: [id number] 1 <*> Stop 08/08/18 08:21:10 Housing Relocation: [id number] Modifier: [id number] 1 <*> Start 1 <*> Start 1 <*> Start 1 <*> Start [facility] IntraOp Temp Regulation Devices Entry 1 Temp Regulation Temperature Warm blankets, Forced Regulation Device Air Warming device, Room temperature Temperature 26397 Regulation Device Serial/Unit Number Temperature Upper body Regulation Site Temperature Device 43 DEGREES CELSIUS Setting Temperature VON BRITT KURT Regulation Device LYLY ADAMES Applied by Temperature SET AND MONITORED BY Regulation Comment ANESTHESIA Last Modified By: Olesya Bailey RN 08/08/18 08:21:58 [facility] IntraOP Time Out Entry 1 Procedure to be Cholecystectomy Performed Laparoscopic Time Out Time Out Pause Time 08/08/18 08:06:00 All activity Yes suspended (unless life threatening emergency) Team Verbally Correct patient Confirms Information identity, Correct side and site are marked, Consent form is present and accurate, Agreement on the procedure to be done, Correct patient position, Confirm antibiotics have been administered, Confirm the skin prep has dried, Performed in location of procedure after prepped/draped Antibiotic Yes Prophylaxis Administered Or In Progress Within the Last 60 Minutes Beta Dariana N/A Administered Venous Yes Thromboembolism Prophylaxis Required Anticipated Critical Events Surgeon None expected Anesthesia Provider None expected Nursing Assures Sterility of instruments Essential Imaging Yes Labeled and Displayed Last Modified By: Olesya Bailey RN 08/08/18 08:23:00 Case Comments <None> Finalized By: RAMIRO BROWER Document Signatures Signed By: Olesya Bailey RN 08/08/18 08:52 RAMIRO BROWER 08/09/18 10:17 Unfinalized History Date/Time Username Reason for Unfinalizing Freetext Reason for Unfinalizing 08/09/18 10:16 [email or web address] Correct Billing Electronically signed by Dequan Veloz Conversion Loading Unit Operator Powder Charging Cerner at 11/03/2022 7:13 AM CDT documented in this encounter Plan of Treatment Not on file documented as of this encounter Visit Diagnoses Not on filedocumented in this encounter
--- OUTSIDE RECORDS SUMMARY | 2025-04-04 11:10 | XMS_ITS | Encounter Summary ---
Author Organization [facility] Address [address] [id number] Care Team Providers Care Rewinder Operator Name Role Phone Willian Manjarrez MD Primary Care Provider [phone] Reason for Visit * Reason Onset Date Comments Med Refill [facility] Patient Medication Refill Request 07/11/2022 PA for Lansoprazole Encounter Details Date Type Department Care Team (Late st Contact Info) Description 07/11/2022 Refill [facility] [address] [place] [address] Yoselin Cunningham, SOUND EDITOR [address] [place] [address] Social History Tobacco Use Types Packs/Day Years Used Date Smoking Tobacco: Former Cigarettes 1.5 17.3 0 07/18/1999 - 10/29/2016 Smokeless Tobacco: Former Alcohol Use Standard Drinks/Week Comments Not Currently 0 (1 standard drink = 0.6 oz pure alcohol) Alcoholic Drinks/day: History of alcohol use PHQ-2 Answer Date Recorded Patient Health Questionnaire-2 Score 0 05/26/2022 Sex and Gender Information Value Date Recorded Sex Assigned at Not on file Legal Sex Male 6:28 PM EDT Gender Identity Not on file Sexual Orientation Not on file documented as of this encounter Miscellaneous Notes * Telephone Encounter - Laura Dailey RN - 07/14/2022 10:25 AM EST Sent PA for Lansoprazole to [facility] * Telephone Encounter - Armen Infante - 07/13/2022 8:51 AM EST Per protocol, 1 medication(s), lansoprazole, has been approved for 30 day supply with 3 refill(s) to [facility]. documented in this encounter Plan of Treatment Upcoming Encounters Date Type Department Care Team (Late st Contact Info) Description 04/10/2025 11:00 AM EDT Office Visit [facility] [address] [place] [address] Yoselin Cunningham, SOUND EDITOR [address] [place] [address] documented as of this encounter Visit Diagnoses Not on filedocumented in this encounter Additional Health Concerns Infection Onset Date Last Indicated Resolved Time Influenza 05/23/2024 05/23/2024 06/20/2024 5:23 AM EST Assessment Noted Time A fall risk assessment has been complete d for the patient 05/26/2022 7:15 AM EST documented as of this encounter Care Teams Rewinder Operator Relationship Specialty Start Date End Date Willian Manjarrez MD [address] [place] [address] PCP - General 04/13/21 documented as of this encounter
--- OUTSIDE RECORDS SUMMARY | 2025-04-04 11:10 | XMS_ITS | Encounter Summary ---
Author Organization [employer] ([place], [place], [place], [place]) Address [address] [place] [address] Care Team Providers Care Hand Turner Name Role Phone Unavailable Primary Care Provider Unavailabl e Encounter Details Date Type Department Care Team (Late st Contact Info) Description 08/08/2018 Transcribed Document [facility] [place] [facility] [place] [address] ProviderTara MD [address] [place] [id number] Social History Tobacco Use Types Packs/Day Years Used Date Smoking Tobacco: Never Assessed Sex and Gender Information Value Date Recorded Sex Assigned at Not on file Legal Sex Male 5:36 PM CDT Gender Identity Not on file Sexual Orientation Not on file documented as of this encounter Miscellaneous Notes * Cerner Conversion Note - Tara ProviderMD - 08/08/2018 8:30 AM RFID STRATEGIST [facility] Main OR Preop Summary Primary Physician: PRASANNA BAHENA MD-SUR Finalized Date/Time: 08/08/18 07:46:02 Pt. Name: MARITZA GREENBERGMat JOSHI /Sex: 1985 Male Med Rec #: [id number] Physician: PRASANNA BAHENA MD-SUR Financial #: [id number] Pt. Type: O Room/Bed: /7 Admit/Disch: 08/08/18 06:26:00 - Institution: [facility] PreOp Case Times Entry 1 In Preop 08/08/18 06:34:00 Ready for Holding n/a Room Patient Ready for 08/08/18 07:32:00 Surgery Patient Out of Preop 08/08/18 07:41:00 Patient Out of n/a Holding Room Last Modified By: EDILIA PATEL 08/08/18 07:45:59 [facility] PreOp Case Times Audit 08/08/18 07:45:59 Screen Print Operator: [email or web address] Modifier: [email or web address] <+> 1 Patient Out of Preop 08/08/18 07:32:19 Screen Print Operator: GLENN Modifier: [email or web address] <+> 1 Patient Ready for Surgery Finalized By: EDILIA PATEL Document Signatures Signed By: EDILIA PATEL 08/08/18 07:46 Electronically signed by Magdiel [facility] Conversion Development Scientist Cerner at 11/03/2022 7:22 AM CDT documented in this encounter Plan of Treatment Not on file documented as of this encounter Visit Diagnoses Not on filedocumented in this encounter
--- OUTSIDE RECORDS SUMMARY | 2025-04-04 11:11 | XMS_ITS | Encounter Summary ---
Author Organization Healthcare Address [address] [place] [address] Care Team Providers Care Embedded Software Development Engineer Name Role Phone Willian Manjarrez MD Primary Care Provider [phone] Encounter Details Date Type Department Care Team (Late st Contact Info) Description 03/14/2024 Lab Requisition [facility] [address] [place] [address] Oswald Ruiz MD [address] [facility] [address] [place] [address] Dysphagia, unspecified Social History Tobacco Use Types Packs/Day Years Used Date Smoking Tobacco: Former Cigarettes 1.5 17.3 0 07/18/1999 - 10/29/2016 Passive Smoke Exposure: Past Smokeless Tobacco: Former Alcohol Use Standard Drinks/Week Comments Not Currently 0 (1 standard drink = 0.6 oz pure alcohol) Alcoholic Drinks/day: History of alcohol use PHQ-2 Answer Date Recorded Patient Health Questionnaire-2 Score 1 02/29/2024 PHQ-2A Answer Date Recorded Patient Health Questionnaire-2 Score 1 05/18/2023 Sex and Gender Information Value Date Recorded Sex Assigned at Not on file Legal Sex Male 6:28 PM EDT Gender Identity Not on file Sexual Orientation Not on file documented as of this encounter Plan of Treatment Upcoming Encounters Date Type Department Care Team (Late Contact Info) Description 04/10/2025 11:00 AM EDT [facility] Visit [facility] [address] [place] [address] Yoselin Cunningham, NETWORK OPERATIONS TECHNICIAN [address] [facility] [address] [place] [address] documented as of this encounter Procedures Procedure Name Priority Date/Time Associated Diagnosis Comments SURGICAL PATHOLOGY EXAM Routine 03/13/2024 Dysphagia, unspecified documented in this encounter Results * Surgical Pathology Exam (03/13/2024) Case Report Surgical Pathology Case: [id number] Authorizing Provider: Oswald Ruiz MD Collected: 03/13/2024 Ordering Location: [facility] Lab Received: 03/14/2024 1055 Pathologist: Aiden Hale DO Specimens: A) - Duodenum, Duodenal Biopsies B) - Stomach, Gastric Biopsies C) - Esophagus, Distal Esophagus Biopsies D) - Esophagus, Mid Esophagus Biopsies 03/15/2024 11:17 AM EDT [facility] Final Diagnosis A. SMALL INTESTINE, DUODENUM, BIOPSY: - NO PATHOLOGIC ABNORMALITY. - NO EVIDENCE OF VILLOUS ABNORMALITY OR INTRAEPITHELIAL LYMPHOCYTOSIS. B. STOMACH, BIOPSY: - REACTIVE GASTROPATHY WITH FEATURES OF PRIOR EROSION. - NO EVIDENCE OF HELICOBACTER-LIKE ORGANISMS ON ROUTINE STAIN. C. ESOPHAGUS, DISTAL, BIOPSY: - NO PATHOLOGIC ABNORMALITY. D. ESOPHAGUS, MID, BIOPSY: - NO PATHOLOGIC ABNORMALITY. 03/15/2024 11:17 AM EDT [facility] at 1117 EDT Clinical Information Dysphagia, unspecified IBS Dyspepsia Epigastric abdominal pain EGD findings: - The upper third of the esophagus, middle third of the esophagus and lower third of the esophagus were normal. - The entire examined stomach was normal. - The duodenal bulb and second portion of the duodenum were normal. 03/15/2024 11:17 AM EDT [facility] Gross Description A. DUODENAL BIOPSIES Received in formalin labeled duodenal biopsies , are 6 mckeon-red soft tissue fragments measuring 0.1-0.2 cm in greatest dimension. Specimen submitted entirely in cassette A1. Cold Time: 0 Chyann R [place] B. GASTRIC BIOPSIES Received in formalin labeled g astric biopsies , are 5 mckeon-red soft tissue fragments measuring 0.2-0.4 cm in greatest dimension. Specimen submitted entirely in cassette B1. Cold Time: 0 Chyann R [place] C. DISTAL ESOPHAGUS BIOPSIES Received in formalin labeled d istal esophagus biopsies , are 4 white-red soft tissue fragments measuring 0.2-0.4 cm in greatest dimension. Specimen submitted entirely in cassette C1. Cold Time: 0 Chyann R Fide D. MID ESOPHAGUS BIOPSIES Received in formalin labeled e sophagus biopsies , are 4 white-red soft tissue fragments measuring 0.2-0.3 cm in greatest dimension. Specimen submitted entirely in cassette D1. Cold Time: 0 Chyann R Fide 03/15/2024 11:17 AM EDT [facility] Note: A resident was involved in the service. I attest I examined the relevant preparations for the specimens and confirmed the diagnosis or interpretation. 03/15/2024 11:17 AM EDT [facility] Tissue Esophageal structure / Unknown 03/13/2024 03/14/2024 10:55 AM EDT Tissue specimen (specimen) Stomach structure / Unknown 03/13/2024 03/14/2024 10:55 AM EDT Tissue specimen (specimen) Esophageal structure / Unknown 03/13/2024 03/14/2024 10:55 AM EDT Tissue specimen (specimen) Esophageal structure / Unknown 03/13/2024 03/14/2024 10:55 AM EDT Oswald Ruiz MD LAB PATHOLOGY ORDERABLES Fi nal Result Performing Organization Address City/State/[facility] de Phone Number [facility] [address] [place] [address] documented in this encounter Visit Diagnoses Diagnosis Dysphagia, unspecified documented in this encounter Additional Health Concerns Infection Onset Date Last Indicated Resolved Time Influenza 05/23/2024 05/23/2024 06/20/2024 5:23 AM EST Assessment Noted Time A fall risk assessment has been complete d for the patient 02/29/2024 11:23 AM EDT A Body Mass Index follow-up plan has been documented for the patient 02/29/2024 12:33 PM EDT documented as of this encounter Care Teams Embedded Software Development Engineer Relationship Specialty Start Date End Date Willian Manjarrez MD [address] [place] [address] PCP - General 04/13/21 documented as of this encounter
--- OUTSIDE RECORDS SUMMARY | 2025-04-04 11:11 | XMS_ITS | Clinical Summary ---
Author Organization [facility] Address [address] [place] [address] Care Team Providers Care Director New Product Name Role Phone Willian Manjarrez MD Primary Care Provider [phone] Allergies No known active allergies Medications ALPRAZolam (Xanax) 0.25 MG tablet Take 1 tablet (0.25 mg) by mouth 2 (two) times a day if needed. 01/22/2022 Active VITAMIN D, ERGOCALCIFEROL, PO Take 2,000 Units by mouth 1 (one) time each day. Active Cyanocobalamin (CVS B12 GUMMIES PO) Take 3,000 Units by mouth 1 (one) time each day. Active cetirizine (ZyrTEC) 10 MG tablet 1 tablet (10 mg). 04/24/2024 Active ALPRAZolam (Xanax) 0.5 MG tablet TAKE 1 TABLET BY MOUTH AT BEDTIME NIGHTLY NEEDED FOR ANXIETY 05/03/2024 Active Vonoprazan Fumarate (Voquezna) 10 MG tablet Take 1 tablet (10 mg) by mouth daily. 90 tablet 1 10/03/2024 Active Active Problems Problem Noted Date Diagnosed Date Anxiety 05/23/2024 Depression 05/23/2024 Dizziness 05/23/2024 Overview (05/23/2024): Suspected symptomatic SVT Erythema 05/23/2024 Exposure to blood or body fluid 05/23/2024 Heart palpitations 05/23/2024 First degree AV block 05/23/2024 IBS (irritable bowel syndrome) 05/23/2024 Infectious diarrhea in adult patient 05/23/2024 Influenza A 05/23/2024 Myalgia 05/23/2024 Panic disorder 05/23/2024 SVT (supraventricular tachycardia) 05/23/2024 URI with cough and congestion 02/29/2024 Upper respiratory infection 02/29/2024 Strep throat 02/29/2024 Spontaneous pneumothorax 02/29/2024 Rib pain on left side 02/29/2024 Pityriasis rosea 02/29/2024 Pharyngitis 02/29/2024 Overweight (BMI 25.0-29.9) 02/29/2024 Olecranon bursitis 02/29/2024 Low back strain 02/29/2024 Low back pain 02/29/2024 Headache 02/29/2024 Foot pain, left 02/29/2024 Flu-like symptoms 02/29/2024 COVID-19 02/29/2024 Contact dermatitis 02/29/2024 Abdominal pain 02/29/2024 Duodenitis 12/09/2020 Loose stools 01/25/2019 Gastroesophageal reflux disease without esophagi tis 11/23/2016 Change in bowel movement 11/23/2016 Immunizations Immunization Administration Dates Next Due Hep B, Adolescent or Pediatric 07/01/2000,1998,02/23/1999 Hep B, Adolescent/High Risk 03/30/1999, MMR 02/23/1999 TD (adult), 2 Lf tetanus tox oid, preservative free, adsorbed 04/11/2003 Tdap 05/06/2022 Family History Medical History Relation Name Comments TOVA disease Brother No Known Problems Father Breast cancer Mother COPD Mother Relation Name Status Comments Brother Father Mother Social History Tobacco Use Types Packs/Day Years Used Date Smoking Tobacco: Former Cigarettes 1.5 17.3 0 07/18/1999 - 10/29/2016 Passive Smoke Exposure: Past Smokeless Tobacco: Former Tobacco Cessation:Counseling Given: Yes Alcohol Use Standard Drinks/Week Comments Not Currently 0 (1 standard drink = 0.6 oz pure alcohol) Alcoholic Drinks/day: History of alcohol use PHQ-2 Answer Date Recorded Patient Health Questionnaire-2 Score 0 10/03/2024 PHQ-9 Answer Date Recorded Patient Health Questionnaire-9 Score 0 10/03/2024 PHQ-2A Answer Date Recorded Patient Health Questionnaire-2 Score 1 05/18/2023 Sex and Gender Information Value Date Recorded Sex Assigned at Not on file Legal Sex Male 6:28 PM EDT Gender Identity Not on file Sexual Orientation Not on file Last Filed Vital Signs Vital Sign Reading Time Taken Comments Blood Pressure 139/86 10/03/2024 11:05 AM EDT Pulse 87 10/03/2024 10:55 AM EDT Temperature 36.6 C (97.8 F) 10/03/2024 10:55 AM EDT Respiratory Rate 12 06/03/2023 2:50 AM EST Oxygen Saturation 96% 10/03/2024 10:55 AM EDT Inhaled Oxygen Concentration - - Weight 94.1 kg (207 lb 7.3 oz) 10/03/2024 10:55 AM EDT Height 182.9 cm (6' 0.01 ) 10/03/2024 10:55 AM E DT Body Mass Index 28.13 10/03/2024 10:55 AM EDT Plan of Treatment Upcoming Encounters Date Type Department Care Team (Late st Contact Info) Description 04/10/2025 11:00 AM EDT Office Visit [facility] [address] [place] [address] Yoselin Cunningham, BROWN STOCK WASHER [address] [place] [address] Health Maintenance Due Date Last Done Comments [facility]-Infant/Child/Adol SDOH Screenings 1985 [id number] Vaccine (#1) 12/29/1992 [facility]-Varicella Vaccines (1 of 2 - 13+ 2-dose series) 12/29/2000 [facility]- SDOH Screenings 12/29/2005 [facility]-Adult SDOH Screenings 12/29/2005 HPV Vaccines (1 - 3-dose SCDM series) 12/29/2014 [facility]-Influenza Vaccine (#1) 2025 [facility]-Depression Screening 10/03/2025 025, 10/03/2024, 01/22/2022, Additional history exists [facility]-DTaP,Tdap,and Td Vaccines (3 - Td or Tdap) 05/06/2032 05/06/2022, 04/11/2003 [facility]-Zoster Vaccines (1 of 2) 12/29/2037 [facility]-Hepatitis B Vaccines Completed 000, 03/30/1999, 03/30/1999, Additional history exists [facility]-HIV Screening Completed 06/02/2023, 12/13/2021 [facility]-Hepatitis C Screening Completed 06/02/2023, [facility]-Obesity Intervention Completed 025, 05/23/2024, 02/29/2024, Additional history exists [facility]-HIB Vaccines Aged Out No longer e ligible based on patient's age to complete this topic [facility]-Hepatitis A Vaccines Aged Out No longer eligible based on patient's age to complete this topic [facility]-IPV Vaccines Aged Out No longer e ligible based on patient's age to complete this topic [facility]-Pneumococcal Vaccine: Pediatrics (0 to 5 Years) and At-Risk Patients (6 to 49 Years) Aged Out No longer eligible based on patient's age to complete this topic [facility]-Rotavirus Vaccines Aged Out No lo nger eligible based on patient's age to complete this topic Procedures Procedure Name Priority Date/Time Associated Diagnosis Comments HEPATITIS C ANTIBODY - ED W/REFLEX TO HCV QUANT PCR STAT 06/02/2023 9:32 PM EST ED HIV 1/2 ANTIBODY/ANTIGEN SCREEN WITH REFLEX TO HIV I/II DIFFERENTIATION STAT 06/02/2023 9:32 PM EST from Last 3 Months or Most Recently Relevant to Health Maintenance Results * ED HIV 1/2 Antibody/Antigen Screen w/Reflex to HIV 1/2 Differentiation (06/02/2023 9:32 PM EST) HIV 1 & 2 Antibody/Antigen Screen Non Reactive Non Reactive 06/02/2023 10:29 PM EST [facility] Comment:Screening for HIV 1 & 2 antibodies, and P24 antigen is NONREACTIVE. No confirmatory testing is required. Blood Venous blood specimen / Unknown Venipuncture / Unknown 06/02/2023 9:32 PM EST 06/02/2023 9:43 PM EST us Jasmeet Singh MD LAB BLOOD ORDERABLES Final Res ult [facility] [address] [place] [address] * Hepatitis C Antibody - ED (06/02/2023 9:32 PM EST) Hepatitis C Antibody Negative Negative 06/02/2023 10:27 PM EST [facility] Blood Venous blood specimen / Unknown Venipuncture / Unknown 06/02/2023 9:32 PM EST 06/02/2023 9:43 PM EST Jasmeet Singh MD LAB BLOOD ORDERABLES Final Res ult Performing Organization Address City/[facility]/ZIP Co de Phone Number [facility] [address] [place] [address] from Last 3 Months or Most Recently Relevant to Health Maintenance Insurance [facility] Care Teams Director New Product Relationship Specialty Start Date End Date Willian Manjarrez MD [address] [place] [address] PCP - General 04/13/21
--- OUTSIDE RECORDS SUMMARY | 2025-04-04 11:11 | XMS_ITS | Encounter Summary ---
Author Organization [employer] ([place], [place], [place], [place]) Address [address] [place] [address] Care Team Providers Care Dry Charge Process Attendant Name Role Phone Unavailable Primary Care Provider Unavailabl e Encounter Details Date Type Department Care Team (Late st Contact Info) Description 11/28/2018 Transcribed Document [facility] [place] [address] ProviderTara MD [address] [place] [id number] Social History Tobacco Use Types Packs/Day Years Used Date Smoking Tobacco: Never Assessed Sex and Gender Information Value Date Recorded Sex Assigned at Not on file Legal Sex Male 5:36 PM CDT Gender Identity Not on file Sexual Orientation Not on file documented as of this encounter Miscellaneous Notes * Cerner Conversion Note - Tara Pavon MD - 11/28/2018 8:44 AM CDT [facility] PACU Summary Primary Physician: RANJIT AHMADI MD Finalized Date/Time: 11/28/18 10:01:51 Pt. Name: GUNNAR GREENBERG/Sex: 1985 Male Med Rec #: [id number] Physician: RANJIT AHMADI MD Financial #: [id number] Pt. Type: O Room/Bed: / Admit/Disch: 11/28/18 07:15:00 - Institution: [facility] PACU Case Times Entry 1 In PACU I 11/28/18 09:03:00 Ready for PACU 11/28/18 09:58:00 Discharge Discharge from PACU 11/28/18 09:58:00 I Last Modified By: Mildred Moses Rn 11/28/18 10:01:43 [facility]o PACU Case Times Audit 11/28/18 10:01:43 Architectural Examiner: SOCORRO Modifier: [email or web address] <+> 1 Ready for PACU Discharge <+> 1 Discharge from PACU I Finalized By: Mildred Moses Rn Document Signatures Signed By: Mildred Moses Rn 11/28/18 10:01 documented in this encounter Plan of Treatment Not on file documented as of this encounter Visit Diagnoses Not on filedocumented in this encounter
--- OUTSIDE RECORDS SUMMARY | 2025-04-04 11:11 | XMS_ITS | Encounter Summary ---
Author Organization [employer] ([place], [place], [place], [place]) Address [address] [place] [address] Care Team Providers Care Solar Energy Systems Designer Name Role Phone Unavailable Primary Care Provider Unavailabl e Encounter Details Date Type Department Care Team (Late st Contact Info) Description 11/28/2018 Transcribed Document [facility] Family Medicine [facility] [place] [address] ProviderTara MD [address] [place] [id number] Social History Tobacco Use Types Packs/Day Years Used Date Smoking Tobacco: Never Assessed Sex and Gender Information Value Date Recorded Sex Assigned at Not on file Legal Sex Male 5:36 PM CDT Gender Identity Not on file Sexual Orientation Not on file documented as of this encounter Miscellaneous Notes * Cerner Conversion Note - Tara Pavon MD - 11/28/2018 8:00 AM CDT [facility] Shahid PreOp Summary Primary Physician: RANJIT AHMADI MD Finalized Date/Time: 11/28/18 07:52:47 Pt. Name: GUNNAR GREENBERG/Sex: 1985 Male Med Rec #: [id number] Physician: RANJIT AHMADI MD Financial #: [id number] Pt. Type: O Room/Bed: / Admit/Disch: 11/28/18 07:15:00 - Institution: [facility] Shahid PreOp Case Times Entry 1 In Preop 11/28/18 07:31:00 Ready for Holding n/a Room Patient Ready for 11/28/18 07:52:00 Surgery Patient Out of Preop 11/28/18 07:52:00 Patient Out of n/a Holding Room Last Modified By: Kristen Langston Rn 11/28/18 07:52:46 [facility] Endo PreOp Case Times Audit 11/28/18 07:52:46 Straightening Machine Feeder: ANDREAAPLETON Modifier: ASHLEYSTAPLETON <+> 1 Patient Out of Preop <+> 1 Patient Ready for Surgery Finalized By: Kristen Langston Rn Document Signatures Signed By: Kristen Langston Rn 11/28/18 07:52 Electronically signed by Magd[facility] Conversion Elder Assistant Cerner at 11/03/2022 7:05 AM CDT documented in this encounter Plan of Treatment Not on file documented as of this encounter Visit Diagnoses Not on filedocumented in this encounter
--- OUTSIDE RECORDS SUMMARY | 2025-04-04 11:11 | XMS_ITS | Clinical Summary ---
Author Organization [employer] ([place], [place], [place], [place]) Address [address] [place] [address] Care Team Providers Care Systems Developer Name Role Phone Unavailable Primary Care Provider Unavailabl e Social History Tobacco Use Types Packs/Day Years Used Date Smoking Tobacco: Never Assessed Sex and Gender Information Value Date Recorded Sex Assigned at Not on file Legal Sex Male 5:36 PM CDT Gender Identity Not on file Sexual Orientation Not on file Plan of Treatment Not on file
--- OUTSIDE RECORDS SUMMARY | 2025-04-04 11:11 | XMS_ITS | Encounter Summary ---
Author Organization [email or web address] ([place], [place], [place], [place]) Address [address] [place] [address] Care Team Providers Care Director Of Teenage Activities Name Role Phone Unavailable Primary Care Provider Unavailabl e Encounter Details Date Type Department Care Team (Late st Contact Info) Description 12/17/2018 Transcribed Document [facility] Family [facility] [place] [address] ProviderTara MD [address] [place], [place] [address] Social History Tobacco Use Types Packs/Day Years Used Date Smoking Tobacco: Never Assessed Sex and Gender Information Value Date Recorded Sex Assigned at Not on file Legal Sex Male 5:36 PM CDT Gender Identity Not on file Sexual Orientation Not on file documented as of this encounter Miscellaneous Notes * Cerner Conversion Note - Historical ProviderMD - 12/17/2018 1:21 AM CDT ED Discharge Entered On: 12/17/2018 1:21 EDT Performed On: 12/17/2018 1:21 EDT by ANIL ROSS RN Discharge Process Patient Disposition : Discharge Patient Education Completed : Yes Teaching Evaluation : Verbalizes understanding IV Discontinued : Yes Nursing Documentation Completed : Yes ANIL ROSS RN - 12/17/2018 1:21 EDT ED Discharge Discharge To : Home with ambulatory/outpatient follow-up Mode Of Departure : Ambulatory Accompanied By : Friend Discharge Instructions Reviewed With, Opportunity For Questions Given : Patient ANIL ROSS RN - 12/17/2018 1:21 EDT documented in this encounter Plan of Treatment Not on file documented as of this encounter Visit Diagnoses Not on filedocumented in this encounter
--- OUTSIDE RECORDS SUMMARY | 2025-04-04 11:11 | XMS_ITS | Referral Summary ---
Author Organization [employer] ([place], [place], [place], [place]) Address [address] [place] [address] Care Team Providers Care Chemical Detection Expert Name Role Phone Unavailable Primary Care Provider [...]
--- OUTSIDE RECORDS SUMMARY | 2025-04-04 11:11 | XMS_ITS | Encounter Summary ---
Author Organization [employer] ([place], [place], [place], [place]) Address [address] [place] [address] Care Team Providers Care Bakery Products Checker Name Role Phone Unavailable Primary Care Provider Unavailabl e Encounter Details Date Type Department Care Team (Late st Contact Info) Description 12/16/2018 Transcribed Document [facility] [place] [facility] [address] ProviderTara MD [address] [place], [place] [address] Social History Tobacco Use Types Packs/Day Years Used Date Smoking Tobacco: Never Assessed Sex and Gender Information Value Date Recorded Sex Assigned at Not on file Legal Sex Male 5:36 PM CDT Gender Identity Not on file Sexual Orientation Not on file documented as of this encounter Miscellaneous Notes * Cerner Conversion Note - Tara ProviderMD - 12/16/2018 10:15 PM CDT ED Assessment Entered On: 12/16/2018 23:27 EDT Performed On: 12/16/2018 23:23 EDT by ANIL ROSS RN ED General-Functional Assess Preferred Communication Mode : Verbal Communication Barrier : None Primary Language : Occitan Any Spiritual/Cultural Needs or Requests : No Currently in Unsafe Situation : No ANIL ROSS RN - 12/16/2018 23:23 EDT Social Habits Smoking Status : Former smoker, quit more than 30 days ago Smokeless Tobacco Status : Never Desires Tobacco Cessation Calc : 0 ANIL ROSS RN - 12/16/2018 23:23 EDT Social History (As Of: 12/16/2018 23:27:38 EDT) Tobacco: Former smoker, quit more than 30 [...] 10/03/2017 06:35:39 EDT by PAM CARTER PA-C) Cardiovascular ASMT, ED Cardiovascular Assessment WDL : WDANIL MCGREGOR RN - 12/16/2018 23:23 EDT Pulses Grid Radial Pulse, Left : 2+ normal Radial Pulse, Right : 2+ normal ANIL ROSS RN - 12/16/2018 23:23 EDT Respiratory Breath Sounds Auscultated : Posterior, Anterior Respiratory Assessment WDL : WDANIL MCGREGOR RN - 12/16/2018 23:23 EDT Breath Sounds Assessment Grid All Lobes Breath Sounds : Clear ANIL ROSS RN - 12/16/2018 23:23 EDT Gastrointestinal ED Gastrointestinal Assessment WDL : WDL with exceptions (Comment: 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 pt states he had cholectomy in july 2018 and had stent placed in bile duct in mid november 2018. pt states pain has been intermitant x 4 yrs. however, pain has increasingly worsen today after eating. pt rates pain 6/10. pt states walking and laying supine helps relieve some pain. pt describes pain as sharp. pt denies any n/v/d at this time. pt states was nauseas earlier after eating. pt denies any other s/s. [ANIL ROSS RN - 12/16/2018 23:23 EDT] ) Gastrointestinal Symptoms : Abdominal pain, Nausea Abdomen Description : Flat, Tender ANIL ROSS RN - 12/16/2018 23:23 EDT Bowel Sounds Bowel Sounds All Quadrants : Active ANIL ROSS RN - 12/16/2018 23:23 EDT Abdominal Tenderness Location : LUQ ANIL ROSS RN - 12/16/2018 23:23 EDT documented in this encounter Plan of Treatment Not on file documented as of this encounter Visit Diagnoses Not on filedocumented in this encounter
--- OUTSIDE RECORDS SUMMARY | 2025-04-04 11:11 | XMS_ITS | Encounter Summary ---
Author Organization [facility] ([place], [place], [place], [place]) Address [address] [place] [address] Care Team Providers Care Press Loader Name Role Phone Unavailable Primary Care Provider Unavailabl e Encounter Details Date Type Department Care Team (Late st Contact Info) Description 11/28/2018 Transcribed Document [facility] [place] [address] ProviderTara MD [address], [place] [id number] Social History Tobacco Use Types Packs/Day Years Used Date Smoking Tobacco: Never Assessed Sex and Gender Information Value Date Recorded Sex Assigned at Not on file Legal Sex Male 5:36 PM CDT Gender Identity Not on file Sexual Orientation Not on file documented as of this encounter Miscellaneous Notes * Cerner Conversion Note - Tara Pavon MD - 11/28/2018 9:08 AM CDT Patient: GUNNAR GREENBERG Age: 32 Years Sex: Male : 1985 *Operation Endoretrogradecholangiopancreatography, Pancreatic Duct Stent Placement, Biliary Duct Balloon Sweep, Sphincterotomy, Indication for Surgery Biliary colic. Sphincter dysfunction. *Preoperative Diagnosis biliary colic *Postoperative Diagnosis Sphincter spasm Successful sphincterotomy and balloon dilatation. *Surgeon(s) Primary Surgeon RANJIT AHMADI MD (Surgeon/Proceduralist, First) *Estimated Blood Loss None. *Findings Normal ampulla. Normal PD. A 5 Armenian by 2cm single pigtailed pancreatic stent was placed to prevent pancreatitis. It should migrate out spontaneously in 3-4 days. Cholecystectomy. Dilated CBD, 8mm, witout filing defect, due to ampullary stenosis. After a biliary sphincterotomy, a 9mm balloon was used to sweep through the CBD and dilate the ampulla under direct visualization. Good drainage seen. *Specimen(s) NA Complications None Resume diet slowly. Post ERCP pain control. Follow up in 1 month. Date of Service Date/Time of Service SN - Proc - Start Time: 11/28/18 08:44:00 (EDT) (11/28/18 08:51:46 EDT) SN - Proc - Start Time: 11/28/18 08:44:00 (EDT) (11/28/18 08:51:46 EDT) documented in this encounter Plan of Treatment Not on file documented as of this encounter Visit Diagnoses Not on filedocumented in this encounter
--- OUTSIDE RECORDS SUMMARY | 2025-04-04 11:11 | XMS_ITS | Encounter Summary ---
Author Organization [facility] ([place], [place], [place], [place]) Address [address] [place] [address] Care Team Providers Care Manufacturer Representative Name Role Phone Unavailable Primary Care Provider Unavailabl e Encounter Details Date Type Department Care Team (Late st Contact Info) Description 11/28/2018 Transcribed Document [facility] [place] [facility] [place] [address] ProviderTara MD [address] [place], [place] [id number] Social History Tobacco Use Types Packs/Day Years Used Date Smoking Tobacco: Never Assessed Sex and Gender Information Value Date Recorded Sex Assigned at Not on file Legal Sex Male 5:36 PM CDT Gender Identity Not on file Sexual Orientation Not on file documented as of this encounter Miscellaneous Notes * Cerner Conversion Note - Historical ProviderMD - 11/28/2018 7:38 AM CDT Pre Procedure Adult Entered On: 11/28/2018 7:43 EDT Performed On: 11/28/2018 7:38 EDT by Kristen Langston Rn Height and Weight, Clinical Dosing Height Source : Stated Height Entry Format : [place] Height, Feet : 6 ft(Converted to: 183 cm, 72 Inch) Height, Inches : 1 Inch(Converted to: 0 ft 1 Inch, 2.54 cm) Clinical Height : 185.42 cm Weight Source : Standing scale Weight Entry Format : [place] Clinical Dosing Weight : 63.3 kg Weight, Pounds : 139 lb Weight, Ounces : 4 oz Body Surface Area (BSA) : 1.85 m2 Body Mass Index : 18.4 kg/m2 (LOW) [place] Body Weight : 79 kg Kristen Langston Rn - 11/28/2018 7:38 EDT Health Histories Smoking Status : Former smoker, quit more than 30 days ago Smokeless Tobacco Status : Never Kristen Langston Rn - 11/28/2018 7:38 EDT Social History (As Of: 11/28/2018 07:43:06 EDT) Tobacco: Former smoker, quit more than [...] Region : No Tuberculosis Symptoms : None Kristen Langston Rn - 11/28/2018 7:38 EDT Anesthesia/Transfusion History Family History of Anesthesia Reaction : No prior transfusion(s) Transfusion History : Prior anesthesia without reaction Family History of Anesthesia Reaction : None Kristen Langston Rn - 11/28/2018 7:38 EDT Functional Assessment Living Situation : Home Current Home Treatments : None Kristen Langston Rn - 11/28/2018 7:38 EDT Psychosocial History Do You Have a History of the Following? : Anxiety Currently in Unsafe Situation : No Tried to Harm Yourself in the Past? : No Thoughts of Harming/Killing Yourself : No Kristen Langston Rn - 11/28/2018 7:38 EDT Advance Directive Patient has Advance Directive *Q : No, patient refuses Advance Directive information Kristen Langston Rn - 11/28/2018 7:38 EDT General Info Legal Guardian : No Support Person/Pt Rep Contact Information : linda maria [phone]/mom [phone] thea Bustos Family/Rep/Phys Notified of Admit : No Emergency Contact #1 : Renato Greenberg Emergency Contact #1 Emergency Contact #1 Relationship : Father Emergency Contact #2 : na Emergency Contact #2 Phone Number : na Emergency Contact #2 Relationship : na Primary Language : Irish Preferred Communication Mode : Verbal Communication Barrier : None Kristen Langston Rn - 11/28/2018 7:38 EDT Vital Measurements Temperature Source : Oral Temperature Mode : Fahrenheit Temperature, Fahrenheit : 98.2 Deg F Clinical Temperature, C : 36.8 Deg C Respiratory Rate : 18 Breaths/Min Systolic Blood Pressure : 117 mmHg Diastolic Blood Pressure : 63 mmHg Oxygen Saturation : 100 % Oxygen Therapy Mode : Room air Kristen Langston Rn - 11/28/2018 7:38 EDT Sleep Apnea Risk Assmt Hx of Obstructive Sleep Apnea Diagnosis : No Snore Loudly : No Tired, Fatigued, or Sleepy During Day : No Observed Stopping Breathing During Sleep : No Have/Are Being Treated for Hypertension : No BMI Greater Than 35 kg/m2 : No Age over 50 Years Old : No Neck Circumference Greater Than 40 cm : No Gender Male : Yes STOP-BANG Sleep Apnea Risk Level Score : 1 Kristen Langston Rn - 11/28/2018 7:38 EDT Onofre Scale Onofre Sensory Perception : No impairment Onofre Moisture : Rarely moist Onofre Activity : Walks frequently Onofre Mobility : No limitation Onofre Nutrition : Adequate Onofre Friction and Shear : No apparent problem Onofre Score : 22 Kristen Langston Rn - 11/28/2018 7:38 EDT Pain Assessment Pain Assessment : Initial assessment Pain Scale Used : 0-10 Scale Kristen Langston Rn - 11/28/2018 7:38 EDT Fall Risk Scales ABCs Fall Injury Risk Identification : None [place] Hx Falls Immediate/Within 3 Months : No [place] Secondary Diagnosis : No [place] Use of Ambulatory Aid : None [place] IV Therapy or IV Access : Yes [place] Gait/Transferring : Normal, bedrest, immobile [place] Mental Status : Oriented to own ability [place] Fall Risk Score : 20 [place] Fall Scale Risk Level : 0-24 Low Risk [place] Fall Interventions : Adequate lighting, Bed in low position, Personal items within reach Kristen Langston Rn - 11/28/2018 7:38 EDT Valuables and Belongings Valuables and Belongings : Clothing Clothing : Common streetwear Clothing Disposition : Bedside, With family Kristen Langston Rn - 11/28/2018 7:38 EDT Pain Scale Intensity : 0 Kristen Langston Rn - 11/28/2018 7:38 EDT Image 4 - Images currently included in the form version of this document have not been included in the text rendition version of the form. Electronically signed by Esvin Veloz Conversion Environmental Technical Officer Cerner at 11/03/2022 7:04 AM CDT documented in this encounter Plan of Treatment Not on file documented as of this encounter Visit Diagnoses Not on filedocumented in this encounter
--- OUTSIDE RECORDS SUMMARY | 2025-04-04 11:11 | XMS_ITS | Encounter Summary ---
Author Organization [facility] Address [address] [place] [address] Care Team Providers Care Lead Shop Operator Name Role Phone Willian Manjarrez MD Primary Care Provider [phone] Reason for Visit * Reason Comments Med Refill Encounter Details Date Type Department Care Team (Late st Contact Info) Description 02/14/2023 [facility]ill [facility] [address] [place] [address] Yoselin Cunningham, AGRONOMY INSTRUCTOR [address] [place] [address] Social History Tobacco Use Types Packs/Day Years Used Date Smoking Tobacco: Former Cigarettes 1.5 17.3 0 07/18/1999 - 10/29/2016 Smokeless Tobacco: Former Alcohol Use Standard Drinks/Week Comments Not Currently 0 (1 standard drink = 0.6 oz pure alcohol) Alcoholic Drinks/day: History of alcohol use PHQ-2 Answer Date Recorded Patient Health Questionnaire-2 Score 2 09/29/2022 Sex and Gender Information Value Date Recorded Sex Assigned at Not on file Legal Sex Male 6:28 PM EDT Gender Identity Not on file Sexual Orientation Not on file documented as of this encounter Miscellaneous Notes * Telephone Encounter - Armen Infante, PharmD - 02/14/2023 11:40 AM EDT Per protocol, 1 medication(s), hyosciamine, has been approved for 30 day supply with 6 refill(s) [facility]. documented in this encounter Plan of Treatment Upcoming Encounters Date Type Department Care Team (Late st Contact Info) Description 04/10/2025 11:00 AM EDT [facility] Visit [facility] [address] [place] [address] Yoselin Cunningham, AGRONOMY INSTRUCTOR [address] [place] [address] documented as of this encounter Visit Diagnoses Not on filedocumented in this encounter Additional Health Concerns Infection Onset Date Last Indicated Resolved Time Influenza 05/23/2024 05/23/2024 06/20/2024 5:23 AM EST Assessment Noted Time A fall risk assessment has been complete d for the patient 09/29/2022 7:30 AM EDT A Body Mass Index follow-up plan has been documented for the patient 09/29/2022 7:48 AM EDT documented as of this encounter Care Teams Lead Shop Operator Relationship Specialty Start Date End Date Willian Manjarrez MD [address] [place] [address] PCP - General 04/13/21 documented as of this encounter
--- OUTSIDE RECORDS SUMMARY | 2025-04-04 11:11 | XMS_ITS | Clinical Summary ---
Author Organization [facility] Address [address] [place] [address] Care Team Providers Care Security Police Officer Name Role Phone Yuri Castillo MD Primary Care Provider Un available Social History Tobacco Use Types Packs/Day Years Used Date Smoking Tobacco: Never Assessed Abuse Screen Answer Date Recorded Unsafe at Home or Work/School Not on file Feels Threatened by Someone? Not on file 05/2023 Does Anyone Keep You from Co ntacting Others or Doint Things Outside the Home? Not on file 04/27/2023 Physical Sign of Abuse Present Not on file 1 Housing Stability Answer Date Recorded Current Living Arrangements Not on file 04/17 Potentially Unsafe Housing Conditions Not on melanie e 04/27/2023 Family and Community Support Answer Michel e Recorded Help with Day-to-Day Activities Not on file 04/27/2023 Lonely or Isolated Not on file 04/27/2023 Employment Answer Date Recorded Do you want help finding or keeping work or a sushma b? Not on file 04/27/2023 Disabilities Answer Date Recorded Concentrating, Remembering, or Making Decisions Difficulty Not on file 04/27/2023 Doing Errands Independently Difficulty Not on fi le 04/27/2023 Education Answer Date Recorded Help with school or training? Not on file Preferred Language Not on file 04/27/2023 Sex and Gender Information Value Date Recorded Sex Assigned at Not on file Legal Sex Male 11:35 PM EDT Gender Identity Not on file Sexual Orientation Not on file Plan of Treatment Health Maintenance Due Date Last Done Comments ANNUAL PHYSICAL 1985 HEPATITIS C SCREENING 1985 TDAP/TD VACCINES (1 - Tdap) 12/29/2006 COVID-19 Vaccine (2023-2 5 season) 2025 INFLUENZA VACCINE 04/17/2025 Pneumococcal Vaccine 0-49 Aged Out No longer eligible based on patient's age to complete this topic Care Teams Security Police Officer Relationship Specialty Start Date End Date Yuri Castillo MD PCP - General 03/23/15
--- OUTSIDE RECORDS SUMMARY | 2025-04-04 11:11 | XMS_ITS | Encounter Summary ---
Author Organization [employer] ([place], [place], [place], [place]) Address [address] [place] [address] Care Team Providers Care Malware Analyst Name Role Phone Unavailable Primary Care Provider Unavailabl e Encounter Details Date Type Department Care Team (Late st Contact Info) Description 12/16/2018 Transcribed Document [facility] [place] [facility] [place] [address] ProviderTara MD [address], [place] [phone] Social History Tobacco Use Types Packs/Day Years Used Date Smoking Tobacco: Never Assessed Sex and Gender Information Value Date Recorded Sex Assigned at Not on file Legal Sex Male 5:36 PM CDT Gender Identity Not on file Sexual Orientation Not on file documented as of this encounter Miscellaneous Notes * Cerner Conversion Note - Tara ProviderMD - 12/16/2018 10:15 PM CDT ED Triage Entered On: 12/16/2018 22:21 EDT Performed On: 12/16/2018 22:19 EDT by Shagufta Cain Rn ED Triage Across the Room Triage Date/Time : 12/16/2018 22:19 EDT Chief Complaint : manuel performed mid November; reports epigastric and RUQ pain since then but worse 1 wk ago. reports nausea increase and rolling stomach s/p PO intake Shagufta Cain Rn - 12/16/2018 22:19 EDT DCP GENERIC CODE Tracking Acuity : 3 - Urgent Tracking Group : [facility] ED Shagufta Cain Rn - 12/16/2018 22:19 EDT Mode of Arrival : Ambulatory Transported to ED by : Private vehicle To Room Via : Ambulate Accompanied By : Mother ED Vital Signs : Document Height & Weight : Document ED Allergies : Document ED Reason for Visit : Document Tetanus Immunization : Greater than 5 years Tried to Harm Yourself in the Past? : No Thoughts of Harming/Killing Yourself : No Recent Thoughts of Harming/Killing Others : No Guard Supervisor Needed : No Shagufta Cain Rn - 12/16/2018 22:19 EDT Infectious Disease History Infectious Disease History : Chicken pox/Shingles, Influenza Fever/Chills Last 48 Hours : No Travel To Regions with Travel Advisories : No Travel Outside [place] Within Last 30 Days : No Contact With Traveler to Advisory Region : No Tuberculosis Symptoms : Weight Loss Shagufta Cain Rn - 12/16/2018 22:19 EDT Vital Signs ED Temperature Source : Oral Temperature Mode : Fahrenheit Temperature, Fahrenheit : 97.7 Deg F ED Pain : Yes Clinical Temperature, C : 36.5 Deg C Oxygen Therapy Mode : Room air Peripheral Pulse Rate : 54 bpm (LOW) Respiratory Rate : 16 Breaths/Min Systolic Blood Pressure : 121 mmHg Diastolic Blood Pressure : 76 mmHg Oxygen Saturation : 100 % Shagufta Cain Rn - 12/16/2018 22:19 EDT Allergy (As Of: 12/16/2018 22:21:44 EDT) Allergies (Active) No Known Allergies Estimated Onset Date: Unspecified ; Created By: Pete Kwok RN; Reaction Status: Active ; Category: Drug ; Substance: No Known Allergies ; Type: Allergy ; Updated By: Pete Kwok RN; Reviewed Date: 12/16/2018 22:21 EDT Diagnosis Control ED (As Of: 12/16/2018 22:21:44 EDT) Problems(Active) Abdominal pain (SNOMED CT :06422457 ) Name of Problem: Abdominal pain ; Recorder: EDILIA PATEL; Confirmation: Confirmed ; Classification: Medical ; Code: [id number] ; Contributor System: NutshellMailChart ; Last Updated: 08/08/2018 7:03 EST ; Life Cycle Date: 08/08/2018 ; Life Cycle Status: Active ; Vocabulary: SNOMED CT Anxiety (SNOMED CT :08710610 ) Name of Problem: Anxiety ; Recorder: EDILIA PATEL; Confirmation: Confirmed ; Classification: Medical ; Code: [id number] ; Contributor System: NutshellMailChart ; Last Updated: 08/08/2018 7:02 EST ; Life Cycle Date: 08/08/2018 ; Life Cycle Status: Active ; Vocabulary: SNOMED CT Chronic sinusitis (SNOMED CT :37698197 ) Name of Problem: Chronic sinusitis ; Recorder: EDILIA PATEL; Confirmation: Confirmed ; Classification: Medical ; Code: 18990779 ; Contributor System: PowerChart ; Last Updated: 08/08/2018 7:02 EST ; Life Cycle Date: 08/08/2018 ; Life Cycle Status: Active ; Vocabulary: SNOMED CT Gastritis (SNOMED CT :5576223 ) Name of Problem: Gastritis ; Recorder: Pete Kwok RN; Confirmation: Confirmed ; Classification: Medical ; Code: 1322145 ; Contributor System: PowerChart ; Last Updated: 09/14/2015 22:27 EST ; Life Cycle Date: 09/14/2015 ; Life Cycle Status: Active ; Vocabulary: SNOMED CT GERD (gastroesophageal reflux disease) (SNOMED CT :424256638 ) Name of Problem: GERD (gastroesophageal reflux disease) ; Recorder: ERICKSON STOKES RN; Confirmation: Confirmed ; Classification: Medical ; Code: 556772721 ; Contributor System: PowerChart ; Last Updated: 06/03/2017 9:40 EST ; Life Cycle Date: 06/03/2017 ; Life Cycle Status: Active ; Vocabulary: SNOMED CT h/o Drug abuse 2011/ etoh use quit 2013 (SNOMED CT :98027037 ) Name of Problem: h/o Drug abuse 2010/ etoh use quit 2013 ; Recorder: EDILIA PATEL; Confirmation: Confirmed ; Classification: Medical ; Code: 24646377 ; Contributor System: PowerChart ; Last Updated: 08/08/2018 7:04 EST ; Life Cycle Date: 08/08/2018 ; Life Cycle Status: Active ; Vocabulary: SNOMED CT Hemorrhoid (SNOMED CT :828764116 ) Name of Problem: Hemorrhoid ; Recorder: EDILIA PATEL; Confirmation: Confirmed ; Classification: Medical ; Code: 223484159 ; Contributor System: PowerChart ; Last Updated: 08/08/2018 7:01 EST ; Life Cycle Date: 08/08/2018 ; Life Cycle Status: Active ; Vocabulary: SNOMED CT IBS (irritable bowel syndrome) (SNOMED CT :73431108 ) Name of Problem: IBS (irritable bowel syndrome) ; Recorder: EDILIA PATEL; Confirmation: Confirmed ; Classification: Medical ; Code: 98079102 ; Contributor System: PowerChart ; Last Updated: 08/08/2018 7:01 EST ; Life Cycle Date: 08/08/2018 ; Life Cycle Status: Active ; Vocabulary: SNOMED CT Nonfunctioning gallbladder (SNOMED CT :145063124 ) Name of Problem: Nonfunctioning gallbladder ; Recorder: EDILIA PATEL; Confirmation: Confirmed ; Classification: Medical ; Code: 701751731 ; Contributor System: PowerChart ; Last Updated: 08/08/2018 7:02 EST ; Life Cycle Date: 08/08/2018 ; Life Cycle Status: Active ; Vocabulary: SNOMED CT Pneumothorax, spontaneous,left 2018 (SNOMED CT :723726981 ) Name of Problem: Pneumothorax, spontaneous,left 2018 ; Recorder: EDILIA PATEL; Confirmation: Confirmed ; Classification: Medical ; Code: 750711991 ; Contributor System: PowerChart ; Last Updated: 08/08/2018 7:07 EST ; Life Cycle Date: 08/08/2018 ; Life Cycle Status: Active ; Vocabulary: SNOMED CT Slow heart rate (SNOMED CT :74155471 ) Name of Problem: Slow heart rate ; Recorder: EDILIA PATEL; Confirmation: Confirmed ; Classification: Medical ; Code: 80642386 ; Contributor System: NutshellMailChart ; Last Updated: 08/08/2018 7:01 EST ; Life Cycle Date: 08/08/2018 ; Life Cycle Status: Active ; Vocabulary: SNOMED CT Diagnoses(Active) Abdominal pain Date: 12/16/2018 ; Diagnosis Type: Reason For Visit ; Confirmation: Complaint of ; Clinical Dx: Abdominal pain ; Classification: Medical ; Clinical Service: Non-Specified ; Code: PNED ; Probability: 0 ; Diagnosis Code: [id number] ED Height and Weight Height Source : Stated Height Entry Format : [place] Height, Feet : 6 ft(Converted to: 183 cm, 72 Inch) Height, Inches : 0 Inch(Converted to: 0 ft 0 Inch, 0.00 cm) Clinical Height : 182.88 cm Weight Source, ED : Critical estimated dosing weight Weight Entry Format : [place] Weight, Pounds : 145 lb Clinical Dosing Weight : 65.91 kg Body Surface Area (BSA) : 1.86 m2 Body Mass Index : 19.7 kg/m2 [place] Body Weight (IBW) : 76.59 kg Shagufta Cain Rn - 12/16/2018 22:19 EDT Pain Assessment Pain Assessment : Initial assessment Pain Scale Used : 0-10 Scale Shagufta Cain Rn - 12/16/2018 22:19 EDT Pain Scale Intensity : 6 Shagufta Cain Rn - 12/16/2018 22:19 EDT Image 4 - Images currently included in the form version of this document have not been included in the text rendition version of the form. documented in this encounter Plan of Treatment Not on file documented as of this encounter Visit Diagnoses Not on filedocumented in this encounter
--- OUTSIDE RECORDS SUMMARY | 2025-04-04 11:11 | XMS_ITS | Encounter Summary ---
Author Organization [facility] Address [address] [place] [address] Care Team Providers Care Agricultural Equipment Test Engineer Name Role Phone Willian Manjarrez MD Primary Care Provider [phone] Reason for Visit * Reason Comments Med Refill Encounter Details Date Type Department Care Team (Late st Contact Info) Description 02/11/2023 Refill [facility] [address] [place] [address] Yoselin Cunningham, GAS PUMP ATTENDANT [address] [place] [address] Social History Tobacco Use Types [...] Telephone Encounter - Armen Infante, PharmD - 02/11/2023 12:23 PM EDT Per protocol, 1 medication(s), lansoprazole, has been approved for 30 day supply with 6 refill(s) to [facility]. documented in this encounter Plan of Treatment Upcoming Encounters Date Type Department Care Team (Late st Contact Info) Description 04/10/2025 11:00 AM EDT Office Visit [facility] [facility] [address] [place] [address] Yoselin Cunningham, GAS PUMP ATTENDANT [address] [place] [address] documented as of this encounter [...] documented as of this encounter Care Teams Agricultural Equipment Test Engineer Relationship Specialty Start Date End Date Willian Manjarrez MD [address] [place] [address] PCP - General 04/13/21 documented as of this encounter
--- OUTSIDE RECORDS SUMMARY | 2025-04-04 11:11 | XMS_ITS | Encounter Summary ---
Author Organization [facility] Address [address] [place] [address] Care Team Providers Care Reclaimer Name Role Phone Willian Manjarerz MD Primary Care Provider [phone] Reason for Visit * Reason Comments Med Refill Encounter Details Date Type Department Care Team (Late st Contact Info) Description 07/08/2021 [facility]ill [facility] [address] [place] [address] Yoselin Cunningham APRN [address] [place] [address] Social History Tobacco Use Types Packs/Day Years Used Date Smoking Tobacco: Former Cigarettes Q uit: 10/29/2016 Smokeless Tobacco: Former Alcohol Use Standard Drinks/Week Comments Not Currently 0 (1 standard drink = 0.6 oz pure alcohol) Alcoholic Drinks/day: History of alcohol use PHQ-2 Answer Date Recorded Patient Health Questionnaire-2 Score 1 04/03/2021 Sex and Gender Information Value Date Recorded Sex Assigned at Not on file Legal Sex Male 6:28 PM EDT Gender Identity Not on file Sexual Orientation Not on file documented as of this encounter Miscellaneous Notes * Telephone Encounter - Yoselin Cunningham APRN - 07/08/2021 2:06 PM EST He can have 1 more month but needs to be seen or no farther refills after that. documented in this encounter Plan of Treatment Upcoming Encounters Date Type Department Care Team (Late st Contact Info) Description 04/10/2025 11:00 AM EDT [facility] [address] [place] [address] Yoselin Cunningham, SENIOR PRODUCT DEVELOPMENT ENGINEER [address] [place] [address] documented as of this encounter Visit Diagnoses Not on filedocumented in this encounter Additional Health Concerns Infection Onset Date Last Indicated Resolved Time Influenza 05/23/2024 05/23/2024 06/20/2024 5:23 AM EST Assessment Noted Time A fall risk assessment has been complete d for the patient 04/03/2021 7:40 AM EDT documented as of this encounter Care Teams Reclaimer Relationship Specialty Start Date End Date Willian Manjarrez MD [address] [place] [address] PCP - General 04/13/21 documented as of this encounter
--- OUTSIDE RECORDS SUMMARY | 2025-04-04 11:11 | XMS_ITS | Encounter Summary ---
Author Organization Healthcare Address [address] [place] [address] Care Team Providers Care Loom Operator Name Role Phone Willian Manjarrez MD Primary Care Provider [phone] Reason for Referral * Consultation (Routine) - Closed Specialty Diagnoses / Procedures Referred By Contac t Referred To Contact Gastroenterology Diagnoses Gastroesophageal reflux disease without esophagitis Lizette Lake PA [address] [place] [address] Phone: tel: fax: Yoselin Cunningham L, CPR AMBULANCE DRIVER [address] [facility] [address] [place] [address] Phone: tel: fax: Referral ID Status Reason Start Date Expiration Date V isits Requested Visits Authorized [id number] Closed Specialty Services Required 02/28/2024 08/29/2025 1 1 Encounter Details Date Type Department Care Team (Latest Contact Info) Description 02/28/2024 Community [facility] [address] [place] [address] Lizette Lake PA [address] [place] [address] Gastroesophageal reflux disease without esophagitis (Primary Dx) Social History Tobacco Use Types Packs/Day Years [...] on file documented as of this encounter Functional Status * Over the past 2 weeks, how often have you been bothered by any of the following problems? Question Answer Date of Assessment Author Little interest or pleasure in doing things Not at all 02/29/2024 11:23 AM EDT Michelle Art Feeling down, depressed, or hopeless Several days 02/29/2024 11:23 AM EDT Michelle Art Patient Health Questionnaire-2 Score 1 02/29/2024 11:23 AM EDT Robyn Art documented as of this encounter Plan of Treatment Upcoming Encounters Date Type Department Care Team (Late st Contact Info) Description 04/10/2025 11:00 AM EDT Office Visit [facility] Medicine Specialties [address] [place] [address] Yoselin Cunningham, THOMAS [address] [place] [address] Scheduled Referrals Name Type Priority Associated Diagnoses Order Schedule Ambulatory referral to Gastroenterology Outpatient Referral Routine Gastroesophageal reflux disease without esophagitis Ordered: 02/28/2024 documented as of this encounter Visit Diagnoses Diagnosis Gastroesophageal reflux disease without esophagitis- Primary Esophageal reflux documented in this encounter Additional Health Concerns Infection Onset Date Last Indicated Resolved Time Influenza 05/23/2024 05/23/2024 06/20/2024 5:23 AM EST Assessment Noted Time A fall risk assessment has been complete d for the patient 11/16/2023 2:40 PM EDT A Body Mass Index follow-up plan has been documented for the patient 11/17/2023 9:39 AM EDT documented as of this encounter Care Teams Loom Operator Relationship Specialty Start Date End Date Willian Manjarrez MD [address] [place] [address] PCP - General 04/13/21 documented as of this encounter
--- OUTSIDE RECORDS SUMMARY | 2025-04-04 11:11 | XMS_ITS | Encounter Summary ---
Author Organization Healthcare Address [address] [place] [address] Care Team Providers Care Timber Management Specialist Name Role Phone Willian Manjarrez MD Primary Care Provider [phone] Reason for Visit * Reason Comments Med Refill Encounter Details Date Type Department Care Team (Late st Contact Info) Description 06/15/2021 Refill [facility] Medicine Specialties [address] [place] [address] Yoselin Cunningham APRN [address] [place] [address] Social History Tobacco Use Types [...] Telephone Encounter - Yoselin Cunningham APRN - 06/16/2021 8:29 AM EST He can have a refill of the medication but probably needs to follow up in the next 1-2 months. I would have planned to see him for 3-4 month follow up. documented in this encounter Plan of Treatment Upcoming Encounters Date Type Department Care Team (Late st Contact Info) Description 04/10/2025 11:00 AM EDT Office Visit [facility] Medicine Specialties [address] [place] [address] Yoselin Cunningham, BRAKE REPAIRER RAILROAD [address] [place] [address] documented as of this encounter Visit Diagnoses Not on filedocumented in this encounter Additional Health Concerns Infection Onset Date Last Indicated Resolved Time Influenza 05/23/2024 05/23/2024 06/20/2024 5:23 AM EST Assessment Noted Time A fall risk assessment has been complete d for the patient 04/03/2021 7:40 AM EDT documented as of this encounter Care Teams Timber Management Specialist Relationship Specialty Start Date End Date Willian Manjarrez MD [address] [place] [address] PCP - General 04/13/21 documented as of this encounter
--- OUTSIDE RECORDS SUMMARY | 2025-04-04 11:11 | XMS_ITS | Encounter Summary ---
Author Organization [employer] ([place], [place], [place], [place]) Address [address] [place] [address] Care Team Providers Care Correctional Casework Specialist Name Role Phone Unavailable Primary Care Provider Unavailabl e Encounter Details Date Type Department Care Team (Late st Contact Info) Description 12/17/2018 Transcribed Document [facility] [place] Family Medicine [address] [place] [address] ProviderTara MD [address] [place] [address] Social History Tobacco Use Types Packs/Day Years Used Date Smoking Tobacco: Never Assessed Sex and Gender Information Value Date Recorded Sex Assigned at Not on file Legal Sex Male 5:36 PM CDT Gender Identity Not on file Sexual Orientation Not on file documented as of this encounter Miscellaneous Notes * Cerner Conversion Note - Tara Pavon MD - 12/17/2018 12:52 AM CDT [facility] [address] GUNNAR GREENBERG :1985 Visit Time:12/16/2018 Your Visit Summary Your Care Team Admitting Physician - NOBLE ALVARADO MD Attending Physician - NOBLE ALVARADO MD Primary Care Physician - KYLEE GAONA DR Referring Physician - NOBLE ALVARADO MD Your Diagnosis Abdominal pain Abdominal pain Nausea Patient Portal Reminder: Be sure to sign up for the eFolder patient portal, which gives you 24/ access to your medical information ??? including these discharge instructions ??? using your computer, smartphone, or tablet. Just go to Sn[employer]Feed to get started. Questions? Call . You may also obtain a copy of your Emergency Department visit from Medical Records by calling the hospital phone number listed above and asking to be directed to the Medical Records Department. If you had special tests, such as EKG???s or X-rays, the interpretation of your tests given to you by the Emergency Department Physician is a preliminary report. Some fractures and illnesses fail to show up on preliminary tests. These will be reviewed again and we will call you if there are any new suggestions. If your symptoms continue notify your physician. After you leave, you should follow the instructions provided. What to do next Follow-Up Appointments Follow Up with NO PRIM DR GAONA When Within 2 to 3 days Comments Call for follow up appointment with your doctor. Use the medications as prescribed. Return to the ER with any acute worsening symptoms. It is important to follow up with your surgeon. Allergies No Known Allergies Immunizations This Visit No Immunizations Found Medications What How Much When Instructions Next Dose famotidine (Pepcid 20 mg oral tablet) 1 Tablet(s) Oral Every Day Printed Prescription ondansetron (Zofran ODT 8 mg oral tablet, disintegrating) 1 Tablet(s) Oral Four Times A Day Printed Prescription bifidobacterium-lactobacillus (Probiotic + Colostrum) Oral Every Day omeprazole (PriLOSEC) 40 Milligram(s) Oral Two Times A Day The home medications listed are only as accurate as the information you provided. Please continue taking all of your medications prescribed by your Primary Care Provider unless specifically told to change or discontinue the medication. Please direct any questions regarding your home medications to your Primary Care Provider. Take your medications faithfully. Do NOT skip [...] of unused and medications per pharmacy guidance. Test Results Laboratory or Other Results This Visit (last charted value for your 12/16/2018 visit) Hematology 12/16/18 22:41:00 WBC: 6.3 K/uL -- Normal range between ( 3.6 and 9.5 ) RBC: 4.59 Million/uL -- Normal range between ( 4.20 and 5.70 ) Hct: 41.4 % -- Normal range between ( 40.1 and 51.0 ) Hgb: 14.4 g/dL -- Normal range between ( 13.5 and 17.3 ) Platelet Count: 200 K/uL -- Normal range between ( 163 and 369 ) MCH: 31.4 pg -- Normal range between ( 25.6 and 32.2 ) MCHC: 34.8 Gram/dL -- Normal range between ( 32.2 and 36.5 ) MCV: 90.2 fL -- Normal range between ( 79.0 and 94.8 ) Slide Review: No Eos %: 1.4 % -- Normal range between ( 0.0 and 7.0 ) [place] #: 0.41 K/uL -- Normal range between ( 0.16 and 1.00 ) Eos #: 0.09 x10(3)/uL -- Normal range between ( 0.00 and 0.80 ) [place] %: 6.5 % -- Normal range between ( 3.0 and 9.0 ) Baso %: 0.8 % -- Normal range between ( 0.0 and 1.5 ) Baso #: 0.05 x10(3)/uL -- Normal range between ( 0.00 and 0.20 ) RDW: 11.9 % -- Normal range between ( 11.7 and 14.9 ) Neut %: 54.6 % -- Normal range between ( 34.0 and 71.0 ) Neut #: 3.45 K/uL -- Normal range between ( 1.56 and 6.13 ) Lymph %: 35.9 % -- Normal range between ( 19.3 and 53.1 ) Lymph #: 2.27 x10(3)/uL -- Normal range between ( 1.00 and 3.90 ) MPV: 10.1 fL -- Normal range between ( 9.4 and 12.4 ) IG#: 0.05 x10(3)/uL -- Normal range between ( 0.00 and 0.05 ) IG%: 0.80 % -- Normal range between ( 0.00 and 0.60 ) Urinalysis 12/16/18 22:27:00 Urine Nitrite: Negative Urine Leukocyte Esterase: Negative Urine Appearance: Clear Urine Glucose Dipstick: Negative Urine Blood Dipstick: Negative Urine Urobilinogen Dipstick: 0.2 EU/dL Urine Protein Dipstick: Negative Urine Color: Yellow Urine Ketones Dipstick: Negative Urine pH Dipstick: 6.5 -- Normal range between ( 6.0 and 8.0 ) Urine Bilirubin Dipstick: Negative Urine Specific [place]: 1.008 -- Normal range between ( 1.005 and 1.030 ) Urine Type.: U [facility] General Chemistry 12/16/18 22:41:00 Creatinine Level: 1.10 mg/dL -- Normal range between ( 0.70 and 1.30 ) Sodium Level: 141 mmol/L -- Normal range between ( 136 and 146 ) Potassium Level: 3.8 mmol/L -- Normal range between ( 3.5 and 5.1 ) Chloride Level: 108 mmol/L -- Normal range between ( 102 and 112 ) Carbon Dioxide Level: 26 mmol/L -- Normal range between ( 21 and 32 ) Anion Gap: 11 -- Normal range between ( 9 and 20 ) Bilirubin Total: 0.4 mg/dL -- Normal range between ( 0.2 and 1.2 ) A/G Ratio: 1.4 -- Normal range between ( 1.1 and 2.5 ) ALT: 22 Units/Liter -- Normal range between ( 16 and 61 ) AST: 16 Units/Liter -- Normal range between ( 5 and 37 ) Globulin: 3.2 Gram/dL -- Normal range between ( 1.5 and 4.5 ) Alk Phos: 91 Units/Liter -- Normal range between ( 27 and 136 ) Bun/Creatinine: 10.0 -- Normal range between ( 8.0 and 20.0 ) Calcium Level: 9.2 mg/dL -- Normal range between ( 8.4 and 10.1 ) eGFR : >60 mL/min/1.73m2 eGFR NonAfrican: >60 mL/min/1.73m2 Glucose Level: 90 mg/dL -- Normal range between ( 74 and 106 ) Blood Urea Nitrogen: 11 mg/dL -- Normal range between ( 7 and 22 ) Lactic Acid Level: 0.8 mmol/L -- Normal range between ( 0.4 and 2.0 ) Protein Total: 7.7 Gram/dL -- Normal range between ( 6.4 and 8.2 ) Albumin Level: 4.5 Gram/dL -- Normal range between ( 3.4 and 5.0 ) Lipase Level: 174 Units/Liter -- Normal range between ( 73 and 393 ) Education Materials Nausea, Adult Nausea is the feeling of an upset stomach or having to vomit. Nausea on its own is not usually a serious concern, but it may be an early sign of a more serious medical problem. As nausea gets worse, it can lead to vomiting. If vomiting develops, or if you are not able to drink enough fluids, you are at risk of becoming dehydrated. Dehydration can make you tired and thirsty, cause you to have a dry mouth, and decrease how often you urinate. Older adults and people with other diseases or a weak immune system are at higher risk for dehydration. The main goals of treating your nausea are: ??? To limit repeated nausea episodes. ??? To prevent vomiting and dehydration. Follow these instructions at home: Follow instructions from your health care provider about how to care for yourself at home. Eating and drinking Follow these recommendations as told by your health care provider: ??? Take an oral rehydration solution (ORS). This is a drink that is sold at pharmacies and retail stores. ??? Drink clear fluids in small amounts as you are able. Clear fluids include water, ice chips, diluted fruit juice, and low-calorie sports drinks. ??? Eat bland, wbmv-xo-skbivc foods in small amounts as you are able. These foods include bananas, applesauce, rice, lean meats, toast, and crackers. ??? Avoid drinking fluids that contain a lot of sugar or caffeine, such as energy drinks, sports drinks, and soda. ??? Avoid alcohol. ??? Avoid spicy or fatty foods. General instructions ??? Drink enough fluid to keep your urine clear or pale yellow. ??? Wash your hands often. If soap and water are not available, use hand electron microscopist. ??? Make sure that all people in your household wash their hands well and often. ??? Rest at home while you recover. ??? Take cxxy-xmc-emyrjnw and prescription medicines only as told by your health care provider. ??? Breathe slowly and deeply when you feel nauseous. ??? Watch your condition for any changes. ??? Keep all follow-up visits as told by your health care provider. This is important. Contact a health care provider if: ??? You have a headache. ??? You have new symptoms. ??? Your nausea gets worse. ??? You have a fever. ??? You feel light-headed or dizzy. ??? You vomit. ??? You cannot keep fluids down. Get help right away if: ??? You have pain in your chest, neck, arm, or jaw. ??? You feel extremely weak or you faint. ??? You have vomit that is bright red or looks like coffee grounds. ??? You have bloody or black stools or stools that look like tar. ??? You have a severe headache, a stiff neck, or both. ??? You have severe pain, cramping, or bloating in your abdomen. ??? You have a rash. ??? You have difficulty breathing or are breathing very quickly. ??? Your heart is beating very quickly. ??? Your skin feels cold and clammy. ??? You feel confused. ??? You have pain when you urinate. ??? You have signs of dehydration, such as: ? Dark urine, very little, or no urine. ? Cracked lips. ? Dry mouth. ? Sunken eyes. ? Sleepiness. ? Weakness. These symptoms may represent a serious problem that is an emergency. Do not wait to see if the symptoms will go away. Get medical help right away. Call your local emergency services (911 in the [place] Do not drive yourself to the hospital. This information is not intended to replace advice given to you by your health care provider. Make sure you discuss any questions you have with your health care provider. Document Released: 08/11/2005 Document Revised: 12/06/2016 Document Reviewed: 03/09/2016 [employer] Patient Education ?? 2019 [employer]. Abdominal Pain, Adult Abdominal pain can be [...] Follow these instructions at home: ??? Take smti-mag-ivlibeb and prescription medicines only as told by [...] constipated or have diarrhea for more than 2???3 days. ??? You have pain when you [...] 04/13/2006 Document Revised: 01/21/2017 Document Reviewed: 12/15/2016 [employer] Patient Education ?? 2019 [employer]. Emergency Awareness and Preventative Care STROKE [...] Assistance with quitting is available by contacting 1-369-OCVKPlovghNOW. This is a free resource providing counseling, [...] and how to prevent infections, visit www.cdc.gov/sepsis. The examination and treatment you have received [...] that requires the expertise of a specialist. These physicians work in partnership with the hospital and have agreed to see referred patients in their office for further evaluation. KEEP IN MIND THAT THE SPECIALIST HAS HIS/HER OWN OFFICE POLICIES WHICH MAY REQUIRE PROPER INSURANCE OR PAYMENT UP FRONT BEFORE THE SPECIALIST WILL SEE YOU. It is your responsibility to call the specialist physician to make an appointment. We do not have the ability to refer patients to specialists/physicians that work with specific insurance companies. [...] necessary to obtain coverage for claims submitted. We will bill your insurance; however, you are responsible today for any co-pay amounts. You will receive a separate bill for any services you may have received including: emergency, radiology, or pathology physicians. Patient Name:GUNNAR GREENBERG I have received this information and was given the opportunity to ask questions. Patient/Tube Handler Name: Patient/Tube Handler Signature: Relationship to Patient: Clinician/Hospital Tube Handler Signature: Please Provide a Telephone Number Where You Can Be Reached: Is it Permissible To Leave a Message? Date: Electronically signed by Esvin Veloz Conversion Project Manager [employer] Mehran at 11/03/2022 7:11 AM CDT documented in this encounter Plan of Treatment Not on file documented as of this encounter Visit Diagnoses Not on filedocumented in this encounter
--- OUTSIDE RECORDS SUMMARY | 2025-04-04 11:11 | XMS_ITS | Encounter Summary ---
Author Organization [employer] ([place], [place], [place], [place]) Address [address] [place] [address] Care Team Providers Care Medical Scheduler Name Role Phone Unavailable Primary Care Provider Unavailabl e Encounter Details Date Type Department Care Team (Late st Contact Info) Description 12/16/2018 Transcribed Document [facility] [place] Family Medicine [facility] [place] [address] ProviderTara MD [address] [place], [place] [id number] Social History Tobacco Use Types Packs/Day Years Used Date Smoking Tobacco: Never Assessed Sex and Gender Information Value Date Recorded Sex Assigned at Not on file Legal Sex Male 5:36 PM CDT Gender Identity Not on file Sexual Orientation Not on file documented as of this encounter Miscellaneous Notes * Cerner Conversion Note - Tara ProviderMD - 12/16/2018 10:34 PM CDT Pain Assessment Entered On: 12/16/2018 23:29 EDT Performed On: 12/16/2018 23:28 EDT by ANIL ROSS RN Intervention Information: morphine Performed by Nabil [facility] Pole Framer on 12/16/2018 22:46:00 EDT morphine,4mg IV Push,Left Mid Forearm Pain Assessment Pain Assessment : Follow-up assessment Pain Scale Goal : 0 Pain Scale Used : 0-10 Scale Location : Abdomen, left upper NAIL ROSS RN - 12/16/2018 23:28 EDT Pain Scale Intensity : 5 ANIL ROSS RN - 12/16/2018 23:28 EDT Image 4 - Images currently included in the form version of this document have not been included in the text rendition version of the form. documented in this encounter Plan of Treatment Not on file documented as of this encounter Visit Diagnoses Not on filedocumented in this encounter
--- OUTSIDE RECORDS SUMMARY | 2025-04-04 11:11 | XMS_ITS | Encounter Summary ---
Author Organization [facility] ([place], [place], [place], [place]) Address [address] [place] [address] Care Team Providers Care Nonprofit Financial Controller Name Role Phone Unavailable Primary Care Provider Unavailabl e Encounter Details Date Type Department Care Team (Late st Contact Info) Description 12/16/2018 Transcribed Document [facility] [place] [facility] [place] [facility] [place] [address] ProviderTara MD [address] [place], [place] [id number] Social History Tobacco Use Types Packs/Day Years Used Date Smoking Tobacco: Never Assessed Sex and Gender Information Value Date Recorded Sex Assigned at Not on file Legal Sex Male 5:36 PM CDT Gender Identity Not on file Sexual Orientation Not on file documented as of this encounter Miscellaneous Notes * Cerner Conversion Note - Tara Pavon MD - 12/16/2018 11:00 PM CDT Patient: GUNNAR GREENBERG Age: 32 years Sex: Male : 1985 Associated Diagnoses: Abdominal pain; Nausea Author: QUIANA FERNANDEZ MD Basic Information Time seen: Date & time 12/16/2018 22:27:00. History source: Patient, mother. Arrival mode: Private vehicle. History limitation: None. Additional information: Chief Complaint from Nursing Triage Note : Chief Complaint 12/16/2018 22:19 EDT Chief Complaint manuel performed mid November; reports epigastric and RUQ pain since then but worse 1 wk ago. reports nausea increase and rolling stomach s/p PO intake . History of Present Illness The patient presents with abdominal pain and 32-year-old male patient who is status post cholecystectomy in August 2018 and then, bile duct dilation a month ago presents with right upper quadrant abdominal pain that has been worsening over the last week. He's also been having some nausea and vomiting and his pain is worse usually when he eats. He denies any fevers, chills, GI bleeding symptoms, chest pain, shortness of breath, dizziness, lightheadedness, syncope, urinary dysuria, frequency, hematuria or flank pain. . The onset was 7 days ago. The course/duration of symptoms is constant and fluctuating in intensity. The character of symptoms is crampy and dull. The degree at onset was minimal. The degree at present is moderate. The Location of pain at present is upper and abdominal. The exacerbating factor is eating. The relieving factor is none. Therapy today: none. Review of Systems Constitutional symptoms: Negative except as documented in HPI. Skin symptoms: Negative except as documented in HPI. Eye symptoms: Negative except as documented in HPI. ENMT symptoms: Negative except as documented in HPI. Respiratory symptoms: Negative except as documented in HPI. Cardiovascular symptoms: Negative except as documented in HPI. Gastrointestinal symptoms: Negative except as documented in HPI. Genitourinary symptoms: Negative except as documented in HPI. Musculoskeletal symptoms: Negative except as documented in HPI. Neurologic symptoms: Negative except as documented in HPI. Psychiatric symptoms: Negative except as documented in HPI. Additional review of systems information: All other systems reviewed and otherwise negative. Health Status Allergies: Allergic Reactions (Selected) No Known Allergies. Medications: (Selected) Documented Medications Documented PriLOSEC: 40 mg, Oral, BID, 0 Refill(s) Probiotic + Colostrum: Packet, Oral, Daily, 0 Refill(s). Past Medical/ Family/ Social History Surgical history: EGD. chest tube lung left/spontaneous lung collasped. cholycystectomy.. Family history: No family history items have been selected or recorded.. Social history: Social & Psychosocial Habits Alcohol [...] Never Smokeless Tobacco Use History None . Problem list: Active Problems (11) Abdominal pain Anxiety Chronic sinusitis Gastritis GERD (gastroesophageal reflux disease) h/o Drug abuse 2010/ etoh use quit 2013 Hemorrhoid IBS (irritable bowel syndrome) Nonfunctioning gallbladder Pneumothorax, spontaneous,left 2018 Slow heart rate . Physical Examination Vital Signs Vital Signs/Vital Measures 12/16/2018 22:19 EDT Temperature Source Oral Temperature Mode Fahrenheit Temperature, Fahrenheit 97.7 Deg F Clinical Temperature, C 36.5 Deg C Peripheral Pulse Rate 54 bpm LOW Respiratory Rate 16 Breaths/Min Systolic Blood Pressure 121 mmHg Diastolic Blood Pressure 76 mmHg Oxygen Saturation 100 % Oxygen Therapy Mode Room air . Measurements 12/16/2018 22:19 EDT Height Source Stated Height Entry Format [place] Height/Length, [place] (ft) 6 ft Height/Length [place] 0 Inch CLINICALHEIGHT 182.88 cm [place] Body Weight 76.59 kg Weight Source, ED Critical estimated dosing weight Weight Entry Format [place] Weight Welsh lb 145 lb CLINICALWEIGHT 65.91 kg Body Surface Area (BSA) 1.86 m2 Body Mass Index 19.7 kg/m2 . Oxygen Saturation 12/16/2018 22:19 EDT Oxygen Saturation 100 % . General: Alert, no acute distress. Skin: Warm, intact, no rash, Not pale, Head: Normocephalic. Neck: Supple, no JVD. Eye: Pupils are equal, round and reactive to light, extraocular movements are intact, Sclera: not icteric. Ears, nose, mouth and throat: Oral mucosa moist. Cardiovascular: Regular rate and rhythm, No murmur, Normal peripheral perfusion, No edema. Respiratory: Lungs are clear to auscultation, respirations are non-labored, breath sounds are equal. Chest wall: No tenderness. Back: Nontender, Normal range of motion. Musculoskeletal: Normal ROM. Gastrointestinal: Soft, Non distended, Normal bowel sounds, Tenderness: Mild, epigastric, right upper quadrant, Guarding: Negative, Rebound: Negative, Signs: Hernández's negative. Neurological: Alert and oriented to person, place, time, and situation, No focal neurological deficit observed. Psychiatric: Cooperative. Medical Decision Making Rationale: 32-year-old male patient presents with right upper quadrant, epigastric abdominal pain with recent cholecystectomy in August and a common bile duct dilation one month ago. He was given morphine and Zofran and a liter of normal saline IV fluids and his labs were unremarkable and CT scan was also unremarkable. I advised it's likely nonspecific abdominal pain, vomiting could be viral illness. He was stable to be discharged home with outpatient follow-up with his PCP and advised to return with any acutely worsening symptoms.. Documents reviewed: Emergency department nurses' notes. Orders Include Previous Orders (Selected) Inpatient Orders Ordered (Exam Completed) CT Abdomen Pelvis W: Completed .Automated Differential: .Urinalysis Microscopic: CBC w/ Auto Diff: CMP Comprehensive Metabolic Panel: ED Adult Fall Risk Assessment: ED Adult Triage: ED Clinical Reconciliation: ED formula maker: Lactic Acid Level with Reflex if Indicated: Lipase Level: Saline Lock Insert: Sodium Chloride 0.9% bolus: 1,000 mL, 1,000 mL/Hr, IV Piggyback, 1-Time Urinalysis w Culture if Indicated: Zofran: 4 mg, IV Push, 1-Time iopamidol: 75 mL, IV Push, ADHOC morphine: 4 mg, IV Push, 1-Time Discontinued HCG Urine Qualitative: . Results review: Lab results : Lab Results 12/16/2018 22:41 EDT Sodium Level 141 mmol/L Potassium Level 3.8 mmol/L Chloride Level 108 mmol/L Carbon Dioxide Level 26 mmol/L Anion Gap 11 Glucose Level 90 mg/dL Blood Urea Nitrogen 11 mg/dL Creatinine Level 1.10 mg/dL eGFR >60 mL/min/1.73m2 eGFR NonAfrican >60 mL/min/1.73m2 Bun/Creatinine 10.0 Calcium Level 9.2 mg/dL Protein Total 7.7 Gram/dL Albumin Level 4.5 Gram/dL Globulin 3.2 Gram/dL A/G Ratio 1.4 Bilirubin Total 0.4 mg/dL Alk Phos 91 Units/Liter AST 16 Units/Liter ALT 22 Units/Liter Lipase Level 174 Units/Liter Lactic Acid Level 0.8 mmol/L WBC 6.3 K/uL RBC 4.59 Million/uL Hgb 14.4 g/dL Hct 41.4 % MCV 90.2 fL MCH 31.4 pg MCHC 34.8 Gram/dL Platelet Count 200 K/uL MPV 10.1 fL RDW 11.9 % Neut % 54.6 % Neut # 3.45 K/uL Lymph % 35.9 % Lymph # 2.27 x10(3)/uL [place] % 6.5 % [place] # 0.41 K/uL Eos % 1.4 % Eos # 0.09 x10(3)/uL Baso % 0.8 % Baso # 0.05 x10(3)/uL Slide Review No IG# 0.05 x10(3)/uL IG% 0.80 % HI 12/16/2018 22:27 EDT Urine Type. U CleanCatch Urine Color Yellow Urine Appearance Clear Urine Specific [place] 1.008 Urine pH Dipstick 6.5 Urine Leukocyte Esterase Negative Urine Nitrite Negative Urine Protein Dipstick Negative Urine Glucose Dipstick Negative Urine Ketones Dipstick Negative Urine Urobilinogen Dipstick 0.2 EU/dL Urine Bilirubin Dipstick Negative Urine Blood Dipstick Negative . Radiology results: Preliminary Report NAME: GUNNAR GREENBERG Jillian / SEX: 1985 / Male MRN / ACC#: [id number] / [id number] ORDERING PHYSICIAN: Quiana Fernandez EXAM REQUESTED: [id number]--[id number] ABDOMEN & PELVIS W/CONTRAST FACILITY: [facility] DATE: 12/16/2018 RADIOLOGIST NAME: Oswald Shetty CLINICAL HISTORY: intermittent abd pain x 4 years, manuel in July, duct reopened mid november due to scar tissue. pain worse since then. pain @ LLQ abdomen with N/V FINDINGS: No acute enteric, hepatobiliary, pancreatic, splenic, renal or adrenal abnormalities are appreciated. The gallbladder is surgically absent. There is no evidence of appendicitis. There is no free air or significant localized fluid collection. IMPRESSION: 1) No apparent acute abnormality. Signed by Oswald Shetty on 12/17/2018 12:15:26 AM, Eastern Time This is a preliminary report. This report is not an official interpretation. This report may contain limited or incomplete information and it is subject to review and change by the interpreting physician. A final report with the official interpretation of the imaging examination or procedure ordered will be communicated at a later time. The final report may contain additional or different information, findings, and conclusions than this preliminary report. . Impression and Plan Diagnosis Abdominal pain - Discharge, Emergency medicine, Medical Nausea - Discharge, Emergency medicine, Medical Plan Condition: Improved, Stable. Disposition: Discharged Admit/Transfer/Discharge: Discharge (Order): Start: 12/17/2018 0:49 EDT, Discharge to: Home. Prescriptions: Prescription [facility]: Pepcid 20 mg oral tablet (Prescribe): 1 Tab, Oral, Daily, 30 Tab, 0 Refill(s) Zofran ODT 8 mg oral tablet, disintegrating (Prescribe): 1 Tab, Oral, QID, 12 Tab, 0 Refill(s). Patient was given the following educational materials: Abdominal Pain, Adult, Nausea, Adult. Follow up with: KYLEE GAONA Within 2 to 3 days Call for follow up appointment with your doctor. Use the medications as prescribed. Return to the ER with any acute worsening symptoms. It is important to follow up with your surgeon.. Counseled: Patient, Family, Regarding diagnosis, Regarding diagnostic results, Regarding treatment plan, Regarding prescription, Patient indicated understanding of instructions. documented in this encounter Plan of Treatment Not on file documented as of this encounter Visit Diagnoses Not on filedocumented in this encounter
--- OUTSIDE RECORDS SUMMARY | 2025-04-04 11:11 | XMS_ITS | Encounter Summary ---
Author Organization [employer] ([place], [place], [place], [place]) Address [address] [place] [address] Care Team Providers Care Mortgage Protection Sales Name Role Phone Unavailable Primary Care Provider Unavailabl e Encounter Details Date Type Department Care Team (Late st Contact Info) Description 12/17/2018 Transcribed Document [facility] [place] [facility] [address] ProviderTara MD [address] [place], [place] [address] Social History Tobacco Use Types Packs/Day Years Used Date Smoking Tobacco: Never Assessed Sex and Gender Information Value Date Recorded Sex Assigned at Not on file Legal Sex Male 5:36 PM CDT Gender Identity Not on file Sexual Orientation Not on file documented as of this encounter Miscellaneous Notes * Cerner Conversion Note - Historical ProviderMD - 12/17/2018 12:49 AM CDT Electronically signed by [facility] Conversion Commercial Real Estate Broker Cerner at 11/03/2022 6:58 AM CDT documented in this encounter Plan of Treatment Not on file documented as of this encounter Visit Diagnoses Not on filedocumented in this encounter
== END 2025-04-03 23:59 ==
LOC: LAB.DROPOF 04-04 11:09
PROVIDERS: PCP Family Medicine; Visit Provider Family Medicine
DX: E55.9 Vitamin D deficiency, unspecified (principal); R25.2 Cramp and spasm; F41.9 Anxiety disorder, unspecified
CPT/HCPCS: 80053; 82306; 82607; 85025

== ENCOUNTER 2025-05-13 13:10 | Outpatient (CLI) | payer OTHER, SELFPAY ==
--- OUTSIDE RECORDS SUMMARY | 2025-04-10 11:00 | XMS_ITS | Encounter Summary ---
Author Organization [facility] Address [address] [place] [address] Care Team Providers Care Copying Machine Mechanic Name Role Phone Willian Manjarrez MD Primary Care Provider [phone] Reason for Referral * Consultation (Routine) - Authorized Specialty Diagnoses / Procedures Referred By Contac t Referred To Contact Diagnoses Gastroesophageal reflux disease without esophagitis Yoselin Cunningham APRN [address] [address] Phone: tel: fax: Referral ID Status Reason Start Date Expiration Date V isits Requested Visits Authorized [id number] Authorized 04/10/2025 10/10/2026 1 1 * Medications - Denied Specialty Diagnoses / Procedures Referred By Contac t Referred To Contact Diagnoses Gastroesophageal reflux disease without esophagitis Yoselin Cunningham APRN [address] [address] Phone: tel: fax: Referral ID Status Reason Start Date Expiration Date Visits Re quested Visits Authorized [id number] Denied 1 1 Reason for Visit * Reason Comments Gastroesophageal reflux disease without esophagitis * Consultation (Routine) - Closed Specialty Diagnoses / Procedures Referred By Contac t Referred To Contact Diagnoses Gastroesophageal reflux disease without esophagitis Yoselin Cunningham APRN [address] [place] [address] Phone: tel: fax: Referral ID Status Reason Start Date Expiration Date Visits Re quested Visits Authorized [id number] Closed 10/03/2024 04/04/2026 1 1 Encounter Details Date Type Department Care Team (Latest Contact Info) Description 04/10/2025 11:00 AM EDT Office Visit MD [facility] Medicine Special[facility] [address] [place] [id number] Yoselin Cunningham, CRAYON PAINTER [address] [facility] [address] [place] [address] Gastroesophageal reflux disease without esophagitis (Primary Dx); Irritable bowel syndrome, unspecified type Social History Tobacco Use Types Packs/Day Years Used Date Smoking Tobacco: Former Cigarettes 1.5 17.3 0 07/18/1999 - 10/29/2016 Passive Smoke Exposure: Past Smokeless Tobacco: Former Alcohol Use Standard Drinks/Week Comments Not Currently 0 (1 standard drink = 0.6 oz pure alcohol) Alcoholic Drinks/day: History of alcohol use PHQ-2 Answer Date Recorded Patient Health Questionnaire-2 Score 0 04/10/2025 PHQ-9 Answer Date Recorded Patient Health Questionnaire-9 Score 1 04/10/2025 PHQ-2A Answer Date Recorded Patient Health Questionnaire-2 Score 1 05/18/2023 Sex and Gender Information Value Date Recorded Sex Assigned at Not on file Legal Sex Male 6:28 PM EDT Gender Identity Not on file Sexual Orientation Not on file documented as of this encounter Last Filed Vital Signs Vital Sign Reading Time Taken Comments Blood Pressure 123/87 04/10/2025 11:16 AM EDT Pulse 79 04/10/2025 11:16 AM EDT Temperature 36.7 C (98.1 F) 04/10/2025 11:16 AM EDT Respiratory Rate 18 04/10/2025 11:1 6 AM EDT Oxygen Saturation 96% 04/10/2025 11: 16 AM EDT Inhaled Oxygen Concentration - - Weight 95.6 kg (210 lb 12.2 oz) 025 11:16 AM EDT Height 182.9 cm (6') 04/10/2025 11:16 AM EDT Body Mass Index 28.58 04/10/2025 11:16 AM EDT documented in this encounter Functional Status * Over the past 2 weeks, how often have you been bothered by any of the following problems? Question Answer Date of Assessment Author Little interest or pleasure in doing things Not at all 04/10/2025 11:18 AM EDT Amanda Ortiz Feeling down, depressed, or hopeless Not at all 04/10/2025 11:18 AM EDT Amanda Ortiz Patient Health Questionnaire -2 Score 0 04/10/2025 11:18 AM EDT Amanda Ortiz * Question Answer Date of Assessment Author Trouble falling or staying asleep, or sleeping too much Several days 04/10/2025 11:18 AM EDT Lamont Ortiz Feeling tired or having fadi le energy Not at all 04/10/2025 11:18 AM EDT Amanda Ortiz Poor appetite or overeating Not at all 04/10/2025 11 :18 AM EDT Lamont Ortiz Feeling bad about yourself - or that you are a failure or have let yourself or your family down Not at all 04/10/2025 11:18 AM EDT Amanda Ortiz Trouble concentrating on things, such as reading the newspaper or watching television Not at all 04/10/2025 11:18 AM EDT Amanda Ortiz Moving or speaking so slowly that other people could have noticed? Or the opposite - being so fidgety or restless that you have been moving around a lot more than usual. Not at all 04/10/2025 11:18 AM EDT Lamont Edgar Thoughts that you would be better off or hurting yourself in some way Not at all 04/10/2025 11:18 AM EDT Chang Ortiz Patient Health Questionnaire -9 Score 1 04/10/2025 11:18 AM EDT Amanda Ortiz * How difficult have these problems made it for you to do your work, take care of things at home, or get along with other people? Answer Date of Assessment Author Not difficult at all 04/10/2025 11:18 AM EDT Lamont Gómez documented as of this encounter Miscellaneous Notes * Assessment & Plan Note - Yoselin Cunningham APRN - 04/10/2025 11:00 AM EDT Associated Problem(s): Gastroesophageal reflux disease without esophagitis - Repeat EGD reviewed. - Previous Taylor study showed increased acid exposure with significant symptom correlation, consistent with pathologic reflux. - Has taken Lansoprazole, pantoprazole, omeprazole, and esomeprazole without good control of symptoms. Dexlansoprazole not covered by insurance. - Previously met with general surgery but has decided he does not want anti- reflux surgery. - Continue Voquenza 10 mg once daily. Orders: Vonoprazan Fumarate (Voquezna) 10 MG tablet; Take 1 tablet by mouth daily. Follow Up GI; Future * Assessment & Plan Note - Yoselin Cunningham APRN - 04/10/2025 11:00 AM EDT Associated Problem(s): IBS (irritable bowel syndrome) - Chronic, intermittent symptoms associated with an increase in stress. - Previously took Amitriptyline, Dicyclomine, fiber, Imodium, Hyoscyamine. Xifaxan, Cyproheptadine. - Does not find symptoms to be bothersome at this time. Follow up in 6 months. * Progress Notes - Yoselin Cunningham APRN - 04/10/2025 11:00 AM EDT Subjective Patient ID: Antoine Greenberg is a 39 y.o. male. Chief Complaint Patient presents with Gastroesophageal reflux disease without esophagitis HPI The following portions of the chart were reviewed this encounter and updated as appropriate: Mr. Greenberg is a pleasant 38 year old male who presents to clinic for follow up of reflux andIBS. Reports he is doing well. Continues to take vonoprazan 10 mg once daily. Reports reflux is well controlled with this regimen without breakthrough symptoms. Has taken Omeprazole, Pantoprazole, esomeprazole, famotidine in the past without good control of symptoms. Did notice improvement with use of dexlansoprazole but this was not covered by his insurance. No dysphagia or odynophagia. Has not found IBS to be overly bothersome. Will sometimes go a few months without symptoms. When symptoms occur he will have 2-3 days of diarrhea but does not find this to be bothersome. Acknowledgesthat his symptoms seem associated with stress. Has previously taken hyoscyamine, dicyclomine, amitriptyline, imodium, and fiber. Denies fever, chills, lymphadenopathy, abdominal mass, cigarette, alcohol and NSAID use. - EGD completed 03/13/2024 showed Normal upper third of esophagus, middle third of esophagus and lower third of esophagus. Biopsied. Normal stomach. Biopsied. Normal duodenal bulb and second portion of the duodenum. Biopsied. Duodenal biopsies showed no pathologic abnormality. Stomach biopsies showed reactive gastropathy and esophageal biopsies were unremarkable. - MRI which showed a benign subcentimeter hepatic hemangioma and few punctate cysts and was otherwise unremarkable. - EGD completed 12/03/15 showed chronic gastritis but was otherwise unremarkable Gastric biopsies showed moderate chronic gastritis - Colonoscopy completed 12/03/15 showed external and internal hemorrhoids and was otherwise unremarkable Random colonic biopsies showed mild mucosal edema and congestion without significant pathologicabnormalities - RUQ US completed 12/05/15 showed mild fatty infiltrate of the liver and was otherwise unremarkable - HIDA scan completed 12/05/15 showed and EF of 61% - Esophageal manometry completed 01/31/18 was within normal limits. 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 Taylor study showed aDeMeester score of 54.7 with increased acid exposure on both days of the study and significant symptom correlation. - MRI which showed a benign subcentimeter hepatic hemangioma and few punctate cysts and was otherwise unremarkable. Review of Systems Gastrointestinal: Positive for diarrhea. All other systems reviewed and are negative. Objective Physical Exam Vitals reviewed. Constitutional: Appearance: Normal appearance. HENT: Head: Normocephalic. Skin: General: Skin is warm and dry. Neurological: Mental Status: He is alert. Psychiatric: Mood and Affect: Mood normal. Behavior: Behavior normal. Thought Content: Thought content normal. Judgment: Judgment normal. Assessment/Plan Assessment & Plan Gastroesophageal reflux disease without esophagitis - Repeat EGD reviewed. - Previous Taylor study showed increased acid exposure with significant symptom correlation, consistent with pathologic reflux. - Has taken Lansoprazole, pantoprazole, omeprazole, and esomeprazole without good control of symptoms. Dexlansoprazole not covered by insurance. - Previously met with general surgery but has decided he does not want anti- reflux surgery. - Continue Voquenza 10 mg once daily. Orders: Vonoprazan Fumarate (Voquezna) 10 MG tablet; Take 1 tablet by mouth daily. Follow Up GI; Future Irritable bowel syndrome, unspecified type - Chronic, intermittent symptoms associated with an increase in stress. - Previously took Amitriptyline, Dicyclomine, fiber, Imodium, Hyoscyamine. Xifaxan, Cyproheptadine. - Does not find symptoms to be bothersome at this time. Follow up in 6 months. documented in this encounter Plan of Treatment Upcoming Encounters Date Type Department Care Team (Late st Contact Info) Description 10/09/2025 11:00 AM EDT Office Visit MD Clinic Medicine Special[facility] [address] [place] [address] Yoselin Cunningham APRN [address] [place] [address] Scheduled Referrals Name Type Priority Associated Diagnoses Orde r Schedule Follow Up GI Outpatient Referral Routine Gastroesophageal reflux disease without esophagitis 1 Occurrences starting 04/10/2025 until 05/10/2026 documented as of this encounter Visit Diagnoses Diagnosis Gastroesophageal reflux disease without esophagitis- Primary Esophageal reflux Irritable bowel syndrome, unspecified type documented in this encounter Additional Health Concerns Assessment Noted Time PHQ-9 Depression Total Score: 1 04/10/20 25 11:18 AM EDT A fall risk assessment has been complete d for the patient 04/10/2025 11:18 AM EDT A Body Mass Index follow-up plan has been documented for the patient 04/10/2025 1:01 PM EDT documented as of this encounter Care Teams Copying Machine Mechanic Relationship Specialty Start Date End Date Willian Manjarrez MD [address] [place] [address] PCP - General 04/13/21 documented as of this encounter
--- OUTSIDE RECORDS SUMMARY | 2025-05-14 11:32 | XMS_ITS | Encounter Summary ---
Author Organization [employer] ([place], [place], [place], [place]) Address [address] [place] [address] Care Team Providers Care Kitchen Steward Name Role Phone Unavailable Primary Care Provider Unavailabl e Encounter Details Date Type Department Care Team (Late st Contact Info) Description 08/15/2018 Transcribed Document [facility] [place] [facility] [place] [address] ProviderTara MD [address] [place] [address] Social History Tobacco Use Types Packs/Day Years Used Date Smoking Tobacco: Never Assessed Sex and Gender Information Value Date Recorded Sex Assigned at Not on file Legal Sex Male 5:36 PM CDT Gender Identity Not on file Sexual Orientation Not on file documented as of this encounter Miscellaneous Notes * Cerner Conversion Note - Tara ProviderMD - 08/15/2018 2:26 AM STUCCO LABORER [address] [place] [address] Patient Information Name: GUNNAR GREENBERG [...] Follow these instructions at home: ??? Take cfkc-wck-sbqofch and prescription medicines only as told by [...] 04/13/2006 Document Revised: 01/21/2017 Document Reviewed: 12/15/2016 [employer] Interactive Patient Education ? 2017 [employer] Inc. Allergies: No Known Allergies Medication Information: [...] range between ( 0.0 and 7.0 ) Morton #: 0.46 K/uL -- Normal range between ( 0.16 and 1.00 ) Eos #: 0.14 x10(3)/uL -- Normal range between ( 0.00 and 0.80 ) Morton %: 7.8 % -- Normal range between [...] ) Urine Bilirubin Dipstick: Negative Urine Specific Merrill: 1.004 -- Normal range between ( 1.005 [...] verify that GUNNAR GREENBERG was seen at [facility] on ,08/15/2018 02:26:22. This is [...] along the way. As a healthcare provider, [facility] recommends that you stop smoking. Assistance with quitting is available by contacting 2-450-BDKW-NOW. This is a free resource providing counseling, [...] and accompanying documents are covered by Electronic [place] Privacy Act 18 U.S.C. ???Sections 2686-2288,?? and contain information intended for the specified [...] sure to sign up for the [facility] patient portal, which gives you 07/02 access to your medical information ??? including these discharge instructions ??? using your computer, smartphone, or tablet. Just go to [employer] to get started. Questions? Call . Acknowledgment [...]
--- OUTSIDE RECORDS SUMMARY | 2025-05-14 11:32 | XMS_ITS | Encounter Summary ---
Author Organization [employer] ([place], [place], [place], [place]) Address [address] [place] [address] Care Team Providers Care Mixed Animal Veterinarian Name Role Phone Unavailable Primary Care Provider Unavailabl e Encounter Details Date Type Department Care Team (Late st Contact Info) Description 08/08/2018 Transcribed Document [facility] [place] Medicine [facility] [place] [address] ProviderTara MD [address] [place] [address] Social History Tobacco Use Types Packs/Day Years Used Date Smoking Tobacco: Never Assessed Sex and Gender Information Value Date Recorded Sex Assigned at Not on file Legal Sex Male 5:36 PM CDT Gender Identity Not on file Sexual Orientation Not on file documented as of this encounter Miscellaneous Notes * Cerner Conversion Note - Tara ProviderMD - 08/08/2018 10:30 [place] [address] Patient Copy Patient Information: Name: GUNNAR GREENBERG Current Date: 08/08/2018 10:30:47 : 1985 Patient Address: [place] [address] Patient Attending Physician: PRASANNA BAHENA MD-SUR Primary Care Provider: KYLEE GAONA DR Primary Care Provider Discharge Diagnosis: Weight on Admission: 142 lb, 0 oz Comment: Follow-up Instructions: With: Address: When: PRASANNA BAHENA MD-SUR [address] [place] [address] Within 1 week Discharge Instructions: Diet after [...] activities are safe for you. ??? Take gfzo-xns-cwzfxfl and prescription medicines only as told by [...] 10/10/2001 Document Revised: 12/06/2016 Document Reviewed: 06/17/2016 [employer] Interactive Patient Education ? 2017 [employer]. Laparoscopic Cholecystectomy, Care After This sheet [...] and water are not available, use hand rug measurer. ? Change your dressing as told by [...] care provider approves. General instructions ??? Take iupj-rio-jryxbmi and prescription medicines only as told by your health care provider. ??? To prevent or treat constipation while you are taking prescription pain medicine, your health care provider may recommend that you: ? Drink enough fluid to keep your urine clear or pale yellow. ? Take rhml-cya-jqqsepy or prescription medicines. ? Eat foods that [...] 07/04/2006 Document Revised: 01/22/2017 Document Reviewed: 12/20/2016 [employer] Interactive Patient Education ?? 2017 [employer]. Medication Leaflets: oxycodone (ox i KOE [...] The extended-release form of oxycodone is for tvueqi-ymj-yadcu treatment of pain and should not be [...] against the law. Stop taking all other zecqoz-hks-spxbr narcotic pain medicines when you start taking [...] may report side effects to FDA at 9-337-ZAT-4570. What other drugs will affect oxycodone? You [...] may affect oxycodone. This includes prescription and yewj-nmm-rnevaxb medicines, vitamins, and herbal products. Not all [...] to ensure that the information provided by NCR. ('Multum') is accurate, up-to-date, and complete, but no guarantee is made to that effect. Drug information contained herein may be time sensitive. Biopharmacopae information has been compiled for use by healthcare practitioners and consumers in the [place] and therefore Biopharmacopae does not warrant that uses outside of the [place] are appropriate, unless specifically indicated otherwise. Unsilos drug information does not endorse drugs, diagnose patients or recommend therapy. Unsilos drug information is an informational resource designed [...] effective or appropriate for any given patient. Bi[employer]ae does not assume any responsibility for any aspect of healthcare administered with the aid of information Biopharmacopae provides. The information contained herein is not intended to cover all possible uses, directions, precautions, warnings, drug interactions, allergic reactions, or adverse effects. If you have questions about the drugs you are taking, check with your doctor, nurse or pharmacist. Copyright 7613-3452 NCR. Version: 13.. Revision Date: 04/28/2018. ondansetron (oral) [...] may report side effects to FDA at 2-677-AWD-5955. What other drugs will affect ondansetron? Ondansetron [...] interact with ondansetron. This includes prescription and flaf-oxf-oyxnrhx medicines, vitamins, and herbal products. Give a [...] to ensure that the information provided by NCR. ('Multum') is accurate, up-to-date, and complete, but no guarantee is made to that effect. Drug information contained herein may be time sensitive. Biopharmacopae information has been compiled for use by healthcare practitioners and consumers in the [place] and therefore Biopharmacopae does not warrant that uses outside of the [place] are appropriate, unless specifically indicated otherwise. Biopharmacopae's drug information does not endorse drugs, diagnose patients or recommend therapy. Unsilos drug information is an informational resource designed [...] effective or appropriate for any given patient. [employer] does not assume any responsibility for any aspect of healthcare administered with the aid of information Biopharmacopae provides. The information contained herein is not intended to cover all possible uses, directions, precautions, warnings, drug interactions, allergic reactions, or adverse effects. If you have questions about the drugs you are taking, check with your doctor, nurse or pharmacist. Copyright 6690-7535 NCR. Version: 13.01. Revision Date: 05/07/2016. CIGARETTE SMOKING: The facts are clear, cigarette smoking will shorten your life. Smoking can cause many illnesses along the way. As a healthcare provider, we recommend that you stop smoking. Assistance with quitting is available by contacting 7-883-LVDZ-NOW. This is a free resource providing counseling, [...] Be sure to sign up for the [employer] patient portal, which gives you 07/02 access to your medical information ??? including these discharge instructions ??? using your computer, smartphone, or tablet. Just go to [employer] to get started. Questions? Call . [facility] would like to thank you for allowing us to assist you with your healthcare needs. ROBERT Salazar CODY LAYNE, (or enrollment representative) have received the above patient education materials/instructions and have verbalized understanding: Patient Signature _ Date/Time Patient Ambulance Assistant Signature (if needed) Date/Time Clinician/Hospital Ambulance Assistant Signature (if needed) Date/Time documented in this encounter Plan of Treatment Not on file documented as of this encounter Visit Diagnoses Not on filedocumented in this encounter
--- OUTSIDE RECORDS SUMMARY | 2025-05-14 11:32 | XMS_ITS | Encounter Summary ---
Author Organization [employer] ([place], [place], [place], [place]) Address [address] [place] [address] Care Team Providers Care Offshoring Manager Name Role Phone Unavailable Primary Care Provider Unavailabl e Encounter Details Date Type Department Care Team (Late st Contact Info) Description 08/15/2018 Transcribed Document [facility] [place] [facility] [place] [address] ProviderTara MD [address] [place], [place] [address] Social History Tobacco Use Types Packs/Day Years Used Date Smoking Tobacco: Never Assessed Sex and Gender Information Value Date Recorded Sex Assigned at Not on file Legal Sex Male 5:36 PM CDT Gender Identity Not on file Sexual Orientation Not on file documented as of this encounter Miscellaneous Notes * Cerner Conversion Note - Historical ProviderMD - 08/15/2018 2:26 AM DEALER ACCOUNTS INVESTIGATOR Electronically signed by [facility], [facility] Conversion News Clipping Cutter Cerner at 11/03/2022 6:58 AM CDT documented in this encounter Plan of Treatment Not on file documented as of this encounter Visit Diagnoses Not on filedocumented in this encounter
--- OUTSIDE RECORDS SUMMARY | 2025-05-14 11:32 | XMS_ITS | Encounter Summary ---
Author Organization [facility] Address [address] [id number] Care Team Providers Care Network Administrator Name Role Phone Willian Manjarrez MD Primary Care Provider [phone] Reason for Visit * Reason Onset Date Comments Med Refill [facility] Patient Medication Refill Request 07/11/2022 PA for Lansoprazole Encounter Details Date Type Department Care Team (Late st Contact Info) Description 07/11/2022 [facility]ill [facility] [address] [place] [address] Yoselin Cunningham, FORK TRUCK DRIVER [address] [place] [address] Social History Tobacco Use Types [...] AM EST Sent PA for Lansoprazole to [facility] * Telephone Encounter - Armen Infante - 07/13/2022 8:51 AM EST Per protocol, 1 medication(s), lansoprazole, has been approved for 30 day supply with 3 refill(s) to [facility]. documented in this encounter Plan of Treatment Upcoming Encounters Date Type Department Care Team (Late st Contact Info) Description 10/09/2025 11:00 AM EDT Office Visit [facility] [address] [place] [address] Yoselin Cunningham, FORK TRUCK DRIVER [address] [place] [address] documented as of this encounter Visit Diagnoses Not on filedocumented in this encounter Additional Health Concerns Infection Onset Date Last Indicated Resolved Time Influenza 05/23/2024 05/23/2024 06/20/2024 5:23 AM EST Assessment Noted Time A fall risk assessment has been complete d for the patient 05/26/2022 7:15 AM EST documented as of this encounter Care Teams Network Administrator Relationship Specialty Start Date End Date Willian Manjarrez MD [address] [place] [address] PCP - General 04/13/21 documented as of this encounter
--- OUTSIDE RECORDS SUMMARY | 2025-05-14 11:32 | XMS_ITS | Encounter Summary ---
Author Organization [employer] ([place], [place], [place], [place]) Address [address] [place] [address] Care Team Providers Care Plant Technical Specialist Name Role Phone Unavailable Primary Care Provider Unavailabl e Encounter Details Date Type Department Care Team (Late st Contact Info) Description 08/08/2018 Transcribed Document [facility] [place] [facility] [place] [address] ProviderTara MD [address] [place] [id number] Social History Tobacco Use Types Packs/Day Years Used Date Smoking Tobacco: Never Assessed Sex and Gender Information Value Date Recorded Sex Assigned at Not on file Legal Sex Male 5:36 PM CDT Gender Identity Not on file Sexual Orientation Not on file documented as of this encounter Miscellaneous Notes * Cerner Conversion Note - Tara ProviderMD - 08/08/2018 7:30 AM CARTON MARKER MACHINE Patient: GUNNAR GREENBERG Age: 32 years Sex: [...] Problems Pneumothorax, spontaneous,left 2018 / SNOMED CT 731223009 / Confirmed Nonfunctioning gallbladder / SNOMED CT 190021899 / Confirmed IBS (irritable bowel syndrome) / SNOMED CT 97357084 / Confirmed Hemorrhoid / SNOMED CT 787320281 / Confirmed GERD (gastroesophageal reflux disease) / SNOMED CT 029730295 / Confirmed Gastritis / SNOMED CT 4763740 / Confirmed h/o Drug abuse 2010/ etoh use quit 2013 / SNOMED CT 07997034 / Confirmed Chronic sinusitis / SNOMED CT 35023818 / Confirmed Slow heart rate / SNOMED CT 41737029 / Confirmed Anxiety / SNOMED CT 68645633 / Confirmed Abdominal pain / SNOMED CT 34739832 / Confirmed, Active Problems (11) Abdominal pain [...] EST Height Source Measured Height Entry Format [place] Height/Length, CYPRIOT (ft) 5 ft Height/Length CYPRIOT 11 Inch CLINICALHEIGHT 180.34 cm [place] Body Weight 74 kg Weight Source Standing scale Weight Entry Format [place] Weight [place] lb 142 lb CLINICALWEIGHT 64.55 kg Body [...] of motion, Normal strength. Integumentary: Warm, Dry, [place]. Neurologic: Alert, Oriented. Psychiatric: Cooperative, Appropriate mood & affect. Review / Management Results review: No qualifying data available. Impression and Plan Condition: Stable. documented in this encounter Plan of Treatment Not on file documented as of this encounter Visit Diagnoses Not on filedocumented in this encounter
--- OUTSIDE RECORDS SUMMARY | 2025-05-14 11:32 | XMS_ITS | Encounter Summary ---
Author Organization [employer] ([place], [place], [place], [place]) Address [address] [place] [address] Care Team Providers Care Door Slinger Name Role Phone Unavailable Primary Care Provider Unavailabl e Encounter Details Date Type Department Care Team (Late st Contact Info) Description 08/08/2018 Transcribed Document [facility] [place] [facility] [place] [address] ProviderTara MD [address] [place], [place] [id number] Social History Tobacco Use Types Packs/Day Years Used Date Smoking Tobacco: Never Assessed Sex and Gender Information Value Date Recorded Sex Assigned at Not on file Legal Sex Male 5:36 PM CDT Gender Identity Not on file Sexual Orientation Not on file documented as of this encounter Miscellaneous Notes * Cerner Conversion Note - Tara ProviderMD - 08/08/2018 10:30 AM MOLD UNLOADER Discharge Instructions Entered On: 08/08/2018 10:30 EST [...] 08/08/2018 10:30 EST Electronically signed by Magdiel [facility] Conversion Cut Off Saw Tender Metal Cerner at 11/03/2022 7:00 AM CDT documented in this encounter Plan of Treatment Not on file documented as of this encounter Visit Diagnoses Not on filedocumented in this encounter
--- OUTSIDE RECORDS SUMMARY | 2025-05-14 11:32 | XMS_ITS | Encounter Summary ---
Author Organization [employer] ([place], [place], [place]) Address [address] [place] [address] Care Team Providers Care Bunch Maker Name Role Phone Unavailable Primary Care Provider Unavailabl e Encounter Details Date Type Department Care Team (Late st Contact Info) Description 08/08/2018 Transcribed Document [facility] [place] [facility] [place] [address] ProviderTara MD [address] [place], [place] [id number] Social History Tobacco Use Types Packs/Day Years Used Date Smoking Tobacco: Never Assessed Sex and Gender Information Value Date Recorded Sex Assigned at Not on file Legal Sex Male 5:36 PM CDT Gender Identity Not on file Sexual Orientation Not on file documented as of this encounter Miscellaneous Notes * Cerner Conversion Note - Historical ProviderMD - 08/08/2018 10:29 AM CITY MAIL CARRIER Nursing Discharge Summary Entered On: 08/08/2018 10:30 [...] Evaluation : Returns demonstration, Verbalizes understanding Latasha Amin, RADHA - 08/08/2018 10:29 EST Electronically signed by Magdiel [facility] Conversion Digital Marketing Officer Cerner at 11/03/2022 7:20 AM CDT documented in this encounter Plan of Treatment Not on file documented as of this encounter Visit Diagnoses Not on filedocumented in this encounter
--- OUTSIDE RECORDS SUMMARY | 2025-05-14 11:32 | XMS_ITS | Encounter Summary ---
Author Organization [employer] ([place], [place], [place], [place]) Address [address] [place] [address] Care Team Providers Care Real Estate Office Manager Name Role Phone Unavailable Primary Care Provider Unavailabl e Encounter Details Date Type Department Care Team (Late st Contact Info) Description 08/08/2018 Transcribed Document [facility] [place] [facility] [place] [address] ProviderTara MD [address] [place] [phone] Social History Tobacco Use Types Packs/Day Years Used Date Smoking Tobacco: Never Assessed Sex and Gender Information Value Date Recorded Sex Assigned at Not on file Legal Sex Male 5:36 PM CDT Gender Identity Not on file Sexual Orientation Not on file documented as of this encounter Miscellaneous Notes * Cerner Conversion Note - Tara ProviderMD - 08/08/2018 8:30 AM SIZE WORKER [facility] Main OR Preop Summary Primary Physician: PRASANNA BAHENA MD-SUR Finalized Date/Time: 08/08/18 07:46:02 Pt. Name: MARITZA GREENBERGMat JOSHI /Sex: 1985 Male Med Rec #: [id number] Physician: PRASANNA BAHENA MD-SUR Financial #: [id number] Pt. Type: O Room/Bed: /7 Admit/Disch: 08/08/18 06:26:00 - Institution: [facility] PreOp Case Times Entry 1 In Preop 08/08/18 06:34:00 Ready for Holding n/a Room Patient Ready for 08/08/18 07:32:00 Surgery Patient Out of Preop 08/08/18 07:41:00 Patient Out of n/a Holding Room Last Modified By: EDILIA PATEL 08/08/18 07:45:59 [facility] PreOp Case Times Audit 08/08/18 07:45:59 Drapery Rod Assembler: GLENN Modifier: [email or web address] <+> 1 Patient Out of Preop 08/08/18 07:32:19 Drapery Rod Assembler: GLENN Modifier: [email or web address] <+> 1 Patient Ready for Surgery Finalized By: EDILIA PATEL Document Signatures Signed By: EDILIA PATEL 08/08/18 07:46 Electronically signed by Magdiel [facility] Conversion Cigarette Roller Cerner at 11/03/2022 7:22 AM CDT documented in this encounter Plan of Treatment Not on file documented as of this encounter Visit Diagnoses Not on filedocumented in this encounter
--- OUTSIDE RECORDS SUMMARY | 2025-05-14 11:32 | XMS_ITS | Encounter Summary ---
Author Organization [employer] ([place], [place], [place], [place]) Address [address] [place] [address] Care Team Providers Care Ginner Name Role Phone Unavailable Primary Care Provider Unavailabl e Encounter Details Date Type Department Care Team (Late st Contact Info) Description 08/15/2018 Transcribed Document [facility] Family Medicine [address] [place] [address] ProviderTara MD [address] [place] [id number] Social History Tobacco Use Types Packs/Day Years Used Date Smoking Tobacco: Never Assessed Sex and Gender Information Value Date Recorded Sex Assigned at Not on file Legal Sex Male 5:36 PM CDT Gender Identity Not on file Sexual Orientation Not on file documented as of this encounter Miscellaneous Notes * Cerner Conversion Note - Tara ProviderMD - 08/15/2018 12:55 AM SIDE GUIDER ED Assessment Entered On: 08/15/2018 1:13 EST [...] Communication Barrier : None Primary Language : Citizen Of [place] Additional Emergency Contact #1 : Elijah Greenberg Additional Contact #1 Phone Number : [phone] Additional Contact #1 Relationship : Father Additional [...] 08/15/2018 1:10 EST Electronically signed by Magdiel [facility] Conversion Carpenters Helper Cerner at 11/03/2022 7:07 AM CDT documented in this encounter Plan of Treatment Not on file documented as of this encounter Visit Diagnoses Not on filedocumented in this encounter
--- OUTSIDE RECORDS SUMMARY | 2025-05-14 11:32 | XMS_ITS | Encounter Summary ---
Author Organization [employer] ([place], [place], [place], [place]) Address [address] [place] [address] Care Team Providers Care Bias Cutting Machine Operator Vertical Name Role Phone Unavailable Primary Care Provider Unavailabl e Encounter Details Date Type Department Care Team (Late st Contact Info) Description 08/08/2018 Transcribed Document [facility] [place] Medicine [facility] [place] [address] ProviderTara MD [address] [place] [phone] Social History Tobacco Use Types Packs/Day Years Used Date Smoking Tobacco: Never Assessed Sex and Gender Information Value Date Recorded Sex Assigned at Not on file Legal Sex Male 5:36 PM CDT Gender Identity Not on file Sexual Orientation Not on file documented as of this encounter Miscellaneous Notes * Cerner Conversion Note - Tara Pavon MD - 08/08/2018 8:06 AM FUR WEIGHER [facility] Main OR PACU Summary Primary Physician: PRASANNA BAHENA MD-SUR Finalized Date/Time: 08/08/18 10:29:49 Pt. Name: MARITZA GREENBERGMat Waller/Sex: 1985 Male Med Rec #: [id number] Physician: PRASANNA BAHENA MD-SUR Financial #: [id number] Pt. Type: O Room/Bed: /7 Admit/Disch: 08/08/18 06:26:00 - Institution: [facility] Main OR PACU I Case Times Entry 1 In PACU I 08/08/18 08:52:00 Ready for PACU 08/08/18 10:00:00 Discharge Discharge from PACU 08/08/18 10:15:00 I Last Modified By: SONU JOE RN 08/08/18 10:29:32 [facility] Main OR PACU Acuity Entry 1 Start Time 08/08/18 10:00:00 Stop Time 08/08/18 10:15:00 Acuity Level [facility] PACU Acuity I Last Modified By: SONU JOE RN 08/08/18 10:29:48 Finalized By: SONU JOE RN Document Signatures Signed By: SONU JOE RN 08/08/18 10:29 Electronically signed by Magdiel [facility] Conversion Reference Investigator Cerner at 11/03/2022 7:12 AM CDT documented in this encounter Plan of Treatment Not on file documented as of this encounter Visit Diagnoses Not on filedocumented in this encounter
--- OUTSIDE RECORDS SUMMARY | 2025-05-14 11:32 | XMS_ITS | Encounter Summary ---
Author Organization [employer] ([place], [place], [place], [place]) Address [address] [place] [address] Care Team Providers Care Taker Out Name Role Phone Unavailable Primary Care Provider Unavailabl e Encounter Details Date Type Department Care Team (Late st Contact Info) Description 08/08/2018 Transcribed Document [facility] [place] Family Medicine [facility] [place] [address] ProviderTara MD [address] [place] [address] Social History Tobacco Use Types Packs/Day Years Used Date Smoking Tobacco: Never Assessed Sex and Gender Information Value Date Recorded Sex Assigned at Not on file Legal Sex Male 5:36 PM CDT Gender Identity Not on file Sexual Orientation Not on file documented as of this encounter Miscellaneous Notes * Cerner Conversion Note - Tara ProviderMD - 08/08/2018 10:41 AM STRETCHER DRIER OPERATOR [place] [address] Patient Copy Patient Information: Name: GUNNAR GREENBERG Current Date: 08/08/2018 10:41:26 : 1985 Patient Address: [place] [address] Patient Attending Physician: PRASANNA BAHENA MD-SUR Primary Care Provider: KYLEE GAONA DR Primary Care Provider Discharge Diagnosis: Weight on Admission: 142 lb, 0 oz Comment: Follow-up Instructions: With: Address: When: PRASANNA BAHENA MD-SUR [address] [place] [address] Within 1 week Comments: Call for follow [...] activities are safe for you. ??? Take ckpc-ztb-atmscno and prescription medicines only as told by [...] 10/10/2001 Document Revised: 12/06/2016 Document Reviewed: 06/17/2016 [employer] Interactive Patient Education ? 2017 [employer] Laparoscopic Cholecystectomy, Care After This sheet [...] and water are not available, use hand electrolytic de scaler. ? Change your dressing as told by [...] care provider approves. General instructions ??? Take iebr-aor-xugtgnj and prescription medicines only as told by your health care provider. ??? To prevent or treat constipation while you are taking prescription pain medicine, your health care provider may recommend that you: ? Drink enough fluid to keep your urine clear or pale yellow. ? Take vqhc-rga-aazixta or prescription medicines. ? Eat foods that [...] 07/04/2006 Document Revised: 01/22/2017 Document Reviewed: 12/20/2016 [employer] Interactive Patient Education ?? 2017 [employer]. Medication Leaflets: oxycodone (ox i KOE done) [...] The extended-release form of oxycodone is for erdrsa-omc-xplhn treatment of pain and should not be [...] against the law. Stop taking all other rvhkka-lcp-kqzqb narcotic pain medicines when you start taking [...] may report side effects to FDA at 1-797-RPW-2674. What other drugs will affect oxycodone? You [...] may affect oxycodone. This includes prescription and ambj-cta-tjguvue medicines, vitamins, and herbal products. Not all [...] to ensure that the information provided by [employer]. ('[employer]') is accurate, up-to-date, and complete, but no guarantee is made to that effect. Drug information contained herein may be time sensitive. [employer] information has been compiled for use by healthcare practitioners and consumers in the [place] and therefore [employer] does not warrant that uses outside of the [place] are appropriate, unless specifically indicated otherwise. [employer]'s drug information does not endorse drugs, diagnose patients or recommend therapy. [employer] drug information is an informational resource designed [...] effective or appropriate for any given patient. [facility] does not assume any responsibility for any aspect of healthcare administered with the aid of information [facility] provides. The information contained herein is not intended to cover all possible uses, directions, precautions, warnings, drug interactions, allergic reactions, or adverse effects. If you have questions about the drugs you are taking, check with your doctor, nurse or pharmacist. Copyright 8475-2356 [facility]. Version: 13.01. Revision Date: 04/28/2018. ondansetron (oral) [...] may report side effects to FDA at 5-761-NOI-4602. What other drugs will affect ondansetron? Ondansetron [...] interact with ondansetron. This includes prescription and fozp-ruw-vkwvfdn medicines, vitamins, and herbal products. Give a [...] to ensure that the information provided by [employer]. [employer]') is accurate, up-to-date, and complete, but no guarantee is made to that effect. Drug information contained herein may be time sensitive. [employer] information has been compiled for use by healthcare practitioners and consumers in the [place] and therefore [employer] does not warrant that uses outside of the [place] are appropriate, unless specifically indicated otherwise. [employer] drug information does not endorse drugs, diagnose patients or recommend therapy. [employer] drug information is an informational resource designed [...] effective or appropriate for any given patient. [employer] does not assume any responsibility for any aspect of healthcare administered with the aid of information [employer] provides. The information contained herein is not intended to cover all possible uses, directions, precautions, warnings, drug interactions, allergic reactions, or adverse effects. If you have questions about the drugs you are taking, check with your doctor, nurse or pharmacist. Copyright 2836-2427 [employer]. Version: 13.. Revision Date: 05/07/2016. CIGARETTE SMOKING: The facts are clear, cigarette smoking will shorten your life. Smoking can cause many illnesses along the way. As a healthcare provider, we recommend that you stop smoking. Assistance with quitting is available by contacting 3-204-NEML-NOW. This is a free resource providing counseling, [...] Be sure to sign up for the [employer] patient portal, which gives you 07/02 access to your medical information ??? including these discharge instructions ??? using your computer, smartphone, or tablet. Just go to [employer] to get started. Questions? Call . [facility] would like to thank you for allowing us to assist you with your healthcare needs. ROBERT Salazar CODY LAYNE, (or patient services representative) have received the above patient education materials/instructions and have verbalized understanding: Patient Signature _ Date/Time Patient Awake Overnight Monitor Signature (if needed) Date/Time Clinician/Hospital Awake Overnight Monitor Signature (if needed) Date/Time documented in this encounter Plan of Treatment Not on file documented as of this encounter Visit Diagnoses Not on filedocumented in this encounter
--- OUTSIDE RECORDS SUMMARY | 2025-05-14 11:32 | XMS_ITS | Encounter Summary ---
Author Organization [employer] ([place], [place], [place], [place]) Address [address] [place] [address] Care Team Providers Care Sheet Rock Installer Name Role Phone Unavailable Primary Care Provider Unavailabl e Encounter Details Date Type Department Care Team (Late st Contact Info) Description 08/08/2018 Transcribed Document [facility] [place] [facility] [place] [address] ProviderTara MD [address] [place], [place] [id number] Social History Tobacco Use Types Packs/Day Years Used Date Smoking Tobacco: Never Assessed Sex and Gender Information Value Date Recorded Sex Assigned at Not on file Legal Sex Male 5:36 PM CDT Gender Identity Not on file Sexual Orientation Not on file documented as of this encounter Miscellaneous Notes * Cerner Conversion Note - Tara ProviderMD - 08/08/2018 8:06 AM TAPING MACHINE OPERATOR [facility] Main OR IntraOp Summary Primary Physician: PRASANNA BAHENA MD-SUR Finalized Date/Time: 08/09/18 10:17:46 Pt. Name: ANTOINE GREENBERG ADI /Sex: 1985 Male Med Rec #: [id number] Physician: PRASANNA BAHENA MD-SUR Financial #: [id number] Pt. Type: O Room/Bed: /7 Admit/Disch: 08/08/18 06:26:00 - 08/08/18 10:54:00 Institution: [facility] IntraOp Case Attendance Entry 1 Entry 2 Entry 3 Case Attendee PRASANNA BAHENA MD-SUR GRAFF, WAYNE B, MD VON KUSTER, MARIE LYNNETTE, CRNA Role Performed Surgeon/Proceduralist, Anesthesiologist of CAFE OR RESTAURANT MANAGER/Nurse Plane Captain First Record Time In 08/08/18 07:45:00 08/08/18 [...] Bailey, AMARI CÁRDENAS MATTHEW, ST Role Performed Leather Staker, Patient Relations Representative, First Scrub, First Time In 08/08/18 07:45:00 08/08/18 07:45:00 08/08/18 07:45:00 Time Out 08/08/18 08:50:00 08/08/18 08:50:00 08/08/18 08:50:00 Procedure Cholecystectomy Cholecystectomy Cholecystectomy Laparoscopic Laparoscopic Laparoscopic Other Attendee Superficial Wound Closed By: Last Modified By: Olesya Bailey RN Hauer, Jessica, RN Hauer, Jessica, RN 08/08/18 08:51:43 08/08/18 08:51:43 08/08/18 08:51:43 Entry 7 Case Attendee Perla Mast REP - SSI Role Performed Medical Certification Specialist, Ancillary Time In 08/08/18 07:45:00 Time Out 08/08/18 08:50:00 Procedure Cholecystectomy Laparoscopic Other Attendee SSI Superficial Wound Closed By: Last Modified By: Olesya Bailey RN 08/08/18 08:51:43 [facility] IntraOp Case Attendance Audit 08/08/18 08:51:43 Playground Worker: [id number] Modifier: [id number] 1 <+> Time In 1 <+> Time [...] 7 <*> Procedure Cholecystectomy Laparoscopic 08/08/18 08:15:37 Playground Worker: [id number] Modifier: [id number] <+> 2 Case Attendee <+> 2 Role [...] <+> 7 Procedure <+> [address] [facility] IntraOp Case Times Entry 1 Patient In Room Time 08/08/18 07:45:00 Out Room Time 08/08/18 08:50:00 Anesthesia Start Time 08/08/18 07:45:00 Stop Time 08/08/18 08:50:00 Surgery / Procedure Times Start Time 08/08/18 08:06:00 Stop Time 08/08/18 08:41:00 Last Modified By: Olesya Bailey RN 08/08/18 08:51:26 [facility] IntraOp Case Times Audit 08/08/18 08:51:26 Playground Worker: [id number] Modifier: [id number] <+> 1 Out Room Time <+> 1 Stop Time 08/08/18 08:51:18 Playground Worker: [id number] Modifier: [id number] <+> [address] [facility] IntraOp Cautery Entry 1 ESU Identification Cautery Type Monopolar ESU ID Number [id number] ID Type Hospital Number Cautery Settings Cut Setting 1 Coag Setting 30 ESU Grounding Pad Ground Pad Type Adult Grounding Pad Site Right thigh Grounding Pad Olesya Bailey RN Applied By Grounding Pad Site Warm, dry and intact Skin Condition Before Cautery Grounding Pad Site Warm, dry and intact Skin Condition After Cautery Last Modified By: Olesya Bailey RN 08/08/18 08:16:47 [facility] IntraOp Communication Entry 1 Communication To Family/Significant other Comment START Communication By Olesya Bailey RN Date and Time 08/08/18 08:08:00 Last Modified By: Olesya Bailey RN 08/08/18 08:17:23 [facility] IntraOp Counts Verification Entry 1 Procedure Cholecystectomy Laparoscopic Count Info Count Type Sponge, Sharps, Instrument, Miscellaneous Counts Verification Baseline/pre-procedure Sequence Count Results Not Applicable Counts Performed By Count Performed By BERNIE CARDOSO ST (Scrub) Count Performed By Olesya Bailey RN (RN) Last Modified By: Olesya Bailey RN 08/08/18 08:17:53 [facility] IntraOp Counts Verification Audit 08/08/18 08:17:53 Playground Worker: [id number] Modifier: [id number] <*> Procedure Cholecystectomy Laparoscopic 1 <*> Count Type Sponge, Sharps, Miscellaneous [facility] IntraOp Counts Final Entry 1 Procedure Cholecystectomy Laparoscopic Final Count Info Count Type Sponge, Sharps, Miscellaneous Counts Verification Skin Closure/end of Sequence procedure Count Results Correct, surgeon notified Counts Performed By Count Performed By BERNIE CARDOSO ST (Scrub) Count Performed By Olesya Bailey RN (RN) Last Modified By: Olesya Bailey RN 08/08/18 08:34:06 [facility] IntraOp Counts Final Audit 08/08/18 08:34:06 Playground Worker: [id number] Modifier: [id number] 1 <*> Procedure Cholecystectomy Laparoscopic 1 <+> Count Performed By (Scrub) 1 <+> Count Performed By (RN) [facility] IntraOp Cultures and Spec Summary Entry 1 Cultrures and Specimens Specimen Ordered: Yes Specimens Types Pathology Specimen(s) Labeled Pathology and Sent to Last Modified By: Olesya Bailey RN 08/08/18 08:18:12 General Comments: 1. GALLBLADDER ANCD CONTENTS [facility] IntraOp Departure from OR Entry 1 [...] Modified By: Olesya Bailey RN 08/08/18 08:52:04 [facility] IntraOp Departure from OR Audit 08/08/18 08:52:04 Playground Worker: [id number] Modifier: [id number] <+> [address] [facility] IntraOp Dressing and Packing Entry 1 Type Dressing Location Abdomen Wound Dressing Item Skin Closure Glue Applied By AMARI GONZALEZ Other Comments Dermabond Last Modified By: Olesya Bailey RN 08/08/18 08:18:43 [facility] IntraOp Fire Risk Assessment Entry 1 [...] Modified By: Olesya Bailey RN 08/08/18 08:18:50 [facility] IntraOp General Case Barge Master 1 Case Information OR OR 06 [facility] Case Level 1 Room Verified Yes Wound Class II - Clean-Contaminated Specialty SN General Anesthesia Type General ASA Class 2 Diagnosis Preop Diagnosis BILIARY DYSKINESIA Postop Same As Preop Yes Postop Diagnosis BILIARY DYSKINESIA Last Modified By: Olesya Bailey RN 08/08/18 08:19:09 [facility] IntraOp Intraoperative Assessment Entry 1 Handoff [...] Modified By: Olesya Bailey RN 08/08/18 08:19:42 [facility] IntraOp Intraoperative Equipment Entry 1 Type Equipment Equipment Equipment Frances Suction System ID Number [id number] Setting MED Intraop Monitoring Electrocardiogram Three lead placement (ECG) Electrode Placement Blood Pressure Non-Invasive BP Device Source Blood Pressure Arm, right upper Location Pulse Oximeter Hand, right Probe Site Antiembolic Devices Antiembolic Devices Sequential compression device, knee high Antiembolic Device Bilateral Location Antiembolic Device [id number] ID Number Antiembolic Device ON AND WORKING PRIOR TO Setting INDUCTION Scopes Photo/Video Documentation Photo No Video No Intraop Equipment Sequential compression Comment devices on and in operation prior to induction of anesthesia. Last Modified By: Olesya Bailey RN 08/08/18 08:20:14 [facility] IntraOp Medication Admin Entry 1 Medication/Irrigant Marcaine 0.5% w/ epinephrine 1:200,000 30ml vial - [id number] Route of Local Administration Dose Dose 15 Unit of Measure ml Administered By PRASANNA BAHENA MD-SUR Procedure Irrigation Last Modified By: Olesya Bailey RN 08/08/18 08:20:27 [facility] IntraOp Patient Positioning Entry 1 Procedure [...] Modified By: Olesya Bailey RN 08/08/18 08:27:26 [facility] IntraOp Patient Positioning Audit 08/08/18 08:27:26 Playground Worker: [id number] Modifier: [id number] <*> Procedure Cholecystectomy Laparoscopic 1 <+> Device Position [facility] IntraOp Sign In Entry 1 Patient, [...] Modified By: Olesya Bailey RN 08/08/18 08:20:30 [facility] IntraOp Sign Out Entry 1 RN [...] Modified By: Olesya Bailey RN 08/08/18 08:51:32 [facility] IntraOp Sign Out Audit 08/08/18 08:51:32 Playground Worker: [id number] Modifier: [id number] <+> 1 RN Sign Out Signature Date/Time [facility] IntraOp Skin Prep Entry 1 Procedure Cholecystectomy Laparoscopic Prescribed Yes Pre-Surgical Prep Completed Prep Area ABDOMEN Intraop Prep Integumentary WDL Assessment WDL Prep Agents Chloraprep Prep by Olesya Bailey RN Hair Removal Methods Clipper/Scissors Hair Removal Site ABD Hair Removal By AMARI GONZALEZ Last Modified By: Olesya Bailey RN 08/08/18 08:20:58 [facility] IntraOp Surgical Procedures Entry 1 Procedure Cholecystectomy Laparoscopic Additional LAPRASCOPIC Procedure CHOLECYSTECTOMY Description Primary Procedure Yes Primary Surgeon PRASANNA BAHENA MD-DENNIS Start 08/08/18 08:06:00 Stop 08/08/18 08:41:00 Anesthesia Type General Specialty SN General Wound Class II - Clean-Contaminated Last Modified By: Olesya Bailey RN 08/08/18 08:51:33 General Comments: ancef 2gm iv @[address] [facility] IntraOp Surgical Procedures Audit 08/08/18 08:51:33 Playground Worker: [id number] Modifier: [id number] 1 <*> Stop 08/08/18 08:21:10 Playground Worker: [id number] Modifier: [id number] <*> Start 1 <*> Start 1 <*> Start 1 <*> Start [facility] IntraOp Temp Regulation Devices Entry 1 Temp Regulation Temperature Warm blankets, Forced Regulation Device Air Warming device, Room temperature Temperature 61670 Regulation Device Serial/Unit Number Temperature Upper body Regulation Site Temperature Device 43 DEGREES CELSIUS Setting Temperature VON BRITT KURT Regulation Device LYLY ADAMES Applied by Temperature SET AND MONITORED BY Regulation Comment ANESTHESIA Last Modified By: Olesya Bailey RN 08/08/18 08:21:58 [facility] IntraOP Time Out Entry 1 Procedure [...] for Unfinalizing 08/09/18 10:16 WATTSDR Correct Billing documented in this encounter Plan of Treatment Not on file documented as of this encounter Visit Diagnoses Not on filedocumented in this encounter
--- OUTSIDE RECORDS SUMMARY | 2025-05-14 11:32 | XMS_ITS | Encounter Summary ---
Author Organization [employer] ([place], [place], [place], [place]) Address [address] [place] [address] Care Team Providers Care Stitcher Utility Name Role Phone Unavailable Primary Care Provider Unavailabl e Encounter Details Date Type Department Care Team (Late st Contact Info) Description 08/15/2018 Transcribed Document [facility] [place] [address] [place] [address] ProviderTara MD [address] [place] [id number] Social History Tobacco Use Types Packs/Day Years Used Date Smoking Tobacco: Never Assessed Sex and Gender Information Value Date Recorded Sex Assigned at Not on file Legal Sex Male 5:36 PM CDT Gender Identity Not on file Sexual Orientation Not on file documented as of this encounter Miscellaneous Notes * Cerner Conversion Note - Historical ProviderMD - 08/15/2018 2:25 AM FOOD SANITARIAN ED Discharge Entered On: 08/15/2018 2:25 EST [...]
--- OUTSIDE RECORDS SUMMARY | 2025-05-14 11:32 | XMS_ITS | Encounter Summary ---
Author Organization [employer] ([place], [place], [place], [place]) Address [address] [place] [address] Care Team Providers Care Area Development Manager Name Role Phone Unavailable Primary Care Provider Unavailabl e Encounter Details Date Type Department Care Team (Late st Contact Info) Description 08/15/2018 Transcribed Document [facility] [place] [address] ProviderTara MD [address] [place] [address] Social History Tobacco Use Types Packs/Day Years Used Date Smoking Tobacco: Never Assessed Sex and Gender Information Value Date Recorded Sex Assigned at Not on file Legal Sex Male 5:36 PM CDT Gender Identity Not on file Sexual Orientation Not on file documented as of this encounter Miscellaneous Notes * Cerner Conversion Note - Tara Pavon MD - 08/15/2018 2:26 AM CAKE PULLER [address] [place] [address] PERSON INFORMATION Name GUNNAR GREENBERG Age 32 Years 1985 Sex Male Language Austrian PCP KYLEE GAONA DR Marital Status Single Med Service Emergency Medicine Acct# Arrival 08/15/2018 00:55:00 Visit Reason Flank pain; Flank pain; BACK PAIN Acuity 3 - Urgent LOS 000 01:31 Depart Date: 08/15/18 02:26 AM Address: [place] [address] Comment: PROVIDER INFORMATION Provider Role Assigned Unassigned [...]
--- OUTSIDE RECORDS SUMMARY | 2025-05-14 11:32 | XMS_ITS | Encounter Summary ---
Author Organization [employer] ([place], [place], [place], [place]) Address [address] [place] [address] Care Team Providers Care Fruit I Farmworker Name Role Phone Unavailable Primary Care Provider Unavailabl e Encounter Details Date Type Department Care Team (Late st Contact Info) Description 08/15/2018 Transcribed Document [facility] [place] [facility] [place] [address] ProviderTara MD [address] [place] [id number] Social History Tobacco Use Types Packs/Day Years Used Date Smoking Tobacco: Never Assessed Sex and Gender Information Value Date Recorded Sex Assigned at Not on file Legal Sex Male 5:36 PM CDT Gender Identity Not on file Sexual Orientation Not on file documented as of this encounter Miscellaneous Notes * Cerner Conversion Note - Tara Pavon MD - 08/15/2018 1:12 AM HAM FACER Patient: GUNNAR GREENBERG Age: 32 years Sex: [...] EST Height Source Stated Height Entry Format [place]er Height/Length, [place] (ft) 6 ft Height/Length [place] 0 Inch CLINICALHEIGHT 182.88 cm [place] Body Weight 76.59 kg Weight Source, ED Standing scale Weight Entry Format Greer Weight Monegasque lb 136.3 lb CLINICALWEIGHT 61.95 kg Body [...] % 27.3 % Lymph # 1.60 x10(3)/uL [place] % 7.8 % [place] # 0.46 K/uL Eos % 2.4 % Eos # 0.14 x10(3)/uL Baso % 0.5 % Baso # 0.03 x10(3)/uL Slide Review No IG# 0.02 x10(3)/uL IG% 0.30 % Urine Type U CleanCatch Urine Color Yellow Urine Appearance Clear Urine Specific [place] 1.004 LOW Urine pH Dipstick 7.0 Urine [...]
--- OUTSIDE RECORDS SUMMARY | 2025-05-14 11:32 | XMS_ITS | Encounter Summary ---
Author Organization [employer] ([place], [place], [place], [place]) Address [address] [place] [address] Care Team Providers Care Cuprous Chloride Operator Name Role Phone Unavailable Primary Care Provider Unavailabl e Encounter Details Date Type Department Care Team (Late st Contact Info) Description 11/28/2018 Transcribed Document [facility] [place] Family Medicine [address] [place] [address] ProviderTara MD [address] [place] [address] Social History Tobacco Use Types [...] Pavon MD - 11/28/2018 9:23 AM CDT [facility] [place], [place] [id number] GUNNAR GREENBERG :1985 Visit Time:11/28/2018 What to do next Your Diagnosis Unspecified abdominal pain, Unspecified abdominal pain Follow-Up Appointments Follow Up with RANJIT AHMADI MD When 12/26/2018 01:30 AM EDT Comments Appointment has been made Where: [facility] [address] [place] [phone]- Medications What How Much When Instructions Next [...] 06/16/2009 Document Revised: 08/24/2017 Document Reviewed: 08/24/2017 BackOps Interactive Patient Education ?? 2019 [employer]. General Anesthesia, Adult, Care After This [...] activities are safe for you. ??? Take yloi-xii-hrvmybf and prescription medicines only as told by [...] 10/10/2001 Document Revised: 02/17/2018 Document Reviewed: 02/17/2018 [employer] Interactive Patient Education ?? 2019 [employer]. Endoscopic Retrograde Cholangiopancreatogram, Care After This [...] Follow these instructions at home: ??? Take zeua-rma-oviihkl and prescription medicines only as told by [...] 04/24/2014 Document Revised: 05/23/2017 Document Reviewed: 05/23/2017 [employer]Ops Interactive Patient Education ?? 2019 Issue. Emergency Awareness and Preventative Care STROKE is [...] Assistance with quitting is available by contacting 0-740-CWLJ-NOW. This is a free resource providing counseling, [...] Be sure to sign up for the [facility] patient portal, which gives you 07/02 access to your medical information ??? including these discharge instructions ??? using your computer, smartphone, or tablet. Just go to [place] to get started. Questions? Call . Test Results Laboratory or Other Results This Visit (last charted value for your 11/28/2018 visit) No Laboratory or Other Results This Visit Patient Name:GUNNAR GREENBERG I have received this information and was given the opportunity to ask questions. Patient/Public Records Researcher Name: Patient/Public Records Researcher Signature: Relationship to Patient: Clinician/Hospital Public Records Researcher Signature: Date: documented in this encounter Plan of Treatment Not on file documented as of this encounter Visit Diagnoses Not on filedocumented in this encounter
--- OUTSIDE RECORDS SUMMARY | 2025-05-14 11:32 | XMS_ITS | Encounter Summary ---
Author Organization [employer] ([place], [place], [place], [place]) Address [address] [place] [address] Care Team Providers Care Manager It Security Name Role Phone Unavailable Primary Care Provider Unavailabl e Encounter Details Date Type Department Care Team (Late st Contact Info) Description 08/08/2018 Transcribed Document [facility] [place] Family Medicine [facility] [place] [address] ProviderTara MD [address] [place], [place] [id number] Social History Tobacco Use Types Packs/Day Years Used Date Smoking Tobacco: Never Assessed Sex and Gender Information Value Date Recorded Sex Assigned at Not on file Legal Sex Male 5:36 PM CDT Gender Identity Not on file Sexual Orientation Not on file documented as of this encounter Miscellaneous Notes * Cerner Conversion Note - Historical ProviderMD - 08/08/2018 6:56 AM CLINICAL PATHOLOGIST PAT Adult Entered On: 08/08/2018 7:00 EST Performed On: 08/08/2018 6:56 EST by EDILIA PATEL Height and Weight, Clinical Dosing Height Source : Measured Height Entry Format : [place] Height, Feet : 5 ft(Converted to: 152 cm, 60 Inch) Height, Inches : 11 Inch(Converted to: 0 ft 11 Inch, 27.94 cm) Clinical Height : 180.34 cm Weight Source : Standing scale Weight Entry Format : [place] Clinical Dosing Weight : 64.55 kg Weight, Pounds : 142 lb Body Surface Area (BSA) : 1.82 m2 Body Mass Index : 19.8 kg/m2 [place] Body Weight : 74 kg EDILIA PATEL [...] No Thoughts of Harming/Killing Yourself : No AMANDA EDILIA - 08/08/2018 6:56 EST General Info Arrived From : Home Mode of Arrival on Unit : Ambulatory Legal Guardian : Significant other Legal Guardian : No Support Person/Pt Rep Contact Information : linda maria [phone]/mom [phone] thea Bustos Family/Rep/Phys Notified of Admit : No Emergency Contact #1 : - Emergency Contact #1 Phone Number : - Emergency Contact #1 Relationship : - Emergency Contact #2 : - Emergency Contact #2 Phone Number : - Emergency Contact #2 Relationship : - Primary Language : Citizen [place] Preferred Communication Mode : Verbal Communication Barrier [...] No EDILIA PATEL - 08/08/2018 6:56 EST documented in this encounter Plan of Treatment Not on file documented as of this encounter Visit Diagnoses Not on filedocumented in this encounter
--- OUTSIDE RECORDS SUMMARY | 2025-05-14 11:32 | XMS_ITS | Encounter Summary ---
Author Organization [employer] ([place], [place], [place], [place]) Address [address] [place] [address] Care Team Providers Care Looping Machine Operator Name Role Phone Unavailable Primary Care Provider Unavailabl e Encounter Details Date Type Department Care Team (Late st Contact Info) Description 08/15/2018 Transcribed Document [facility] [place] Family Medicine [facility] [place] [address] ProviderTara MD [address] [place], [place] [phone] Social History Tobacco Use Types Packs/Day Years Used Date Smoking Tobacco: Never Assessed Sex and Gender Information Value Date Recorded Sex Assigned at Not on file Legal Sex Male 5:36 PM CDT Gender Identity Not on file Sexual Orientation Not on file documented as of this encounter Miscellaneous Notes * Cerner Conversion Note - Tara ProviderMD - 08/15/2018 12:55 AM TRIAL ATTORNEY ED Triage Entered On: 08/15/2018 1:01 EST [...] : 3 - Urgent Tracking Group : [facility] Shagufta Farnsworth Rn-Flex Team - [...] 01:01:59 EST) Problems(Active) Abdominal pain (SNOMED CT :87750766 ) Name of Problem: Abdominal pain ; Recorder: EDILIA PATEL; Confirmation: Confirmed ; Classification: Medical ; Code: 02342279 ; Contributor System: AppThwack ; Last Updated: 08/08/2018 7:03 EST ; Life Cycle Date: 08/08/2018 ; Life Cycle Status: Active ; Vocabulary: SNOMED CT Anxiety (SNOMED CT :35332018 ) Name of Problem: Anxiety ; Recorder: EDILIA PATEL; Confirmation: Confirmed ; Classification: Medical ; Code: 22074247 ; Contributor System: AppThwack ; Last Updated: 08/08/2018 7:02 EST ; Life Cycle Date: 08/08/2018 ; Life Cycle Status: Active ; Vocabulary: SNOMED CT Chronic sinusitis (SNOMED CT :11054654 ) Name of Problem: Chronic sinusitis ; Recorder: EDILIA PATEL; Confirmation: Confirmed ; Classification: Medical ; Code: 70940603 ; Contributor System: PowerChart ; Last Updated: 08/08/2018 7:02 EST ; Life Cycle Date: 08/08/2018 ; Life Cycle Status: Active ; Vocabulary: SNOMED CT Gastritis (SNOMED CT :9445128 ) Name of Problem: Gastritis ; Recorder: Pete Kwok, RADHA; Confirmation: Confirmed ; Classification: Medical ; Code: 2724177 ; Contributor System: PowerChart ; Last Updated: 09/14/2015 22:27 EST ; Life Cycle Date: 09/14/2015 ; Life Cycle Status: Active ; Vocabulary: SNOMED CT GERD (gastroesophageal reflux disease) (SNOMED CT :205158509 ) Name of Problem: GERD (gastroesophageal reflux disease) ; Recorder: ERICKSON STOKES RN; Confirmation: Confirmed ; Classification: Medical ; Code: 144414985 ; Contributor System: PowerChart ; Last Updated: 06/03/2017 9:40 EST ; Life Cycle Date: 06/03/2017 ; Life Cycle Status: Active ; Vocabulary: SNOMED CT h/o Drug abuse 2011/ etoh use quit 2013 (SNOMED CT :81433340 ) Name of Problem: h/o Drug abuse 2011/ etoh use quit 2013 ; Recorder: EDILIA PATEL; Confirmation: Confirmed ; Classification: Medical ; Code: 27504909 ; Contributor System: PowerChart ; Last Updated: 08/08/2018 7:04 EST ; Life Cycle Date: 08/08/2018 ; Life Cycle Status: Active ; Vocabulary: SNOMED CT Hemorrhoid (SNOMED CT :917923284 ) Name of Problem: Hemorrhoid ; Recorder: EDILIA PATEL; Confirmation: Confirmed ; Classification: Medical ; Code: 434014719 ; Contributor System: PowerChart ; Last Updated: 08/08/2018 7:01 EST ; Life Cycle Date: 08/08/2018 ; Life Cycle Status: Active ; Vocabulary: SNOMED CT IBS (irritable bowel syndrome) (SNOMED CT :91426500 ) Name of Problem: IBS (irritable bowel syndrome) ; Recorder: EDILIA PATEL; Confirmation: Confirmed ; Classification: Medical ; Code: 60402383 ; Contributor System: PowerChart ; Last Updated: 08/08/2018 7:01 EST ; Life Cycle Date: 08/08/2018 ; Life Cycle Status: Active ; Vocabulary: SNOMED CT Nonfunctioning gallbladder (SNOMED CT :229545066 ) Name of Problem: Nonfunctioning gallbladder ; Recorder: EDILIA PATEL; Confirmation: Confirmed ; Classification: Medical ; Code: 746790107 ; Contributor System: AppThwack ; Last Updated: 08/08/2018 7:02 EST ; Life Cycle Date: 08/08/2018 ; Life Cycle Status: Active ; Vocabulary: SNOMED CT Pneumothorax, spontaneous,left 2018 (SNOMED CT :869848595 ) Name of Problem: Pneumothorax, spontaneous,left 2017 ; Recorder: EDILIA PATEL; Confirmation: Confirmed ; Classification: Medical ; Code: 130386021 ; Contributor System: AppThwack ; Last Updated: 08/08/2018 7:07 EST ; Life Cycle Date: 08/08/2018 ; Life Cycle Status: Active ; Vocabulary: SNOMED CT Slow heart rate (SNOMED CT :25033569 ) Name of Problem: Slow heart rate ; Recorder: EDILIA PATEL; Confirmation: Confirmed ; Classification: Medical ; Code: 62864414 ; Contributor System: AppThwack ; Last Updated: 08/08/2018 7:01 EST ; Life Cycle Date: 08/08/2018 ; Life Cycle Status: Active ; Vocabulary: SNOMED CT Diagnoses(Active) Flank pain Date: 08/15/2018 ; Diagnosis Type: Reason For Visit ; Confirmation: Complaint of ; Clinical Dx: Flank pain ; Classification: Medical ; Clinical Service: Non-Specified ; Code: PNED ; Probability: 0 ; Diagnosis Code: [id number] ED Height and Weight Height Source : Stated Height Entry Format : [place] Height, Feet : 6 ft(Converted to: 183 cm, 72 Inch) Height, Inches : 0 Inch(Converted to: 0 ft 0 Inch, 0.00 cm) Clinical Height : 182.88 cm Weight Source, ED : Standing scale Weight Entry Format : [place] Weight, Pounds : 136.3 lb Clinical Dosing Weight : 61.95 kg Body Surface Area (BSA) : 1.81 m2 Body Mass Index : 18.5 kg/m2 (LOW) [place] Body Weight (IBW) : 76.59 kg Farnsworth, [...]
--- OUTSIDE RECORDS SUMMARY | 2025-05-14 11:32 | XMS_ITS | Encounter Summary ---
Author Organization [employer] ([place], [place], [place], [place]) Address [address] [place] [address] Care Team Providers Care Septic Tank Installer Name Role Phone Unavailable Primary Care Provider Unavailabl e Encounter Details Date Type Department Care Team (Late st Contact Info) Description 08/08/2018 Transcribed Document [facility] [place] [facility] [place] [address] ProviderTara MD [address] [place], [place] [phone] Social History Tobacco Use Types Packs/Day Years Used Date Smoking Tobacco: Never Assessed Sex and Gender Information Value Date Recorded Sex Assigned at Not on file Legal Sex Male 5:36 PM CDT Gender Identity Not on file Sexual Orientation Not on file documented as of this encounter Miscellaneous Notes * Cerner Conversion Note - Tara Pavon MD - 08/08/2018 10:41 AM OPTICAL EFFECTS LAYOUT PERSON Patient Education Materials Follows: Laparoscopic Cholecystectomy, Care [...] and water are not available, use hand beauty operator apprentice. ? Change your dressing as told by [...] care provider approves. General instructions ??? Take zqrp-pod-qivyiqr and prescription medicines only as told by your health care provider. ??? To prevent or treat constipation while you are taking prescription pain medicine, your health care provider may recommend that you: ? Drink enough fluid to keep your urine clear or pale yellow. ? Take xiwe-fze-dqdtxie or prescription medicines. ? Eat foods that [...] 07/04/2006 Document Revised: 01/22/2017 Document Reviewed: 12/20/2016 Click4Care Interactive Patient Education ?? 2017 [employer]. Pharmacology General Anesthesia, Adult, Care After These [...] activities are safe for you. ??? Take dutn-noi-aghpwaj and prescription medicines only as told by [...] 10/10/2001 Document Revised: 12/06/2016 Document Reviewed: 06/17/2016 [employer]Care Interactive Patient Education ? 2017 [employer] Inc. documented in this encounter Plan of Treatment Not on file documented as of this encounter Visit Diagnoses Not on filedocumented in this encounter
--- OUTSIDE RECORDS SUMMARY | 2025-05-14 11:32 | XMS_ITS | Encounter Summary ---
Author Organization [email or web address] ([place], [place], [place], [place]) Address [address] [place] [address] Care Team Providers Care Screwhead Polisher Name Role Phone Unavailable Primary Care Provider Unavailabl e Encounter Details Date Type Department Care Team (Late st Contact Info) Description 08/08/2018 Transcribed Document [facility] [place] [place] [facility] [place] [address] ProviderTara MD [address] [place] [id number] Social History Tobacco Use Types Packs/Day Years Used Date Smoking Tobacco: Never Assessed Sex and Gender Information Value Date Recorded Sex Assigned at Not on file Legal Sex Male 5:36 PM CDT Gender Identity Not on file Sexual Orientation Not on file documented as of this encounter Miscellaneous Notes * Cerner Conversion Note - Tara Pavon MD - 08/08/2018 8:59 AM CRIMPING PRESS OPERATOR Patient: GUNNAR GREENBERG Age: 32 Years Sex: [...] Time: 08/08/18 08:06:00 (EST) (08/08/18 08:21:10 EST) documented in this encounter Plan of Treatment Not on file documented as of this encounter Visit Diagnoses Not on filedocumented in this encounter
--- OUTSIDE RECORDS SUMMARY | 2025-05-14 11:33 | XMS_ITS | Encounter Summary ---
Author Organization [employer] ([place], [place], [place], [place]) Address [address] [place] [address] Care Team Providers Care Obstetrics Gyn Name Role Phone Unavailable Primary Care Provider Unavailabl e Encounter Details Date Type Department Care Team (Late st Contact Info) Description 11/28/2018 Transcribed Document [facility] [place] Family Medicine [address] [place] [address] ProviderTara MD [address] [place], [place] [phone] Social History Tobacco Use Types Packs/Day Years [...] 06/16/2009 Document Revised: 08/24/2017 Document Reviewed: 08/24/2017 Quietly Interactive Patient Education ? 2019 [employer]iet[employer] Inc. Pharmacology General Anesthesia, Adult, Care After [...] activities are safe for you. ??? Take atvx-xdx-edlkpii and prescription medicines only as told by [...] 10/10/2001 Document Revised: 02/17/2018 Document Reviewed: 02/17/2018 [employer] Interactive Patient Education ? 2019 [employer]. Radiology Endoscopic Retrograde Cholangiopancreatogram, Care After This [...] Follow these instructions at home: ??? Take nrds-vop-nudjder and prescription medicines only as told by [...] 04/24/2014 Document Revised: 05/23/2017 Document Reviewed: 05/23/2017 [employer]ietly Interactive Patient Education ?? 2019 [employer] Inc. Electronically signed by Esvin Veloz Conversion Bioprocessing Manufacturing Technician Mehran at 11/03/2022 7:15 AM CDT documented in this encounter Plan of Treatment Not on file documented as of this encounter Visit Diagnoses Not on filedocumented in this encounter
--- OUTSIDE RECORDS SUMMARY | 2025-05-14 11:33 | XMS_ITS | Encounter Summary ---
Author Organization [employer] ([place], [place], [place], [place]) Address [address] [place] [address] Care Team Providers Care Abstract Writer Name Role Phone Unavailable Primary Care Provider Unavailabl e Encounter Details Date Type Department Care Team (Late st Contact Info) Description 11/28/2018 Transcribed Document [facility] [place] [facility] [place] [address] ProviderTara MD [address] [place], [place] [phone] Social History Tobacco Use Types Packs/Day Years Used Date Smoking Tobacco: Never Assessed Sex and Gender Information Value Date Recorded Sex Assigned at Not on file Legal Sex Male 5:36 PM CDT Gender Identity Not on file Sexual Orientation Not on file documented as of this encounter Miscellaneous Notes * Cerner Conversion Note - Tara Pavon MD - 11/28/2018 8:00 AM CDT [facility] Shahid PreOp Summary Primary Physician: RANJIT AHMADI MD Finalized Date/Time: 11/28/18 07:52:47 Pt. Name: GUNNAR GREENBERG/Sex: 1985 Male Med Rec #: [id number] Physician: RANJIT AHMADI MD Financial #: [id number] Pt. Type: O Room/Bed: / Admit/Disch: 11/28/18 07:15:00 - Institution: [facility] Shahid PreOp Case Times Entry 1 In Preop 11/28/18 07:31:00 Ready for Holding n/a Room Patient Ready for 11/28/18 07:52:00 Surgery Patient Out of Preop 11/28/18 07:52:00 Patient Out of n/a Holding Room Last Modified By: Kristen Langston Rn 11/28/18 07:52:46 [facility] Endo PreOp Case Times Audit 11/28/18 07:52:46 Outside Machinist Apprentice: ANDREAAPLETON Modifier: ASHLEYSTAPLETON <+> 1 Patient Out of Preop <+> 1 Patient Ready for Surgery Finalized By: Kristen Langston Rn Document Signatures Signed By: Kristen Langston Rn 11/28/18 07:52 Electronically signed by Magdiel [facility] Conversion Degreaser Operator Cerner at 11/03/2022 7:05 AM CDT documented in this encounter Plan of Treatment Not on file documented as of this encounter Visit Diagnoses Not on filedocumented in this encounter
--- OUTSIDE RECORDS SUMMARY | 2025-05-14 11:33 | XMS_ITS | Encounter Summary ---
Author Organization Healthcare Address [address] [place] [address] Care Team Providers Care Occupational Medicine Specialist Name Role Phone Willain Manjarrez MD Primary Care Provider [phone] Reason for Visit * Reason Onset Date Comments Retruning Call 04/18/2025 Returning call R eturning call Return call Returning my call to her Encounter Details Date Type Department Care Team (Late st Contact Info) Description 04/18/2025 Telephone [facility] Specialties [address] [place] [address] Yoselin Cunningham, METAL INSPECTOR [address] [place] [address] Retruning Call (Returning call /Returning call /Return call /Returning my call to her ) Social History Tobacco Use Types Packs/Day Years [...] Telephone Encounter - Laura Dailey RN - 04/25/2025 9:57 AM EDT I called and left another msg for Kirit to call me back. [phone] She did return my call and it was concerning the approval of the Voquezna 10mg. She did not need anything else * Telephone Encounter - Laura Dailey RN - 04/22/2025 9:13 AM EDT Returning call no answer left msg * Telephone Encounter - Laura Dailey RN - 04/19/2025 1:57 PM EDT Returned call to Kirit and had to leave a msg * Telephone Encounter - Livier Lowry - 04/18/2025 11:35 AM EDT Patient Phone Message Reason for Call: [facility] medical review called to speak to someone about peer to peer availability . Due date 04-18-25 at 3:00 PM Best contact number and optimal time of day to reach caller: [phone] --Kirit Note: Please do not reply to this message. Follow-up communication and further actions as a result of this message need to be communicated with the patient directly, if the patient is not active onMyChart. If the patient is active on MyChart, they will receive notification of the communication/outcome via [employer]. documented in this encounter Plan of Treatment Upcoming Encounters Date Type Department Care Team (Late st Contact Info) Description 10/09/2025 11:00 AM EDT Office Visit [facility] Medicine Specialties [address] [place] [address] Yoselin Cunningham L, METAL INSPECTOR [address] [place] [address] documented as of this encounter Visit Diagnoses Not on filedocumented in this encounter Additional Health Concerns Assessment Noted Time PHQ-9 Depression Total Score: 1 04/10/20 11:18 AM EDT A fall risk assessment has been complete d for the patient 04/10/2025 11:18 AM EDT A Body Mass Index follow-up plan has been documented for the patient 04/10/2025 1:01 PM EDT documented as of this encounter Care Teams Occupational Medicine Specialist Relationship Specialty Start Date End Date Willian Manjarrez MD [address] [place] [address] PCP - General 04/13/21 documented as of this encounter
--- OUTSIDE RECORDS SUMMARY | 2025-05-14 11:33 | XMS_ITS | Encounter Summary ---
Author Organization [facility] Address [address] [place] [address] Care Team Providers Care Cabin Worker Name Role Phone Willian Manjarrez MD Primary Care Provider [phone] Encounter Details Date Type Department Care Team (Latest Contact Info) Description 04/10/2025 Travel Social History Tobacco Use Types Packs/Day Years [...] Lamont Gómez documented as of this encounter Plan of Treatment Upcoming Encounters Date Type Department Care Team (Late st Contact Info) Description 10/09/2025 11:00 AM EDT [facility] Visit [facility] [address] [place] [address] Yoselin Cunningham, THOMAS [address] [place] [address] documented as of this encounter [...] documented as of this encounter Care Teams Cabin Worker Relationship Specialty Start Date End Date Willian Manjarrez MD [address] [place] [address] PCP - General 04/13/21 documented as of this encounter
--- OUTSIDE RECORDS SUMMARY | 2025-05-14 11:33 | XMS_ITS | Encounter Summary ---
Author Organization [employer] ([place], [place], [place], [place]) Address [address] [place] [address] Care Team Providers Care Lead Consultant Name Role Phone Unavailable Primary Care Provider Unavailabl e Encounter Details Date Type Department Care Team (Late st Contact Info) Description 12/17/2018 Transcribed Document [facility] [place] [address] [place] [address] ProviderTara MD [address] [place] [address] Social History Tobacco Use Types [...] Pavon MD - 12/17/2018 12:52 AM CDT [place] [address] GUNNAR GREENBERG :1985 Visit Time:12/16/2018 Your Visit Summary Your Care Team Admitting Physician - NOBLE ALVARADO MD Attending Physician - NOBLE ALVARADO MD Primary Care Physician - KYLEE GAONA DR Referring Physician - NOBLE ALVARADO MD Your Diagnosis Abdominal pain Abdominal pain Nausea Patient Portal Reminder: Be sure to sign up for the [employer] patient portal, which gives you 24/ access to your medical information ??? including these discharge instructions ??? using your computer, smartphone, or tablet. Just go to Umbrella Here to get started. Questions? Call . You [...] range between ( 0.0 and 7.0 ) [place] #: 0.41 K/uL -- Normal range between ( 0.16 and 1.00 ) [place] #: 0.09 x10(3)/uL -- Normal range between ( 0.00 and 0.80 ) [place] %: 6.5 % -- Normal range between [...] ) Urine Bilirubin Dipstick: Negative Urine Specific [place]: 1.008 -- Normal range between ( 1.005 and 1.030 ) Urine Type.: U [facility] General Chemistry 12/16/18 22:41:00 Creatinine Level: 1.10 [...] and low-calorie sports drinks. ??? Eat bland, xygv-aq-dadgqs foods in small amounts as you are [...] and water are not available, use hand car body designer. ??? Make sure that all people in your household wash their hands well and often. ??? Rest at home while you recover. ??? Take lrkx-ibh-spcvmma and prescription medicines only as told by [...] 08/11/2005 Document Revised: 12/06/2016 Document Reviewed: 03/09/2016 [employer] Interactive Patient Education ?? 2019 [employer]. Abdominal Pain, Adult Abdominal pain can be [...] Follow these instructions at home: ??? Take ojry-cin-nwyqtxy and prescription medicines only as told by [...] 04/13/2006 Document Revised: 01/21/2017 Document Reviewed: 12/15/2016 [employer] Interactive Patient Education ?? 2019 [employer]. Emergency Awareness and Preventative Care STROKE is [...] Assistance with quitting is available by contacting 9-625-GXZDGranite TechnologiesNOW. This is a free resource providing counseling, [...] was given the opportunity to ask questions. Patient/Lead Massage Therapist Name: Patient/Lead Massage Therapist Signature: Relationship to Patient: Clinician/Hospital Lead Massage Therapist Signature: Please Provide a Telephone Number Where You Can Be Reached: Is it Permissible To Leave a Message? Date: documented in this encounter Plan of Treatment Not on file documented as of this encounter Visit Diagnoses Not on filedocumented in this encounter
--- OUTSIDE RECORDS SUMMARY | 2025-05-14 11:33 | XMS_ITS | Encounter Summary ---
Author Organization [employer] ([place], [place], [place], [place]) Address [address] [place] [address] Care Team Providers Care Rotary Slicing Machine Operator Name Role Phone Unavailable Primary Care Provider Unavailabl e Encounter Details Date Type Department Care Team (Late st Contact Info) Description 12/16/2018 Transcribed Document [facility] [place] [facility] [place] [address] ProviderTara MD [address] [place], [place] [id number] Social History Tobacco Use Types Packs/Day Years [...] : 3 - Urgent Tracking Group : [facility] ED Shagufta Cain Rn - 12/16/2018 [...] Recent Thoughts of Harming/Killing Others : No Natural Gas Plant Technician Needed : No Shagufta Cain Rn - [...] 22:21:44 EDT) Problems(Active) Abdominal pain (SNOMED CT :77847153 ) Name of Problem: Abdominal pain ; Recorder: EDILIA PATEL; Confirmation: Confirmed ; Classification: Medical ; Code: [id number] ; Contributor System: AdeyohChart ; Last Updated: 08/08/2018 7:03 EST ; Life Cycle Date: 08/08/2018 ; Life Cycle Status: Active ; Vocabulary: SNOMED CT Anxiety (SNOMED CT :37405084 ) Name of Problem: Anxiety ; Recorder: EDILIA PATEL; Confirmation: Confirmed ; Classification: Medical ; Code: 62949444 ; Contributor System: AdeyohChart ; Last Updated: 08/08/2018 7:02 EST ; Life Cycle Date: 08/08/2018 ; Life Cycle Status: Active ; Vocabulary: SNOMED CT Chronic sinusitis (SNOMED CT :68412862 ) Name of Problem: Chronic sinusitis ; Recorder: EDILIA PATEL; Confirmation: Confirmed ; Classification: Medical ; Code: 61602436 ; Contributor System: PowerChart ; Last Updated: 08/08/2018 7:02 EST ; Life Cycle Date: 08/08/2018 ; Life Cycle Status: Active ; Vocabulary: SNOMED CT Gastritis (SNOMED CT :9149492 ) Name of Problem: Gastritis ; Recorder: Pete Kwok RN; Confirmation: Confirmed ; Classification: Medical ; Code: 4608032 ; Contributor System: PowerChart ; Last Updated: 09/14/2015 22:27 EST ; Life Cycle Date: 09/14/2015 ; Life Cycle Status: Active ; Vocabulary: SNOMED CT GERD (gastroesophageal reflux disease) (SNOMED CT :499468760 ) Name of Problem: GERD (gastroesophageal reflux disease) ; Recorder: ERICKSON STOKES RN; Confirmation: Confirmed ; Classification: Medical ; Code: [id number] ; Contributor System: PowerChart ; Last Updated: 06/03/2017 9:40 EST ; Life Cycle Date: 06/03/2017 ; Life Cycle Status: Active ; Vocabulary: SNOMED CT h/o Drug abuse 2011/ etoh use quit 2013 (SNOMED CT :43608220 ) Name of Problem: h/o Drug abuse 2010/ etoh use quit 2013 ; Recorder: EDILIA PATEL; Confirmation: Confirmed ; Classification: Medical ; Code: 21190833 ; Contributor System: PowerChart ; Last Updated: 08/08/2018 7:04 EST ; Life Cycle Date: 08/08/2018 ; Life Cycle Status: Active ; Vocabulary: SNOMED CT Hemorrhoid (SNOMED CT :970571192 ) Name of Problem: Hemorrhoid ; Recorder: EDILIA PATEL; Confirmation: Confirmed ; Classification: Medical ; Code: 527847073 ; Contributor System: PowerChart ; Last Updated: 08/08/2018 7:01 EST ; Life Cycle Date: 08/08/2018 ; Life Cycle Status: Active ; Vocabulary: SNOMED CT IBS (irritable bowel syndrome) (SNOMED CT :74062603 ) Name of Problem: IBS (irritable bowel syndrome) ; Recorder: EDILIA PATEL; Confirmation: Confirmed ; Classification: Medical ; Code: 48724624 ; Contributor System: PowerChart ; Last Updated: 08/08/2018 7:01 EST ; Life Cycle Date: 08/08/2018 ; Life Cycle Status: Active ; Vocabulary: SNOMED CT Nonfunctioning gallbladder (SNOMED CT :457418426 ) Name of Problem: Nonfunctioning gallbladder ; Recorder: EDILIA PATEL; Confirmation: Confirmed ; Classification: Medical ; Code: 796411534 ; Contributor System: PowerChart ; Last Updated: 08/08/2018 7:02 EST ; Life Cycle Date: 08/08/2018 ; Life Cycle Status: Active ; Vocabulary: SNOMED CT Pneumothorax, spontaneous,left 2018 (SNOMED CT :548963040 ) Name of Problem: Pneumothorax, spontaneous,left 2018 ; Recorder: EDILIA PATEL; Confirmation: Confirmed ; Classification: Medical ; Code: 651411715 ; Contributor System: PowerChart ; Last Updated: 08/08/2018 7:07 EST ; Life Cycle Date: 08/08/2018 ; Life Cycle Status: Active ; Vocabulary: SNOMED CT Slow heart rate (SNOMED CT :71337313 ) Name of Problem: Slow heart rate ; Recorder: EDILIA PATEL; Confirmation: Confirmed ; Classification: Medical ; Code: 37320573 ; Contributor System: AdeyohChart ; Last Updated: 08/08/2018 7:01 EST ; Life Cycle Date: 08/08/2018 ; Life Cycle Status: Active ; Vocabulary: SNOMED CT Diagnoses(Active) Abdominal pain Date: 12/16/2018 ; Diagnosis Type: Reason For Visit ; Confirmation: Complaint of ; Clinical Dx: Abdominal pain ; Classification: Medical ; Clinical Service: Non-Specified ; Code: PNED ; Probability: 0 ; Diagnosis Code: [id number] ED Height and Weight Height Source : Stated Height Entry Format : Story Height, Feet : 6 ft(Converted to: 183 cm, 72 Inch) Height, Inches : 0 Inch(Converted to: 0 ft 0 Inch, 0.00 cm) Clinical Height : 182.88 cm Weight Source, ED : Critical estimated dosing weight Weight Entry Format : Story Weight, Pounds : 145 lb Clinical Dosing Weight : 65.91 kg Body Surface Area (BSA) : 1.86 m2 Body Mass Index : 19.7 kg/m2 [place] Body Weight (IBW) : 76.59 kg Shagufta [...] form. Electronically signed by Esvin Veloz Conversion Sewage Treatment Plant Operator Cerner at 11/03/2022 7:01 AM CDT documented in this encounter Plan of Treatment Not on file documented as of this encounter Visit Diagnoses Not on filedocumented in this encounter
--- OUTSIDE RECORDS SUMMARY | 2025-05-14 11:33 | XMS_ITS | Encounter Summary ---
Author Organization [employer] ([place], [place], [place], [place]) Address [address] [place] [address] Care Team Providers Care Minister Of Religion Name Role Phone Unavailable Primary Care Provider Unavailabl e Encounter Details Date Type Department Care Team (Late st Contact Info) Description 11/28/2018 Transcribed Document [facility] [place] [facility] [place] [address] ProviderTara MD [address] [place], [place] [id number] Social History Tobacco Use Types Packs/Day Years Used Date Smoking Tobacco: Never Assessed Sex and Gender Information Value Date Recorded Sex Assigned at Not on file Legal Sex Male 5:36 PM CDT Gender Identity Not on file Sexual Orientation Not on file documented as of this encounter Miscellaneous Notes * Cerner Conversion Note - Tara Pavon MD - 11/28/2018 8:44 AM CDT [facility] PACU Summary Primary Physician: RANJIT AHMADI MD Finalized Date/Time: 11/28/18 10:01:51 Pt. Name: GUNNAR GREENBERG/Sex: 1985 Male Med Rec #: [id number] Physician: RANJIT AHMADI MD Financial #: [id number] Pt. Type: O Room/Bed: / Admit/Disch: 11/28/18 07:15:00 - Institution: [facility] PACU Case Times Entry 1 In PACU I 11/28/18 09:03:00 Ready for PACU 11/28/18 09:58:00 Discharge Discharge from PACU 11/28/18 09:58:00 I Last Modified By: Mildred Moses Rn 11/28/18 10:01:43 [facility] PACU Case Times Audit 11/28/18 10:01:43 Rebar Worker: SOCORRO Modifier: MFWARD <+> 1 Ready for PACU Discharge <+> 1 Discharge from PACU I Finalized By: Mildred Moses Rn Document Signatures Signed By: Mildred Moses Rn 11/28/18 10:01 documented in this encounter Plan of Treatment Not on file documented as of this encounter Visit Diagnoses Not on filedocumented in this encounter
--- OUTSIDE RECORDS SUMMARY | 2025-05-14 11:33 | XMS_ITS | Encounter Summary ---
Author Organization [facility] Address [address] [place] [address] Care Team Providers Care Resource Efficiency Manager Name Role Phone Willian Manjarrez MD Primary Care Provider [phone] Reason for Visit * Reason Onset Date Comments Calling to initiate a med appeal 04/10/2025 Calling to initiate a med appeal Encounter Details Date Type Department Care Team (Late st Contact Info) Description 04/10/2025 Telephone [facility] [address] [place] [phone] Victoria Trejo, [place] [address] Calling to initiate a med appeal (Calling to initiate a med appeal ) Social History Tobacco Use Types Packs/Day [...] Encounter - Laura Dailey RN - 04/19/2025 2:05 PM EDT I faxed a copy of Michellea to Rafa L[place] in [place] * Telephone Encounter - Laura Dailey RN - 04/17/2025 8:54 AM EDT Called and spoke with [facility] PA/Appeal staff to initiate an appeal for Voquezna 10mg. It has beenapproved in the past. Spoke with Yamila. I did look and med was approved on 05/28/24 to 11/22/24. She said that it was it just needed a reauth. She has initiated the auth and its an expedited auth and they have 72 hours to make decision. Ref #[id number]. * Telephone Encounter - Yoselin Cunningham APRN - 04/17/2025 7:27 AM EDT He has tried every single one of those medications and we have it documented throughout previous notes. Can we appeal? documented in this encounter Plan of Treatment Upcoming Encounters Date Type Department Care Team (Late st Contact Info) Description 10/09/2025 11:00 AM EDT Office Visit [facility] Medicine Specialties [address] [place] [address] Yoselin Cunningham APRN [address] [place] [address] documented as of this encounter Visit Diagnoses [...] documented as of this encounter Care Teams Resource Efficiency Manager Relationship Specialty Start Date End Date Willian Manjarrez MD [address] [place] [address] PCP - General 04/13/21 documented as of this encounter
--- OUTSIDE RECORDS SUMMARY | 2025-05-14 11:33 | XMS_ITS | Encounter Summary ---
Author Organization [employer] ([place], [place], [place], [place]) Address [address] [place] [address] Care Team Providers Care Plant Protection Superintendent Name Role Phone Unavailable Primary Care Provider Unavailabl e Encounter Details Date Type Department Care Team (Late st Contact Info) Description 12/17/2018 Transcribed Document [facility] [place] [facility] [place] [address] ProviderTara MD [address] [place], [place] [address] Social History Tobacco Use Types Packs/Day Years [...] 12/17/2018 12:49 AM CDT Electronically signed by [facility] Conversion Patient Assessment Coordinator Cerner at 11/03/2022 6:58 AM CDT documented in this encounter Plan of Treatment Not on file documented as of this encounter Visit Diagnoses Not on filedocumented in this encounter
--- OUTSIDE RECORDS SUMMARY | 2025-05-14 11:33 | XMS_ITS | Encounter Summary ---
Author Organization [employer] ([place], [place], [place], [place]) Address [address] [place] [address] Care Team Providers Care Mechanical Specialist Name Role Phone Unavailable Primary Care Provider Unavailabl e Encounter Details Date Type Department Care Team (Late st Contact Info) Description 11/28/2018 Transcribed Document [facility] [place] [address] ProviderTara MD [address] [place] [phone] Social History Tobacco Use Types Packs/Day Years [...] Source : Stated Height Entry Format : [place]s Height, Feet : 6 ft(Converted to: 183 cm, 72 Inch) Height, Inches : 1 Inch(Converted to: 0 ft 1 Inch, 2.54 cm) Clinical Height : 185.42 cm Weight Source : Standing scale Weight Entry Format : Hinds Clinical Dosing Weight : 63.3 kg Weight, Pounds : 139 lb Weight, Ounces : 4 oz Body Surface Area (BSA) : 1.85 m2 Body Mass Index : 18.4 kg/m2 (LOW) [place] Body Weight : 79 kg Kristen Langston [...] Person/Pt Rep Contact Information : linda maria [phone]/mom [phone] thea Bustos Family/Rep/Phys Notified of Admit : No Emergency Contact #1 : Renato Greenberg Emergency Contact #1 Emergency Contact #1 Relationship : Father Emergency Contact #2 : na Emergency Contact #2 Phone Number : na Emergency Contact #2 Relationship : na Primary Language : Albanian Preferred Communication Mode : Verbal Communication Barrier [...] IV Therapy or IV Access : Yes [place] Gait/Transferring : Normal, bedrest, immobile [place] Mental Status : Oriented to own ability [place] Fall Risk Score : 20 T[place] Fall Scale Risk Level : 0-24 Low Risk [place] Fall Interventions : Adequate lighting, Bed in [...]
--- OUTSIDE RECORDS SUMMARY | 2025-05-14 11:33 | XMS_ITS | Encounter Summary ---
Author Organization [employer] ([place], [place], [place], [place]) Address [address] [place] [address] Care Team Providers Care Wire Drawer Name Role Phone Unavailable Primary Care Provider Unavailabl e Encounter Details Date Type Department Care Team (Late st Contact Info) Description 12/17/2018 Transcribed Document [facility] [place] [facility] [place] [address] ProviderTara MD [address] [place], [place] [id number] Social History Tobacco Use Types Packs/Day Years [...]
--- OUTSIDE RECORDS SUMMARY | 2025-05-14 11:33 | XMS_ITS | Encounter Summary ---
Author Organization [employer] ([place], [place], [place], [place]) Address [address] [place] [address] Care Team Providers Care Licensed Real Estate Broker Name Role Phone Unavailable Primary Care Provider Unavailabl e Encounter Details Date Type Department Care Team (Late st Contact Info) Description 11/28/2018 Transcribed Document [facility] [place] [facility] [place] [address] ProviderTara MD [address] [place] [id number] Social History Tobacco Use Types Packs/Day Years Used Date Smoking Tobacco: Never Assessed Sex and Gender Information Value Date Recorded Sex Assigned at Not on file Legal Sex Male 5:36 PM CDT Gender Identity Not on file Sexual Orientation Not on file documented as of this encounter Miscellaneous Notes * Cerner Conversion Note - Tara Pavon MD - 11/28/2018 8:44 AM CDT [facility] IntraOp Summary Primary Physician: RANJIT AHMADI MD Finalized Date/Time: 11/28/18 09:06:47 Pt. Name: MARITZA GREENBERGMat JOSHI /Sex: 1985 Male Med Rec #: [id number] Physician: RANJIT AHMADI MD Financial #: [id number] Pt. Type: O Room/Bed: / Admit/Disch: 11/28/18 07:15:00 - Institution: [facility] - Case Attendance Entry 1 Entry 2 Entry 3 Case Attendee RANJIT AHMADI MD Stapleton, Ashley, Rn LANDON Gilbert, MICROFILMER Role Performed Surgeon/Proceduralist, Kitchen And Bath Designer, First MICROFILMER/Nurse Carpenter Mold First Time In 11/28/18 08:31:00 11/28/18 08:31:00 [...] MD-ANS Role Performed Anesthesiologist of Scrub, First Aeronautical Engineer Record Time In 11/28/18 08:31:00 11/28/18 08:31:00 [...] Rn 11/28/18 08:51:50 11/28/18 08:51:50 11/28/18 08:51:50 [facility] - Case Attendance Audit 11/28/18 08:51:50 Burglar Alarm Superintendent: DONAL Modifier: DONAL 1 <*> Procedure Endoretrogradecholangiopancreatography, Pancreatic Duct Stent Placement 2 <*> Procedure Endoretrogradecholangiopancreatography, Pancreatic Duct Stent Placement 3 <*> Procedure Endoretrogradecholangiopancreatography, Pancreatic Duct Stent Placement 4 <*> Procedure Endoretrogradecholangiopancreatography, Pancreatic Duct Stent Placement 5 <*> Procedure Endoretrogradecholangiopancreatography, Pancreatic Duct Stent Placement 6 <*> Procedure Endoretrogradecholangiopancreatography, Pancreatic Duct Stent Placement 11/28/18 08:49:36 Burglar Alarm Superintendent: DONAL Modifier: COREENLEYSTAPLETON 1 <*> Procedure Endoretrogradecholangiopancreatography 2 <*> Procedure Endoretrogradecholangiopancreatography 3 <*> Procedure Endoretrogradecholangiopancreatography 4 <*> Procedure Endoretrogradecholangiopancreatography 5 <*> Procedure Endoretrogradecholangiopancreatography 6 <*> Procedure Endoretrogradecholangiopancreatography 11/28/18 08:46:46 Burglar Alarm Superintendent: DONAL Modifier: ANILSTAPLETON 1 <+> Time In [...] Out 6 <*> Procedure Endoretrogradecholangiopancreatography 11/28/18 08:42:33 Burglar Alarm Superintendent: DONAL Modifier: ANILSTAPLETON 1 <*> Case Attendee RANJIT AHMADI MD 1 <*> Role Performed Surgeon/Proceduralist, First 1 <*> Procedure Endoretrogradecholangiopancreatography 2 <*> Case Attendee Anil Langston Rn 2 <*> Role Performed Kitchen And Bath Designer, First 2 <*> Procedure Endoretrogradecholangiopancreatography Entry 3 was deleted. Higher numbered entries shifted one position to fill the gap. <-> 3 Case Attendee BERNIE WREN MD <-> 3 Role Performed Anesthesiologist <-> 3 Procedure Endoretrogradecholangiopancreatography <+> 4 Case Attendee <+> 4 Role Performed <+> 4 Procedure <+> 5 Case Attendee <+> 5 Role Performed <+> 5 Procedure 11/28/18 08:10:07 Burglar Alarm Superintendent: ASHLEYSTAPLETON Modifier: ASHLEYSTAPLETON <+> 2 Case Attendee <+> 2 Role Performed <+> 2 Procedure <+> 3 Case Attendee <+> 3 Role Performed <+> 3 Procedure [facility] - Case times Entry 1 Patient In Room Time 11/28/18 08:31:00 Out Room Time 11/28/18 09:01:00 Anesthesia Start Time 11/28/18 08:31:00 Stop Time 11/28/18 09:01:00 Surgery / Procedure Times Start Time 11/28/18 08:44:00 Stop Time 11/28/18 08:54:00 Last Modified By: Anil Langston Rn 11/28/18 08:56:11 [facility] - Case times Audit 11/28/18 08:56:11 Burglar Alarm Superintendent: ASHLEYSTAPLETON Modifier: ASHLEYSTAPLETON 1 <*> Out Room Time 11/28/18 08:42:00 1 <+> Stop Time 1 <+> Stop Time 11/28/18 08:44:28 Burglar Alarm Superintendent: ASHLEYSTAPLETON Modifier: ASHLEYSTAPLETON <+> 1 Start Time [facility] - Cautery Entry 1 ESU Identification Cautery Type Monopolar ESU ID Number Room [id number] ID Type Hospital Number Cautery Settings Blend Setting Pulse Cut Slow 120 ESU Grounding Pad Ground Pad Type Adult Grounding Pad Site Intact, Dry Skin Condition Before Cautery Grounding Pad Site Unchanged Skin Condition After Cautery Last Modified By: Mildred Moses Rn 11/28/18 09:05:54 [facility] - Cautery Audit 11/28/18 09:05:54 Burglar Alarm Superintendent: ANILSTAPLETON Modifier: MFWARD 1 <*> Cautery Type [...] Skin Condition Unchanged After Cautery 11/28/18 08:55:48 Burglar Alarm Superintendent: ANDREAAPLTRENT Modifier: ASHLEYSTAPLETON <+> 2 Blend Setting <+> 2 Ground Pad Type <+> 2 ID Number <+> 2 ID Type <+> 2 Grounding Pad Site Skin Condition Before Cautery <+> 2 Grounding Pad Site Skin Condition After Cautery [facility] - Delays Entry 1 Delay Reason Other Duration 0 Minute(s) Comment No Delay Last Modified By: Anil Langston Rn 11/28/18 08:40:13 [facility] - Departure from OR Entry 1 Integumentary Assessment Integumentary WDL Assessment WDL Transfer/Handoff Transfer to PACU Phase I Handoff Method Bedside/Face to face Handoff Reported to Josué, Ender Levy Post-op Transport Stretcher/Gurney Via Patient Transport Anil Langston Rn, Accompanied by LANDON Gilbert CRNA Last Modified By: Anil Langston Rn 11/28/18 08:43:04 [facility] - Departure from OR Audit 11/28/18 08:43:04 Burglar Alarm Superintendent: DONAL Modifier: ANDREAAPLETON 1 <*> Patient Transport Accompanied by Anil Langston Rn [facility] - Endoscopy Details Entry 1 Abdomen Procedure Soft, Non-Tender Assessment Procedure Abdomen 11/28/18 08:31:00 Assessment D/T Radio Frequency Ablation Last Modified By: Anil Langston Rn 11/28/18 08:44:01 [facility] - Fire Risk Assessment Entry 1 [...] Modified By: Anil Langston Rn 11/28/18 08:44:07 [facility] - General Case Credit Collection Associate 1 Case Information OR Endo 04 [facility] Case Level 1 Room Verified Yes Wound Class II - Clean-Contaminated Specialty SN Gastroenterology Anesthesia Type General ASA Class 2 Diagnosis Preop Diagnosis biliary colic Postop Same As Preop No Postop Diagnosis biliary colic, sphincter dysfunction Last Modified By: Anil Langston Rn 11/28/18 08:55:41 [facility] - General Case Data Audit 11/28/18 08:55:41 Burglar Alarm Superintendent: ASHLEYSTAPLETON Modifier: ASHLEYSTAPLETON 1 <*> Postop Diagnosis biliary colic 11/28/18 08:40:10 Burglar Alarm Superintendent: ASHLEYSTAPLETON Modifier: ASHLEYSTAPLETON <+> 1 ASA Class <+> 1 Postop Same As Preop <+> 1 Preop Diagnosis <+> 1 Postop Diagnosis [facility] - Implant Log Entry 1 Implant Log Implant STENT PANC ADVANIX Identification [id number] Description Implant Quantity 1 Implant [id number] Identification Lot Number Implant [place] [employer]:Endo Identification Software Configuration Engineer Name: Implant [id number] Identification Catalog Number Implant Expiration 12/03/19 Date Tissue Implant Last Modified By: Anil Langston Rn 11/28/18 08:51:08 [facility] - Intraoperative Assessment Entry 1 Valid History / Yes Physical in Chart Preoperative Yes Checklist Reviewed/Evaluated Patient is Latex No Sensitive Level of WDL Consciousness (WDL = Alert, Oriented to Person, Place, and Time) Last Modified By: Anil Langston Rn 11/28/18 08:44:18 [facility] - Intraoperative Equipment Entry 1 Type Scope Equipment Intraop Monitoring Electrocardiogram Three lead placement (ECG) Electrode Placement Blood Pressure Arm, left upper Location Pulse Oximeter Hand, right Probe Site Antiembolic Devices Scopes Flexible Endoscopes ERCP Scope Used Scope Serial E-8 Number/Identificatio n Number Photo/Video Documentation Photo Yes Video No Last Modified By: Anil Langston Rn 11/28/18 08:46:06 [facility] - Patient Positioning Entry 1 Procedure [...] Modified By: Anil Langston Rn 11/28/18 08:51:52 [facility] - Patient Positioning Audit 11/28/18 08:51:52 Burglar Alarm Superintendent: DONAL Modifier: ANILSTAPLETON 1 <*> Procedure Endoretrogradecholangiopancreatography, Pancreatic Duct Stent Placement 11/28/18 08:49:37 Burglar Alarm Superintendent: NEHALETON Modifier: ANILSTAPLETON 1 <*> Procedure Endoretrogradecholangiopancreatography [facility] - Sign In Entry 1 Patient, Site, Yes Procedure Identified Surgical Consent Yes Confirmed Surgical Site N/A Marked by person performing procedure Airway Hypothermia Risk No Warming Measures No Taken Last Modified By: Anil Langston Rn 11/28/18 08:40:23 [facility] - Sign Out Entry 1 RN [...] Modified By: Anil Langston Rn 11/28/18 08:58:13 [facility] - Sign Out Audit 11/28/18 08:58:13 Burglar Alarm Superintendent: DONAL Modifier: ANILSTAPLETON 1 <+> OUTCOME STATEMENT: [...] Catheter Documented in Paula N/A 11/28/18 08:57:56 Burglar Alarm Superintendent: DONAL Modifier: ASHLEYSTAPLETON <+> 1 RN Sign Out Signature <+> 1 RN Sign Out Signature Date/Time [facility] - Surgical Procedures Entry 1 Entry [...] Modified By: Anil Langston Rn 11/28/18 08:57:08 [facility] - Surgical Procedures Audit 11/28/18 08:57:08 Burglar Alarm Superintendent: DONAL Modifier: ASHBUDDYSTAPLETON <+> 1 Stop <+> 2 Stop <+> 3 Stop <+> 4 Stop 11/28/18 08:51:46 Burglar Alarm Superintendent: ANILSTAPLETON Modifier: ASHLEYSTAPLETON <+> 3 Procedure <+> 3 Primary Procedure <+> 3 Primary Surgeon <+> 3 Specialty <+> 3 Start <+> 3 Wound Class <+> 3 Anesthesia Type <+> 4 Procedure <+> 4 Primary Procedure <+> 4 Primary Surgeon <+> 4 Specialty <+> 4 Start <+> 4 Wound Class <+> 4 Anesthesia Type 11/28/18 08:49:33 Burglar Alarm Superintendent: ANILSTAPLETON Modifier: ASHLEYSTAPLETON <+> 2 Procedure <+> 2 Primary Procedure <+> 2 Primary Surgeon <+> 2 Specialty <+> 2 Start <+> 2 Wound Class <+> 2 Anesthesia Type 11/28/18 08:46:17 Burglar Alarm Superintendent: ANILSTASHELYETON Modifier: ASHLEYSTAPLETON 1 <*> Procedure Endoretrogradecholangiopancreatography 1 <+> Specialty 1 <+> Start [facility] - Time Out Entry 1 Procedure [...] Modified By: Anil Langston Rn 11/28/18 08:51:52 [facility] - Time Out Audit 11/28/18 08:51:52 Burglar Alarm Superintendent: DONAL Modifier: ANILSTAPLETON 1 <*> Procedure to be Performed Endoretrogradecholangiopancreatography, Pancreatic Duct Stent Placement 11/28/18 08:49:38 Burglar Alarm Superintendent: ANILSTAPLETON Modifier: ASHLEYSTAPLETON 1 <*> Procedure to be Performed Endoretrogradecholangiopancreatography [facility] - X-Ray and Images Entry 1 X-Ray/Imaging Type Fluoroscopy Fluoroscopy Type C-Arm Dress Marker Name ILAN EATON Protective Devices Yes Used Exposure Time 1.1 Last Modified By: Mildred Moses Rn 11/28/18 09:06:45 [facility] - X-Ray and Images Audit 11/28/18 09:06:45 Burglar Alarm Superintendent: DONAL Modifier: SOCORRO 1 <*> Protective Devices Used No Case Comments <None> Finalized By: Mildred Moses, Rn Document Signatures Signed By: Mildred Moses Rn 11/28/18 09:06 Electronically signed by Magdiel [facility] Conversion Slab Worker Cerner at 11/03/2022 7:14 AM CDT documented in this encounter Plan of Treatment Not on file documented as of this encounter Visit Diagnoses Not on filedocumented in this encounter
--- OUTSIDE RECORDS SUMMARY | 2025-05-14 11:33 | XMS_ITS | Clinical Summary ---
Author Organization [facility] Address [address] [place] [address] Care Team Providers Care Dwarf Tree Grower Name Role Phone Willian Manjarrez MD Primary Care Provider [phone] Allergies No known active allergies Medications ALPRAZolam [...] BEDTIME NIGHTLY NEEDED FOR ANXIETY 05/03/2024 Active ALPRAZolam XR (Xanax XR) 1 MG 24 hr tablet Take 1 tablet by mouth daily. 12/06/2024 Active Vonoprazan Fumarate (Voquezna) 10 MG tabletIndication s:Gastroesophage al reflux disease without esophagitis Take 1 tablet by mouth daily. 90 tablet 1 04/10/2025 Active Active Problems Problem Noted Date Diagnosed Date Anxiety 05/23/2024 Depression 05/23/2024 Dizziness 05/23/2024 Overview (05/23/2024): Suspected symptomatic SVT Erythema 05/23/2024 Exposure to blood or body fluid 05/23/2024 Heart palpitations 05/23/2024 First degree AV block 05/23/2024 IBS (irritable bowel syndrome) 05/23/2024 Assessment & Plan (04/10/2025 1:01 PM EDT): - Chronic, intermittent symptoms associated with an increase in stress. - Previously took Amitriptyline, Dicyclomine, fiber, Imodium, Hyoscyamine. Xifaxan, Cyproheptadine. - Does not find symptoms to be bothersome at this time. Follow up in 6 months. Infectious diarrhea in adult patient 05/23/2024 Myalgia 05/23/2024 Panic disorder 05/23/2024 SVT (supraventricular tachycardia) 05/23/2024 Strep throat 02/29/2024 Spontaneous pneumothorax 02/29/2024 Rib pain on left side 02/29/2024 Pityriasis rosea 02/29/2024 Olecranon bursitis 02/29/2024 Low back strain 02/29/2024 Low back pain 02/29/2024 Headache 02/29/2024 Contact dermatitis 02/29/2024 Duodenitis 12/09/2020 Gastroesophageal reflux disease without esophagi tis 11/23/2016 Assessment & Plan (04/10/2025 1:01 PM EDT): - Repeat EGD reviewed. - Previous Taylor [...] by mouth daily. Follow Up GI; Future Change in bowel movement 11/23/2016 Resolved Problems Problem Noted Date Diagnosed Date Resolved Date Influenza A 05/23/2024 04/07/2025 URI with cough and congestion 02/29/2024 04/07/2025 Upper respiratory infection 02/29/2024 04/07/2025 Pharyngitis 02/29/2024 04/07/2025 Overweight (BMI 25.0-29.9) 02/29/2024 0 04/07/2025 Foot pain, left 02/29/2024 04/07/2025 Flu-like symptoms 02/29/2024 04/07/2025 COVID-19 02/29/2024 04/07/2025 Abdominal pain 02/29/2024 04/07/2025 Loose stools 01/25/2019 04/07/2025 Encounters Date Type Department Care Team Description 04/18/2025 Telephone [facility] [address] [place] [phone] Yoselin Cunningham APRN Retruning Call (Returning call /Returning call /Return call /Returning my call to her ) 04/10/2025 11:00 AM EDT Office Visit [facility] [address] [place] [address] Yoselin Cunningham APRN Gastroesophageal reflux disease without esophagitis (Primary Dx); Irritable bowel syndrome, unspecified type 04/10/2025 Telephone [facility] [address] [place] [phone] Victoria Trejo, PharmD Calling to initiate a med appeal (Calling to initiate a med appeal ) 04/10/2025 Travel from Last 3 Months Immunizations Immunization Administration Dates Next Due Hep [...] Mass Index 28.58 04/10/2025 11:16 AM EDT Plan of Treatment Upcoming Encounters Date Type Department Care Team (Late st Contact Info) Description 10/09/2025 11:00 AM EDT Office Visit [facility] [address] [place] [address] Yoselin Cunningham L, MANAGING PRINCIPAL [address] [place] [address] Health Maintenance Due Date Last Done Comments [facility]-/Child/Adol SDOH Screenings 1985 [id number] Vaccine (#1) 12/29/1992 [facility]-Varicella Vaccines (1 of 2 - 13+ 2-dose series) 12/29/2000 [facility]- SDOH Screenings 12/29/2005 [facility]-Adult SDOH Screenings 12/29/2005 HPV Vaccines (1 - 3-dose SCDM series) 12/29/2014 [facility]-Influenza Vaccine (#1) 2025 [facility]-Depression Screening 04/10/2026 025, 04/10/2025, 01/22/2022, Additional history exists [facility]-DTaP,Tdap,and Td Vaccines (3 - Td or Tdap) 05/06/2032 05/06/2022, 04/11/2003 [facility]-Zoster Vaccines (1 of 2) 12/29/2037 [facility]-Hepatitis B Vaccines Completed 000, 03/30/1999, 03/30/1999, Additional history exists [facility]-HIV Screening Completed 06/02/2023, 12/13/2021 [facility]-Hepatitis C Screening Completed 06/02/2023, [facility]-Obesity Intervention Completed 025, 10/03/2024, 05/23/2024, Additional history exists [facility]-HIB Vaccines Aged Out [...] Reactive Non Reactive 06/02/2023 10:29 PM EST [facility] Comment:Screening for HIV 1 & 2 antibodies, and P24 antigen is NONREACTIVE. No confirmatory testing is required. Blood Venous blood specimen / Unknown Venipuncture / Unknown 06/02/2023 9:32 PM EST 06/02/2023 9:43 PM EST Jasmeet Singh MD LAB BLOOD ORDERABLES Final Res ult Performing Organization Address City/[facility]/ZIP Co de Phone Number [facility] [address] [place] [address] * Hepatitis C Antibody - ED (06/02/2023 9:32 PM EST) [facility] Signature Hepatitis C Antibody Negative Negative 06/02/2023 10:27 PM EST [facility] Blood Venous blood specimen / Unknown Venipuncture / Unknown 06/02/2023 9:32 PM EST 06/02/2023 9:43 PM EST Jasmeet Singh MD LAB BLOOD ORDERABLES Final Res ult Performing Organization Address City/[facility] Co de Phone Number [facility] [address] [place] [address] from Last 3 Months or Most Recently Relevant to Health Maintenance Insurance [facility] Care Teams Dwarf Tree Grower Relationship Specialty Start Date End Date Willian Manjarrez MD [address] [place] [address] [facility] - General 04/13/21
--- OUTSIDE RECORDS SUMMARY | 2025-05-14 11:33 | XMS_ITS | Clinical Summary ---
Author Organization [employer] ([place], [place], [place], [place]) Address [address] [place] [address] Care Team Providers Care Director Meetings Name Role Phone Unavailable Primary Care Provider [...]
--- OUTSIDE RECORDS SUMMARY | 2025-05-14 11:33 | XMS_ITS | Encounter Summary ---
Author Organization [employer] ([place], [place], [place], [place]) Address [address] [place] [address] Care Team Providers Care Drill Runner Name Role Phone Unavailable Primary Care Provider Unavailabl e Encounter Details Date Type Department Care Team (Late st Contact Info) Description 12/16/2018 Transcribed Document [facility] Family Medicine [facility] [address] ProviderTara MD [address] [place], [place] [phone] Social History Tobacco Use Types Packs/Day Years [...] EDT Height Source Stated Height Entry Format Mineral Height/Length, SAO TOMEAN (ft) 6 ft Height/Length SAO TOMEAN 0 Inch CLINICALHEIGHT 182.88 cm [place] Body Weight 76.59 kg Weight Source, ED Critical estimated dosing weight Weight Entry Format Mineral Weight [place] lb 145 lb CLINICALWEIGHT 65.91 kg Body [...] ED Adult Triage: ED Clinical Reconciliation: ED philanthropy officer: Lactic Acid Level with Reflex if Indicated: [...] % 35.9 % Lymph # 2.27 x10(3)/uL Cottle % 6.5 % Cottle # 0.41 K/uL Eos % 1.4 % Eos # 0.09 x10(3)/uL Baso % 0.8 % Baso # 0.05 x10(3)/uL Slide Review No IG# 0.05 x10(3)/uL IG% 0.80 % HI 12/16/2018 22:27 EDT Urine Type. U CleanCatch Urine Color Yellow Urine Appearance Clear Urine Specific [place] 1.008 Urine pH Dipstick 6.5 Urine Leukocyte Esterase Negative Urine Nitrite Negative Urine Protein Dipstick Negative Urine Glucose Dipstick Negative Urine Ketones Dipstick Negative Urine Urobilinogen Dipstick 0.2 EU/dL Urine Bilirubin Dipstick Negative Urine Blood Dipstick Negative . Radiology results: Preliminary Report NAME: GUNNAR GREENBERG Jillian / SEX: 1985 / Male MRN / ACC#: [id number] / [id number] ORDERING PHYSICIAN: Quiana Fernandez EXAM REQUESTED: [id number]--[id number] ABDOMEN & PELVIS W/CONTRAST FACILITY: [facility] DATE: 12/16/2018 RADIOLOGIST NAME: Oswald Shetty [...] 0:49 EDT, Discharge to: Home. Prescriptions: Prescription Lead Etl Developer Pharmacy: Pepcid 20 mg oral tablet (Prescribe): [...]
--- OUTSIDE RECORDS SUMMARY | 2025-05-14 11:33 | XMS_ITS | Encounter Summary ---
Author Organization [employer] ([place], [place], [place], [place]) Address [address] [place] [address] Care Team Providers Care Hobbing Machine Operator Name Role Phone Unavailable Primary Care Provider Unavailabl e Encounter Details Date Type Department Care Team (Late st Contact Info) Description 12/16/2018 Transcribed Document [facility] [place] Medicine [facility] [place] [address] ProviderTara MD [address] [place], [place] [phone] Social History Tobacco Use Types Packs/Day Years [...] morphine Performed by Nabil [facility] Solar Hot Water Installer on 12/16/2018 22:46:00 EDT morphine,4mg IV Push,Left Mid Forearm Pain Assessment Pain Assessment : Follow-up assessment Pain Scale Goal : 0 Pain Scale Used : 0-10 Scale Location : Abdomen, left upper ANIL ROSS RN - 12/16/2018 23:28 EDT Pain [...]
--- OUTSIDE RECORDS SUMMARY | 2025-05-14 11:33 | XMS_ITS | Encounter Summary ---
Author Organization Healthcare Address [address] [place] [address] Care Team Providers Care Rental Clerk Name Role Phone Willian Manjarrez MD Primary Care Provider [phone] Encounter Details Date Type Department Care Team (Late st Contact Info) Description 03/14/2024 Lab Requisition [facility] [address] [place] [address] Oswald Ruiz MD [address] [facility] [address] [place] [address] Dysphagia, unspecified Social History Tobacco [...] Department Care Team (Late Contact Info) Description 10/09/2025 11:00 AM EDT Office Visit [place] [facility] [address] [place] [address] Yoselin Cunningham, NURSING PROGRAM DIRECTOR [address] [facility] [address] [place] [address] documented as of this encounter Procedures Procedure Name Priority Date/Time Associated Diagnosis Comments SURGICAL PATHOLOGY EXAM Routine 03/13/2024 Dysphagia, unspecified documented in this encounter Results * Surgical Pathology Exam (03/13/2024) Case Report Surgical Pathology Case: [id number] Authorizing Provider: Oswald Ruiz MD Collected: 03/13/2024 Ordering Location: [facility] Lab Received: 03/14/2024 1055 Pathologist: Aiden Hale DO Specimens: A) - Duodenum, Duodenal Biopsies B) - Stomach, Gastric Biopsies C) - Esophagus, Distal Esophagus Biopsies D) - Esophagus, Mid Esophagus Biopsies 03/15/2024 11:17 AM EDT [facility] Final Diagnosis A. SMALL INTESTINE, DUODENUM, BIOPSY: - NO PATHOLOGIC ABNORMALITY. - NO EVIDENCE OF VILLOUS ABNORMALITY OR INTRAEPITHELIAL LYMPHOCYTOSIS. B. STOMACH, BIOPSY: - REACTIVE GASTROPATHY WITH FEATURES OF PRIOR EROSION. - NO EVIDENCE OF HELICOBACTER-LIKE ORGANISMS ON ROUTINE STAIN. C. ESOPHAGUS, DISTAL, BIOPSY: - NO PATHOLOGIC ABNORMALITY. D. ESOPHAGUS, MID, BIOPSY: - NO PATHOLOGIC ABNORMALITY. 03/15/2024 11:17 AM EDT [facility] at 1117 EDT Clinical Information Dysphagia, unspecified IBS Dyspepsia Epigastric abdominal pain EGD findings: - The upper third of the esophagus, middle third of the esophagus and lower third of the esophagus were normal. - The entire examined stomach was normal. - The duodenal bulb and second portion of the duodenum were normal. 03/15/2024 11:17 AM EDT [facility] Gross Description A. DUODENAL BIOPSIES Received in formalin labeled duodenal biopsies , are 6 mckeon-red soft tissue fragments measuring 0.1-0.2 cm in greatest dimension. Specimen submitted entirely in cassette A1. Cold Time: 0 Chyann R Fide B. GASTRIC BIOPSIES Received in formalin labeled g astric biopsies , are 5 mckeon-red soft tissue fragments measuring 0.2-0.4 cm in greatest dimension. Specimen submitted entirely in cassette B1. Cold Time: 0 Chyann R Beals C. DISTAL ESOPHAGUS BIOPSIES Received in formalin labeled d istal esophagus biopsies , are 4 white-red soft tissue fragments measuring 0.2-0.4 cm in greatest dimension. Specimen submitted entirely in cassette C1. Cold Time: 0 Chyann R Beals D. MID ESOPHAGUS BIOPSIES Received in formalin labeled e sophagus biopsies , are 4 white-red soft tissue fragments measuring 0.2-0.3 cm in greatest dimension. Specimen submitted entirely in cassette D1. Cold Time: 0 Chyann R Beals 03/15/2024 11:17 AM EDT [facility] [...] ORDERABLES Fi nal Result Performing Organization Address City/State/[facility] de Phone Number [facility]ALTHCARE [facility] [address] [place] [address] documented in this encounter Visit Diagnoses Diagnosis [...] documented as of this encounter Care Teams Rental Clerk Relationship Specialty Start Date End Date Willian Manjarrez MD [address] [place] [address] PCP - General 04/13/21 documented as of this encounter
--- OUTSIDE RECORDS SUMMARY | 2025-05-14 11:33 | XMS_ITS | Encounter Summary ---
Author Organization [employer] ([place], [place], [place], [place]) Address [address] [place] [address] Care Team Providers Care Twenty One Dealer Name Role Phone Unavailable Primary Care Provider Unavailabl e Encounter Details Date Type Department Care Team (Late st Contact Info) Description 11/28/2018 Transcribed Document [facility] Family Medicine [facility] [place] [address] ProviderTara MD [address] [place], [place] [id number] Social History Tobacco Use Types Packs/Day Years [...] *Findings Normal ampulla. Normal PD. A 5 Occitan by 2cm single pigtailed pancreatic stent was [...] Time: 11/28/18 08:44:00 (EDT) (11/28/18 08:51:46 EDT) Electronically signed by Esvin Veloz Conversion Forward Air Controller/Air Officer Cerner at 11/03/2022 7:19 AM CDT documented in this encounter Plan of Treatment Not on file documented as of this encounter Visit Diagnoses Not on filedocumented in this encounter
--- OUTSIDE RECORDS SUMMARY | 2025-05-14 11:33 | XMS_ITS | Encounter Summary ---
Author Organization [employer] ([place], [place], [place], [place]) Address [address] [place] [address] Care Team Providers Care Inspector Paper Products Name Role Phone Unavailable Primary Care Provider Unavailabl e Encounter Details Date Type Department Care Team (Late st Contact Info) Description 12/16/2018 Transcribed Document [facility] [facility] [place] [address] ProviderTara MD [address] [place], [place] [address] Social History Tobacco Use Types Packs/Day Years [...] Communication Barrier : None Primary Language : Turkmen Any Spiritual/Cultural Needs or Requests : No [...] 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 pt states he had cholectomy in july [...]
--- OUTSIDE RECORDS SUMMARY | 2025-05-14 11:33 | XMS_ITS | Encounter Summary ---
Author Organization Healthcare Address [address] [place] [address] Care Team Providers Care Battery Service Technician Name Role Phone Willian Manjarrez MD Primary Care Provider [phone] Reason for Visit * Reason Comments Med Refill Encounter Details Date Type Department Care Team (Late st Contact Info) Description 06/15/2021 Refill [place] [facility] [address] [place] [address] Yoselin Cunningham APRN [address] [place] [address] Social History Tobacco Use Types [...] Description 10/09/2025 11:00 AM EDT Office Visit [place] [facility] [address] [place] [address] Yoselin Cunningham, HYDROELECTRIC STATION OPERATOR CHIEF [address] [place] [address] documented as of this encounter Visit Diagnoses Not on filedocumented in this encounter Additional Health Concerns Infection Onset Date Last Indicated Resolved Time Influenza 05/23/2024 05/23/2024 06/20/2024 5:23 AM EST Assessment Noted Time A fall risk assessment has been complete d for the patient 04/03/2021 7:40 AM EDT documented as of this encounter Care Teams Battery Service Technician Relationship Specialty Start Date End Date Willian Manjarrez MD [address] [place] [address] PCP - General 04/13/21 documented as of this encounter
--- OUTSIDE RECORDS SUMMARY | 2025-05-14 11:34 | XMS_ITS | Encounter Summary ---
Author Organization [facility] Address [address] [place] [address] Care Team Providers Care Consultant Electronics Name Role Phone Willian Manjarrez MD Primary Care Provider [phone] Reason for Visit * Reason Comments Med Refill Encounter Details Date Type Department Care Team (Late st Contact Info) Description 02/14/2023 Refill [place] [facility] [address] [place] [address] Yoselin Cunningham, MULTIPLE PUNCH PRESS OPERATOR [address] [place] [address] Social History Tobacco Use Types [...] for 30 day supply with 6 refill(s) [facility]. documented in this encounter Plan of Treatment Upcoming Encounters Date Type Department Care Team (Late st Contact Info) Description 10/09/2025 11:00 AM EDT Office Visit [place] [facility] [address] [place] [address] Yoselin Cunningham, MULTIPLE PUNCH PRESS OPERATOR [address] [place] [address] documented as of this encounter [...] documented as of this encounter Care Teams Consultant Electronics Relationship Specialty Start Date End Date Willian Manjarrez MD [address] [place] [address] PCP - General 04/13/21 documented as of this encounter
--- OUTSIDE RECORDS SUMMARY | 2025-05-14 11:34 | XMS_ITS | Clinical Summary ---
Author Organization [facility] Address [address] [place] [id number] Care Team Providers Care Environmental Protection Officer Name Role Phone Yuri Castillo MD [...] 1987 TDAP/TD VACCINES (1 - Tdap) 12/29/2006 INFLUENZA VACCINE 02/15/2025 Pneumococcal Vaccine 0-49 Aged Out No longer eligible based on patient's age to complete this topic Care Teams Environmental Protection Officer Relationship Specialty Start Date End Date Yuri Castillo MD PCP - General 03/23/15
--- OUTSIDE RECORDS SUMMARY | 2025-05-14 11:34 | XMS_ITS | Referral Summary ---
Author Organization [employer] ([place], [place], [place], [place]) Address [address] [place] [address] Care Team Providers Care Pharmacy Manager Name Role Phone Unavailable Primary Care [...]
--- OUTSIDE RECORDS SUMMARY | 2025-05-14 11:34 | XMS_ITS | Encounter Summary ---
Author Organization Healthcare Address [address] [place] [address] Care Team Providers Care Party Plan Demonstrator Name Role Phone Willian Manjarrez MD Primary Care Provider [phone] Reason for Visit * Reason Comments Med Refill Encounter Details Date Type Department Care Team (Late st Contact Info) Description 07/08/2021 Refill [place] [facility] [address] [place] [address] Yoselin Cunningham APRN [address] [place] [address] Social History Tobacco Use Types [...] Description 10/09/2025 11:00 AM EDT Office Visit [place] [facility] [address] [place] [address] Yoselin Cunningham, BARREL RIB MATTING MACHINE OPERATOR [address] [place] [address] documented as of this encounter Visit Diagnoses Not on filedocumented in this encounter Additional Health Concerns Infection Onset Date Last Indicated Resolved Time Influenza 05/23/2024 05/23/2024 06/20/2024 5:23 AM EST Assessment Noted Time A fall risk assessment has been complete d for the patient 04/03/2021 7:40 AM EDT documented as of this encounter Care Teams Party Plan Demonstrator Relationship Specialty Start Date End Date Willian Manjarrez MD [address] [place] [address] PCP - General 04/13/21 documented as of this encounter
--- OUTSIDE RECORDS SUMMARY | 2025-05-14 11:34 | XMS_ITS | Encounter Summary ---
Author Organization Healthcare Address [address] [place] [address] Care Team Providers Care Antiquer Name Role Phone Willian Manjarrez MD Primary Care Provider [phone] Reason for Referral * Consultation (Routine) - Closed Specialty Diagnoses / Procedures Referred By Contac t Referred To Contact Gastroenterology Diagnoses Gastroesophageal reflux disease without esophagitis Lizette [place] PA [address] [place] [address] Phone: tel: fax: Yoselin Cunningham L, PALEOLOGIST [address] [facility] [address] [place] [address] Phone: tel: fax: Referral ID Status Reason Start Date Expiration Date V isits Requested Visits Authorized [id number] Closed Specialty Services Required 02/28/2024 08/29/2025 1 1 Encounter Details Date Type Department Care Team (Latest Contact Info) Description 02/28/2024 Community [facility] [address] [place] [address] Lizette Lake PA [address] [place] [address] Gastroesophageal reflux disease without esophagitis [...] Description 10/09/2025 11:00 AM EDT Office Visit [facility] Medicine Specialties [address] [place] [address] Yoselin Cunningham, THOMAS [address] [place] [address] Scheduled Referrals Name Type Priority Associated Diagnoses [...] documented as of this encounter Care Teams Antiquer Relationship Specialty Start Date End Date Willian Manjarrez MD [address] [place] [address] PCP - General 04/13/21 documented as of this encounter
--- OUTSIDE RECORDS SUMMARY | 2025-05-14 11:34 | XMS_ITS | Encounter Summary ---
Author Organization [facility] Address [address] [place] [address] Care Team Providers Care Asp Net Programmer Name Role Phone Willian Manjarrez MD Primary Care Provider [phone] Reason for Visit * Reason Comments Med Refill Encounter Details Date Type Department Care Team (Late st Contact Info) Description 02/11/2023 Refill [place] [facility] [address] [place] [address] Yoselin Cunningham, VASCULAR ULTRASOUND TECHNICIAN [address] [place] [address] Social History Tobacco Use Types [...] 30 day supply with 6 refill(s) to [facility]. documented in this encounter Plan of Treatment Upcoming Encounters Date Type Department Care Team (Late st Contact Info) Description 10/09/2025 11:00 AM EDT Office Visit [place] [facility] [address] [place] [address] Yoselin Cunningham, VASCULAR ULTRASOUND TECHNICIAN [address] [place] [address] documented as of this encounter [...] documented as of this encounter Care Teams Asp Net Programmer Relationship Specialty Start Date End Date Willian Manjarrez MD [address] [place] [address] PCP - General 04/13/21 documented as of this encounter
== END 2025-05-13 23:59 | disposition home or self-care (01) ==
LOC: LAB.DROPOF 05-14 11:27
PROVIDERS: PCP Nurse Practitioner Family; Visit Provider Nurse Practitioner Family
DX: J02.9 Acute pharyngitis, unspecified (principal)
CPT/HCPCS: 87070